=== PATIENT | male | born 1950 | race Caucasian/White ===

== ENCOUNTER → 2016-08-27 | Outpatient (CLI) | payer MEDICARE, BC ==
--- NOTE | 2016-08-27 11:50 | XR ---
EXAMINATION TYPE: XR chest 2V DATE OF EXAM: 08/27/2016 11:43 AM COMPARISON: 08/10/2015 INDICATION: Cough TECHNIQUE: 2 view chest FINDINGS: The heart size is normal. The pulmonary vasculature is normal. The lungs are clear. IMPRESSION: 1. No acute pulmonary process.
== END | disposition home or self-care (01) ==
LOC: RADXRMAIN 11:21
PROVIDERS: ATTEND Internal Medicine
DX: R05 Cough (principal)
CPT/HCPCS: 71020

== ENCOUNTER → 2017-09-25 | Outpatient (CLI) | payer MEDICARE ==
--- NOTE | 2017-09-25 11:14 | XR ---
EXAMINATION TYPE: XR chest 2V DATE OF EXAM: 09/25/2017 COMPARISON: Chest x-ray August 27, 2016 HISTORY: Shortness of breath TECHNIQUE: Frontal and lateral views of the chest are obtained. FINDINGS: There is no focal air space opacity, pleural effusion, or pneumothorax seen. The cardiac silhouette size is within normal limits. The osseous structures are intact. IMPRESSION: No acute cardiopulmonary process. No significant change from prior.
== END | disposition home or self-care (01) ==
LOC: RADXRMAIN 10:48
PROVIDERS: ATTEND Internal Medicine
DX: R06.02 Shortness of breath (principal)
CPT/HCPCS: 71046

== ENCOUNTER → 2018-11-19 | Outpatient (CLI) | payer MEDICARE ==
--- NOTE | 2018-11-19 10:01 | BD ---
EXAMINATION TYPE: Axial Bone Density DATE OF EXAM: 11/19/2018 COMPARISON: NONE CLINICAL HISTORY: 68 YR OLD MALE.....ICD-10 CODE: M89.9 DISORDER OF BONE Height: 70.5 Weight: 205 FRAX RISK QUESTIONS: Glucocorticoids (More than 3mos): YES (Ex: prednisone, prednisolone, methylprednisolone, dexamethasone, and hydrocortisone). History of Fracture in Adulthood: YES Current Tobacco Use: QUIT LONG AGO RISK FACTORS HISTORY OF: Hip Fracture BILAT HIP REPLACEMENTS 2004, 2006, 2007 HX OF PELVIS FX, L WRIST AND HAND, RT THUMB AND ELBOW , AND IMPACT FX OF LUMBAR SPINE ? WHICH ONES Spine Fracture: IMPACT FX OF LUMBAR SPINE 30 YRS AGO History of Wrist Fracture: YES, LT WRIST AN ADULT Surgery to BOTH HIPS IN THE Active: BEST HE CAN Lost more than 2 inches in height since high school: YES Frequent falls: MULTIPLE FXS MEDICATIONS: Prednisone or other steroids: INHALERS FOR EMPHYSEMA, How Long: YRS Additional Medications: BP MEDS, ZYRTEC, Additional History: EMPHYSEMA, HYPERTENSION, HAYFEVER EXAM MEASUREMENTS: Bone mineral densitometry was performed using the [employer] System. Bone mineral density as measured about the Lumbar spine is: ----- L1-L4(G/cm2): 1.433 T Score Values are as follows: ----- L1: 0.9 ----- L2: 1.5 ----- L3: 2.4 ----- L4: 3.1 ----- L1-L4: 2.1 Bone mineral density FIRST DEXA, BASELINE STUDY BILAT HIP REPLACEMENTS, AND NO FRAX Bone mineral density about the R Wrist (g/cm2): 0.784 T Score values are as follows: -----Prox. R+U: 0.3 -----Radius total: 0.0 Bone mineral density BASELINE STUDY IMPRESSION: Normal (Values between +1 and -1 indicate normal bone mass). Consider repeating this study in 5 year s or sooner if there is some new clinical indication. NOTE: T-SCORE=SD OF THE YOUNG ADULT MEAN.
== END | disposition home or self-care (01) ==
LOC: RADBDWWP 09:10
PROVIDERS: ATTEND Internal Medicine
DX: M89.9 Disorder of bone, unspecified (principal)
CPT/HCPCS: 77080

== ENCOUNTER 2018-12-08 21:46 | Inpatient (IN) | payer MEDICARE ==
[2018-12-08 22:38] LABS: Basophils # (A) 0.1 k/uL (0-0.2); Basophils % (A) 1 %; Eosinophils # (A) 0.1 k/uL (0-0.7); Eosinophils % (A) 1 %; HGB 14.1 gm/dL (13.0-17.5); Lymphocytes # (A) 2.4 k/uL (1.0-4.8); Lymphocytes % (A) 21 %; MCH 30.7 pg (25.0-35.0); MCHC 34.5 g/dL (31.0-37.0); Mean Platelet Volume 7.5; Monocytes # (A) 0.5 k/uL (0-1.0); Monocytes % (A) 4 %; Neutrophils # (A) 8.3 k/uL (1.3-7.7); Neutrophils % (A) 72 %; Platelet Count 261 k/uL (150-450); RDW 14.7 % (11.5-15.5); WBC 11.6 k/uL (3.8-10.6)
[2018-12-08 22:46] LABS: Albumin 4.1 g/dL (3.5-5.0); Calcium 9.2 mg/dL (8.4-10.2); Potassium 3.8 mmol/L (3.5-5.1); Total Bilirubin 0.8 mg/dL (0.2-1.3); Total Protein 7.3 g/dL (6.3-8.2)
[2018-12-08] MEDS ORDERED: SODIUM CHLORIDE 0.9% 1,000 ML IV ONE (22:52)
[2018-12-08 22:55] LABS: Glucose,Whole Blood 178 mg/dL (75-99)
--- NOTE | 2018-12-08 22:56 | ED ---
Abdominal Pain HPI - General Chief Complaint: Abdominal Pain Stated Complaint: NVD, pain in back Time Seen by Provider: 12/08/18 22:11 Source: patient Mode of arrival: wheelchair Limitations: no limitations - History of Present Illness Initial Comments: This patient is a 68-year-old man who presents with complaint of back and abdomen pain. The patient had been having some mid back pain that is been going on since 7pm, but then this evening at 8pm started having pain in the periumbilical portion of the abdomen. Patient believes he was having a kidney stone and therefore decided to be evaluated here. I did go to evaluate the patient and he was in the bathroom. I was then called to the bedside as the patient had returned from the bathroom somewhat disoriented and diaphoretic. Patient is not able to characterize the pain well he does appear delirious. MD Complaint: abdominal pain -: hour(s) Location: periumbilical Migration to: no migration Severity: severe Quality: other (Unable to characterize) Consistency: constant Improves With: nothing Worsens With: nothing Associated Symptoms: nausea, vomiting, other (Back pain) - Related Data Home Medications Medication Instructions Recorded Confirmed Atenolol [Tenormin] 50 mg PO QAM 01/09/15 12/08/18 Cetirizine HCl [Zyrtec] 10 mg PO QAM 01/09/15 12/08/18 Allergies Allergy/AdvReac Type Severity Reaction Status Date / Time No Known Allergies Allergy Verified 12/08/18 22:36 Review of Systems ROS Statement: Those systems with pertinent positive or pertinent negative responses have been documented in the HPI. ROS Other: All systems not noted in ROS Statement are negative. Limitations: ROS unobtainable due to patients medical condition Constitutional: Denies: fever Respiratory: Reports: dyspnea. 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 History of Any Multi-Drug Resistant Organisms: None Reported Past Surgical History: Joint Replacement, Orthopedic Surgery Additional Past Surgical History / Comment(s): bilateral hip replacement, left hip revision, amputation of tip of left thumb Past Anesthesia/Blood Transfusion Reactions: No Reported Reaction Past Psychological History: No Psychological Hx Reported Smoking Status: Former smoker Past Alcohol Use History: Occasional Past Drug Use History: Marijuana - Past Family History Father Family Medical History: Cancer, Myocardial Infarction ([place]) General Exam Limitations: no limitations General appearance: alert, in distress, other (Patient is diaphoretic and delirious. Pale appearing.) Head exam: Present: atraumatic, normocephalic Eye exam: Present: normal appearance, PERRL, EOMI, other (Conjunctival pallor). Absent: scleral icterus, conjunctival injection ENT exam: Present: mucous membranes dry, other (Mucosal pallor) Neck exam: Present: normal inspection, full ROM. Absent: meningismus Respiratory exam: Present: normal lung sounds bilaterally. Absent: respiratory distress, wheezes, rales, rhonchi, stridor Cardiovascular Exam: Present: normal rhythm, tachycardia (Rate approximately 132 BPM at my exam), normal heart sounds. Absent: systolic murmur, diastolic murmur, rubs, gallop GI/Abdominal exam: Present: soft. Absent: distended, tenderness, guarding, rebound, rigid, mass, pulsatile mass, hernia Extremities exam: Present: normal inspection, normal capillary refill. Absent: pedal edema, calf tenderness Back exam: Present: normal inspection. Absent: CVA tenderness (R), CVA tenderness (L) Neurological exam: Present: alert Skin exam: Present: intact, diaphoretic, mottled. Absent: rash, erythema, urticaria, vesicles, petechiae Course Vital Signs 12/08/18 12/08/18 12/08/18 22:05 22:50 22:56 Temperature 97.3 F L Pulse Rate 96 131 H 135 H Respiratory 16 12 37 H Rate Blood Pressure 110/74 101/79 72/49 O2 Sat by Pulse 99 100 96 Oximetry 12/08/18 12/08/18 12/08/18 23:10 23:30 23:37 Temperature 97.7 F Pulse Rate 88 83 81 Respiratory 28 H 31 H 16 Rate Blood Pressure 89/63 109/81 108/77 O2 Sat by Pulse 99 100 100 Oximetry 12/08/18 12/08/18 12/08/18 23:43 23:47 23:48 Temperature 97.7 F 98.1 F Pulse Rate 85 67 79 Respiratory 21 17 16 Rate Blood Pressure 102/67 113/78 115/74 O2 Sat by Pulse 100 10 L 100 Oximetry 12/08/18 12/09/18 12/09/18 23:55 00:05 00:10 Temperature Pulse Rate 77 74 73 Respiratory 16 11 L 11 L Rate Blood Pressure 106/67 104/74 114/74 O2 Sat by Pulse 99 100 100 Oximetry 12/09/18 00:20 Temperature Pulse Rate 72 Respiratory 13 Rate Blood Pressure 118/77 O2 Sat by Pulse 100 Oximetry - Reevaluation(s) Reevaluation #1: 12/08/18 23:22 68-year-old man with AAA, and dissection. Case has been discussed with vascular surgeon Dr. Mosqueda, and blood bank is aware and working on MBT protocol Reevaluation #2: 12/08/18 23:37 Cases been discussed again with Dr. Mosqueda, who has reviewed the computed tomog patricia scan and will attempt endovascular AAA repair. I have had the OR team and Director Of In Service Education team paged. I discussed the case with anesthesiologist who is also coming to see the patient. I have discussed the case with both patient and family. Medical Decision Making - Lab Data Result diagrams: 12/08/18 22:28 12/08/18 22:28 Lab Results 12/08/18 12/08/18 12/08/18 Range/Units 22:28 22:28 22:28 WBC 11.6 H (3.8-10.6) k/uL RBC 4.60 (4.30-5.90) m/uL Hgb 14.1 (13.0-17.5) gm/dL Hct 41.0 (39.0-53.0) % MCV 89.0 (80.0-100.0) fL MCH 30.7 (25.0-35.0) pg MCHC 34.5 (31.0-37.0) g/dL RDW 14.7 (11.5-15.5) % Plt Count 261 (150-450) k/uL Neutrophils % 72 % Lymphocytes % 21 % Monocytes % 4 % Eosinophils % 1 % Basophils % 1 % Neutrophils # 8.3 H (1.3-7.7) k/uL Lymphocytes # 2.4 (1.0-4.8) k/uL Monocytes # 0.5 (0-1.0) k/uL Eosinophils # 0.1 (0-0.7) k/uL Basophils # 0.1 (0-0.2) k/uL PT (9.0-12.0) sec INR (<1.2) APTT (22.0-30.0) sec Sodium 142 (137-145) mmol/L Potassium 3.8 (3.5-5.1) mmol/L Chloride 108 H (98-107) mmol/L Carbon Dioxide 21 L (22-30) mmol/L Anion Gap 13 mmol/L BUN 22 H (9-20) mg/dL Creatinine 1.44 H (0.66-1.25) mg/dL Est GFR (CKD-EPI)AfAm 58 (>60 ml/min/1.73 sqM) Est GFR (CKD-EPI)NonAf 50 (>60 ml/min/1.73 sqM) Glucose 179 H (74-99) mg/dL POC Glucose (mg/dL) (75-99) mg/dL POC Glu Production Planning Manager ID Plasma Lactic Acid Joe 4.5 H* (0.7-2.0) mmol/L Calcium 9.2 (8.4-10.2) mg/dL Total Bilirubin 0.8 (0.2-1.3) mg/dL AST 24 (17-59) U/L ALT 24 (21-72) U/L Alkaline Phosphatase 55 (38-126) U/L Total Protein 7.3 (6.3-8.2) g/dL Albumin 4.1 (3.5-5.0) g/dL Amylase 68 (30-110) U/L Lipase 112 (23-300) U/L Urine Color Urine Appearance (Clear) Urine pH (5.0-8.0) Ur Specific [place] (1.001-1.035) Urine Protein (Negative) Urine Glucose (UA) (Negative) Urine Ketones (Negative) Urine Blood (Negative) Urine Nitrite (Negative) Urine Bilirubin (Negative) Urine Urobilinogen (<2.0) mg/dL Ur Leukocyte Esterase (Negative) Stool Occult Blood (Negative) Serum Alcohol mg/dL Blood Type Blood Type Recheck Bld Type Recheck Status Antibody Screen Crossmatch Spec Expiration Date 12/08/18 12/08/18 12/08/18 Range/Units 22:28 22:28 22:53 WBC (3.8-10.6) k/uL RBC (4.30-5.90) m/uL Hgb (13.0-17.5) gm/dL Hct (39.0-53.0) % MCV (80.0-100.0) fL MCH (25.0-35.0) pg MCHC (31.0-37.0) g/dL RDW (11.5-15.5) % Plt Count (150-450) k/uL Neutrophils % % Lymphocytes % % Monocytes % % Eosinophils % % Basophils % % Neutrophils # (1.3-7.7) k/uL Lymphocytes # (1.0-4.8) k/uL Monocytes # (0-1.0) k/uL Eosinophils # (0-0.7) k/uL Basophils # (0-0.2) k/uL PT 10.4 (9.0-12.0) sec INR 1.0 (<1.2) APTT 19.1 L (22.0-30.0) sec Sodium (137-145) mmol/L Potassium (3.5-5.1) mmol/L Chloride (98-107) mmol/L Carbon Dioxide (22-30) mmol/L Anion Gap mmol/L BUN (9-20) mg/dL Creatinine (0.66-1.25) mg/dL Est GFR (CKD-EPI)AfAm (>60 ml/min/1.73 sqM) Est GFR (CKD-EPI)NonAf (>60 ml/min/1.73 sqM) Glucose (74-99) mg/dL POC Glucose (mg/dL) 178 H (75-99) mg/dL POC Glu Production Planning Manager ID Trinity Harris Plasma Lactic Acid Joe (0.7-2.0) mmol/L Calcium (8.4-10.2) mg/dL Total Bilirubin (0.2-1.3) mg/dL AST (17-59) U/L ALT (21-72) U/L Alkaline Phosphatase (38-126) U/L Total Protein (6.3-8.2) g/dL Albumin (3.5-5.0) g/dL Amylase (30-110) U/L Lipase (23-300) U/L Urine Color Urine Appearance (Clear) Urine pH (5.0-8.0) Ur Specific [place] (1.001-1.035) Urine Protein (Negative) Urine Glucose (UA) (Negative) Urine Ketones (Negative) Urine Blood (Negative) Urine Nitrite (Negative) Urine Bilirubin (Negative) Urine Urobilinogen (<2.0) mg/dL Ur Leukocyte Esterase (Negative) Stool Occult Blood (Negative) Serum Alcohol <10 mg/dL Blood Type Blood Type Recheck Bld Type Recheck Status Antibody Screen Crossmatch Spec Expiration Date 12/08/18 12/08/18 12/08/18 Range/Units 22:56 22:56 23:23 WBC (3.8-10.6) k/uL RBC (4.30-5.90) m/uL Hgb (13.0-17.5) gm/dL Hct (39.0-53.0) % MCV (80.0-100.0) fL MCH (25.0-35.0) pg MCHC (31.0-37.0) g/dL RDW (11.5-15.5) % Plt Count (150-450) k/uL Neutrophils % % Lymphocytes % % Monocytes % % Eosinophils % % Basophils % % Neutrophils # (1.3-7.7) k/uL Lymphocytes # (1.0-4.8) k/uL Monocytes # (0-1.0) k/uL Eosinophils # (0-0.7) k/uL Basophils # (0-0.2) k/uL PT (9.0-12.0) sec INR (<1.2) APTT (22.0-30.0) sec Sodium (137-145) mmol/L Potassium (3.5-5.1) mmol/L Chloride (98-107) mmol/L Carbon Dioxide (22-30) mmol/L Anion Gap mmol/L BUN (9-20) mg/dL Creatinine (0.66-1.25) mg/dL Est GFR (CKD-EPI)AfAm (>60 ml/min/1.73 sqM) Est GFR (CKD-EPI)NonAf (>60 ml/min/1.73 sqM) Glucose (74-99) mg/dL POC Glucose (mg/dL) (75-99) mg/dL POC Glu Production Planning Manager ID Plasma Lactic Acid Joe (0.7-2.0) mmol/L Calcium (8.4-10.2) mg/dL Total Bilirubin (0.2-1.3) mg/dL AST (17-59) U/L ALT (21-72) U/L Alkaline Phosphatase (38-126) U/L Total Protein (6.3-8.2) g/dL Albumin (3.5-5.0) g/dL Amylase (30-110) U/L Lipase (23-300) U/L Urine Color Yellow Urine Appearance Clear (Clear) Urine pH 7.0 (5.0-8.0) Ur Specific [place] 1.021 (1.001-1.035) Urine Protein Trace H (Negative) Urine Glucose (UA) Negative (Negative) Urine Ketones Negative (Negative) Urine Blood Negative (Negative) Urine Nitrite Negative (Negative) Urine Bilirubin Negative (Negative) Urine Urobilinogen 3.0 (<2.0) mg/dL Ur Leukocyte Esterase Negative (Negative) Stool Occult Blood Negative (Negative) Serum Alcohol mg/dL Blood Type A Positive Blood Type Recheck A Pos Bld Type Recheck Status No Antibody Screen NEGATIVE Crossmatch See Detail Spec Expiration Date 12/11/2018 - 0283 - EKG Data EKG shows normal: sinus rhythm, axis (Normal), intervals (Normal), QRS complexes (LVH), ST-T waves Rate: tachycardia (Rate approximate 129 bpm) Interpretation: nonspecific ST-T wave changes, LVH Critical Care Time Critical Care Time: Yes (55 minutes) Disposition Clinical Impression: AAA (abdominal aortic aneurysm, ruptured), Lactic acidosis Disposition: ADMITTED IP TO THIS [facility] Condition: Critical Referrals: Bryant Méndez MD [Primary Care Provider] - 1-2 days
[2018-12-08 23:17] LABS: Prothrombin Time 10.4 sec (9.0-12.0)
[2018-12-08] MEDS ORDERED: ESMOLOL IN SODIUM CHLORIDE PMX 2.5 GM in SALINE 1 250ML.BAG IV ONE (23:31)
[2018-12-08] MEDS ORDERED: MORPHINE SULFATE 4 MG/ML SYRINGE IVP STA (23:33)
[2018-12-08 23:36] LABS: Partial Thromboplastin Time 19.1 sec (22.0-30.0)
--- NOTE | 2018-12-08 23:37 | CT ---
EXAM: CT Angiography Abdomen and Pelvis With Intravenous Contrast CLINICAL HISTORY: ITS.REASON CT Reason: Pain TECHNIQUE: Axial computed tomographic angiography images of the abdomen and pelvis with intravenous contrast. This CT exam was performed using one or more of the following dose reduction techniques: automated exposure control, adjustment of the mA and/or kV according to patient size, and/or use of iterative reconstruction technique. 3D reconstructed images were created and reviewed. COMPARISON: No relevant prior studies available. FINDINGS: VASCULATURE: Aorta: 5.5 cm infrarenal AAA. Luminal irregularity is present. There is extensive periaortic and right retroperitoneal hematoma. Celiac trunk and mesenteric arteries: No suspicious findings. No occlusion or significant stenosis. Renal arteries: No suspicious findings. No occlusion or significant stenosis. Iliac arteries: No suspicious findings. No occlusion or significant stenosis. Lung bases: Unremarkable. No mass. No consolidation. ABDOMEN: Liver: No mass. Gallbladder and bile ducts: Unremarkable. No calcified stones. No ductal dilation. Pancreas: Unremarkable. No ductal dilation. No mass. Spleen: Unremarkable. No splenomegaly. Adrenals: Unremarkable. No mass. Kidneys and ureters: Unremarkable. No hydronephrosis. No solid mass. Stomach and bowel: Unremarkable. No obstruction. No mucosal thickening. PELVIS: Appendix: No findings to suggest acute appendicitis. Bladder: Unremarkable. No mass. Reproductive: Unremarkable as visualized. ABDOMEN and PELVIS: Intraperitoneal space: Unremarkable. No significant fluid collection. No free air. Bones/joints: No acute fracture. No dislocation. Soft tissues: Unremarkable. Lymph nodes: Unremarkable. No enlarged lymph nodes. IMPRESSION: 5.5 cm infrarenal AAA. Luminal irregularity is present. There is extensive periaortic and right retroperitoneal hematoma. Consistent with ruptured AAA. EXAM: CT Angiography Chest With Intravenous Contrast CLINICAL HISTORY: ITS.REASON CT Reason: Pain TECHNIQUE: Axial computed tomographic angiography images of the chest with intravenous contrast using pulmonary embolism protocol. This CT exam was performed using one or more of the following dose reduction techniques: automated exposure control, adjustment of the mA and/or kV according to patient size, and/or use of iterative reconstruction technique. 3D reconstructed images were created and reviewed. COMPARISON: No relevant prior studies available. FINDINGS: Pulmonary arteries: Unremarkable. No pulmonary embolism. Aorta: No suspicious findings. No thoracic aortic aneurysm. Lungs: Unremarkable. No mass. No consolidation. Pleural space: Unremarkable. No significant effusion. No pneumothorax. Heart: Unremarkable. No cardiomegaly. No significant pericardial effusion. No evidence of RV dysfunction. Bones/joints: No acute fracture. No dislocation. Soft tissues: Unremarkable. Lymph nodes: Unremarkable. No enlarged lymph nodes. IMPRESSION: Normal chest CTA. No pulmonary embolism. <MYCVCSECTION> Critical Value Communications 12/08/18 23:39 Call Doctor Regarding Aneurysm Rupture, called Dr. Velazquez on 12/08 23:39 (-04:00)
[2018-12-08] MEDS ORDERED: HYDROmorphone 1 MG/ML 1 ML SYRINGE IVP STA (23:43)
[2018-12-08 23:47] LABS: Appearance,Urine Clear (Clear); Bilirubin,Urine Negative (Negative); Blood,Urine Negative (Negative); Color,Urine Yellow; Glucose,Urine (UA) Negative (Negative); Ketones,Urine Negative (Negative); Leukocyte Esterase,Urine Negative (Negative); Nitrite,Urine Negative (Negative); Protein,Urine Trace (Negative); Specific Gravity,Urine 1.021 (1.001-1.035)
[2018-12-09] MEDS ORDERED: ESMOLOL 100 MG/10 ML VIAL ONE (00:54)
[2018-12-09] MEDS ORDERED: IV FLUID CONTINUATION 1,000 ML IV ONE ×3 (00:54)
[2018-12-09] MEDS ORDERED: HEPARIN SODIUM,PORCINE 10,000 UNIT/ML 1 ML VIAL ONE ×2 (00:54)
[2018-12-09] MEDS ORDERED: MIDAZOLAM 2 MG/2 ML VIAL ONE (00:54)
[2018-12-09] MEDS ORDERED: fentaNYL (PF) 50 MCG/ML 2 ML AMP ONE (00:54)
[2018-12-09] MEDS ORDERED: ceFAZolin 1,000 MG VIAL ONE (00:54)
[2018-12-09] MEDS ORDERED: NITROGLYCERIN-D5W PMX 50 MG/250 ML BOTTLE IV ONE (00:54)
[2018-12-09] MEDS ORDERED: LACTATED RINGERS 1,000 ML BAG IV ONE (00:54)
--- NOTE | 2018-12-09 00:55 | P.GSHP ---
History of Present Illness H&P Date: 12/09/18 Chief Complaint: Ruptured AAA 68 year old male presented to the ER secondary to acute onset abdominal and back pain with nausea, vomiting. He was found to have a ruptured 5.7cm AAA on CTA. He was treated in the trauma bay with fluids, and permissive hypotension. He currently states having mild discomfort radiating to his back but feels slightly better than earlier. 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 History of Any Multi-Drug Resistant Organisms: None Reported Past Surgical History: Joint Replacement, Orthopedic Surgery Additional Past Surgical History / Comment(s): bilateral hip replacement, left hip revision, amputation of tip of left thumb Past Anesthesia/Blood Transfusion Reactions: No Reported Reaction Past Psychological History: No Psychological Hx Reported Smoking Status: Former smoker Past Alcohol Use History: Occasional Past Drug Use History: Marijuana - Past Family History Father Family Medical History: Cancer, Myocardial Infarction ([place]) Medications and Allergies Home Medications Medication Instructions Recorded Confirmed Type Atenolol [Tenormin] 50 mg PO QAM 01/09/15 12/08/18 History Cetirizine HCl [Zyrtec] 10 mg PO QAM 01/09/15 12/08/18 History Allergies Allergy/AdvReac Type Severity Reaction Status Date / Time No Known Allergies Allergy Verified 12/08/18 22:36 Surgical - Exam Vital Signs Temp Pulse Resp BP Pulse Ox 97.3 F L 96 16 110/74 99 12/08/18 22:05 12/08/18 22:05 12/08/18 22:05 12/08/18 22:05 12/08/18 22:05 diaphoretic, awake, alert and oriented x 4 abdomen is distended, mild tenderness Palpable femoral, and dp pulses bilaterally. - General well developed, moderate distress - Eyes PERRL, normal ocular movement - Neck no masses - Respiratory normal expansion, clear to auscultation - Cardiovascular Rhythm: regular Results - Labs 12/08/18 22:28 12/08/18 22:28 Abnormal Lab Results - Last 24 Hours (Table) 12/08/18 12/08/18 12/08/18 Range/Units 22:28 22:28 22:28 WBC 11.6 H (3.8-10.6) k/uL Neutrophils # 8.3 H (1.3-7.7) k/uL APTT (22.0-30.0) sec Chloride 108 H (98-107) mmol/L Carbon Dioxide 21 L (22-30) mmol/L BUN 22 H (9-20) mg/dL Creatinine 1.44 H (0.66-1.25) mg/dL Glucose 179 H (74-99) mg/dL POC Glucose (mg/dL) (75-99) mg/dL Plasma Lactic Acid Joe 4.5 H* (0.7-2.0) mmol/L Urine Protein (Negative) Crossmatch 12/08/18 12/08/18 12/08/18 Range/Units 22:28 22:53 22:56 WBC (3.8-10.6) k/uL Neutrophils # (1.3-7.7) k/uL APTT 19.1 L (22.0-30.0) sec Chloride (98-107) mmol/L Carbon Dioxide (22-30) mmol/L BUN (9-20) mg/dL Creatinine (0.66-1.25) mg/dL Glucose (74-99) mg/dL POC Glucose (mg/dL) 178 H (75-99) mg/dL Plasma Lactic Acid Joe (0.7-2.0) mmol/L Urine Protein (Negative) Crossmatch See Detail 12/08/18 Range/Units 23:23 WBC (3.8-10.6) k/uL Neutrophils # (1.3-7.7) k/uL APTT (22.0-30.0) sec Chloride (98-107) mmol/L Carbon Dioxide (22-30) mmol/L BUN (9-20) mg/dL Creatinine (0.66-1.25) mg/dL Glucose (74-99) mg/dL POC Glucose (mg/dL) (75-99) mg/dL Plasma Lactic Acid Joe (0.7-2.0) mmol/L Urine Protein Trace H (Negative) Crossmatch Diabetes panel 12/08/18 Range/Units 22:28 Sodium 142 (137-145) mmol/L Potassium 3.8 (3.5-5.1) mmol/L Chloride 108 H (98-107) mmol/L Carbon Dioxide 21 L (22-30) mmol/L BUN 22 H (9-20) mg/dL Creatinine 1.44 H (0.66-1.25) mg/dL Glucose 179 H (74-99) mg/dL Calcium 9.2 (8.4-10.2) mg/dL AST 24 (17-59) U/L ALT 24 (21-72) U/L Alkaline Phosphatase 55 (38-126) U/L Total Protein 7.3 (6.3-8.2) g/dL Albumin 4.1 (3.5-5.0) g/dL Calcium panel 12/08/18 Range/Units 22:28 Calcium 9.2 (8.4-10.2) mg/dL Albumin 4.1 (3.5-5.0) g/dL Pituitary panel 12/08/18 Range/Units 22:28 Sodium 142 (137-145) mmol/L Potassium 3.8 (3.5-5.1) mmol/L Chloride 108 H (98-107) mmol/L Carbon Dioxide 21 L (22-30) mmol/L BUN 22 H (9-20) mg/dL Creatinine 1.44 H (0.66-1.25) mg/dL Glucose 179 H (74-99) mg/dL Calcium 9.2 (8.4-10.2) mg/dL Adrenal panel 12/08/18 Range/Units 22:28 Sodium 142 (137-145) mmol/L Potassium 3.8 (3.5-5.1) mmol/L Chloride 108 H (98-107) mmol/L Carbon Dioxide 21 L (22-30) mmol/L BUN 22 H (9-20) mg/dL Creatinine 1.44 H (0.66-1.25) mg/dL Glucose 179 H (74-99) mg/dL Calcium 9.2 (8.4-10.2) mg/dL Total Bilirubin 0.8 (0.2-1.3) mg/dL AST 24 (17-59) U/L ALT 24 (21-72) U/L Alkaline Phosphatase 55 (38-126) U/L Total Protein 7.3 (6.3-8.2) g/dL Albumin 4.1 (3.5-5.0) g/dL Assessment and Plan Assessment: Ruptured 5.7 cm infrarenal AAA HTN h/o bilateral hip surgery Plan: Called at 11:40 pm from the ER for ruptured AAA seen on CTA. Immediately called in label stitcher and OR teams for endovascular repair. Patient was kept at SBP around 100. Esmolol was ordered and patient was type and crossed. Upon arrival to the ER I spoke with family and patient and described surgical intervention and possible risks, and complications of surgery. Patient and family agreeable to surgery and taken to OR for emergent EVAR.
[2018-12-09 01:35] LABS: ABG Base Excess -2.4 mmol/L; ABG Glucose Whole Blood 175 mg/dL (75-99); ABG HCO3 24 mmol/L (21-25); ABG Hematocrit 36 % (34.0-46.0); ABG Ionized Calcium 4.3 mg/dL (4.5-5.3); ABG Oxygen Saturation 99.1 % (94-97); ABG PCO2 49 mmHg (35-45); ABG PO2 166 mmHg (83-108); ABG Potassium Whole Blood 4.3 mmol/L (3.4-4.5); ABG Sodium Whole Blood 144 mmol/L (135-146); ABG TCO2 26 mmol/L (19-24)
[2018-12-09] MEDS ORDERED: SODIUM CHLORIDE 0.9% 500 ML 500 ML IV ONE ×3 (01:37→12:30)
[2018-12-09] MEDS ORDERED: LIDOCAINE 1% INJ 10MG/ML (20 ML MDV) SQ ONE ×2 (01:46)
[2018-12-09] MEDS ORDERED: HEPARIN SODIUM,PORCINE 10,000 UNIT in SODIUM CHLORIDE 0.9% 1,000 ML IRRIGATION ONE (01:47)
[2018-12-09] MEDS ORDERED: SODIUM CHLORIDE 0.9% IRRIGATION ONE (01:48)
[2018-12-09] MEDS ORDERED: BACITRACIN IRRIGATION ONE (01:48)
[2018-12-09] MEDS ORDERED: CEFAZOLIN IRRIGATION ONE (01:48)
[2018-12-09] MEDS ORDERED: THROMBIN (BOVINE) 5,000 UNIT VIAL TOPICAL ONE (01:49)
[2018-12-09] MEDS ORDERED: GELATIN SPONGE,ABSORB (LARGE) 1 EACH SPONGE TOPICAL ONE (01:49)
[2018-12-09] MEDS ORDERED: IOPAMIDOL-370 50ML BTL MISCELLANE ONE (02:03)
[2018-12-09 02:44] LABS: Glucose,Whole Blood 141 mg/dL (75-99)
[2018-12-09] MEDS ORDERED: HYDROcodone/APAP 5-325MG 1 EACH TAB PO PRN (02:47)
[2018-12-09 02:50] LABS: ABG Lactic Acid Whole Blood 2.2 mmol/L (0.5-1.6)
[2018-12-09] MEDS: SODIUM CHLORIDE 0.9% 1,000 ML IV SCH ×3 (02:56→19:38)
[2018-12-09] MEDS ORDERED: NITROGLYCERIN-D5W PMX 50 MG in DEXTROSE/WATER 1 250ML.BAG IV SCH (03:00)
[2018-12-09 05:34] LABS: Basophils % (A) 0 %; Eosinophils % (A) 0 %; HCT 36.4 % (39.0-53.0); HGB 12.2 gm/dL (13.0-17.5); Lymphocytes % (A) 7 %; MCH 30.8 pg (25.0-35.0); MCHC 33.4 g/dL (31.0-37.0); MCV 92.3 fL (80.0-100.0); Mean Platelet Volume 7.6; Monocytes # (A) 0.6 k/uL (0-1.0); Monocytes % (A) 5 %; Neutrophils # (A) 12.5 k/uL (1.3-7.7); Neutrophils % (A) 88 %; Platelet Count 207 k/uL (150-450); RBC 3.94 m/uL (4.30-5.90); RDW 15.1 % (11.5-15.5); WBC 14.3 k/uL (3.8-10.6)
[2018-12-09] MEDS: ONDANSETRON 4 MG/2 ML VIAL IVP PRN ×3 (05:52→18:03)
[2018-12-09 06:06] LABS: Calcium 7.7 mg/dL (8.4-10.2); Potassium 5.3 mmol/L (3.5-5.1)
[2018-12-09 06:15] VITALS: BMI 30.1
--- NOTE | 2018-12-09 06:41 | P.OP ---
Date of Procedure: 12/09/18 Preoperative Diagnosis: Ruptured Infrarenal AAA Postoperative Diagnosis: Same Procedure(s) Performed: EVAR with AFX2 device under ultrasound guided femoral access with pecutaneous closure Implants: AFX2 device Anesthesia: MAC, local Surgeon: Kermit Mosqueda Estimated Blood Loss (ml): 25 IV fluids (ml): 900 Pathology: none sent Condition: stable Disposition: ICU Indications for Procedure: 68 year old gentleman presented to ER with abdominal and back pain diagnosed with ruptured AAA on CTA presents to OR for emergent endovascular aortic repair. Description of Procedure: After verbal consent was obtained from the patient and family and all risks, benefits and complications were described the patient was brought to the operative suite and laid in a supine position. The area of the abdomen and gr oins were prepped and draped in the usual sterile fashion after appropriate anesthesia was performed per anesthesiologist. Bilateral femoral arteries were visualized with ultrasound and shown to be patent without significant plaque, the skin overlying each vessel was then infused with lidocaine. The femoral arteries were then cannulated under ultrasound guidance and two perclose closure systems were placed for the right femoral artery followed by an 8 uzbek sheath and a 7 uzbek sheath was placed for the left femoral artery. .035 glidewires were then placed into the descending aorta from both femoral sheaths, followed by an angled glide catheter for the right femoral sheath and exchanged with a stiff Lunderquist wire. The catheter was then removed as well as the 8 uzbek sheath and the AFX2 delivery sheath was placed just above the iliac bifurcation. Patient was then given heparin and followed with serial ACTs and redosed appropriately. A snare catheter was then placed up the left femoral sheath and attention was then placed to deployment of the main body. A 28mm AFX2 main body was then guided over the stiff wire and the up and over wire was grasped with the snare and brought out the contralateral sheath in usual fashion. Once the main body was placed at the bifurcation and pulled snug to the bifurcation in was then deployed in normal fashion. A pigtail catheter was then placed up the contralateral sheath to dislodge the up and over wire and the wire was removed. The ipsilateral iliac portion of the main body was then deployed in usual fashion. The nose cone was then recaptured and the deployment sheath was placed through the graft to the L1 vertebrae level. Inner deployment delivery system was removed and aortogram was obtained through the pigtail catheter and the renal arteries were marked for landing of the Harper cuff. A 28 mm Harper cuff was then deployed in usual fashion at the renal arteries in usual fashion. The pigtail catheter was then retracted and placed within the grafts and then above the renal arteries. A Coda balloon was then placed through the right femoral sheath after the deployment device was removed and the graft was angioplastied throughout the overlap areas. Final aortogram was then obtained revealing no evidence of endoleak and sealed aortic aneurysm with brisk flow through both iliac arteries. All guidewires, catheters and sheaths were removed. The closure devices for the right femoral artery were then secured and hemostasis was achieved. An 8 uzbek angioseal was then placed for the left 7 uzbek sheath in normal fashion and good hemostasis was achieved. The incision sites were then cleansed and dressings were placed. The patient tolerated the procedure well and had palpable femoral, DP pulses at the conclusion of the procedure. He was then sent to ICU for recovery.
--- NOTE | 2018-12-09 07:27 | FL ---
Fluoroscopy INDICATION: Pain FINDINGS: Fluoroscopy time: 17 minutes 33 seconds. Images obtained: 3. Images document contrast through the aortic stent in the left iliac artery. IMPRESSIONS: 1. Documentation of fluoroscopy.
[2018-12-09] MEDS: HYDROmorphone 0.5 MG/0.5 ML SYRINGE IVP PRN ×4 (07:58→21:29)
[2018-12-09] MEDS: ASPIRIN 81 MG PO SCH (08:36)
[2018-12-09] MEDS: ATENOLOL 50 MG TAB PO SCH (08:36)
--- NOTE | 2018-12-09 09:22 | P.PN ---
Subjective Progress Note Date: 12/09/18 Patient seen and examined. No issues since surgery. Abd pain is much improved from admission. Still feels like he needs to have bowel movement. Some nausea. Objective - Vital Signs Vital signs: Vital Signs Temp 95.7 F L 12/09/18 03:00 Pulse 103 H 12/09/18 07:00 Resp 20 12/09/18 07:00 BP 109/77 12/09/18 03:15 Pulse Ox 97 12/09/18 07:00 Intake & Output 12/08/18 12/09/18 12/09/18 18:59 06:59 18:59 Intake Total 883.519 125 Output Total 360 75 Balance 523.519 50 Weight 95.254 kg Intake: IV 501 Intake, IV Titration 382.519 125 Amount Esmolol in Sodium 7.144 Chloride Pmx 2.5 gm In Saline 1 250ml.bag @ 25 MCG/KG/MIN 14.288 mls/hr IV .[id number] [facility] Rx#: [id number] Nitroglycerin-D5w Pmx 50 0.375 mg In Dextrose/Water 1 250ml.bag @ Titrate IV . Q0M [facility] Rx#:[id number] Sodium Chloride 0.9% 1, 375 125 000 ml @ 125 mls/hr IV . Q8H [facility] Rx#:[id number] Blood Product 0 Rc As-1 Unit 0 [id number] Output: Urine 310 75 Estimated Blood Loss 50 Other: # Emeses 2 ABP, PAP, CO, CI - Last Documented Arterial Blood Pressure 123/78 - Exam NAD resting comfortably at this time Heart Tachy Resp no resp distress Abd soft, mild distended, minimal TTP R>L Ext Groins clean, dry, no hematoma palp DP bilat - Labs CBC & Chem 7: 12/09/18 03:20 12/09/18 03:20 Labs: Abnormal Lab Results - Last 24 Hours (Table) 12/08/18 12/08/18 12/08/18 Range/Units 22:28 22:28 22:28 WBC 11.6 H (3.8-10.6) k/uL RBC (4.30-5.90) m/uL Hgb (13.0-17.5) gm/dL Hct (39.0-53.0) % Neutrophils # 8.3 H (1.3-7.7) k/uL APTT (22.0-30.0) sec ABG pH (7.35-7.45) ABG pCO2 (35-45) mmHg ABG pO2 (83-108) mmHg ABG Total CO2 (19-24) mmol/L ABG O2 Saturation (94-97) % ABG Ionized Calcium (4.5-5.3) mg/dL ABG Glucose (75-99) mg/dL ABG Lactic Acid (0.5-1.6) mmol/L Hemoglobin (13.0-17.5) gm/dL Potassium (3.5-5.1) mmol/L Chloride 108 H (98-107) mmol/L Carbon Dioxide 21 L (22-30) mmol/L BUN 22 H (9-20) mg/dL Creatinine 1.44 H (0.66-1.25) mg/dL Glucose 179 H (74-99) mg/dL POC Glucose (mg/dL) (75-99) mg/dL Plasma Lactic Acid Joe 4.5 H* (0.7-2.0) mmol/L Calcium (8.4-10.2) mg/dL Arterial Blood Glucose (75-99) mg/dL Urine Protein (Negative) Crossmatch 12/08/18 12/08/18 12/08/18 Range/Units 22:28 22:53 22:56 WBC (3.8-10.6) k/uL RBC (4.30-5.90) m/uL Hgb (13.0-17.5) gm/dL Hct (39.0-53.0) % Neutrophils # (1.3-7.7) k/uL APTT 19.1 L (22.0-30.0) sec ABG pH (7.35-7.45) ABG pCO2 (35-45) mmHg ABG pO2 (83-108) mmHg ABG Total CO2 (19-24) mmol/L ABG O2 Saturation (94-97) % ABG Ionized Calcium (4.5-5.3) mg/dL ABG Glucose (75-99) mg/dL ABG Lactic Acid (0.5-1.6) mmol/L Hemoglobin (13.0-17.5) gm/dL Potassium (3.5-5.1) mmol/L Chloride (98-107) mmol/L Carbon Dioxide (22-30) mmol/L BUN (9-20) mg/dL Creatinine (0.66-1.25) mg/dL Glucose (74-99) mg/dL POC Glucose (mg/dL) 178 H (75-99) mg/dL Plasma Lactic Acid Joe (0.7-2.0) mmol/L Calcium (8.4-10.2) mg/dL Arterial Blood Glucose (75-99) mg/dL Urine Protein (Negative) Crossmatch See Detail 12/08/18 12/09/18 12/09/18 Range/Units 23:23 01:30 02:42 WBC (3.8-10.6) k/uL RBC (4.30-5.90) m/uL Hgb (13.0-17.5) gm/dL Hct (39.0-53.0) % Neutrophils # (1.3-7.7) k/uL APTT (22.0-30.0) sec ABG pH 7.30 L (7.35-7.45) ABG pCO2 49 H (35-45) mmHg ABG pO2 166 H (83-108) mmHg ABG Total CO2 26 H (19-24) mmol/L ABG O2 Saturation 99.1 H (94-97) % ABG Ionized Calcium 4.3 L (4.5-5.3) mg/dL ABG Glucose 175 H (75-99) mg/dL ABG Lactic Acid 2.2 H* (0.5-1.6) mmol/L Hemoglobin 11.8 L (13.0-17.5) gm/dL Potassium (3.5-5.1) mmol/L Chloride (98-107) mmol/L Carbon Dioxide (22-30) mmol/L BUN (9-20) mg/dL Creatinine (0.66-1.25) mg/dL Glucose (74-99) mg/dL POC Glucose (mg/dL) 141 H (75-99) mg/dL Plasma Lactic Acid Joe (0.7-2.0) mmol/L Calcium (8.4-10.2) mg/dL Arterial Blood Glucose 175 H (75-99) mg/dL Urine Protein Trace H (Negative) Crossmatch 12/09/18 12/09/18 12/09/18 Range/Units 03:20 03:20 03:20 WBC 14.3 H (3.8-10.6) k/uL RBC 3.94 L (4.30-5.90) m/uL Hgb 12.2 L (13.0-17.5) gm/dL Hct 36.4 L (39.0-53.0) % Neutrophils # 12.5 H (1.3-7.7) k/uL APTT (22.0-30.0) sec ABG pH (7.35-7.45) ABG pCO2 (35-45) mmHg ABG pO2 (83-108) mmHg ABG Total CO2 (19-24) mmol/L ABG O2 Saturation (94-97) % ABG Ionized Calcium (4.5-5.3) mg/dL ABG Glucose (75-99) mg/dL ABG Lactic Acid (0.5-1.6) mmol/L Hemoglobin (13.0-17.5) gm/dL Potassium 5.3 H (3.5-5.1) mmol/L Chloride 112 H (98-107) mmol/L Carbon Dioxide (22-30) mmol/L BUN 22 H (9-20) mg/dL Creatinine 1.30 H (0.66-1.25) mg/dL Glucose 160 H (74-99) mg/dL POC Glucose (mg/dL) (75-99) mg/dL Plasma Lactic Acid Joe 2.1 H* (0.7-2.0) mmol/L Calcium 7.7 L (8.4-10.2) mg/dL Arterial Blood Glucose (75-99) mg/dL Urine Protein (Negative) Crossmatch 12/09/18 Range/Units 08:30 WBC (3.8-10.6) k/uL RBC (4.30-5.90) m/uL Hgb (13.0-17.5) gm/dL Hct (39.0-53.0) % Neutrophils # (1.3-7.7) k/uL APTT (22.0-30.0) sec ABG pH (7.35-7.45) ABG pCO2 (35-45) mmHg ABG pO2 (83-108) mmHg ABG Total CO2 (19-24) mmol/L ABG O2 Saturation (94-97) % ABG Ionized Calcium (4.5-5.3) mg/dL ABG Glucose (75-99) mg/dL ABG Lactic Acid (0.5-1.6) mmol/L Hemoglobin (13.0-17.5) gm/dL Potassium (3.5-5.1) mmol/L Chloride (98-107) mmol/L Carbon Dioxide (22-30) mmol/L BUN (9-20) mg/dL Creatinine (0.66-1.25) mg/dL Glucose (74-99) mg/dL POC Glucose (mg/dL) (75-99) mg/dL Plasma Lactic Acid Joe 2.9 H* (0.7-2.0) mmol/L Calcium (8.4-10.2) mg/dL Arterial Blood Glucose (75-99) mg/dL Urine Protein (Negative) Crossmatch Assessment and Plan Assessment: Ruptured 5.7 cm infrarenal AAA - s/p percutaneous EVAR with AFX HTN h/o bilateral hip surgery Lactic acidosis - improving Plan: Continue supportive care and resuscitation. NS bolus at this time. Repeat LA and cbc. transfuse PRN. Monitor UOP.
--- NOTE | 2018-12-09 10:03 | P.CNPUL ---
History of Present Illness Consult date: 12/09/18 Requesting physician: Torrie Mittal Reason for consult: other (Critical care management.) Chief complaint: Abdominal pain History of present illness: This is a very pleasant 68-year-old gentleman who follows with Dr. Gar as his primary care physician. He has a history of hypertension, gastroesophageal reflux disease, osteoarthritis with multiple joint replacements, occasional alcohol use, previous smoker. He presented to the emergency room last evening with complaints of back and abdominal discomfort. He stated he had been having some mid back pain ongoing since 7 PM at 8 PM he started having periumbilical portion of the abdomen with continued pain. He felt that may be he had a kidney stone and came to the emergency room. In the emergency room he became disoriented, delirious and diaphoretic. ET scan of the abdomen and pelvis revealed a 5.5 cm infrarenal abdominal aortic aneurysm. Luminal irregularity was present. There is extensive. Aortic and right retroperitoneal hematoma consistent with ruptured abdominal aortic aneurysm. He was taken emergently to the operating room for endovascular aortic repair which was performed by Dr. Mosqueda. He had performed a VATS with AF 2 device under ultrasound-guided femoral axis with percutaneous closure. His postoperative day #0. He is seen in consultation in the intensive care unit. Presently he is awake and alert in no acute distress. He is having some lower abdominal discomfort. Dr. Mittal was in to evaluate the patient. He currently has a 0.9 at 125 ML's per hour. He had received 1 unit of packed red blood cells thus far. He is maintaining oxygen in the 90s on 2 L/m per nasal cannula. His current hemoglobin is 12.2. White count 14.3. Sodium 139. Potassium 5.3. Creatinine 1.30. Lactic acid 2.9. He has been initiated on cefazolin, esmolol at 50 mcg/kg/m. Zofran for nausea. Review of Systems REVIEW OF SYSTEMS: CONSTITUTIONAL: Denies any recent significant weight loss or weight gain. EYES: Denies change in vision. EARS, NOSE, MOUTH, THROAT: Denies headaches, denies sore throat. CARDIOVASCULAR: Denies chest pain, palpitations or syncopal episodes. RESPIRATORY: Denies shortness of breath, cough, congestion or hemoptysis. GASTROINTESTINAL: Positive for lower abdominal pain GENITOURINARY: Denies hematuria, denies infections. MUSKULOSKELETAL: Denies pain, denies swelling. INTEGUMENTARY: Denies rash, denies eczema. NEUROLOGICAL: Denies recent memory loss, no recent seizure activity. PSYCHIATRIC: Denies anxiety, denies depression. HEMATOLOGIC/LYMPHATIC: Denies anemia, denies enlarged lymph nodes. 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 History of Any Multi-Drug Resistant Organisms: None Reported Past Surgical History: Joint Replacement, Orthopedic Surgery Additional Past Surgical History / Comment(s): bilateral hip replacement, left hip revision, amputation of tip of left thumb Past Anesthesia/Blood Transfusion Reactions: No Reported Reaction Past Psychological History: No Psychological Hx Reported Smoking Status: Former smoker Past Alcohol Use History: Occasional Past Drug Use History: Marijuana - Past Family History Father Family Medical History: Cancer, Myocardial Infarction ([place]) Medications and Allergies Home Medications Medication Instructions Recorded Confirmed Type Atenolol [Tenormin] 50 mg PO QAM 01/09/15 12/08/18 History Cetirizine HCl [Zyrtec] 10 mg PO QAM 01/09/15 12/08/18 History Allergies Allergy/AdvReac Type Severity Reaction Status Date / Time No Known Allergies Allergy Verified 12/08/18 22:36 Physical Exam Vitals: Vital Signs Temp Pulse Resp BP Pulse Ox 12/09/18 09:00 105 H 19 127/84 96 12/09/18 08:30 107 H 20 12/09/18 08:00 93.7 F L 87 17 131/96 96 12/09/18 07:00 103 H 20 97 12/09/18 06:45 105 H 25 H 97 12/09/18 06:30 98 23 97 12/09/18 06:15 97 25 H 97 12/09/18 06:00 97 23 97 12/09/18 05:45 105 H 23 97 12/09/18 05:30 103 H 22 97 12/09/18 05:15 123 H 22 94 L 12/09/18 05:00 104 H 18 97 12/09/18 04:45 100 23 97 12/09/18 04:30 92 20 99 12/09/18 04:15 90 21 97 12/09/18 04:00 88 23 99 12/09/18 03:45 89 16 98 12/09/18 03:30 90 19 98 12/09/18 03:15 89 16 109/77 98 12/09/18 03:00 95.7 F L 81 18 96 12/09/18 02:45 74 18 97 12/09/18 02:43 72 22 12/09/18 00:20 72 13 118/77 100 12/09/18 00:10 73 11 L 114/74 100 12/09/18 00:05 74 11 L 104/74 100 12/08/18 23:55 77 16 106/67 99 12/08/18 23:48 98.1 F 79 16 115/74 100 12/08/18 23:47 97.7 F 67 17 113/78 10 L 12/08/18 23:43 85 21 102/67 100 12/08/18 23:37 97.7 F 81 16 108/77 100 12/08/18 23:30 83 31 H 109/81 100 12/08/18 23:15 97 23 89/63 12/08/18 23:10 88 28 H 89/63 99 12/08/18 23:00 72/49 12/08/18 22:56 135 H 37 H 72/49 96 12/08/18 22:50 131 H 12 101/79 100 12/08/18 22:45 95 12/08/18 22:05 97.3 F L 96 16 110/74 99 Intake and Output 12/08/18 12/09/18 12/09/18 22:59 06:59 14:59 Intake Total 883.519 925 Output Total 360 205 Balance 523.519 720 Intake: IV 501 Intake, IV Titration 382.519 925 Amount Esmolol in Sodium 7.144 Chloride Pmx 2.5 gm In Saline 1 250ml.bag @ 25 MCG/KG/MIN 14.288 mls/hr IV .[id number] [facility] Rx#: [id number] Nitroglycerin-D5w Pmx 50 0.375 mg In Dextrose/Water 1 250ml.bag @ Titrate IV . Q0M [facility] Rx#:[id number] Sodium Chloride 0.9% 1, 375 375 000 ml @ 125 mls/hr IV . Q8H [facility] Rx#:[id number] Sodium Chloride 0.9% 500 500 ml 500 ml @ 999 mls/hr IV .Q31M [facility] Rx#:[id number] ceFAZolin 2 gm In Sodium 50 Chloride 0.9% 50 ml @ 100 mls/hr IVPB Q12HR [facility] Rx #:[id number] Blood Product 0 Rc As-1 Unit 0 [id number] Output: Urine 310 205 Estimated Blood Loss 50 Other: # Emeses 2 2 Weight 95.254 kg ABP, PAP, CO, CI - Last 8 Hours Arterial Blood Pressure 124/76 Arterial Blood Pressure 110/69 Arterial Blood Pressure 90/62 Arterial Blood Pressure 123/78 Arterial Blood Pressure 114/78 Arterial Blood Pressure 115/74 Arterial Blood Pressure 115/76 Arterial Blood Pressure 110/73 Arterial Blood Pressure 111/75 Arterial Blood Pressure 111/75 Arterial Blood Pressure 107/72 Arterial Blood Pressure 97/75 Arterial Blood Pressure 113/76 Arterial Blood Pressure 123/79 Arterial Blood Pressure 124/79 Arterial Blood Pressure 135/84 Arterial Blood Pressure 104/72 Arterial Blood Pressure 116/72 Arterial Blood Pressure 111/71 Arterial Blood Pressure 132/81 Arterial Blood Pressure 146/75 GENERAL EXAM: Alert, +68-year-old gentleman, comfortable in no apparent distress. 4 L/m per nasal cannula. HEAD: Normocephalic. EYES: Normal reaction of pupils, equal size. NOSE: Clear with pink turbinates. THROAT: No erythema or exudates. NECK: No masses, no JVD. CHEST: No chest wall deformity. LUNGS: Equal air entry with no crackles, wheeze, rhonchi or dullness. CVS: S1 and S2 normal with no audible murmur, regular rhythm. ABDOMEN: No hepatosplenomegaly, normal bowel sounds, no guarding or rigidity. SPINE: No scoliosis or deformity SKIN: No rashes CENTRAL NERVOUS SYSTEM: No focal deficits, tone is normal in all 4 extremities. EXTREMITIES: Lateral dressings to the groins are dry and intact. There is no peripheral edema. No clubbing, no cyanosis. Peripheral pulses are intact. Results - Laboratory Findings CBC and BMP: 12/09/18 03:20 12/09/18 03:20 ABG ABG pH 7.30 (7.35-7.45) L 12/09/18 01:30 ABG pCO2 49 mmHg (35-45) H 12/09/18 01:30 ABG pO2 166 mmHg (83-108) H 12/09/18 01:30 ABG O2 Saturation 99.1 % (94-97) H 12/09/18 01:30 PT/INR, D-dimer PT 10.4 sec (9.0-12.0) 12/08/18 22:28 INR 1.0 (<1.2) 12/08/18 22:28 Abnormal lab findings: Abnormal Labs 12/08/18 12/08/18 12/08/18 22:28 22:28 22:28 WBC 11.6 H RBC Hgb Hct Neutrophils # 8.3 H APTT ABG pH ABG pCO2 ABG pO2 ABG Total CO2 ABG O2 Saturation ABG Ionized Calcium ABG Glucose ABG Lactic Acid Hemoglobin Potassium Chloride 108 H Carbon Dioxide 21 L BUN 22 H Creatinine 1.44 H Glucose 179 H POC Glucose (mg/dL) Plasma Lactic Acid Joe 4.5 H* Calcium Arterial Blood Glucose Urine Protein Crossmatch 12/08/18 12/08/18 12/08/18 22:28 22:53 22:56 WBC RBC Hgb Hct Neutrophils # APTT 19.1 L ABG pH ABG pCO2 ABG pO2 ABG Total CO2 ABG O2 Saturation ABG Ionized Calcium ABG Glucose ABG Lactic Acid Hemoglobin Potassium Chloride Carbon Dioxide BUN Creatinine Glucose POC Glucose (mg/dL) 178 H Plasma Lactic Acid Joe Calcium Arterial Blood Glucose Urine Protein Crossmatch See Detail 12/08/18 12/09/18 12/09/18 23:23 01:30 02:42 WBC RBC Hgb Hct Neutrophils # APTT ABG pH 7.30 L ABG pCO2 49 H ABG pO2 166 H ABG Total CO2 26 H ABG O2 Saturation 99.1 H ABG Ionized Calcium 4.3 L ABG Glucose 175 H ABG Lactic Acid 2.2 H* Hemoglobin 11.8 L Potassium Chloride Carbon Dioxide BUN Creatinine Glucose POC Glucose (mg/dL) 141 H Plasma Lactic Acid Joe Calcium Arterial Blood Glucose 175 H Urine Protein Trace H Crossmatch 12/09/18 12/09/18 12/09/18 03:20 03:20 03:20 WBC 14.3 H RBC 3.94 L Hgb 12.2 L Hct 36.4 L Neutrophils # 12.5 H APTT ABG pH ABG pCO2 ABG pO2 ABG Total CO2 ABG O2 Saturation ABG Ionized Calcium ABG Glucose ABG Lactic Acid Hemoglobin Potassium 5.3 H Chloride 112 H Carbon Dioxide BUN 22 H Creatinine 1.30 H Glucose 160 H POC Glucose (mg/dL) Plasma Lactic Acid Joe 2.1 H* Calcium 7.7 L Arterial Blood Glucose Urine Protein Crossmatch 12/09/18 08:30 WBC RBC Hgb Hct Neutrophils # APTT ABG pH ABG pCO2 ABG pO2 ABG Total CO2 ABG O2 Saturation ABG Ionized Calcium ABG Glucose ABG Lactic Acid Hemoglobin Potassium Chloride Carbon Dioxide BUN Creatinine Glucose POC Glucose (mg/dL) Plasma Lactic Acid Joe 2.9 H* Calcium Arterial Blood Glucose Urine Protein Crossmatch Assessment and Plan Assessment: Impression: #1 Ruptured abdominal aortic aneurysm, status post percutaneous EVAR with AFX2 device placement under ultrasound guided femoral access and percutaneous closure. Postoperative day #0. #2 History of hypertension. #3 Gastroesophageal reflux disease. #4 Chronic tobacco dependence. Plan: The patient was seen and evaluated by Dr. Casillas. He is currently stable from the pulmonary and critical care standpoint. We'll continue to monitor him closely here in the ICU. Supply incentive spirometer and encourage cough and deep breathing exercises. Titrate down the FiO2 as tolerated. Continue to monitor his blood pressure closely. We'll continue to follow and make further recommendations based on his clinical status. I, the cosigning physician, performed a history & physical examination of the patient. Lungs sounds are clear. Maintaining good O2 saturations in the 90s on 2 L/m per nasal cannula I discussed the assessment and plan of care with my nurse practitioner, Melva Lynne. I attest to the above note as dictated by her. Time with Patient: Greater than 30
[2018-12-09 10:55] LABS: HGB 12.2 gm/dL (13.0-17.5); MCH 31.7 pg (25.0-35.0); MCV 93.4 fL (80.0-100.0); Mean Platelet Volume 8.7; Platelet Count 190 k/uL (150-450); RBC 3.86 m/uL (4.30-5.90); RDW 14.2 % (11.5-15.5); WBC 14.1 k/uL (3.8-10.6)
--- NOTE | 2018-12-09 11:28 | P.HPIM ---
History of Present Illness H&P Date: 12/09/18 This is a 68-year-old male patient who presented to the ER with complaint of back and abdominal pain. Patient reports the pain started around [address] of abdomen and pelvis completed showing a 5.5 cm infrarenal AAA. Luminal irregularity is present there is extensive para-aortic and right retroperitoneal hematoma consistent with a ruptured AAA. Patient was evaluated by surgical services and emergent EVAR with AFx2 with femoral access was performed. Patient has a past medical history of GERD, essential hypertension, bilateral neuropathy seasonal ALLERGIES and ex-smoker. Patient is currently resting comfortably in the intensive care unit. Critical care services are following. Patient still complaining of some abdominal discomfort. Patient remains on esmolol and nitroglycerin drips per cardiovascular. Patient denies chest pain or shortness of breath. She denies nausea vomiting or diarrhea. 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 History of Any Multi-Drug Resistant Organisms: None Reported Past Surgical History: Joint Replacement, Orthopedic Surgery Additional Past Surgical History / Comment(s): bilateral hip replacement, left hip revision, amputation of tip of left thumb Past Anesthesia/Blood Transfusion Reactions: No Reported Reaction Past Psychological History: No Psychological Hx Reported Smoking Status: Former smoker Past Alcohol Use History: Occasional Past Drug Use History: Marijuana - Past Family History Father Family Medical History: Cancer, Myocardial Infarction (NH) Medications and Allergies Home Medications Medication Instructions Recorded Confirmed Type Atenolol [Tenormin] 50 mg PO QAM 01/09/15 12/08/18 History Cetirizine HCl [Zyrtec] 10 mg PO QAM 01/09/15 12/08/18 History Allergies Allergy/AdvReac Type Severity Reaction Status Date / Time No Known Allergies Allergy Verified 12/08/18 22:36 Physical Exam Vitals: Vital Signs Temp Pulse Resp BP Pulse Ox 12/09/18 11:00 105 H 21 146/81 96 12/09/18 10:00 105 H 22 97/65 95 12/09/18 09:00 105 H 19 127/84 96 12/09/18 08:30 107 H 20 12/09/18 08:00 93.7 F L 87 17 131/96 96 12/09/18 07:00 103 H 20 97 12/09/18 06:45 105 H 25 H 97 12/09/18 06:30 98 23 97 12/09/18 06:15 97 25 H 97 12/09/18 06:00 97 23 97 12/09/18 05:45 105 H 23 97 12/09/18 05:30 103 H 22 97 12/09/18 05:15 123 H 22 94 L 12/09/18 05:00 104 H 18 97 12/09/18 04:45 100 23 97 12/09/18 04:30 92 20 99 12/09/18 04:15 90 21 97 12/09/18 04:00 88 23 99 12/09/18 03:45 89 16 98 12/09/18 03:30 90 19 98 12/09/18 03:15 89 16 109/77 98 12/09/18 03:00 95.7 F L 81 18 96 12/09/18 02:45 74 18 97 12/09/18 02:43 72 22 12/09/18 00:20 72 13 118/77 100 12/09/18 00:10 73 11 L 114/74 100 12/09/18 00:05 74 11 L 104/74 100 12/08/18 23:55 77 16 106/67 99 12/08/18 23:48 98.1 F 79 16 115/74 100 12/08/18 23:47 97.7 F 67 17 113/78 10 L 12/08/18 23:43 85 21 102/67 100 12/08/18 23:37 97.7 F 81 16 108/77 100 12/08/18 23:30 83 31 H 109/81 100 12/08/18 23:15 97 23 89/63 12/08/18 23:10 88 28 H 89/63 99 12/08/18 23:00 72/49 12/08/18 22:56 135 H 37 H 72/49 96 12/08/18 22:50 131 H 12 101/79 100 12/08/18 22:45 95 12/08/18 22:05 97.3 F L 96 16 110/74 99 Intake and Output 12/08/18 12/09/18 12/09/18 22:59 06:59 14:59 Intake Total 871.313 7507 Output Total 360 235 Balance 523.519 815 Intake: IV 501 Intake, IV Titration 744.138 4930 Amount Esmolol in Sodium 7.144 Chloride Pmx 2.5 gm In Saline 1 250ml.bag @ 25 MCG/KG/MIN 14.288 mls/hr IV .[id number] ONE Rx#: [id number] Nitroglycerin-D5w Pmx 50 0.375 mg In Dextrose/Water 1 250ml.bag @ Titrate IV . Q0M [facility] Rx#:[id number] Sodium Chloride 0.9% 1, 375 500 000 ml @ 125 mls/hr IV . Q8H [facility] Rx#:[id number] Sodium Chloride 0.9% 500 500 ml 500 ml @ 999 mls/hr IV .Q31M [facility] Rx#:[id number] ceFAZolin 2 gm In Sodium 50 Chloride 0.9% 50 ml @ 100 mls/hr IVPB Q12HR [facility] Rx #:[id number] Blood Product 0 Rc As-1 Unit 0 [id number] Output: Urine 310 235 Estimated Blood Loss 50 Other: # Emeses 2 2 Weight 95.254 kg ABP, PAP, CO, CI - Last 8 Hours Arterial Blood Pressure 129/72 Arterial Blood Pressure 122/73 Arterial Blood Pressure 124/76 Arterial Blood Pressure 110/69 Arterial Blood Pressure 90/62 Arterial Blood Pressure 123/78 Arterial Blood Pressure 114/78 Arterial Blood Pressure 115/74 Arterial Blood Pressure 115/76 Arterial Blood Pressure 110/73 Arterial Blood Pressure 111/75 Arterial Blood Pressure 111/75 Arterial Blood Pressure 107/72 Arterial Blood Pressure 97/75 Arterial Blood Pressure 113/76 Arterial Blood Pressure 123/79 Arterial Blood Pressure 124/79 Arterial Blood Pressure 135/84 Arterial Blood Pressure 104/72 Arterial Blood Pressure 116/72 Arterial Blood Pressure 111/71 Head normocephalic Neck supple Lungs clear to auscultation bilaterally no wheezing or crackles Heart regular rate and rhythm S1-S2, no rub or gallop Abdomen is soft nontender nondistended positive bowel sounds no hepatosplenomegaly Extremities no edema, femoral dressings clean dry and intact. Peripheral pulses equal and strong Neuro alert and orientated to 3 Results CBC & Chem 7: 12/09/18 10:42 12/09/18 03:20 Labs: Abnormal Lab Results - Last 24 Hours (Table) 12/08/18 12/08/18 12/08/18 Range/Units 22:28 22:28 22:28 WBC 11.6 H (3.8-10.6) k/uL RBC (4.30-5.90) m/uL Hgb (13.0-17.5) gm/dL Hct (39.0-53.0) % Neutrophils # 8.3 H (1.3-7.7) k/uL APTT (22.0-30.0) sec ABG pH (7.35-7.45) ABG pCO2 (35-45) mmHg ABG pO2 (83-108) mmHg ABG Total CO2 (19-24) mmol/L ABG O2 Saturation (94-97) % ABG Ionized Calcium (4.5-5.3) mg/dL ABG Glucose (75-99) mg/dL ABG Lactic Acid (0.5-1.6) mmol/L Hemoglobin (13.0-17.5) gm/dL Potassium (3.5-5.1) mmol/L Chloride 108 H (98-107) mmol/L Carbon Dioxide 21 L (22-30) mmol/L BUN 22 H (9-20) mg/dL Creatinine 1.44 H (0.66-1.25) mg/dL Glucose 179 H (74-99) mg/dL POC Glucose (mg/dL) (75-99) mg/dL Plasma Lactic Acid Joe 4.5 H* (0.7-2.0) mmol/L Calcium (8.4-10.2) mg/dL Arterial Blood Glucose (75-99) mg/dL Urine Protein (Negative) Crossmatch 12/08/18 12/08/18 12/08/18 Range/Units 22:28 22:53 22:56 WBC (3.8-10.6) k/uL RBC (4.30-5.90) m/uL Hgb (13.0-17.5) gm/dL Hct (39.0-53.0) % Neutrophils # (1.3-7.7) k/uL APTT 19.1 L (22.0-30.0) sec ABG pH (7.35-7.45) ABG pCO2 (35-45) mmHg ABG pO2 (83-108) mmHg ABG Total CO2 (19-24) mmol/L ABG O2 Saturation (94-97) % ABG Ionized Calcium (4.5-5.3) mg/dL ABG Glucose (75-99) mg/dL ABG Lactic Acid (0.5-1.6) mmol/L Hemoglobin (13.0-17.5) gm/dL Potassium (3.5-5.1) mmol/L Chloride (98-107) mmol/L Carbon Dioxide (22-30) mmol/L BUN (9-20) mg/dL Creatinine (0.66-1.25) mg/dL Glucose (74-99) mg/dL POC Glucose (mg/dL) 178 H (75-99) mg/dL Plasma Lactic Acid Joe (0.7-2.0) mmol/L Calcium (8.4-10.2) mg/dL Arterial Blood Glucose (75-99) mg/dL Urine Protein (Negative) Crossmatch See Detail 12/08/18 12/09/18 12/09/18 Range/Units 23:23 01:30 02:42 WBC (3.8-10.6) k/uL RBC (4.30-5.90) m/uL Hgb (13.0-17.5) gm/dL Hct (39.0-53.0) % Neutrophils # (1.3-7.7) k/uL APTT (22.0-30.0) sec ABG pH 7.30 L (7.35-7.45) ABG pCO2 49 H (35-45) mmHg ABG pO2 166 H (83-108) mmHg ABG Total CO2 26 H (19-24) mmol/L ABG O2 Saturation 99.1 H (94-97) % ABG Ionized Calcium 4.3 L (4.5-5.3) mg/dL ABG Glucose 175 H (75-99) mg/dL ABG Lactic Acid 2.2 H* (0.5-1.6) mmol/L Hemoglobin 11.8 L (13.0-17.5) gm/dL Potassium (3.5-5.1) mmol/L Chloride (98-107) mmol/L Carbon Dioxide (22-30) mmol/L BUN (9-20) mg/dL Creatinine (0.66-1.25) mg/dL Glucose (74-99) mg/dL POC Glucose (mg/dL) 141 H (75-99) mg/dL Plasma Lactic Acid Joe (0.7-2.0) mmol/L Calcium (8.4-10.2) mg/dL Arterial Blood Glucose 175 H (75-99) mg/dL Urine Protein Trace H (Negative) Crossmatch 12/09/18 12/09/18 12/09/18 Range/Units 03:20 03:20 03:20 WBC 14.3 H (3.8-10.6) k/uL RBC 3.94 L (4.30-5.90) m/uL Hgb 12.2 L (13.0-17.5) gm/dL Hct 36.4 L (39.0-53.0) % Neutrophils # 12.5 H (1.3-7.7) k/uL APTT (22.0-30.0) sec ABG pH (7.35-7.45) ABG pCO2 (35-45) mmHg ABG pO2 (83-108) mmHg ABG Total CO2 (19-24) mmol/L ABG O2 Saturation (94-97) % ABG Ionized Calcium (4.5-5.3) mg/dL ABG Glucose (75-99) mg/dL ABG Lactic Acid (0.5-1.6) mmol/L Hemoglobin (13.0-17.5) gm/dL Potassium 5.3 H (3.5-5.1) mmol/L Chloride 112 H (98-107) mmol/L Carbon Dioxide (22-30) mmol/L BUN 22 H (9-20) mg/dL Creatinine 1.30 H (0.66-1.25) mg/dL Glucose 160 H (74-99) mg/dL POC Glucose (mg/dL) (75-99) mg/dL Plasma Lactic Acid Joe 2.1 H* (0.7-2.0) mmol/L Calcium 7.7 L (8.4-10.2) mg/dL Arterial Blood Glucose (75-99) mg/dL Urine Protein (Negative) Crossmatch 12/09/18 12/09/18 Range/Units 08:30 10:42 WBC 14.1 H (3.8-10.6) k/uL RBC 3.86 L (4.30-5.90) m/uL Hgb 12.2 L (13.0-17.5) gm/dL Hct 36.0 L (39.0-53.0) % Neutrophils # (1.3-7.7) k/uL APTT (22.0-30.0) sec ABG pH (7.35-7.45) ABG pCO2 (35-45) mmHg ABG pO2 (83-108) mmHg ABG Total CO2 (19-24) mmol/L ABG O2 Saturation (94-97) % ABG Ionized Calcium (4.5-5.3) mg/dL ABG Glucose (75-99) mg/dL ABG Lactic Acid (0.5-1.6) mmol/L Hemoglobin (13.0-17.5) gm/dL Potassium (3.5-5.1) mmol/L Chloride (98-107) mmol/L Carbon Dioxide (22-30) mmol/L BUN (9-20) mg/dL Creatinine (0.66-1.25) mg/dL Glucose (74-99) mg/dL POC Glucose (mg/dL) (75-99) mg/dL Plasma Lactic Acid Joe 2.9 H* (0.7-2.0) mmol/L Calcium (8.4-10.2) mg/dL Arterial Blood Glucose (75-99) mg/dL Urine Protein (Negative) Crossmatch Thrombosis Risk Factor Assmnt - Choose All That Apply Any of the Below Risk Factors Present?: No Other Risk Factors: No Thrombosis Risk Factor Assessment Level: Very Low Risk Assessment and Plan Assessment: 1. Ruptured abdominal aortic aneurysm. Status post percutaneous EVAR with AFx2 device place per ultrasound guided from axis and percutaneous closure with Dr. Mosqueda. Patient remains on a esmolol and nitro drips. Globin total 0.2 2. History of essential hypertension 3. History of GERD 4. History of nicotine dependence. 5. Acute kidney injury. Creatinine elevated at 1.30 and bun 22. Continue normal saline at 125. Continue to monitor Patient remains in the intensive care unit. Critical care and cardiovascular surgery following Time with Patient: Greater than 30 (Greater than 60% of the total time spent in counseling and coordination of care. I performed an examination of the patient and discussed their management with the Nurse Practitioner. I have reviewed the Nurse Practitioner's notes and agree with the documented findings and plan of care)
[2018-12-09 12:01] LABS: Glucose,Whole Blood 173 mg/dL (75-99)
[2018-12-09] MEDS: INSULIN ASPART (NovoLOG) 100 UNIT/ML VIAL SQ SCH ×3 (12:08→21:23)
[2018-12-09 13:29] LABS: Appearance,Urine Clear (Clear); Bacteria,Urine Rare /hpf; Bilirubin,Urine Negative (Negative); Blood,Urine Small (Negative); Color,Urine Yellow; Glucose,Urine (UA) Trace (Negative); Ketones,Urine Trace (Negative); Leukocyte Esterase,Urine Small (Negative); Mucus,Urine Rare /hpf; Nitrite,Urine Negative (Negative); PH, Urine 5.5 (5.0-8.0); Protein,Urine Trace (Negative); RBC,Urine 14 /hpf (0-5); Squamous Epithelial Cell,Urine <1 /hpf (0-4); Urobilinogen,Urine <2.0 mg/dL (<2.0); WBC,Urine 14 /hpf (0-5)
[2018-12-09] MEDS: PANTOPRAZOLE 40 MG/10 ML VIAL IVP SCH ×2 (14:08→21:25)
[2018-12-09 15:45] LABS: Specific Gravity,Urine >1.050 (1.001-1.035)
[2018-12-09 17:01] LABS: Glucose,Whole Blood 164 mg/dL (75-99)
--- NOTE | 2018-12-09 17:25 | P.HPADDEND ---
H&P Addendum H&P Addendum Date: 12/09/18 Patient seen and examined on 12/09/2018 Full H&P dictated by nurse practitioner. Medications, labs and testing results reviewed 1. Ruptured abdominal aortic aneurysm. Status post percutaneous EVAR with AFx2 device place per ultrasound guided from axis and percutaneous closure with Dr. Mosqueda. Patient remains on a esmolol and nitro drips. Globin total 0.2 2. History of essential hypertension 3. History of GERD 4. History of nicotine dependence. 5. Acute kidney injury. Creatinine elevated at 1.30 and bun 22. Continue normal saline at 125. Continue to monitor Patient remains in the intensive care unit. Critical care and cardiovascular surgery following
[2018-12-09 21:14] LABS: Glucose,Whole Blood 146 mg/dL (75-99)
[2018-12-09] MEDS: PRAVASTATIN SODIUM 40 MG TAB PO SCH (21:31)
--- NOTE | 2018-12-09 22:38 | P.CONS ---
History of Present Illness - Reason for Consult Consult date: 12/09/18 - Chief Complaint Abdominal pain - History of Present Illness 68-year-old male who presents to the emergency center with the sudden onset of abdominal pain that had a crescendo pattern radiated to his flanks. He has history of a kidney stone in the past and the pain was somewhat reminiscent but actually considerably worse and because it was increasing and worsening he presented to the emergency center. He has a known history of hypertension and has a remote history of tobacco use stopping at the age of 28. There is no significant changes occurring before the onset of abdominal pain. He was not having nausea or emesis, he did not have diarrhea and he did not have any dysuria. Upon arrival to the emergency center imaging studies performed showing evidence of the abdominal aortic aneurysm with evidence of extravasation of blood consistent with early rupture. The patient was evaluated by vascular surgery and taken to the operating room where the endovascular aneurysm repair was performed. The patient tolerated the procedure well and is recovering intensive care unit. He is requiring no vasopressor therapy and that was from drip is no longer being utilized. He is mostly comfortable in the severe pain is improved but certainly not resolved. He still has some abdominal distention and some pain into his flanks bilaterally. He is denying fevers or chills. He had no fever chills or rigors before coming to hospital. He also had no difficulties with nausea or emesis while at home but is having significant difficulties with GERD at this point in time. There is evidence of mild leukocytosis and elevated lactic acid and consult was requested. Review of Systems 68-year-old male HEENT:Denies headache or acute visual change. Denies sinus or mouth discomforts. Denies neck stiffness or pain. Denies significant oral cavity pain. Denies difficulty on swallowing. Lungs: Denies significant shortness of breath, cough, sputum production, or h emoptysis. Cardiovascular: Denies significant shortness of breath, chest pain, chest wall pain, orthopnea, dyspnea on exertion, syncope Gastrointestinal:Severe abdominal pain is improved but not resolved does have heartburn. Musculoskeletal: denies significant myalgias or arthralgias. No new joint swelling. the severe back pain is improving also Skin: Denies new rash or lesions. No new ulcers or wounds are related.. Neuro: Denies headache or visual change. Denies any new onset weakness or difficulty with ambulation. Denies falls or seizures. Psychiatric:Denies anxiety or depression. 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 No animals in the home Smoking Status: Former smoker Past Alcohol Use History: Occasional Past Drug Use History: Marijuana - Past Family History Father Family Medical History: Cancer, Myocardial Infarction (DC) Medications and Allergies Home Medications and Allergies Comment(s): Current Medications Hydrocodone Bitart/Acetaminophen ([place] 5-325) 1 each PO Q4HR PRN PRN Reason: Pain Aspirin (Aspirin) 81 mg PO DAILY [facility] Last Admin: 12/09/18 08:36 Dose: Not Given Documented by: Atenolol (Tenormin) 50 mg PO QAM [facility] Last Admin: 12/09/18 08:36 Dose: Not Given Documented by: Hydromorphone HCl (Dilaudid) 0.5 mg IVP Q3HR PRN PRN Reason: Pain Last Admin: 12/09/18 21:29 Dose: 0.5 mg Documented by: Sodium Chloride (Saline 0.9%) 1,000 mls @ 125 mls/hr IV .Q8H [facility] Last Admin: 12/09/18 19:38 Dose: 125 mls/hr Documented by: Nitroglycerin/Dextrose 50 mg/ (IV Solution) 250 mls @ 0 mls/hr IV .Q0M [facility]; Protocol Last Titration: 12/09/18 03:10 Dose: 0 mcg/min, 0 mls/hr Documented by: Insulin Aspart (Novolog) 0 unit SQ ACHS [facility]; Protocol Last Admin: 12/09/18 21:23 Dose: 1 unit Documented by: Ondansetron HCl (Zofran) 4 mg IVP Q6HR PRN PRN Reason: Nausea And Vomiting Last Admin: 12/09/18 18:03 Dose: 4 mg Documented by: Pantoprazole Sodium (Protonix) 40 mg IVP BID [facility] Last Admin: 12/09/18 21:25 Dose: 40 mg Documented by: Pravastatin Sodium (Pravachol) 40 mg PO HS [facility] Last Admin: 12/09/18 21:31 Dose: Not Given Documented by: Home Medications Medication Instructions Recorded Confirmed Type Atenolol [Tenormin] 50 mg PO [facility] 01/09/15 12/08/18 History Cetirizine HCl [Zyrtec] 10 mg PO QA 01/09/15 12/08/18 History Allergies Allergy/AdvReac Type Severity Reaction Status Date / Time No Known Allergies Allergy Verified 12/08/18 22:36 Physical Exam Vitals: Vital Signs Temp Pulse Resp BP Pulse Ox 12/09/18 22:00 113 H 18 92 L 12/09/18 21:30 118 H 19 94 L 12/09/18 21:00 117 H 18 94 L 12/09/18 20:30 105 H 20 147/96 94 L 12/09/18 20:18 94 L 12/09/18 20:00 97.1 F L 112 H 17 95 12/09/18 19:30 115 H 20 135/83 95 12/09/18 19:00 101 H 12 135/83 94 L 12/09/18 18:00 110 H 18 94 L 12/09/18 17:00 105 H 19 94 L 12/09/18 16:00 101 H 16 119/89 95 12/09/18 15:00 106 H 17 116/82 92 L 12/09/18 14:00 106 H 18 144/97 95 12/09/18 13:30 110 H 18 144/97 95 12/09/18 13:00 106 H 20 144/97 97 12/09/18 12:00 94.0 F L 113 H 26 H 111/68 95 12/09/18 11:00 105 H 21 146/81 96 12/09/18 10:00 105 H 22 97/65 95 12/09/18 09:00 105 H 19 127/84 96 12/09/18 08:30 107 H 20 12/09/18 08:00 93.7 F L 87 17 131/96 96 12/09/18 07:00 103 H 20 97 12/09/18 06:45 105 H 25 H 97 12/09/18 06:30 98 23 97 12/09/18 06:15 97 25 H 97 12/09/18 06:00 97 23 97 12/09/18 05:45 105 H 23 97 12/09/18 05:30 103 H 22 97 12/09/18 05:15 123 H 22 94 L 12/09/18 05:00 104 H 18 97 12/09/18 04:45 100 23 97 12/09/18 04:30 92 20 99 12/09/18 04:15 90 21 97 12/09/18 04:00 88 23 99 12/09/18 03:45 89 16 98 12/09/18 03:30 90 19 98 12/09/18 03:15 89 16 109/77 98 12/09/18 03:00 95.7 F L 81 18 96 12/09/18 02:45 74 18 97 12/09/18 02:43 72 22 12/09/18 00:20 72 13 118/77 100 12/09/18 00:10 73 11 L 114/74 100 12/09/18 00:05 74 11 L 104/74 100 12/08/18 23:55 77 16 106/67 99 12/08/18 23:48 98.1 F 79 16 115/74 100 12/08/18 23:47 97.7 F 67 17 113/78 10 L 12/08/18 23:43 85 21 102/67 100 12/08/18 23:37 97.7 F 81 16 108/77 100 12/08/18 23:30 83 31 H 109/81 100 12/08/18 23:15 97 23 89/63 12/08/18 23:10 88 28 H 89/63 99 12/08/18 23:00 72/49 12/08/18 22:56 135 H 37 H 72/49 96 12/08/18 22:50 131 H 12 101/79 100 12/08/18 22:45 95 Intake and Output 12/09/18 12/09/18 12/09/18 06:59 14:59 22:59 Intake Total 553.854 4933 1050 Output Total 360 350 320 Balance 462.309 2539 730 Intake: IV 501 Intake, IV Titration 918.888 7646 1050 Amount Esmolol in Sodium 7.144 Chloride Pmx 2.5 gm In Saline 1 250ml.bag @ 25 MCG/KG/MIN 14.288 mls/hr IV .[id number] Rx#: [id number] Nitroglycerin-D5w Pmx 50 0.375 mg In Dextrose/Water 1 250ml.bag @ Titrate IV . Q0M [facility] Rx#:[id number] Sodium Chloride 0.9% 1, 375 1000 1000 000 ml @ 125 mls/hr IV . Q8H [facility] Rx#:[id number] Sodium Chloride 0.9% 500 1000 ml 500 ml @ 999 mls/hr IV .Q31M [facility] Rx#:[id number] ceFAZolin 2 gm In Sodium 50 50 Chloride 0.9% 50 ml @ 100 mls/hr IVPB Q12HR [facility] Rx #:[id number] Blood Product 0 Rc As-1 Unit 0 [id number] Output: Urine 310 350 320 Estimated Blood Loss 50 Other: # Emeses 2 2 ABP, PAP, CO, CI - Last 8 Hours Arterial Blood Pressure 102/72 Arterial Blood Pressure 139/74 Arterial Blood Pressure 164/83 Arterial Blood Pressure 145/72 Arterial Blood Pressure 150/97 Arterial Blood Pressure 140/77 Arterial Blood Pressure 133/65 Arterial Blood Pressure 127/85 Arterial Blood Pressure 138/78 Arterial Blood Pressure 130/77 Arterial Blood Pressure 126/75 HEENT: Anicteric conjunctiva are pink and moist nasal mucosa grossly intact with out significant lesions, there is no thrush. Neck: The neck is supple without significant lymphadenopathy or thyromegaly. Lungs: Good bilateral air entry without significant crackles or wheezing. There is no significant bronchial sounds. There is no egophony or dullness. Heart: Regular rate and rhythm with an audible S1-S2, no S3 no S4. There is no significant murmur click or rub, PMI was nondisplaced. Abdomen: Positive bowel sounds soft and nontender without palpable masses or organomegaly. There was no guarding or rebound. Extremities: The upper extremities have excellent pulses they are symmetric, no significant petechiae or telangiectasia. No splinter hemorrhages were noted. The lower extremities are free from significant edema. Upper extremities are intact. The bilateral lower extremities have evidence of coolness to both feet there is no evidence of any ulcerations Neuro: Awake alert oriented to person place and time. There are no acute new gross focal sensory motor deficits. Results CBC & Chem 7: 12/09/18 10:42 12/09/18 03:20 Labs: Abnormal Lab Results - Last 24 Hours (Table) 12/08/18 12/08/18 12/08/18 Range/Units 22:28 22:28 22:28 WBC 11.6 H (3.8-10.6) k/uL RBC (4.30-5.90) m/uL Hgb (13.0-17.5) gm/dL Hct (39.0-53.0) % Neutrophils # 8.3 H (1.3-7.7) k/uL APTT (22.0-30.0) sec ABG pH (7.35-7.45) ABG pCO2 (35-45) mmHg ABG pO2 (83-108) mmHg ABG Total CO2 (19-24) mmol/L ABG O2 Saturation (94-97) % ABG Ionized Calcium (4.5-5.3) mg/dL ABG Glucose (75-99) mg/dL ABG Lactic Acid (0.5-1.6) mmol/L Hemoglobin (13.0-17.5) gm/dL Potassium (3.5-5.1) mmol/L Chloride 108 H (98-107) mmol/L Carbon Dioxide 21 L (22-30) mmol/L BUN 22 H (9-20) mg/dL Creatinine 1.44 H (0.66-1.25) mg/dL Glucose 179 H (74-99) mg/dL POC Glucose (mg/dL) (75-99) mg/dL Plasma Lactic Acid Joe 4.5 H* (0.7-2.0) mmol/L Calcium (8.4-10.2) mg/dL Arterial Blood Glucose (75-99) mg/dL Ur Specific [place] (1.001-1.035) Urine Protein (Negative) Urine Glucose (UA) (Negative) Urine Ketones (Negative) Urine Blood (Negative) Ur Leukocyte Esterase (Negative) Urine RBC (0-5) /hpf Urine WBC (0-5) /hpf Urine Bacteria (None) /hpf Urine Mucus (None) /hpf Crossmatch 12/08/18 12/08/18 12/08/18 Range/Units 22:28 22:53 22:56 WBC (3.8-10.6) k/uL RBC (4.30-5.90) m/uL Hgb (13.0-17.5) gm/dL Hct (39.0-53.0) % Neutrophils # (1.3-7.7) k/uL APTT 19.1 L (22.0-30.0) sec ABG pH (7.35-7.45) ABG pCO2 (35-45) mmHg ABG pO2 (83-108) mmHg ABG Total CO2 (19-24) mmol/L ABG O2 Saturation (94-97) % ABG Ionized Calcium (4.5-5.3) mg/dL ABG Glucose (75-99) mg/dL ABG Lactic Acid (0.5-1.6) mmol/L Hemoglobin (13.0-17.5) gm/dL Potassium (3.5-5.1) mmol/L Chloride (98-107) mmol/L Carbon Dioxide (22-30) mmol/L BUN (9-20) mg/dL Creatinine (0.66-1.25) mg/dL Glucose (74-99) mg/dL POC Glucose (mg/dL) 178 H (75-99) mg/dL Plasma Lactic Acid Joe (0.7-2.0) mmol/L Calcium (8.4-10.2) mg/dL Arterial Blood Glucose (75-99) mg/dL Ur Specific [place] (1.001-1.035) Urine Protein (Negative) Urine Glucose (UA) (Negative) Urine Ketones (Negative) Urine Blood (Negative) Ur Leukocyte Esterase (Negative) Urine RBC (0-5) /hpf Urine WBC (0-5) /hpf Urine Bacteria (None) /hpf Urine Mucus (None) /hpf Crossmatch See Detail 12/08/18 12/09/18 12/09/18 Range/Units 23:23 01:30 02:42 WBC (3.8-10.6) k/uL RBC (4.30-5.90) m/uL Hgb (13.0-17.5) gm/dL Hct (39.0-53.0) % Neutrophils # (1.3-7.7) k/uL APTT (22.0-30.0) sec ABG pH 7.30 L (7.35-7.45) ABG pCO2 49 H (35-45) mmHg ABG pO2 166 H (83-108) mmHg ABG Total CO2 26 H (19-24) mmol/L ABG O2 Saturation 99.1 H (94-97) % ABG Ionized Calcium 4.3 L (4.5-5.3) mg/dL ABG Glucose 175 H (75-99) mg/dL ABG Lactic Acid 2.2 H* (0.5-1.6) mmol/L Hemoglobin 11.8 L (13.0-17.5) gm/dL Potassium (3.5-5.1) mmol/L Chloride (98-107) mmol/L Carbon Dioxide (22-30) mmol/L BUN (9-20) mg/dL Creatinine (0.66-1.25) mg/dL Glucose (74-99) mg/dL POC Glucose (mg/dL) 141 H (75-99) mg/dL Plasma Lactic Acid Joe (0.7-2.0) mmol/L Calcium (8.4-10.2) mg/dL Arterial Blood Glucose 175 H (75-99) mg/dL Ur Specific [place] (1.001-1.035) Urine Protein Trace H (Negative) Urine Glucose (UA) (Negative) Urine Ketones (Negative) Urine Blood (Negative) Ur Leukocyte Esterase (Negative) Urine RBC (0-5) /hpf Urine WBC (0-5) /hpf Urine Bacteria (None) /hpf Urine Mucus (None) /hpf Crossmatch 12/09/18 12/09/18 12/09/18 Range/Units 03:20 03:20 03:20 WBC 14.3 H (3.8-10.6) k/uL RBC 3.94 L (4.30-5.90) m/uL Hgb 12.2 L (13.0-17.5) gm/dL Hct 36.4 L (39.0-53.0) % Neutrophils # 12.5 H (1.3-7.7) k/uL APTT (22.0-30.0) sec ABG pH (7.35-7.45) ABG pCO2 (35-45) mmHg ABG pO2 (83-108) mmHg ABG Total CO2 (19-24) mmol/L ABG O2 Saturation (94-97) % ABG Ionized Calcium (4.5-5.3) mg/dL ABG Glucose (75-99) mg/dL ABG Lactic Acid (0.5-1.6) mmol/L Hemoglobin (13.0-17.5) gm/dL Potassium 5.3 H (3.5-5.1) mmol/L Chloride 112 H (98-107) mmol/L Carbon Dioxide (22-30) mmol/L BUN 22 H (9-20) mg/dL Creatinine 1.30 H (0.66-1.25) mg/dL Glucose 160 H (74-99) mg/dL POC Glucose (mg/dL) (75-99) mg/dL Plasma Lactic Acid Joe 2.1 H* (0.7-2.0) mmol/L Calcium 7.7 L (8.4-10.2) mg/dL Arterial Blood Glucose (75-99) mg/dL Ur Specific [place] (1.001-1.035) Urine Protein (Negative) Urine Glucose (UA) (Negative) Urine Ketones (Negative) Urine Blood (Negative) Ur Leukocyte Esterase (Negative) Urine RBC (0-5) /hpf Urine WBC (0-5) /hpf Urine Bacteria (None) /hpf Urine Mucus (None) /hpf Crossmatch 12/09/18 12/09/18 12/09/18 Range/Units 08:30 10:42 11:57 WBC 14.1 H (3.8-10.6) k/uL RBC 3.86 L (4.30-5.90) m/uL Hgb 12.2 L (13.0-17.5) gm/dL Hct 36.0 L (39.0-53.0) % Neutrophils # (1.3-7.7) k/uL APTT (22.0-30.0) sec ABG pH (7.35-7.45) ABG pCO2 (35-45) mmHg ABG pO2 (83-108) mmHg ABG Total CO2 (19-24) mmol/L ABG O2 Saturation (94-97) % ABG Ionized Calcium (4.5-5.3) mg/dL ABG Glucose (75-99) mg/dL ABG Lactic Acid (0.5-1.6) mmol/L Hemoglobin (13.0-17.5) gm/dL Potassium (3.5-5.1) mmol/L Chloride (98-107) mmol/L Carbon Dioxide (22-30) mmol/L BUN (9-20) mg/dL Creatinine (0.66-1.25) mg/dL Glucose (74-99) mg/dL POC Glucose (mg/dL) 173 H (75-99) mg/dL Plasma Lactic Acid Joe 2.9 H* (0.7-2.0) mmol/L Calcium (8.4-10.2) mg/dL Arterial Blood Glucose (75-99) mg/dL Ur Specific [place] (1.001-1.035) Urine Protein (Negative) Urine Glucose (UA) (Negative) Urine Ketones (Negative) Urine Blood (Negative) Ur Leukocyte Esterase (Negative) Urine RBC (0-5) /hpf Urine WBC (0-5) /hpf Urine Bacteria (None) /hpf Urine Mucus (None) /hpf Crossmatch 12/09/18 12/09/18 12/09/18 Range/Units 13:18 14:00 16:59 WBC (3.8-10.6) k/uL RBC (4.30-5.90) m/uL Hgb (13.0-17.5) gm/dL Hct (39.0-53.0) % Neutrophils # (1.3-7.7) k/uL APTT (22.0-30.0) sec ABG pH (7.35-7.45) ABG pCO2 (35-45) mmHg ABG pO2 (83-108) mmHg ABG Total CO2 (19-24) mmol/L ABG O2 Saturation (94-97) % ABG Ionized Calcium (4.5-5.3) mg/dL ABG Glucose (75-99) mg/dL ABG Lactic Acid 2.7 H* (0.5-1.6) mmol/L Hemoglobin (13.0-17.5) gm/dL Potassium (3.5-5.1) mmol/L Chloride (98-107) mmol/L Carbon Dioxide (22-30) mmol/L BUN (9-20) mg/dL Creatinine (0.66-1.25) mg/dL Glucose (74-99) mg/dL POC Glucose (mg/dL) 164 H (75-99) mg/dL Plasma Lactic Acid Joe (0.7-2.0) mmol/L Calcium (8.4-10.2) mg/dL Arterial Blood Glucose (75-99) mg/dL Ur Specific [place] >1.050 H (1.001-1.035) Urine Protein Trace H (Negative) Urine Glucose (UA) Trace H (Negative) Urine Ketones Trace H (Negative) Urine Blood Small H (Negative) Ur Leukocyte Esterase Small H (Negative) Urine RBC 14 H (0-5) /hpf Urine WBC 14 H (0-5) /hpf Urine Bacteria Rare H (None) /hpf Urine Mucus Rare H (None) /hpf Crossmatch 12/09/18 Range/Units 21:11 WBC (3.8-10.6) k/uL RBC (4.30-5.90) m/uL Hgb (13.0-17.5) gm/dL Hct (39.0-53.0) % Neutrophils # (1.3-7.7) k/uL APTT (22.0-30.0) sec ABG pH (7.35-7.45) ABG pCO2 (35-45) mmHg ABG pO2 (83-108) mmHg ABG Total CO2 (19-24) mmol/L ABG O2 Saturation (94-97) % ABG Ionized Calcium (4.5-5.3) mg/dL ABG Glucose (75-99) mg/dL ABG Lactic Acid (0.5-1.6) mmol/L Hemoglobin (13.0-17.5) gm/dL Potassium (3.5-5.1) mmol/L Chloride (98-107) mmol/L Carbon Dioxide (22-30) mmol/L BUN (9-20) mg/dL Creatinine (0.66-1.25) mg/dL Glucose (74-99) mg/dL POC Glucose (mg/dL) 146 H (75-99) mg/dL Plasma Lactic Acid Joe (0.7-2.0) mmol/L Calcium (8.4-10.2) mg/dL Arterial Blood Glucose (75-99) mg/dL Ur Specific [place] (1.001-1.035) Urine Protein (Negative) Urine Glucose (UA) (Negative) Urine Ketones (Negative) Urine Blood (Negative) Ur Leukocyte Esterase (Negative) Urine RBC (0-5) /hpf Urine WBC (0-5) /hpf Urine Bacteria (None) /hpf Urine Mucus (None) /hpf Crossmatch Laboratory Results WBC 14.1 k/uL (3.8-10.6) H 12/09/18 10:42 RBC 3.86 m/uL (4.30-5.90) L 12/09/18 10:42 Hgb 12.2 gm/dL (13.0-17.5) L 12/09/18 10:42 Hct 36.0 % (39.0-53.0) L 12/09/18 10:42 MCV 93.4 fL (80.0-100.0) 12/09/18 10:42 MCH 31.7 pg (25.0-35.0) 12/09/18 10:42 MCHC 34.0 g/dL (31.0-37.0) 12/09/18 10:42 RDW 14.2 % (11.5-15.5) 12/09/18 10:42 Plt Count 190 k/uL (150-450) 12/09/18 10:42 Neutrophils % 88 % 12/09/18 03:20 Lymphocytes % 7 % 12/09/18 03:20 Monocytes % 5 % 12/09/18 03:20 Eosinophils % 0 % 12/09/18 03:20 Basophils % 0 % 12/09/18 03:20 Neutrophils # 12.5 k/uL (1.3-7.7) H 12/09/18 03:20 Lymphocytes # 1.0 k/uL (1.0-4.8) 12/09/18 03:20 Monocytes # 0.6 k/uL (0-1.0) 12/09/18 03:20 Eosinophils # 0.0 k/uL (0-0.7) 12/09/18 03:20 Basophils # 0.0 k/uL (0-0.2) 12/09/18 03:20 Manual Slide Review Performed 12/09/18 03:20 PT 10.4 sec (9.0-12.0) 12/08/18 22:28 INR 1.0 (<1.2) 12/08/18 22:28 APTT 19.1 sec (22.0-30.0) L 12/08/18 22:28 Sample Site Zehra 12/09/18 01:30 ABG pH 7.30 (7.35-7.45) L 12/09/18 01:30 ABG pCO2 49 mmHg (35-45) H 12/09/18 01:30 ABG pO2 166 mmHg (83-108) H 12/09/18 01:30 ABG HCO3 24 mmol/L (21-25) 12/09/18 01:30 ABG Total CO2 26 mmol/L (19-24) H 12/09/18 01:30 ABG O2 Saturation 99.1 % (94-97) H 12/09/18 01:30 ABG Base Excess -2.4 mmol/L 12/09/18 01:30 ABG Hematocrit 36 % (34.0-46.0) 12/09/18 01:30 ABG Sodium 144 mmol/L (135-146) 12/09/18 01:30 ABG Potassium 4.3 mmol/L (3.4-4.5) 12/09/18 01:30 ABG Ionized Calcium 4.3 mg/dL (4.5-5.3) L 12/09/18 01:30 ABG Glucose 175 mg/dL (75-99) H 12/09/18 01:30 ABG Lactic Acid 2.7 mmol/L (0.5-1.6) H* 12/09/18 14:00 Hemoglobin 11.8 gm/dL (13.0-17.5) L 12/09/18 01:30 Sodium 139 mmol/L (137-145) 12/09/18 03:20 Potassium 5.3 mmol/L (3.5-5.1) H 12/09/18 03:20 Chloride 112 mmol/L (98-107) H 12/09/18 03:20 Carbon Dioxide 22 mmol/L (22-30) 12/09/18 03:20 Anion Gap 5 mmol/L 12/09/18 03:20 BUN 22 mg/dL (9-20) H 12/09/18 03:20 Creatinine 1.30 mg/dL (0.66-1.25) H 12/09/18 03:20 Est GFR (CKD-EPI)AfAm 66 (>60 ml/min/1.73 sqM) 12/09/18 03:20 Est GFR (CKD-EPI)NonAf 57 (>60 ml/min/1.73 sqM) 12/09/18 03:20 Glucose 160 mg/dL (74-99) H 12/09/18 03:20 POC Glucose (mg/dL) 146 mg/dL (75-99) H 12/09/18 21:11 POC Glu [employer] ID Michelle Motley 12/09/18 21:11 Lactic Ac Sepsis Rflx Y 12/09/18 14:33 Plasma Lactic Acid Joe 2.0 mmol/L (0.7-2.0) 12/09/18 18:05 Calcium 7.7 mg/dL (8.4-10.2) L 12/09/18 03:20 Total Bilirubin 0.8 mg/dL (0.2-1.3) 12/08/18 22:28 AST 24 U/L (17-59) 12/08/18 22:28 ALT 24 U/L (21-72) 12/08/18 22:28 Alkaline Phosphatase 55 U/L (38-126) 12/08/18 22:28 Total Protein 7.3 g/dL (6.3-8.2) 12/08/18 22:28 Albumin 4.1 g/dL (3.5-5.0) 12/08/18 22:28 Amylase 68 U/L (30-110) 12/08/18 22:28 Lipase 112 U/L (23-300) 12/08/18 22:28 Arterial Blood Potassium 4.3 mmol/L (3.4-4.5) 12/09/18 01:30 Arterial Blood Glucose 175 mg/dL (75-99) H 12/09/18 01:30 Urine Color Yellow 12/09/18 13:18 Urine Appearance Clear (Clear) 12/09/18 13:18 Urine pH 5.5 (5.0-8.0) 12/09/18 13:18 Ur Specific [place] >1.050 (1.001-1.035) H 12/09/18 13:18 Urine Protein Trace (Negative) H 12/09/18 13:18 Urine Glucose (UA) Trace (Negative) H 12/09/18 13:18 Urine Ketones Trace (Negative) H 12/09/18 13:18 Urine Blood Small (Negative) H 12/09/18 13:18 Urine Nitrite Negative (Negative) 12/09/18 13:18 Urine Bilirubin Negative (Negative) 12/09/18 13:18 Urine Urobilinogen <2.0 mg/dL (<2.0) 12/09/18 13:18 Ur Leukocyte Esterase Small (Negative) H 12/09/18 13:18 Urine RBC 14 /hpf (0-5) H 12/09/18 13:18 Urine WBC 14 /hpf (0-5) H 12/09/18 13:18 Ur Squamous Epith Cells <1 /hpf (0-4) 12/09/18 13:18 Urine Bacteria Rare /hpf (None) H 12/09/18 13:18 Urine Mucus Rare /hpf (None) H 12/09/18 13:18 Stool Occult Blood Negative (Negative) 12/08/18 22:56 Serum Alcohol <10 mg/dL 12/08/18 22:28 Blood Type A Positive 12/08/18 22:56 Blood Type Recheck A Pos 12/08/18 22:56 Bld Type Recheck Status No 12/08/18 22:56 Antibody Screen NEGATIVE 12/08/18 22:56 Crossmatch See Detail 12/08/18 22:56 Transfuse Plasma Not Reportable 12/08/18 22:56 Spec Expiration Date 12/11/2018235512/08/18 22:56 Assessment and Plan (1) AAA (abdominal aortic aneurysm, ruptured) Current Visit: Yes Status: Acute Code(s): I71.3 - ABDOMINAL AORTIC ANEURYSM, RUPTURED SNOMED Code(s): 40679304 (2) Lactic acidosis Narrative/Plan: 68-year-old male presents to Hospital significant escalating abdominal pain but evidence of a ruptured abdominal aortic aneurysm. He was taken urgently to the operating room in the endovascular repair occurred the patient is doing well. There was evidence of some acute renal insufficiency as well as intraperitoneal bleeding at the time of the aneurysm rupture. The patient does not appear to have any underlying infection and the lactic acidosis is attributed to the ischemic event, acute renal insufficiency and intraperitoneal bleeding. The patient is very showing significant improvement and does not have evidence of underlying sepsis or infection at this time. Routine surgical prophylaxis for the placement of the stent graft is being utilized. If the patient's status change further workup can be done at that time. Current Visit: Yes Status: Acute Code(s): E87.2 - ACIDOSIS SNOMED Code(s): 58014836 (3) Hypertension Current Visit: No Status: Acute Code(s): I10 - ESSENTIAL (PRIMARY) HYPERTENS ION SNOMED Code(s): 15070941
[2018-12-09] MEDS: SUCRALFATE 1 GM TAB PO SCH (23:37)
[2018-12-10] MEDS: HYDROmorphone 0.5 MG/0.5 ML SYRINGE IVP PRN ×4 (02:01→20:48)
[2018-12-10 05:20] LABS: Basophils % (A) 0 %; Eosinophils # (A) 0.1 k/uL (0-0.7); Eosinophils % (A) 1 %; Lymphocytes # (A) 0.9 k/uL (1.0-4.8); Lymphocytes % (A) 7 %; MCH 31.4 pg (25.0-35.0); MCHC 33.9 g/dL (31.0-37.0); MCV 92.8 fL (80.0-100.0); Mean Platelet Volume 8.7; Monocytes # (A) 0.8 k/uL (0-1.0); Monocytes % (A) 7 %; Neutrophils # (A) 10.1 k/uL (1.3-7.7); Neutrophils % (A) 84 %; Platelet Count 158 k/uL (150-450); RBC 3.13 m/uL (4.30-5.90); RDW 14.9 % (11.5-15.5); WBC 11.9 k/uL (3.8-10.6)
[2018-12-10 05:26] LABS: Albumin 2.8 g/dL (3.5-5.0); Calcium 7.3 mg/dL (8.4-10.2); HGB 9.8 gm/dL (13.0-17.5); Potassium 4.6 mmol/L (3.5-5.1); Total Bilirubin 0.4 mg/dL (0.2-1.3); Total Protein 5.1 g/dL (6.3-8.2)
[2018-12-10] MEDS: SODIUM CHLORIDE 0.9% 1,000 ML IV SCH ×2 (06:32→14:54)
[2018-12-10 07:13] LABS: Glucose,Whole Blood 131 mg/dL (75-99)
[2018-12-10] MEDS: SUCRALFATE 1 GM TAB PO SCH ×4 (07:16→20:48)
[2018-12-10] MEDS: INSULIN ASPART (NovoLOG) 100 UNIT/ML VIAL SQ SCH ×4 (07:17→20:56)
--- NOTE | 2018-12-10 07:37 | P.PN ---
Subjective Progress Note Date: 12/10/18 Principal diagnosis: Abdominal pain, ruptured abdominal aortic aneurysm This is a very pleasant 68-year-old gentleman who follows with Dr. Gar as his primary care physician. He has a history of hypertension, gastroesophageal reflux disease, osteoarthritis with multiple joint replacements, occasional alcohol use, previous smoker. He presented to the emergency room last evening with complaints of back and abdominal discomfort. He stated he had been having some mid back pain ongoing since 7 PM at 8 PM he started having periumbilical portion of the abdomen with continued pain. He felt that may be he had a kidney stone and came to the emergency room. In the emergency room he became disoriented, delirious and diaphoretic. ET scan of the abdomen and pelvis revealed a 5.5 cm infrarenal abdominal aortic aneurysm. Luminal irregularity was present. There is extensive. Aortic and right retroperitoneal hematoma consistent with ruptured abdominal aortic aneurysm. He was taken emergently to the operating room for endovascular aortic repair which was performed by Dr. Mosqueda. He had performed a VATS with AF 2 device under ultrasound-guided femoral axis with percutaneous closure. His postoperative day #0. He is seen in consultation in the intensive care unit. Presently he is awake and alert in no acute distress. He is having some lower abdominal discomfort. Dr. Mittal was in to evaluate the patient. He currently has a 0.9 at 125 ML's per hour. He had received 1 unit of packed red blood cells thus far. He is maintaining oxygen in the 90s on 2 L/m per nasal cannula. His current hemoglobin is 12.2. White count 14.3. Sodium 139. Potassium 5.3. Creatinine 1.30. Lactic acid 2.9. He has been initiated on cefazolin, esmolol at 50 mcg/kg/m. Zofran for nausea. On 12/10/2018 patient seen in follow-up in the intensive care unit, this is postoperative day 2, status post endovascular repair of the ruptured abdominal aortic aneurysm. Today patient is awake and alert, in no acute distress, he is on 2 L of oxygen, his pulse ox is 94%, he is working on incentive spirometer, he is achieving about [id number] on the today. His nausea has significantly improved, and there has been no episodes of emesis since yesterday, patient has received Carafate, he states his nausea has improved, he is passing gas, no bowel movements yet. Abdomen is slightly distended but soft, nontender. Lung sounds are clear, his sinus tach on a monitor with a rate of 106 to 115 BPM, denies any significant discomfort, lower extremity pulses are palpable, 1+ bilaterally. The lateral groin incisions clean dry and intact, covered with surgical dressings, today's labs have been reviewed, showing white blood cell count of 11.9, hemoglobin of 9.8, serum sodium is 138, potassium is 4.6, chloride is 109, CO2 is 25, BUN was 26, creatinine is 1.18. IV 0.9 normal saline at a rate of 125 ML per hour Objective - Vital Signs Vital signs: Vital Signs Temp 97.9 F 12/10/18 04:00 Pulse 115 H 12/10/18 07:00 Resp 21 12/10/18 07:00 BP 140/90 12/10/18 07:00 Pulse Ox 94 L 12/10/18 07:00 Intake & Output 12/09/18 12/10/18 12/10/18 18:59 06:59 18:59 Intake Total 2675 1475 125 Output Total 555 395 Balance 2120 1080 125 Weight 101.3 kg Intake: Intake, IV Titration 2675 1425 125 Amount Sodium Chloride 0.9% 1, 1625 1375 125 000 ml @ 125 mls/hr IV . Q8H [facility] Rx#:[id number] Sodium Chloride 0.9% 500 1000 ml 500 ml @ 999 mls/hr IV .Q31M [facility] Rx#:[id number] ceFAZolin 2 gm In Sodium 50 50 Chloride 0.9% 50 ml @ 100 mls/hr IVPB Q12HR [facility] Rx #:[id number] Oral 50 Output: Urine 555 395 Other: # Emeses 2 ABP, PAP, CO, CI - Last Documented Arterial Blood Pressure 151/64 - Exam GENERAL EXAM: Alert, pleasant, 68-year-old white male, on 2 L of oxygen, with a pulse ox of 97% comfortable in no apparent distress. HEAD: Normocephalic/atraumatic. EYES: Normal reaction of pupils, equal size. Conjunctiva pink, sclera white. NOSE: Clear with pink turbinates. THROAT: No erythema or exudates. NECK: No masses, no JVD, no thyroid enlargement, no adenopathy. CHEST: No chest wall deformity. Symmetrical expansion. LUNGS: Equal air entry with no crackles, wheeze, rhonchi or dullness. CVS: Regular rate and rhythm, normal S1 and S2, no gallops, no murmurs, no rubs ABDOMEN: Soft, nontender. No hepatosplenomegaly, normal bowel sounds, no guarding or rigidity. EXTREMITIES: No clubbing, no edema, no cyanosis, 2+ pulses and upper and lower extremities. Bilateral groin incisions covered with surgical dressings, clean dry and intact MUSCULOSKELETAL: Muscle strength and tone normal. SPINE: No scoliosis or deformity SKIN: No rashes CENTRAL NERVOUS SYSTEM: Alert and oriented -3. No focal deficits, tone is normal in all 4 extremities. PSYCHIATRIC: Alert and oriented -3. Appropriate affect. Intact judgment and insight. - Labs CBC & Chem 7: 12/10/18 05:05 12/10/18 05:05 Labs: Abnormal Lab Results - Last 24 Hours (Table) 12/08/18 12/09/18 12/09/18 Range/Units 22:56 08:30 10:42 WBC 14.1 H (3.8-10.6) k/uL RBC 3.86 L (4.30-5.90) m/uL Hgb 12.2 L (13.0-17.5) gm/dL Hct 36.0 L (39.0-53.0) % Neutrophils # (1.3-7.7) k/uL Lymphocytes # (1.0-4.8) k/uL ABG Lactic Acid (0.5-1.6) mmol/L Chloride (98-107) mmol/L BUN (9-20) mg/dL Glucose (74-99) mg/dL POC Glucose (mg/dL) (75-99) mg/dL Plasma Lactic Acid Joe 2.9 H* (0.7-2.0) mmol/L Calcium (8.4-10.2) mg/dL Alkaline Phosphatase (38-126) U/L Total Protein (6.3-8.2) g/dL Albumin (3.5-5.0) g/dL Ur Specific [place] (1.001-1.035) Urine Protein (Negative) Urine Glucose (UA) (Negative) Urine Ketones (Negative) Urine Blood (Negative) Ur Leukocyte Esterase (Negative) Urine RBC (0-5) /hpf Urine WBC (0-5) /hpf Urine Bacteria (None) /hpf Urine Mucus (None) /hpf Crossmatch See Detail 12/09/18 12/09/18 12/09/18 Range/Units 11:57 13:18 14:00 WBC (3.8-10.6) k/uL RBC (4.30-5.90) m/uL Hgb (13.0-17.5) gm/dL Hct (39.0-53.0) % Neutrophils # (1.3-7.7) k/uL Lymphocytes # (1.0-4.8) k/uL ABG Lactic Acid 2.7 H* (0.5-1.6) mmol/L Chloride (98-107) mmol/L BUN (9-20) mg/dL Glucose (74-99) mg/dL POC Glucose (mg/dL) 173 H (75-99) mg/dL Plasma Lactic Acid Joe (0.7-2.0) mmol/L Calcium (8.4-10.2) mg/dL Alkaline Phosphatase (38-126) U/L Total Protein (6.3-8.2) g/dL Albumin (3.5-5.0) g/dL Ur Specific [place] >1.050 H (1.001-1.035) Urine Protein Trace H (Negative) Urine Glucose (UA) Trace H (Negative) Urine Ketones Trace H (Negative) Urine Blood Small H (Negative) Ur Leukocyte Esterase Small H (Negative) Urine RBC 14 H (0-5) /hpf Urine WBC 14 H (0-5) /hpf Urine Bacteria Rare H (None) /hpf Urine Mucus Rare H (None) /hpf Crossmatch 12/09/18 12/09/18 12/10/18 Range/Units 16:59 21:11 05:05 WBC (3.8-10.6) k/uL RBC (4.30-5.90) m/uL Hgb (13.0-17.5) gm/dL Hct (39.0-53.0) % Neutrophils # (1.3-7.7) k/uL Lymphocytes # (1.0-4.8) k/uL ABG Lactic Acid (0.5-1.6) mmol/L Chloride 109 H (98-107) mmol/L BUN 26 H (9-20) mg/dL Glucose 139 H (74-99) mg/dL POC Glucose (mg/dL) 164 H 146 H (75-99) mg/dL Plasma Lactic Acid Joe (0.7-2.0) mmol/L Calcium 7.3 L (8.4-10.2) mg/dL Alkaline Phosphatase 35 L (38-126) U/L Total Protein 5.1 L (6.3-8.2) g/dL Albumin 2.8 L (3.5-5.0) g/dL Ur Specific [place] (1.001-1.035) Urine Protein (Negative) Urine Glucose (UA) (Negative) Urine Ketones (Negative) Urine Blood (Negative) Ur Leukocyte Esterase (Negative) Urine RBC (0-5) /hpf Urine WBC (0-5) /hpf Urine Bacteria (None) /hpf Urine Mucus (None) /hpf Crossmatch 12/10/18 12/10/18 Range/Units 05:05 07:10 WBC 11.9 H (3.8-10.6) k/uL RBC 3.13 L (4.30-5.90) m/uL Hgb 9.8 L D (13.0-17.5) gm/dL Hct 29.0 L (39.0-53.0) % Neutrophils # 10.1 H (1.3-7.7) k/uL Lymphocytes # 0.9 L (1.0-4.8) k/uL ABG Lactic Acid (0.5-1.6) mmol/L Chloride (98-107) mmol/L BUN (9-20) mg/dL Glucose (74-99) mg/dL POC Glucose (mg/dL) 131 H (75-99) mg/dL Plasma Lactic Acid Joe (0.7-2.0) mmol/L Calcium (8.4-10.2) mg/dL Alkaline Phosphatase (38-126) U/L Total Protein (6.3-8.2) g/dL Albumin (3.5-5.0) g/dL Ur Specific [place] (1.001-1.035) Urine Protein (Negative) Urine Glucose (UA) (Negative) Urine Ketones (Negative) Urine Blood (Negative) Ur Leukocyte Esterase (Negative) Urine RBC (0-5) /hpf Urine WBC (0-5) /hpf Urine Bacteria (None) /hpf Urine Mucus (None) /hpf Crossmatch Microbiology - Last 24 Hours (Table) 12/09/18 16:00 Urine Culture - Preliminary Urine,Catheterized Assessment and Plan Plan: Assessment: #1 Ruptured abdominal aortic aneurysm, status post percutaneous EVAR with AFX2 device placement under ultrasound guided femoral access and percutaneous closure. Postoperative day #1. #2 History of hypertension. #3 Gastroesophageal reflux disease. #4 Chronic tobacco dependence. Plan: Continue encouraging deep breathing and coughing, nausea subsided, no further episodes of emesis, patient is tolerating clear liquids, no complaints of dyspnea, no complaint of chest pain, encourage incentive spirometry use, vital signs are stable, patient is afebrile, if okay with the vascular surgery, patient will be transferred out of the intensive care unit today to regular floor. No acute issues overnight. I performed a history & physical examination of the patient and discussed their management with my nurse practitioner, Emani Glynn. I reviewed the nurse practitioner's note and agree with the documented findings and plan of care. Lung sounds are positive for clear breath sounds. The findings and the i mpression was discussed with the patient. I attest to the documentation by the nurse practitioner. Time with Patient: Less than 30
[2018-12-10] MEDS: ASPIRIN 81 MG PO SCH (08:35)
[2018-12-10] MEDS: PANTOPRAZOLE 40 MG/10 ML VIAL IVP SCH (08:35)
[2018-12-10] MEDS: ATENOLOL 50 MG TAB PO SCH (08:35)
--- NOTE | 2018-12-10 08:38 | P.PN ---
Subjective Progress Note Date: 12/10/18 Patient seen and examined. Feeling better. Still some abdominal pain although still much improved. No further nausea or vomiting. Passing flatus, no bowel movements currently. Pain is controlled Objective - Vital Signs Vital signs: Vital Signs Temp 98.7 F 12/10/18 08:15 Pulse 116 H 12/10/18 08:15 Resp 17 12/10/18 08:15 BP 133/81 12/10/18 08:15 Pulse Ox 94 L 12/10/18 08:15 Intake & Output 12/09/18 12/10/18 12/10/18 18:59 06:59 18:59 Intake Total 2675 1475 490 Output Total 555 395 Balance 2120 1080 490 Weight 101.3 kg Intake: IV 125 Sodium Chloride 0.9% 1, 125 000 ml @ 125 mls/hr IV . Q8H [facility] Rx#:[id number] Intake, IV Titration 2675 1425 125 Amount Sodium Chloride 0.9% 1, 1625 1375 125 000 ml @ 125 mls/hr IV . Q8H [facility] Rx#:[id number] Sodium Chloride 0.9% 500 1000 ml 500 ml @ 999 mls/hr IV .Q31M [facility] Rx#:[id number] ceFAZolin 2 gm In Sodium 50 50 Chloride 0.9% 50 ml @ 100 mls/hr IVPB Q12HR [facility] Rx #:[id number] Oral 50 240 Output: Urine 555 395 Other: # Emeses 2 ABP, PAP, CO, CI - Last Documented Arterial Blood Pressure 151/64 - Exam NAD resting comfortably at this time Heart Tachy although improved Resp no resp distress Abd soft, mild distended, minimal TTP R>L Ext Groins clean, dry, no hematoma palp DP bilat - Labs CBC & Chem 7: 12/10/18 05:05 12/10/18 05:05 Labs: Abnormal Lab Results - Last 24 Hours (Table) 12/08/18 12/09/18 12/09/18 Range/Units 22:56 08:30 10:42 WBC 14.1 H (3.8-10.6) k/uL RBC 3.86 L (4.30-5.90) m/uL Hgb 12.2 L (13.0-17.5) gm/dL Hct 36.0 L (39.0-53.0) % Neutrophils # (1.3-7.7) k/uL Lymphocytes # (1.0-4.8) k/uL ABG Lactic Acid (0.5-1.6) mmol/L Chloride (98-107) mmol/L BUN (9-20) mg/dL Glucose (74-99) mg/dL POC Glucose (mg/dL) (75-99) mg/dL Plasma Lactic Acid Joe 2.9 H* (0.7-2.0) mmol/L Calcium (8.4-10.2) mg/dL Alkaline Phosphatase (38-126) U/L Total Protein (6.3-8.2) g/dL Albumin (3.5-5.0) g/dL Ur Specific [place] (1.001-1.035) Urine Protein (Negative) Urine Glucose (UA) (Negative) Urine Ketones (Negative) Urine Blood (Negative) Ur Leukocyte Esterase (Negative) Urine RBC (0-5) /hpf Urine WBC (0-5) /hpf Urine Bacteria (None) /hpf Urine Mucus (None) /hpf Crossmatch See Detail 12/09/18 12/09/18 12/09/18 Range/Units 11:57 13:18 14:00 WBC (3.8-10.6) k/uL RBC (4.30-5.90) m/uL Hgb (13.0-17.5) gm/dL Hct (39.0-53.0) % Neutrophils # (1.3-7.7) k/uL Lymphocytes # (1.0-4.8) k/uL ABG Lactic Acid 2.7 H* (0.5-1.6) mmol/L Chloride (98-107) mmol/L BUN (9-20) mg/dL Glucose (74-99) mg/dL POC Glucose (mg/dL) 173 H (75-99) mg/dL Plasma Lactic Acid Joe (0.7-2.0) mmol/L Calcium (8.4-10.2) mg/dL Alkaline Phosphatase (38-126) U/L Total Protein (6.3-8.2) g/dL Albumin (3.5-5.0) g/dL Ur Specific [place] >1.050 H (1.001-1.035) Urine Protein Trace H (Negative) Urine Glucose (UA) Trace H (Negative) Urine Ketones Trace H (Negative) Urine Blood Small H (Negative) Ur Leukocyte Esterase Small H (Negative) Urine RBC 14 H (0-5) /hpf Urine WBC 14 H (0-5) /hpf Urine Bacteria Rare H (None) /hpf Urine Mucus Rare H (None) /hpf Crossmatch 12/09/18 12/09/18 12/10/18 Range/Units 16:59 21:11 05:05 WBC (3.8-10.6) k/uL RBC (4.30-5.90) m/uL Hgb (13.0-17.5) gm/dL Hct (39.0-53.0) % Neutrophils # (1.3-7.7) k/uL Lymphocytes # (1.0-4.8) k/uL ABG Lactic Acid (0.5-1.6) mmol/L Chloride 109 H (98-107) mmol/L BUN 26 H (9-20) mg/dL Glucose 139 H (74-99) mg/dL POC Glucose (mg/dL) 164 H 146 H (75-99) mg/dL Plasma Lactic Acid Joe (0.7-2.0) mmol/L Calcium 7.3 L (8.4-10.2) mg/dL Alkaline Phosphatase 35 L (38-126) U/L Total Protein 5.1 L (6.3-8.2) g/dL Albumin 2.8 L (3.5-5.0) g/dL Ur Specific [place] (1.001-1.035) Urine Protein (Negative) Urine Glucose (UA) (Negative) Urine Ketones (Negative) Urine Blood (Negative) Ur Leukocyte Esterase (Negative) Urine RBC (0-5) /hpf Urine WBC (0-5) /hpf Urine Bacteria (None) /hpf Urine Mucus (None) /hpf Crossmatch 12/10/18 12/10/18 Range/Units 05:05 07:10 WBC 11.9 H (3.8-10.6) k/uL RBC 3.13 L (4.30-5.90) m/uL Hgb 9.8 L D (13.0-17.5) gm/dL Hct 29.0 L (39.0-53.0) % Neutrophils # 10.1 H (1.3-7.7) k/uL Lymphocytes # 0.9 L (1.0-4.8) k/uL ABG Lactic Acid (0.5-1.6) mmol/L Chloride (98-107) mmol/L BUN (9-20) mg/dL Glucose (74-99) mg/dL POC Glucose (mg/dL) 131 H (75-99) mg/dL Plasma Lactic Acid Joe (0.7-2.0) mmol/L Calcium (8.4-10.2) mg/dL Alkaline Phosphatase (38-126) U/L Total Protein (6.3-8.2) g/dL Albumin (3.5-5.0) g/dL Ur Specific [place] (1.001-1.035) Urine Protein (Negative) Urine Glucose (UA) (Negative) Urine Ketones (Negative) Urine Blood (Negative) Ur Leukocyte Esterase (Negative) Urine RBC (0-5) /hpf Urine WBC (0-5) /hpf Urine Bacteria (None) /hpf Urine Mucus (None) /hpf Crossmatch Microbiology - Last 24 Hours (Table) 12/09/18 16:00 Urine Culture - Preliminary Urine,Catheterized Assessment and Plan Assessment: Ruptured 5.7 cm infrarenal AAA - s/p percutaneous EVAR with AFX 12/09 HTN h/o bilateral hip surgery Lactic acidosis - improving Plan: Okay for transfer from ICU to [facility]. Continue IV hydration. Oral intake as tolerated. Up to chair at this time. Monitor labs, anemia as expected today given amount of retroperitoneal blood. We'll continue to monitor. Transfuse as necessary.
[2018-12-10] MEDS ORDERED: FAMOTIDINE 20 MG TAB PO SCH (09:00)
[2018-12-10] MEDS ORDERED: traMADol 50 MG TAB PO SCH (09:00)
--- NOTE | 2018-12-10 10:51 | P.PN ---
Subjective Progress Note Date: 12/10/18 This is a 68-year-old male patient who presented to the ER with complaint of back and abdominal pain. Patient reports the pain started around [address] of abdomen and pelvis completed showing a 5.5 cm infrarenal AAA. Luminal irregularity is present there is extensive para-aortic and right retroperitoneal hematoma consistent with a ruptured AAA. Patient was evaluated by surgical services and emergent EVAR with AFx2 with femoral access was performed. Patient has a past medical history of GERD, essential hypertension, bilateral neuropathy seasonal ALLERGIES and ex-smoker. Patient is currently resting comfortably in the intensive care unit. Critical care services are following. Patient still complaining of some abdominal discomfort. Patient remains on esmolol and nitroglycerin drips per cardiovascular. Patient denies chest pain or shortness of breath. She denies nausea vomiting or diarrhea. Patient denies any urinary burning or frequency On 12/10/2018 patient is currently resting comfortably in bed. Pain has subsided. Patient has been cleared to move out of the intensive care unit per critical care services. Infectious disease is following for elevated lactic acid. Patient is complaining of some shortness of breath. Will order chest x- ray. Patient denies chest pain. Patient denies nausea vomiting or diarrhea. Patient denies any urinary burning or frequency Objective - Vital Signs Vital signs: Vital Signs Temp 98.7 F 12/10/18 08:15 Pulse 116 H 12/10/18 08:15 Resp 17 12/10/18 08:30 BP 133/81 12/10/18 08:15 Pulse Ox 94 L 12/10/18 08:15 Intake & Output 12/09/18 12/10/18 12/10/18 18:59 06:59 18:59 Intake Total 2675 1475 615 Output Total 555 395 Balance 2120 1080 615 Weight 101.3 kg Intake: IV 250 Sodium Chloride 0.9% 1, 250 000 ml @ 125 mls/hr IV . Q8H [facility] Rx#:[id number] Intake, IV Titration 2675 1425 125 Amount Sodium Chloride 0.9% 1, 1625 1375 125 000 ml @ 125 mls/hr IV . Q8H [facility] Rx#:[id number] Sodium Chloride 0.9% 500 1000 ml 500 ml @ 999 mls/hr IV .Q31M [facility] Rx#:[id number] ceFAZolin 2 gm In Sodium 50 50 Chloride 0.9% 50 ml @ 100 mls/hr IVPB Q12HR [facility] Rx #:[id number] Oral 50 240 Output: Urine 555 395 Other: Voiding Method Bedside Commode # Emeses 2 ABP, PAP, CO, CI - Last Documented Arterial Blood Pressure 151/64 - Exam Head normocephalic Neck supple Lungs clear to auscultation bilaterally no wheezing or crackles Heart regular rate and rhythm S1-S2, no rub or gallop Abdomen is soft nontender nondistended positive bowel sounds no hepatosplenomegaly Extremities no edema, femoral dressings clean dry and intact. Peripheral pulses equal and strong Neuro alert and orientated to 3 - Labs CBC & Chem 7: 12/10/18 05:05 12/10/18 05:05 Labs: Abnormal Lab Results - Last 24 Hours (Table) 12/08/18 12/09/18 12/09/18 Range/Units 22:56 10:42 11:57 WBC 14.1 H (3.8-10.6) k/uL RBC 3.86 L (4.30-5.90) m/uL Hgb 12.2 L (13.0-17.5) gm/dL Hct 36.0 L (39.0-53.0) % Neutrophils # (1.3-7.7) k/uL Lymphocytes # (1.0-4.8) k/uL ABG Lactic Acid (0.5-1.6) mmol/L Chloride (98-107) mmol/L BUN (9-20) mg/dL Glucose (74-99) mg/dL POC Glucose (mg/dL) 173 H (75-99) mg/dL Calcium (8.4-10.2) mg/dL Alkaline Phosphatase (38-126) U/L Total Protein (6.3-8.2) g/dL Albumin (3.5-5.0) g/dL Ur Specific [place] (1.001-1.035) Urine Protein (Negative) Urine Glucose (UA) (Negative) Urine Ketones (Negative) Urine Blood (Negative) Ur Leukocyte Esterase (Negative) Urine RBC (0-5) /hpf Urine WBC (0-5) /hpf Urine Bacteria (None) /hpf Urine Mucus (None) /hpf Crossmatch See Detail 12/09/18 12/09/18 12/09/18 Range/Units 13:18 14:00 16:59 WBC (3.8-10.6) k/uL RBC (4.30-5.90) m/uL Hgb (13.0-17.5) gm/dL Hct (39.0-53.0) % Neutrophils # (1.3-7.7) k/uL Lymphocytes # (1.0-4.8) k/uL ABG Lactic Acid 2.7 H* (0.5-1.6) mmol/L Chloride (98-107) mmol/L BUN (9-20) mg/dL Glucose (74-99) mg/dL POC Glucose (mg/dL) 164 H (75-99) mg/dL Calcium (8.4-10.2) mg/dL Alkaline Phosphatase (38-126) U/L Total Protein (6.3-8.2) g/dL Albumin (3.5-5.0) g/dL Ur Specific [place] >1.050 H (1.001-1.035) Urine Protein Trace H (Negative) Urine Glucose (UA) Trace H (Negative) Urine Ketones Trace H (Negative) Urine Blood Small H (Negative) Ur Leukocyte Esterase Small H (Negative) Urine RBC 14 H (0-5) /hpf Urine WBC 14 H (0-5) /hpf Urine Bacteria Rare H (None) /hpf Urine Mucus Rare H (None) /hpf Crossmatch 12/09/18 12/10/18 12/10/18 Range/Units 21:11 05:05 05:05 WBC 11.9 H (3.8-10.6) k/uL RBC 3.13 L (4.30-5.90) m/uL Hgb 9.8 L D (13.0-17.5) gm/dL Hct 29.0 L (39.0-53.0) % Neutrophils # 10.1 H (1.3-7.7) k/uL Lymphocytes # 0.9 L (1.0-4.8) k/uL ABG Lactic Acid (0.5-1.6) mmol/L Chloride 109 H (98-107) mmol/L BUN 26 H (9-20) mg/dL Glucose 139 H (74-99) mg/dL POC Glucose (mg/dL) 146 H (75-99) mg/dL Calcium 7.3 L (8.4-10.2) mg/dL Alkaline Phosphatase 35 L (38-126) U/L Total Protein 5.1 L (6.3-8.2) g/dL Albumin 2.8 L (3.5-5.0) g/dL Ur Specific [place] (1.001-1.035) Urine Protein (Negative) Urine Glucose (UA) (Negative) Urine Ketones (Negative) Urine Blood (Negative) Ur Leukocyte Esterase (Negative) Urine RBC (0-5) /hpf Urine WBC (0-5) /hpf Urine Bacteria (None) /hpf Urine Mucus (None) /hpf Crossmatch 12/10/18 Range/Units 07:10 WBC (3.8-10.6) k/uL RBC (4.30-5.90) m/uL Hgb (13.0-17.5) gm/dL Hct (39.0-53.0) % Neutrophils # (1.3-7.7) k/uL Lymphocytes # (1.0-4.8) k/uL ABG Lactic Acid (0.5-1.6) mmol/L Chloride (98-107) mmol/L BUN (9-20) mg/dL Glucose (74-99) mg/dL POC Glucose (mg/dL) 131 H (75-99) mg/dL Calcium (8.4-10.2) mg/dL Alkaline Phosphatase (38-126) U/L Total Protein (6.3-8.2) g/dL Albumin (3.5-5.0) g/dL Ur Specific [place] (1.001-1.035) Urine Protein (Negative) Urine Glucose (UA) (Negative) Urine Ketones (Negative) Urine Blood (Negative) Ur Leukocyte Esterase (Negative) Urine RBC (0-5) /hpf Urine WBC (0-5) /hpf Urine Bacteria (None) /hpf Urine Mucus (None) /hpf Crossmatch Microbiology - Last 24 Hours (Table) 12/09/18 16:00 Urine Culture - Preliminary Urine,Catheterized Assessment and Plan Assessment: 1. Ruptured abdominal aortic aneurysm. Status post percutaneous EVAR with AFx2 device place per ultrasound guided from axis and percutaneous closure with Dr. Mosqueda. Patient is currently postop day 1. 2. History of essential hypertension 3. History of GERD 4. History of nicotine dependence. 5. Acute kidney injury. Creatinine elevated at 1.30 and bun 22. Continue normal saline at 125. Continue to monitor. Creatinine improving to 1.18 and bun 26 6. Elevated lactic acid. Dr. Wellington has been consulted for infectious disease. Per infectious disease patient does not appear to have an underlying infection and lactic acidosis is attributed to the ischemic event acute renal insufficien cy and intraperitoneal bleed. Chest x-ray has been ordered DVT prophylaxis SCDs due to recent surgical procedure and ruptured abdominal aortic aneurysm. GI prophylaxis Protonix Patient remains in the intensive care unit. Critical care and cardiovascular surgery following I performed an examination of the patient and discussed their management with the Nurse Practitioner. I have reviewed the Nurse Practitioner's notes and agree with the documented findings and plan of care
[2018-12-10] MEDS: traMADol 50 MG TAB PO PRN (11:46)
--- NOTE | 2018-12-10 12:04 | XR ---
EXAMINATION TYPE: XR chest 1V portable DATE OF EXAM: 12/10/2018 COMPARISON: 09/25/2017 HISTORY: Increasing shortness of breath TECHNIQUE: Single frontal view of the chest is obtained. FINDINGS: Haziness is seen of the costophrenic angles and lateral hemidiaphragms. Trace bilateral pl eural effusions and subsegmental atelectasis are suspected. Slight right hemidiaphragm elevation is u nchanged. Mild degenerative changes of the spine and acromio clavicular joints. Heart is upper limits of normal size, exaggerated by decreased inspiratory effort in comparison to the prior. IMPRESSION: New trace pleural effusions and probable bibasilar subsegmental atelectasis.
[2018-12-10] MEDS: ACETAMINOPHEN TAB 325 MG TAB PO PRN (14:55)
[2018-12-10 17:21] LABS: Glucose,Whole Blood 115 mg/dL (75-99)
[2018-12-10] MEDS: PANTOPRAZOLE 40 MG TABLET PO SCH (19:59)
[2018-12-10 20:31] LABS: Glucose,Whole Blood 105 mg/dL (75-99)
[2018-12-10] MEDS: PRAVASTATIN SODIUM 40 MG TAB PO SCH (20:55)
[2018-12-11] MEDS: ACETAMINOPHEN TAB 325 MG TAB PO PRN (01:54)
[2018-12-11] MEDS: HYDROmorphone 0.5 MG/0.5 ML SYRINGE IVP PRN ×2 (03:34→22:22)
[2018-12-11 05:55] LABS: Basophils % (A) 0 %; Eosinophils % (A) 0 %; HCT 25.1 % (39.0-53.0); Lymphocytes % (A) 9 %; MCH 31.2 pg (25.0-35.0); MCHC 33.3 g/dL (31.0-37.0); MCV 93.7 fL (80.0-100.0); Mean Platelet Volume 7.3; Monocytes # (A) 0.7 k/uL (0-1.0); Monocytes % (A) 7 %; Neutrophils # (A) 8.4 k/uL (1.3-7.7); Neutrophils % (A) 82 %; Platelet Count 133 k/uL (150-450); RBC 2.68 m/uL (4.30-5.90); RDW 14.2 % (11.5-15.5); WBC 10.3 k/uL (3.8-10.6)
[2018-12-11 06:04] LABS: ALT 37 U/L (21-72); AST 47 U/L (17-59); African American GFR (CKD) >90 (>60 ml/min/1.73 sqM); Albumin 2.8 g/dL (3.5-5.0); Alkaline Phosphatase 37 U/L (38-126); Anion Gap 3 mmol/L; Blood Urea Nitrogen 24 mg/dL (9-20); Calcium 7.7 mg/dL (8.4-10.2); Carbon Dioxide 29 mmol/L (22-30); Chloride 106 mmol/L (98-107); Glucose 110 mg/dL (74-99); Potassium 4.4 mmol/L (3.5-5.1); Sodium 138 mmol/L (137-145); Total Bilirubin 0.6 mg/dL (0.2-1.3); Total Protein 5.3 g/dL (6.3-8.2)
[2018-12-11 06:24] LABS: HGB 8.3 gm/dL (13.0-17.5)
[2018-12-11 06:45] LABS: Glucose,Whole Blood 106 mg/dL (75-99)
[2018-12-11] MEDS: INSULIN ASPART (NovoLOG) 100 UNIT/ML VIAL SQ SCH ×4 (07:18→20:03)
[2018-12-11] MEDS ORDERED: FUROSEMIDE 10 MG/ML 4 ML VIAL IV STA (08:21)
[2018-12-11] MEDS: PANTOPRAZOLE 40 MG TABLET PO SCH ×2 (08:42→17:23)
[2018-12-11] MEDS: SUCRALFATE 1 GM TAB PO SCH ×4 (08:43→20:03)
[2018-12-11] MEDS: ATENOLOL 50 MG TAB PO SCH (08:45)
[2018-12-11] MEDS: ASPIRIN 81 MG PO SCH (08:45)
--- NOTE | 2018-12-11 09:03 | P.PN ---
Subjective Progress Note Date: 12/11/18 Principal diagnosis: Abdominal pain, ruptured abdominal aortic aneurysm This is a very pleasant 68-year-old gentleman who follows with Dr. Gar as his primary care physician. He has a history of hypertension, gastroesophageal reflux disease, osteoarthritis with multiple joint replacements, occasional alcohol use, previous smoker. He presented to the emergency room last evening with complaints of back and abdominal discomfort. He stated he had been having some mid back pain ongoing since 7 PM at 8 PM he started having periumbilical portion of the abdomen with continued pain. He felt that may be he had a kidney stone and came to the emergency room. In the emergency room he became disoriented, delirious and diaphoretic. ET scan of the abdomen and pelvis revealed a 5.5 cm infrarenal abdominal aortic aneurysm. Luminal irregularity was present. There is extensive. Aortic and right retroperitoneal hematoma consistent with ruptured abdominal aortic aneurysm. He was taken emergently to the operating room for endovascular aortic repair which was performed by Dr. Mosqueda. He had performed a VATS with AF 2 device under ultrasound-guided femoral axis with percutaneous closure. His postoperative day #0. He is seen in consultation in the intensive care unit. Presently he is awake and alert in no acute distress. He is having some lower abdominal discomfort. Dr. Mittal was in to evaluate the patient. He currently has a 0.9 at 125 ML's per hour. He had received 1 unit of packed red blood cells thus far. He is maintaining oxygen in the 90s on 2 L/m per nasal cannula. His current hemoglobin is 12.2. White count 14.3. Sodium 139. Potassium 5.3. Creatinine 1.30. Lactic acid 2.9. He has been initiated on cefazolin, esmolol at 50 mcg/kg/m. Zofran for nausea. On 12/10/2018 patient seen in follow-up in the intensive care unit, this is postoperative day 2, status post endovascular repair of the ruptured abdominal aortic aneurysm. Today patient is awake and alert, in no acute distress, he is on 2 L of oxygen, his pulse ox is 94%, he is working on incentive spirometer, he is achieving about [id number] on the today. His nausea has significantly improved, and there has been no episodes of emesis since yesterday, patient has received Carafate, he states his nausea has improved, he is passing gas, no bowel movements yet. Abdomen is slightly distended but soft, nontender. Lung sounds are clear, his sinus tach on a monitor with a rate of 106 to 115 BPM, denies any significant discomfort, lower extremity pulses are palpable, 1+ bilaterally. The lateral groin incisions clean dry and intact, covered with surgical dressings, today's labs have been reviewed, showing white blood cell count of 11.9, hemoglobin of 9.8, serum sodium is 138, potassium is 4.6, chloride is 109, CO2 is 25, BUN was 26, creatinine is 1.18. IV 0.9 normal saline at a rate of 125 ML per hour On 12/11/2018 patient seen in follow-up in intensive care unit, he is resting comfortably in bed, currently on room air, no running IVs, he is complaining of some chest tightness and some dyspnea today, room air pulse ox is 88%, no significant adventitious lung sounds auscultated during physical exam, no rhonchi, no wheezing, chest x-ray has been reviewed today, showing tiny pleural effusions and adjacent atelectasis, we'll give the patient a dose of IV Lasix, no cough or congestion, no fever or chills. Bilateral groin incisions are clean dry and intact, palpable pedal pulses. Is working on the incentive spirometer. Objective - Vital Signs Vital signs: Vital Signs Temp 98.5 F 12/11/18 08:15 Pulse 84 12/11/18 08:15 Resp 15 12/11/18 08:15 BP 137/77 12/11/18 08:15 Pulse Ox 92 L 12/11/18 08:15 Intake & Output 12/10/18 12/11/18 12/11/18 18:59 06:59 18:59 Intake Total 1735 500 Output Total 1075 500 Balance 660 0 Weight 101.5 kg Intake: IV 1000 Sodium Chloride 0.9% 1, 1000 000 ml @ 125 mls/hr IV . Q8H TERESE Rx#:[id number] Intake, IV Titration 125 Amount Sodium Chloride 0.9% 1, 125 000 ml @ 125 mls/hr IV . Q8H TERESE Rx#:[id number] Oral 610 500 Output: Urine 1075 500 Other: Voiding Method Toilet Toilet # Voids 1 ABP, PAP, CO, CI - Last Documented Arterial Blood Pressure 151/64 - Exam GENERAL EXAM: Alert, pleasant, 68-year-old white male, on 2 L of oxygen, with a pulse ox of 93% comfortable in no apparent distress. HEAD: Normocephalic/atraumatic. EYES: Normal reaction of pupils, equal size. Conjunctiva pink, sclera white. NOSE: Clear with pink turbinates. THROAT: No erythema or exudates. NECK: No masses, no JVD, no thyroid enlargement, no adenopathy. CHEST: No chest wall deformity. Symmetrical expansion. LUNGS: Equal air entry with no crackles, wheeze, rhonchi or dullness. CVS: Regular rate and rhythm, normal S1 and S2, no gallops, no murmurs, no rubs ABDOMEN: Soft, nontender. No hepatosplenomegaly, normal bowel sounds, no guarding or rigidity. EXTREMITIES: No clubbing, no edema, no cyanosis, 2+ pulses and upper and lower extremities. Bilateral groin incisions covered with surgical dressings, clean dry and intact MUSCULOSKELETAL: Muscle strength and tone normal. SPINE: No scoliosis or deformity SKIN: No rashes CENTRAL NERVOUS SYSTEM: Alert and oriented -3. No focal deficits, tone is normal in all 4 extremities. PSYCHIATRIC: Alert and oriented -3. Appropriate affect. Intact judgment and insight. - Labs CBC & Chem 7: 12/11/18 05:13 12/11/18 05:13 Labs: Abnormal Lab Results - Last 24 Hours (Table) 12/08/18 12/10/18 12/10/18 Range/Units 22:56 17:18 20:28 RBC (4.30-5.90) m/uL Hgb (13.0-17.5) gm/dL Hct (39.0-53.0) % Plt Count (150-450) k/uL Neutrophils # (1.3-7.7) k/uL BUN (9-20) mg/dL Glucose (74-99) mg/dL POC Glucose (mg/dL) 115 H 105 H (75-99) mg/dL Calcium (8.4-10.2) mg/dL Alkaline Phosphatase (38-126) U/L Total Protein (6.3-8.2) g/dL Albumin (3.5-5.0) g/dL Crossmatch See Detail 08/12/11/18 12/11/18 Range/Units 05:13 05:13 06:43 RBC 2.68 L (4.30-5.90) m/uL Hgb 8.3 L D (13.0-17.5) gm/dL Hct 25.1 L (39.0-53.0) % Plt Count 133 L (150-450) k/uL Neutrophils # 8.4 H (1.3-7.7) k/uL BUN 24 H (9-20) mg/dL Glucose 110 H (74-99) mg/dL POC Glucose (mg/dL) 106 H (75-99) mg/dL Calcium 7.7 L (8.4-10.2) mg/dL Alkaline Phosphatase 37 L (38-126) U/L Total Protein 5.3 L (6.3-8.2) g/dL Albumin 2.8 L (3.5-5.0) g/dL Crossmatch Microbiology - Last 24 Hours (Table) 12/09/18 16:00 Blood Culture - Preliminary Blood No Growth after 24 hours Assessment and Plan Plan: Assessment: #1 Ruptured abdominal aortic aneurysm, status post percutaneous EVAR with AFX2 device placement under ultrasound guided femoral access and percutaneous closure. Postoperative day #1. #2 History of hypertension. #3 Gastroesophageal reflux disease. #4 Chronic tobacco dependence. Plan: Today's chest x-ray has been reviewed showing small pleural effusions, with adjacent atelectasis, patient did complain of increased dyspnea, some chest tightness, we'll give the patient a dose of IV Lasix, no cough or congestion, no fever or chills, continue encouraging deep breathing and coughing, encouraged patient to sit up in the chair, ambulate, vital signs are stable. No other acute issues overnight. Discontinue IV fluids. Culture data remains negative. I performed a history & physical examination of the patient and discussed their management with my nurse practitioner, Emani Glynn. I reviewed the nurse practitioner's note and agree with the documented findings and plan of care. Lung sounds are positive for clear breath sounds. The findings and the impression was discussed with the patient. I attest to the documentation by the nurse practitioner. Time with Patient: Less than 30
--- NOTE | 2018-12-11 09:43 | P.PN ---
Subjective Progress Note Date: 12/11/18 This is a 68-year-old male patient who presented to the ER with complaint of back and abdominal pain. Patient reports the pain started around [address] of abdomen and pelvis completed showing a 5.5 cm infrarenal AAA. Luminal irregularity is present there is extensive para-aortic and right retroperitoneal hematoma consistent with a ruptured AAA. Patient was evaluated by surgical services and emergent EVAR with AFx2 with femoral access was performed. Patient has a past medical history of GERD, essential hypertension, bilateral neuropathy seasonal ALLERGIES and ex-smoker. Patient is currently resting comfortably in the intensive care unit. Critical care services are following. Patient still complaining of some abdominal discomfort. Patient remains on esmolol and nitroglycerin drips per cardiovascular. Patient denies chest pain or shortness of breath. She denies nausea vomiting or diarrhea. Patient denies any urinary burning or frequency On 12/10/2018 patient is currently resting comfortably in bed. Pain has subsided. Patient has been cleared to move out of the intensive care unit per critical care services. Infectious disease is following for elevated lactic acid. Patient is complaining of some shortness of breath. Will order chest x- ray. Patient denies chest pain. Patient denies nausea vomiting or diarrhea. Patient denies any urinary burning or frequency On 12/11/2018 patient's alert and oriented 3 resting comfortably in chair. Patient was having some increased shortness of breath yesterday. Chest x-ray completed which showed tiny pleural effusions. patient was given a dose of IV Lasix per pulmonary services. Bilateral groin sites clean dry and intact. Patient is complaining of headache but denies chest pain or shortness of breath. Patient denies nausea vomiting or diarrhea. Patient denies any urinary burning or frequency. Incentive spirometer encouraged. Objective - Vital Signs Vital signs: Vital Signs Temp 98.5 F 12/11/18 08:15 Pulse 84 12/11/18 08:15 Resp 15 12/11/18 08:30 BP 137/77 12/11/18 08:15 Pulse Ox 92 L 12/11/18 08:15 Intake & Output 12/10/18 12/11/18 12/11/18 18:59 06:59 18:59 Intake Total 1735 500 Output Total 1075 500 Balance 660 0 Weight 101.5 kg Intake: IV 1000 Sodium Chloride 0.9% 1, 1000 000 ml @ 125 mls/hr IV . Q8H TERESE Rx#:[id number] Intake, IV Titration 125 Amount Sodium Chloride 0.9% 1, 125 000 ml @ 125 mls/hr IV . Q8H TERESE Rx#:[id number] Oral 610 500 Output: Urine 1075 500 Other: Voiding Method Toilet Toilet Toilet # Voids 1 ABP, PAP, CO, CI - Last Documented Arterial Blood Pressure 151/64 - Exam Head normocephalic Neck supple Lungs clear to auscultation bilaterally no wheezing or crackles Heart regular rate and rhythm S1-S2, no rub or gallop Abdomen is soft nontender nondistended positive bowel sounds no hepatosplenomegaly Extremities no edema, femoral dressings clean dry and intact. Peripheral pulses equal and strong Neuro alert and orientated to 3 - Labs CBC & Chem 7: 12/11/18 05:13 12/11/18 05:13 Labs: Abnormal Lab Results - Last 24 Hours (Table) 12/08/18 12/10/18 12/10/18 Range/Units 22:56 17:18 20:28 RBC (4.30-5.90) m/uL Hgb (13.0-17.5) gm/dL Hct (39.0-53.0) % Plt Count (150-450) k/uL Neutrophils # (1.3-7.7) k/uL BUN (9-20) mg/dL Glucose (74-99) mg/dL POC Glucose (mg/dL) 115 H 105 H (75-99) mg/dL Calcium (8.4-10.2) mg/dL Alkaline Phosphatase (38-126) U/L Total Protein (6.3-8.2) g/dL Albumin (3.5-5.0) g/dL Crossmatch See Detail 12/11/18 12/11/18 12/11/18 Range/Units 05:13 05:13 06:43 RBC 2.68 L (4.30-5.90) m/uL Hgb 8.3 L D (13.0-17.5) gm/dL Hct 25.1 L (39.0-53.0) % Plt Count 133 L (150-450) k/uL Neutrophils # 8.4 H (1.3-7.7) k/uL BUN 24 H (9-20) mg/dL Glucose 110 H (74-99) mg/dL POC Glucose (mg/dL) 106 H (75-99) mg/dL Calcium 7.7 L (8.4-10.2) mg/dL Alkaline Phosphatase 37 L (38-126) U/L Total Protein 5.3 L (6.3-8.2) g/dL Albumin 2.8 L (3.5-5.0) g/dL Crossmatch Microbiology - Last 24 Hours (Table) 12/09/18 16:00 Blood Culture - Preliminary Blood No Growth after 24 hours Assessment and Plan Assessment: 1. Ruptured abdominal aortic aneurysm. Status post percutaneous EVAR with AFx2 device place per ultrasound guided from axis and percutaneous closure with Dr. Mosqueda. Patient is currently postop day 2. 2. History of essential hypertension 3. History of GERD 4. History of nicotine dependence. 5. Acute kidney injury. Creatinine elevated at 1.30 and bun 22. Continue normal saline at 125. Continue to monitor. Creatinine improving to 1.18 and bun 26. Resolved 6. Elevated lactic acid. Dr. Wellington has been consulted for infectious disease. Per infectious disease patient does not appear to have an underlying infection and lactic acidosis is attributed to the ischemic event acute renal insufficiency and intraperitoneal bleed. 7. Urinary tract infection. UA showing small amount of leukocyte Estrace urine culture ordered patient started on Rocephin. 8. Small pleural effusion. Chest x-ray completed showing no trace pleural effusions and probable bile basilar some segmental atelectasis. Patient was given IV Lasix per pulmonary services. Incentive spirometer encouraged. 9. Expected acute blood loss anemia hemoglobin 8.3 continue to monitor DVT prophylaxis heparin. GI prophylaxis Protonix Patient remains in the intensive care unit. Critical care.infectious disease and cardiovascular surgery following I performed an examination of the patient and discussed their management with the Nurse Practitioner. I have reviewed the Nurse Practitioner's notes and agree with the documented findings and plan of care
[2018-12-11 12:14] LABS: Glucose,Whole Blood 117 mg/dL (75-99)
[2018-12-11] MEDS: HEPARIN SODIUM,PORCINE 5,000 UNIT/ML 1 ML VIAL SQ SCH ×2 (12:48→20:03)
--- NOTE | 2018-12-11 13:05 | P.PN ---
Subjective Progress Note Date: 12/11/18 Patient seen and examined. Overall feeling much better. No nausea vomiting. Passing flatus. No bowel movement. Has ambulated Pain and abdomen is greatly improved Objective - Vital Signs Vital signs: Vital Signs Temp 98.5 F 12/11/18 08:15 Pulse 72 12/11/18 12:00 Resp 20 12/11/18 12:00 BP 124/76 12/11/18 12:00 Pulse Ox 94 L 12/11/18 12:00 Intake & Output 12/10/18 12/11/18 12/11/18 18:59 06:59 18:59 Intake Total 1735 500 Output Total 9992 625 5232 Balance 660 0 -1350 Weight 101.5 kg Intake: IV 1000 Sodium Chloride 0.9% 1, 1000 000 ml @ 125 mls/hr IV . Q8H TERESE Rx#:[id number] Intake, IV Titration 125 Amount Sodium Chloride 0.9% 1, 125 000 ml @ 125 mls/hr IV . Q8H TERESE Rx#:[id number] Oral 610 500 Output: Urine 4261 249 1172 Other: Voiding Method Toilet Toilet Toilet # Voids 1 1 ABP, PAP, CO, CI - Last Documented Arterial Blood Pressure 151/64 - Exam NAD resting comfortably at this time Heart RRR Resp no resp distress Abd soft, mild distended, minimal TTP R>L Ext Groins clean, dry, no hematoma palp DP bilat - Labs CBC & Chem 7: 12/11/18 05:13 12/11/18 05:13 Labs: Abnormal Lab Results - Last 24 Hours (Table) 12/10/18 12/10/18 12/11/18 Range/Units 17:18 20:28 05:13 RBC 2.68 L (4.30-5.90) m/uL Hgb 8.3 L D (13.0-17.5) gm/dL Hct 25.1 L (39.0-53.0) % Plt Count 133 L (150-450) k/uL Neutrophils # 8.4 H (1.3-7.7) k/uL BUN (9-20) mg/dL Glucose (74-99) mg/dL POC Glucose (mg/dL) 115 H 105 H (75-99) mg/dL Calcium (8.4-10.2) mg/dL Alkaline Phosphatase (38-126) U/L Total Protein (6.3-8.2) g/dL Albumin (3.5-5.0) g/dL 12/11/18 12/11/18 12/11/18 Range/Units 05:13 06:43 12:11 RBC (4.30-5.90) m/uL Hgb (13.0-17.5) gm/dL Hct (39.0-53.0) % Plt Count (150-450) k/uL Neutrophils # (1.3-7.7) k/uL BUN 24 H (9-20) mg/dL Glucose 110 H (74-99) mg/dL POC Glucose (mg/dL) 106 H 117 H (75-99) mg/dL Calcium 7.7 L (8.4-10.2) mg/dL Alkaline Phosphatase 37 L (38-126) U/L Total Protein 5.3 L (6.3-8.2) g/dL Albumin 2.8 L (3.5-5.0) g/dL Microbiology - Last 24 Hours (Table) 12/09/18 16:00 Blood Culture - Preliminary Blood No Growth after 24 hours Assessment and Plan Assessment: Ruptured 5.7 cm infrarenal AAA - s/p percutaneous EVAR with AFX 12/09 Anemia HTN h/o bilateral hip surgery Lactic acidosis - improving Plan: Cpontinue Oral intake as tolerated. activity as tolerated. Monitor labs, anemia as expected today given amount of retroperitoneal blood. We'll continue to monitor. Transfuse if necessary. Hopeful for DC in next 24h. May need home O2 eval.
[2018-12-11] MEDS ORDERED: FUROSEMIDE 10 MG/ML 2 ML VIAL IV ONE (13:41)
[2018-12-11] MEDS: DOCUSATE 100 MG CAP PO SCH ×2 (15:29→20:03)
[2018-12-11 17:19] LABS: Glucose,Whole Blood 118 mg/dL (75-99)
[2018-12-11 20:01] LABS: Glucose,Whole Blood 112 mg/dL (75-99)
[2018-12-11] MEDS: PRAVASTATIN SODIUM 40 MG TAB PO SCH (20:03)
[2018-12-12 00:13] VITALS: PULSE 80
[2018-12-12 05:02] LABS: Basophils % (A) 0 %; Eosinophils # (A) 0.1 k/uL (0-0.7); Eosinophils % (A) 1 %; HCT 25.4 % (39.0-53.0); HGB 8.7 gm/dL (13.0-17.5); Lymphocytes # (A) 1.6 k/uL (1.0-4.8); Lymphocytes % (A) 17 %; MCH 31.7 pg (25.0-35.0); MCHC 34.2 g/dL (31.0-37.0); MCV 92.5 fL (80.0-100.0); Mean Platelet Volume 7.3; Monocytes # (A) 0.6 k/uL (0-1.0); Monocytes % (A) 6 %; Neutrophils # (A) 7.5 k/uL (1.3-7.7); Neutrophils % (A) 75 %; Platelet Count 165 k/uL (150-450); RBC 2.74 m/uL (4.30-5.90); RDW 15.3 % (11.5-15.5); WBC 9.9 k/uL (3.8-10.6)
[2018-12-12 05:19] LABS: Albumin 3.2 g/dL (3.5-5.0); Calcium 7.9 mg/dL (8.4-10.2); Potassium 3.9 mmol/L (3.5-5.1); Total Bilirubin 0.9 mg/dL (0.2-1.3); Total Protein 5.9 g/dL (6.3-8.2)
[2018-12-12 07:18] LABS: Glucose,Whole Blood 114 mg/dL (75-99)
--- NOTE | 2018-12-12 07:31 | P.PN ---
Subjective Progress Note Date: 12/12/18 Principal diagnosis: Abdominal pain, ruptured abdominal aortic aneurysm This is a very pleasant 68-year-old gentleman who follows with Dr. Gar as his primary care physician. He has a history of hypertension, gastroesophageal reflux disease, osteoarthritis with multiple joint replacements, occasional alcohol use, previous smoker. He presented to the emergency room last evening with complaints of back and abdominal discomfort. He stated he had been having some mid back pain ongoing since 7 PM at 8 PM he started having periumbilical portion of the abdomen with continued pain. He felt that may be he had a kidney stone and came to the emergency room. In the emergency room he became disoriented, delirious and diaphoretic. ET scan of the abdomen and pelvis revealed a 5.5 cm infrarenal abdominal aortic aneurysm. Luminal irregularity was present. There is extensive. Aortic and right retroperitoneal hematoma consistent with ruptured abdominal aortic aneurysm. He was taken emergently to the operating room for endovascular aortic repair which was performed by Dr. Mosqueda. He had performed a VATS with AF 2 device under ultrasound-guided femoral axis with percutaneous closure. His postoperative day #0. He is seen in consultation in the intensive care unit. Presently he is awake and alert in no acute distress. He is having some lower abdominal discomfort. Dr. Mittal was in to evaluate the patient. He currently has a 0.9 at 125 ML's per hour. He had received 1 unit of packed red blood cells thus far. He is maintaining oxygen in the 90s on 2 L/m per nasal cannula. His current hemoglobin is 12.2. White count 14.3. Sodium 139. Potassium 5.3. Creatinine 1.30. Lactic acid 2.9. He has been initiated on cefazolin, esmolol at 50 mcg/kg/m. Zofran for nausea. On 12/10/2018 patient seen in follow-up in the intensive care unit, this is postoperative day 2, status post endovascular repair of the ruptured abdominal aortic aneurysm. Today patient is awake and alert, in no acute distress, he is on 2 L of oxygen, his pulse ox is 94%, he is working on incentive spirometer, he is achieving about [id number] on the today. His nausea has significantly improved, and there has been no episodes of emesis since yesterday, patient has received Carafate, he states his nausea has improved, he is passing gas, no bowel movements yet. Abdomen is slightly distended but soft, nontender. Lung sounds are clear, his sinus tach on a monitor with a rate of 106 to 115 BPM, denies any significant discomfort, lower extremity pulses are palpable, 1+ bilaterally. The lateral groin incisions clean dry and intact, covered with surgical dressings, today's labs have been reviewed, showing white blood cell count of 11.9, hemoglobin of 9.8, serum sodium is 138, potassium is 4.6, chloride is 109, CO2 is 25, BUN was 26, creatinine is 1.18. IV 0.9 normal salin e at a rate of 125 ML per hour On 12/11/2018 patient seen in follow-up in intensive care unit, he is resting comfortably in bed, currently on room air, no running IVs, he is complaining of some chest tightness and some dyspnea today, room air pulse ox is 88%, no significant adventitious lung sounds auscultated during physical exam, no rhonchi, no wheezing, chest x-ray has been reviewed today, showing tiny pleural effusions and adjacent atelectasis, we'll give the patient a dose of IV Lasix, no cough or congestion, no fever or chills. Bilateral groin incisions are clean dry and intact, palpable pedal pulses. Is working on the incentive spirometer. On 12/12/2018 the patient is seen again in follow-up in the intensive care unit. Postoperative day #4 He is currently sitting up in a chair at the bedside. Awake and alert in no acute distress. His nausea have subsided. He is tolerat ing his full breakfast. He is maintaining O2 saturations in the 90s on 2 L/m per nasal cannula. He's been afebrile. Hemodynamically stable. Blood culture reveals no growth. Urine culture reveals no growth. He is status post 1 unit of packed red blood cells this admission. His current hemoglobin is 8.7. White count 9.9. Creatinine 1.05. He remains on ceftriaxone. Objective - Vital Signs Vital signs: Vital Signs Temp 98.5 F 12/12/18 04:00 Pulse 80 12/12/18 00:00 Resp 20 12/12/18 04:00 BP 123/76 12/12/18 04:00 Pulse Ox 95 12/12/18 04:00 Intake & Output 12/11/18 12/12/18 12/12/18 18:59 06:59 18:59 Output Total 1725 Balance -1725 Output: Urine 1725 Other: Voiding Method Toilet Urinal # Voids 1 2 ABP, PAP, CO, CI - Last Documented Arterial Blood Pressure 151/64 - Exam GENERAL EXAM: Alert, pleasant, 68-year-old male patient, on 2 L of oxygen, comfortable in no apparent distress. HEAD: Normocephalic/atraumatic. EYES: Normal reaction of pupils, equal size. Conjunctiva pink, sclera white. NOSE: Clear with pink turbinates. THROAT: No erythema or exudates. NECK: No masses, no JVD, no thyroid enlargement, no adenopathy. CHEST: No chest wall deformity. Symmetrical expansion. LUNGS: Equal air entry with no crackles, wheeze, rhonchi or dullness. CVS: Regular rate and rhythm, normal S1 and S2, no gallops, no murmurs, no rubs ABDOMEN: Soft, nontender. No hepatosplenomegaly, normal bowel sounds, no guarding or rigidity. EXTREMITIES: No clubbing, no edema, no cyanosis, 2+ pulses and upper and lower extremities. Bilateral groin incisions covered with surgical dressings, clean dry and intact MUSCULOSKELETAL: Muscle strength and tone normal. SPINE: No scoliosis or deformity SKIN: No rashes CENTRAL NERVOUS SYSTEM: No focal deficits, tone is normal in all 4 extremities. PSYCHIATRIC: Alert and oriented -3. Appropriate affect. Intact judgment and insight. - Labs CBC & Chem 7: 12/12/18 04:15 12/12/18 04:15 Labs: Abnormal Lab Results - Last 24 Hours (Table) 12/11/18 12/11/18 12/11/18 Range/Units 12:11 17:17 19:58 RBC (4.30-5.90) m/uL Hgb (13.0-17.5) gm/dL Hct (39.0-53.0) % Carbon Dioxide (22-30) mmol/L BUN (9-20) mg/dL Glucose (74-99) mg/dL POC Glucose (mg/dL) 117 H 118 H 112 H (75-99) mg/dL Calcium (8.4-10.2) mg/dL Total Protein (6.3-8.2) g/dL Albumin (3.5-5.0) g/dL 12/12/18 12/12/18 12/12/18 Range/Units 04:15 04:15 06:54 RBC 2.74 L (4.30-5.90) m/uL Hgb 8.7 L (13.0-17.5) gm/dL Hct 25.4 L (39.0-53.0) % Carbon Dioxide 31 H (22-30) mmol/L BUN 22 H (9-20) mg/dL Glucose 104 H (74-99) mg/dL POC Glucose (mg/dL) 114 H (75-99) mg/dL Calcium 7.9 L (8.4-10.2) mg/dL Total Protein 5.9 L (6.3-8.2) g/dL Albumin 3.2 L (3.5-5.0) g/dL Microbiology - Last 24 Hours (Table) 12/09/18 16:00 Blood Culture - Preliminary Blood No Growth after 48 hours Assessment and Plan Assessment: Impression: #1 Ruptured abdominal aortic aneurysm, status post percutaneous EVAR with AFX2 device placement under ultrasound guided femoral access and percutaneous closure. Postoperative day #4. #2 History of hypertension. #3 Gastroesophageal reflux disease. #4 Chronic tobacco dependence. Plan: The patient was seen and evaluated by Dr. Casillas. He is currently stable from the pulmonary and critical care standpoint. He is cleared for transfer out of the ICU or possibly home once cleared by surgical services. I, the cosigning physician, performed a history & physical examination of the patient. Lungs sounds are clear. Maintaining good O2 saturations in the 90s on 2 L/m per nasal cannula I discussed the assessment and plan of care with my nurse practitioner, Melva Lynne. I attest to the above note as dictated by her.
[2018-12-12] MEDS: INSULIN ASPART (NovoLOG) 100 UNIT/ML VIAL SQ SCH ×2 (07:43→11:48)
[2018-12-12 08:08] VITALS: BP 139/79; RESP 18; TEMP 98.8
[2018-12-12] MEDS: PANTOPRAZOLE 40 MG TABLET PO SCH (08:08)
[2018-12-12] MEDS: DOCUSATE 100 MG CAP PO SCH (08:08)
[2018-12-12] MEDS: ASPIRIN 81 MG PO SCH (08:08)
[2018-12-12] MEDS: SUCRALFATE 1 GM TAB PO SCH ×2 (08:08→11:48)
[2018-12-12] MEDS: ATENOLOL 50 MG TAB PO SCH (08:09)
[2018-12-12] MEDS: HEPARIN SODIUM,PORCINE 5,000 UNIT/ML 1 ML VIAL SQ SCH (08:09)
--- NOTE | 2018-12-12 10:14 | P.PN ---
Subjective Progress Note Date: 12/12/18 Principal diagnosis: Ruptured AAA s/p repair Patient seen and examined. Doing well. Has no abdominal or back pain. States ambulating, and eating well. Only complaint is some constipation currently taking stool softener. No fevers, chills, nausea, vomiting, chest pain or saida rtness of breath. Objective - Vital Signs Vital signs: Vital Signs Temp 98.8 F 12/12/18 08:00 Pulse 80 12/12/18 00:00 Resp 18 12/12/18 08:00 BP 139/79 12/12/18 08:00 Pulse Ox 94 L 12/12/18 08:00 Intake & Output 12/11/18 12/12/18 12/12/18 18:59 06:59 18:59 Intake Total 290 Output Total 1725 Balance -1725 290 Weight 100.7 kg Intake: Intake, IV Titration 50 Amount cefTRIAXone 1 gm In 50 Sodium Chloride 0.9% 50 ml @ 100 mls/hr IVPB Q24HR [facility] Rx#:[id number] Oral 240 Output: Urine 1725 Other: Voiding Method Toilet Urinal Toilet # Voids 1 2 1 ABP, PAP, CO, CI - Last Documented Arterial Blood Pressure 151/64 - Exam bilateral groin incision sites are clean, dry and intact. No sign of infection, hematoma or drainage. palpable DP pulses bilaterally. Feet are warm, good capillary refill. Abdomen is soft, non tender. - Constitutional General appearance: Present: average body habitus, cooperative - EENT Eyes: Present: PERRLA - Respiratory Respiratory: bilateral: CTA - Cardiovascular Rhythm: regular - Musculoskeletal Musculoskeletal: Present: gait normal - Psychiatric Psychiatric: Present: A&O x's 3, appropriate affect, intact judgment & insight - Labs CBC & Chem 7: 12/12/18 04:15 12/12/18 04:15 Labs: Abnormal Lab Results - Last 24 Hours (Table) 12/11/18 12/11/18 12/11/18 Range/Units 12:11 17:17 19:58 RBC (4.30-5.90) m/uL Hgb (13.0-17.5) gm/dL Hct (39.0-53.0) % Carbon Dioxide (22-30) mmol/L BUN (9-20) mg/dL Glucose (74-99) mg/dL POC Glucose (mg/dL) 117 H 118 H 112 H (75-99) mg/dL Calcium (8.4-10.2) mg/dL Total Protein (6.3-8.2) g/dL Albumin (3.5-5.0) g/dL 12/12/18 12/12/18 12/12/18 Range/Units 04:15 04:15 06:54 RBC 2.74 L (4.30-5.90) m/uL Hgb 8.7 L (13.0-17.5) gm/dL Hct 25.4 L (39.0-53.0) % Carbon Dioxide 31 H (22-30) mmol/L BUN 22 H (9-20) mg/dL Glucose 104 H (74-99) mg/dL POC Glucose (mg/dL) 114 H (75-99) mg/dL Calcium 7.9 L (8.4-10.2) mg/dL Total Protein 5.9 L (6.3-8.2) g/dL Albumin 3.2 L (3.5-5.0) g/dL Microbiology - Last 24 Hours (Table) 12/09/18 16:00 Blood Culture - Preliminary Blood No Growth after 48 hours Assessment and Plan Assessment: 1. S/P EVAR for Ruptured infrarenal AAA 2. Expected anemia secondary to rupture- improving 3. HTN 4. Lactic acidosis- resolved Plan: Discussed with Dr. Casillas- patient doing well and stable for discharge. Reviewed labs- all are improving. Discussed with patient if continued constipation then ok for over the counter bowel stimulation upon d/c- Miralax, Milk of Mag. Continue aspirin and statin. Ok for d/c home today. Follow up in 2 weeks.
[2018-12-12] MEDS: traMADol 50 MG TAB PO PRN (11:09)
--- NOTE | 2018-12-12 14:25 | P.DS ---
Providers Date of admission: 12/09/18 01:03 Expected date of discharge: 12/12/18 Attending physician: Kermit Mosqueda DO Consults: 12/09/18 02:47 Consult Physician Routine Consulting Provider: Xu Casillas Consult Reason/Comments: critical care Do you want consulting provider notified?: Yes 12/09/18 02:54 Consult Physician Routine Consulting Provider: Kermit Mosqueda Consult Reason/Comments: AAA Do you want consulting provider notified?: Already Contacted 12/09/18 15:39 Consult Physician Routine Consulting Provider: Simón Wellington Consult Reason/Comments: elevated Lactic acid Do you want consulting provider notified?: Yes Primary care physician: [facility] Course: Diagnosis on discharge: 1. Ruptured abdominal aortic aneurysm. Status post percutaneous EVAR with AFx2 device place per ultrasound guided from axis and percutaneous closure with Dr. Mosqueda. Patient is currently postop day 2. 2. History of essential hypertension 3. History of GERD 4. History of nicotine dependence. 5. Acute kidney injury. Creatinine elevated at 1.30 and bun 22. Continue normal saline at 125. Continue to monitor. Creatinine improving to 1.18 and bun 26. Resolved 6. Elevated lactic acid. Dr. Wellington has been consulted for infectious disease. Per infectious disease patient does not appear to have an underlying infection and lactic acidosis is attributed to the ischemic event acute renal insufficiency and intraperitoneal bleed. 7. Urinary tract infection. UA showing small amount of leukocyte Estrace urine culture ordered patient started on Rocephin. 8. Small pleural effusion. Chest x-ray completed showing no trace pleural effusions and probable bile basilar some segmental atelectasis. Patient was giv en IV Lasix per pulmonary services. Incentive spirometer encouraged. 9. Expected acute blood loss anemia hemoglobin 8.3 continue to monitor Hospital course: This is a 68-year-old male patient who presented to the ER with complaint of back and abdominal pain. Patient reports the pain started around [address] of abdomen and pelvis completed showing a 5.5 cm infrarenal AAA. Luminal irregularity is present there is extensive para-aortic and right retroperitoneal hematoma consistent with a ruptured AAA. Patient was evaluated by surgical services and emergent EVAR with AFx2 with femoral access was performed. Patient has a past medical history of GERD, essential hypertension, bilateral neuropathy seasonal ALLERGIES and ex-smoker. Patient is currently resting comfortably in the intensive care unit. Critical care services are following. Patient still complaining of some abdominal discomfort. Patient remains on esmolol and nitroglycerin drips per cardiovascular. Patient denies chest pain or shortness of breath. She denies nausea vomiting or diarrhea. Patient denies any urinary burning or frequency On 12/10/2018 patient is currently resting comfortably in bed. Pain has subsided. Patient has been cleared to move out of the intensive care unit per critical care services. Infectious disease is following for elevated lactic acid. Patient is complaining of some shortness of breath. Will order chest x- ray. Patient denies chest pain. Patient denies nausea vomiting or diarrhea. Patient denies any urinary burning or frequency On 12/11/2018 patient's alert and oriented 3 resting comfortably in chair. Patient was having some increased shortness of breath yesterday. Chest x-ray completed which showed tiny pleural effusions. patient was given a dose of IV Lasix per pulmonary services. Bilateral groin sites clean dry and intact. Patient is complaining of headache but denies chest pain or shortness of breath. Patient denies nausea vomiting or diarrhea. Patient denies any urinary burning or frequency. Incentive spirometer encouraged. On 12/12/2018 patient was seen and examined in the intensive care unit he is alert and oriented 3 there is no fever or chills no headache or dizziness no chest pain no shortness of breath no cough no nausea or vomiting no abdominal pain no diarrhea no back pain and no urinary symptoms he was evaluated by vascular surgery and was cleared for discharge. Plan is to discharge patient to home today patient and family instructed to return to emergency room if having any symptoms follow up in the office within 1 week Patient Condition at Discharge: Critical Plan - Discharge Summary Discharge Rx Participant: Yes New Discharge Prescriptions: No Action Atenolol [Tenormin] 50 mg PO QAM Cetirizine HCl [Zyrtec] 10 mg PO QAM Aspirin [Adult Low Dose Aspirin EC] 81 mg PO DAILY Discharge Medication List Atenolol [Tenormin] 50 mg PO QAM 01/09/15 [History] Cetirizine HCl [Zyrtec] 10 mg PO QAM 01/09/15 [History] Aspirin [Adult Low Dose Aspirin EC] 81 mg PO DAILY 12/12/18 [History] Follow up Appointment(s)/Referral(s): Kermit Mosqueda DO [STAFF PHYSICIAN] - 2 Weeks Bryant Méndez MD [Primary Care Provider] - 1-2 days [facility] Visiting Nurse, [NON-STAFF] - 1-2 Days Activity/Diet/Wound Care/Special Instructions: ok to shower over incisions. no lifting greater than 15lbs ok to take over the counter bowel stimulation (Miralax, etc.) Discharge Disposition: HOME SELF-CARE
== END 2018-12-12 11:53 | disposition home health service (06) | DRG 268 ==
LOC: EC 21:46 → 2SICU 12-09 01:03
PROVIDERS: ADMIT Surgery; ATTEND Surgery
PROC: 30233N1 Transfusion of Nonautologous Red Blood Cells into Peripheral Vein, Percutaneous Approach (ICD-10-PCS; 2018-12-08)
PROC: 04V03EZ Restriction of Abdominal Aorta with Branched or Fenestrated Intraluminal Device, One or Two Arteries, Percutaneous Approach (ICD-10-PCS; principal; 2018-12-09 00:04)
DX: I71.3 Abdominal aortic aneurysm, ruptured (principal); K66.1 Hemoperitoneum; D62 Acute posthemorrhagic anemia; E87.2 Acidosis; N17.9 Acute kidney failure, unspecified; N39.0 Urinary tract infection, site not specified; J90 Pleural effusion, not elsewhere classified; J98.11 Atelectasis; F17.200 Nicotine dependence, unspecified, uncomplicated; I10 Essential (primary) hypertension; K21.9 Gastro-esophageal reflux disease without esophagitis; K59.00 Constipation, unspecified; Z82.49 Family history of ischemic heart disease and other diseases of the circulatory system; Z86.79 Personal history of other diseases of the circulatory system; Z87.442 Personal history of urinary calculi; Z96.643 Presence of artificial hip joint, bilateral; Z79.899 Other long term (current) drug therapy
CPT/HCPCS: 36415; 51702; 71045; 71275; 74174; 80048; 80053; 80320; 81001; 81003; 82150; 82272; 82805; 83605; 83690; 85025; 85027; 85610; 85730; 86850; 86891; 86900; 86901; 86920; 87040; 87086; 93005; 96361; 96365; 96374; 96375; 99291

== ENCOUNTER 2018-12-14 10:31 | Inpatient (IN) | payer MEDICARE ==
[2018-12-14] MEDS ORDERED: SODIUM CHLORIDE 0.9% 1,000 ML IV STA ×2 (11:18)
[2018-12-14] MEDS ORDERED: ACETAMINOPHEN TAB 500 MG TAB PO STA (11:18)
--- NOTE | 2018-12-14 11:47 | ED ---
Fever HPI - General Chief Complaint: Fever Stated Complaint: recheck, fever Time Seen by Provider: 12/14/18 11:11 Source: patient, RN notes reviewed, old records reviewed Mode of arrival: ambulatory Limitations: no limitations - History of Present Illness Initial Comments: This is a 68-year-old male the ER for evaluation. Patient does say for evaluation regards to fever postop fever. Patient recently is postop from having abdominal AAA rupture repair, patient does admit to some abdominal pain. Patient awoke this morning with a fever and sweating. Patient called family doctor instructed to come to the ER. He denies cough or congestion no chest pain. No new rashes noted. denies any dysuria no nausea vomiting or diarrhea. Patient states he is again having some abdominal pain but is been persistent throughout his postop period MD Complaint: fever, other (Abdominal pain) -: hour(s) Temperature Source: subjective Context: recent procedure Associated Symptoms: chills, abdominal pain, night sweats Treatments Prior to Arrival: none - Related Data Home Medications Medication Instructions Recorded Confirmed Atenolol [Tenormin] 50 mg PO QAM 01/09/15 12/14/18 Cetirizine HCl [Zyrtec] 10 mg PO QAM 01/09/15 12/14/18 Docusate [Colace] 100 mg PO DAILY 12/14/18 12/14/18 Ferrous Sulfate [Feosol] 325 mg PO HS 12/14/18 12/14/18 traMADol HCL [Ultram] 50 mg PO Q6HR PRN 12/14/18 12/14/18 Allergies Allergy/AdvReac Type Severity Reaction Status Date / Time No Known Allergies Allergy Verified 12/14/18 11:09 Review of Systems ROS Statement: Those systems with pertinent positive or pertinent negative responses have been documented in the HPI. ROS Other: All systems not noted in ROS Statement are negative. 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, AAA History of Any Multi-Drug Resistant Organisms: None Reported Past Surgical History: Joint Replacement, Orthopedic Surgery Additional Past Surgical History / Comment(s): bilateral hip replacement, left hip revision, amputation of tip of left thumb, AAA-repair Past Anesthesia/Blood Transfusion Reactions: No Reported Reaction Past Psychological History: No Psychological Hx Reported Smoking Status: Former smoker Past Alcohol Use History: Occasional Past Drug Use History: Marijuana - Past Family History Father Family Medical History: Cancer, Myocardial Infarction ([place]) General Exam Limitations: no limitations General appearance: alert, in no apparent distress Head exam: Present: atraumatic, normocephalic, normal inspection Eye exam: Present: normal appearance, PERRL, EOMI. Absent: scleral icterus, conjunctival injection, periorbital swelling ENT exam: Present: normal exam, mucous membranes moist Neck exam: Present: normal inspection. Absent: tenderness, meningismus, lymphadenopathy Respiratory exam: Present: normal lung sounds bilaterally. Absent: respiratory distress, wheezes, rales, rhonchi, stridor Cardiovascular Exam: Present: regular rate, normal rhythm, normal heart sounds. Absent: systolic murmur, diastolic murmur, rubs, gallop, clicks GI/Abdominal exam: Present: soft, normal bowel sounds. Absent: distended, tenderness, guarding, rebound, rigid Extremities exam: Present: normal inspection, full ROM, normal capillary refill. Absent: tenderness, pedal edema, joint swelling, calf tenderness Back exam: Present: normal inspection Neurological exam: Present: alert, oriented X3, CN II-XII intact Psychiatric exam: Present: normal affect, normal mood Skin exam: Present: warm, dry, intact, normal color. Absent: rash Course Vital Signs 12/14/18 12/14/18 12/14/18 10:43 11:32 12:36 Temperature 100.1 F H 101 F H 99.6 F Pulse Rate 83 82 75 Respiratory 18 16 16 Rate Blood Pressure 143/75 141/81 143/81 O2 Sat by Pulse 96 95 94 L Oximetry 12/14/18 12/14/18 13:00 15:03 Temperature 98.4 F Pulse Rate 81 89 Respiratory 16 16 Rate Blood Pressure 146/73 154/79 O2 Sat by Pulse 99 99 Oximetry - Reevaluation(s) Reevaluation #1: 12/14/18 11:47 Medical record inpatient hospitalization is reviewed Reevaluation #2: 12/14/18 15:08 Patient feeling weak but is improving with appetite Reevaluation #3: 12/14/18 15:[address] Betts, patient's surgeon, aware of patient's ER visit Medical Decision Making - Medical Decision Making 68 male the ER for evaluation presented today for evaluation of fever postoperative fever, no acute cause found here in the ER will await blood cult ures. Patient made for IV antibiotics currently - Lab Data Result diagrams: 12/14/18 11:38 12/14/18 11:38 Lab Results 12/14/18 12/14/18 12/14/18 Range/Units 11:38 11:38 11:38 WBC 6.9 (3.8-10.6) k/uL RBC 2.86 L (4.30-5.90) m/uL Hgb 9.0 L (13.0-17.5) gm/dL Hct 26.0 L (39.0-53.0) % MCV 91.1 (80.0-100.0) fL MCH 31.4 (25.0-35.0) pg MCHC 34.5 (31.0-37.0) g/dL RDW 15.5 (11.5-15.5) % Plt Count 230 (150-450) k/uL Neutrophils % 80 % Lymphocytes % 9 % Monocytes % 8 % Eosinophils % 2 % Basophils % 0 % Neutrophils # 5.5 (1.3-7.7) k/uL Lymphocytes # 0.6 L (1.0-4.8) k/uL Monocytes # 0.6 (0-1.0) k/uL Eosinophils # 0.1 (0-0.7) k/uL Basophils # 0.0 (0-0.2) k/uL Sodium 135 L (137-145) mmol/L Potassium 4.1 (3.5-5.1) mmol/L Chloride 102 (98-107) mmol/L Carbon Dioxide 29 (22-30) mmol/L Anion Gap 4 mmol/L BUN 20 (9-20) mg/dL Creatinine 0.77 (0.66-1.25) mg/dL Est GFR (CKD-EPI)AfAm >90 (>60 ml/min/1.73 sqM) Est GFR (CKD-EPI)NonAf >90 (>60 ml/min/1.73 sqM) Glucose 102 H (74-99) mg/dL Plasma Lactic Acid Joe 1.1 (0.7-2.0) mmol/L Calcium 8.4 (8.4-10.2) mg/dL Phosphorus 3.0 (2.5-4.5) mg/dL Magnesium 2.2 (1.6-2.3) mg/dL Total Bilirubin 1.5 H (0.2-1.3) mg/dL AST 34 (17-59) U/L ALT 32 (21-72) U/L Alkaline Phosphatase 70 (38-126) U/L C-Reactive Protein 170.8 H (<10.0) mg/L Total Protein 6.3 (6.3-8.2) g/dL Albumin 3.3 L (3.5-5.0) g/dL Lipase 132 (23-300) U/L Urine Color Urine Appearance (Clear) Urine pH (5.0-8.0) Ur Specific [place] (1.001-1.035) Urine Protein (Negative) Urine Glucose (UA) (Negative) Urine Ketones (Negative) Urine Blood (Negative) Urine Nitrite (Negative) Urine Bilirubin (Negative) Urine Urobilinogen (<2.0) mg/dL Ur Leukocyte Esterase (Negative) Urine RBC (0-5) /hpf Urine WBC (0-5) /hpf Urine Mucus (None) /hpf 12/14/18 Range/Units 12:40 WBC (3.8-10.6) k/uL RBC (4.30-5.90) m/uL Hgb (13.0-17.5) gm/dL Hct (39.0-53.0) % MCV (80.0-100.0) fL MCH (25.0-35.0) pg MCHC (31.0-37.0) g/dL RDW (11.5-15.5) % Plt Count (150-450) k/uL Neutrophils % % Lymphocytes % % Monocytes % % Eosinophils % % Basophils % % Neutrophils # (1.3-7.7) k/uL Lymphocytes # (1.0-4.8) k/uL Monocytes # (0-1.0) k/uL Eosinophils # (0-0.7) k/uL Basophils # (0-0.2) k/uL Sodium (137-145) mmol/L Potassium (3.5-5.1) mmol/L Chloride (98-107) mmol/L Carbon Dioxide (22-30) mmol/L Anion Gap mmol/L BUN (9-20) mg/dL Creatinine (0.66-1.25) mg/dL Est GFR (CKD-EPI)AfAm (>60 ml/min/1.73 sqM) Est GFR (CKD-EPI)NonAf (>60 ml/min/1.73 sqM) Glucose (74-99) mg/dL Plasma Lactic Acid Joe (0.7-2.0) mmol/L Calcium (8.4-10.2) mg/dL Phosphorus (2.5-4.5) mg/dL Magnesium (1.6-2.3) mg/dL Total Bilirubin (0.2-1.3) mg/dL AST (17-59) U/L ALT (21-72) U/L Alkaline Phosphatase (38-126) U/L C-Reactive Protein (<10.0) mg/L Total Protein (6.3-8.2) g/dL Albumin (3.5-5.0) g/dL Lipase (23-300) U/L Urine Color Yellow Urine Appearance Clear (Clear) Urine pH 6.5 (5.0-8.0) Ur Specific [place] 1.016 (1.001-1.035) Urine Protein Trace H (Negative) Urine Glucose (UA) 1+ H (Negative) Urine Ketones Negative (Negative) Urine Blood Small H (Negative) Urine Nitrite Negative (Negative) Urine Bilirubin Negative (Negative) Urine Urobilinogen 6.0 (<2.0) mg/dL Ur Leukocyte Esterase Negative (Negative) Urine RBC 9 H (0-5) /hpf Urine WBC 1 (0-5) /hpf Urine Mucus Rare H (None) /hpf - Radiology Data Radiology results: report reviewed (Chest x-ray and CTA of the abdomen pelvis is negative for acute disease), image reviewed Disposition Clinical Impression: Fever, Postoperative fever Disposition: ADMITTED IP TO THIS HOSP Condition: Good Is patient prescribed a controlled substance at d/c from ED?: No Referrals: Bryant Méndez MD [Primary Care Provider] - 1-2 days
[2018-12-14 11:54] LABS: Basophils % (A) 0 %; Eosinophils # (A) 0.1 k/uL (0-0.7); Eosinophils % (A) 2 %; Lymphocytes # (A) 0.6 k/uL (1.0-4.8); Lymphocytes % (A) 9 %; MCH 31.4 pg (25.0-35.0); MCHC 34.5 g/dL (31.0-37.0); MCV 91.1 fL (80.0-100.0); Mean Platelet Volume 7.4; Monocytes # (A) 0.6 k/uL (0-1.0); Monocytes % (A) 8 %; Neutrophils # (A) 5.5 k/uL (1.3-7.7); Neutrophils % (A) 80 %; Platelet Count 230 k/uL (150-450); RBC 2.86 m/uL (4.30-5.90); RDW 15.5 % (11.5-15.5); WBC 6.9 k/uL (3.8-10.6)
--- NOTE | 2018-12-14 12:05 | XR ---
EXAMINATION TYPE: XR chest 2V DATE OF EXAM: 12/14/2018 COMPARISON: 12/10/2018 HISTORY: Cough TECHNIQUE: Frontal and lateral views of the chest are obtained. FINDINGS: Pulmonary hyperinflation with flattening of the diaphragms is indicative of underlying DIGITAL CONTENT COORDINATOR D. No new focal consolidation, pleural effusion or pneumothorax. Central peribronchial cuffing is see n. Right midlung subtle density could relate to the patient's nipple shadow and repeat x-ray with nip ple markers could be performed. Diffuse osseous demineralization and mild degenerative changes of the spine. Partial visualization of aortic endograft. Cardiomediastinal silhouette is stable. IMPRESSION: No acute cardiopulmonary process. Underlying COPD with chronic peribronchial cuffing. Ri ght midlung nodular density could relate to the patient's nipple shadow and repeat radiograph with ni pple markers could be performed on a nonemergent basis.
[2018-12-14 12:10] LABS: ALT 32 U/L (21-72); AST 34 U/L (17-59); African American GFR (CKD) >90 (>60 ml/min/1.73 sqM); Albumin 3.3 g/dL (3.5-5.0); Alkaline Phosphatase 70 U/L (38-126); Anion Gap 4 mmol/L; Blood Urea Nitrogen 20 mg/dL (9-20); Calcium 8.4 mg/dL (8.4-10.2); Carbon Dioxide 29 mmol/L (22-30); Chloride 102 mmol/L (98-107); Glucose 102 mg/dL (74-99); Magnesium 2.2 mg/dL (1.6-2.3); Potassium 4.1 mmol/L (3.5-5.1); Sodium 135 mmol/L (137-145); Total Bilirubin 1.5 mg/dL (0.2-1.3); Total Protein 6.3 g/dL (6.3-8.2)
[2018-12-14 12:22] LABS: C Reactive Protein 170.8 mg/L (<10.0)
[2018-12-14] MEDS ORDERED: MORPHINE SULFATE 4 MG/ML SYRINGE IVP STA (12:30)
[2018-12-14 13:06] LABS: Appearance,Urine Clear (Clear); Bilirubin,Urine Negative (Negative); Blood,Urine Small (Negative); Color,Urine Yellow; Glucose,Urine (UA) 1+ (Negative); Ketones,Urine Negative (Negative); Leukocyte Esterase,Urine Negative (Negative); Mucus,Urine Rare /hpf; Nitrite,Urine Negative (Negative); PH, Urine 6.5 (5.0-8.0); Protein,Urine Trace (Negative); RBC,Urine 9 /hpf (0-5); Specific Gravity,Urine 1.016 (1.001-1.035)
--- NOTE | 2018-12-14 14:51 | CT ---
EXAMINATION TYPE: CT angio abdomen pelvis DATE OF EXAM: 12/14/2018 2:29 PM COMPARISON: Chest x-ray dated 12/14/[address] dated 12/08/2018. HISTORY: Fever, night sweats. 6 days post op AAA repair. CT DLP: 1847.1 mGycm Automated exposure control for dose reduction was used. TECHNIQUE: CTA per department protocol was performed of the abdomen and pelvis. CTA was performed without and wi th IV Contrast, patient injected with 100 mL of Isovue 370. 3-D reformatted images of the vasculature were obtained FINDINGS: There is redemonstration of a small right partially visualized pleural effusion and right basilar ate lectasis. Scattered areas of platelike atelectasis are seen throughout the remainder of the lungs. Th ere is diffuse hypoattenuation of the hepatic parenchyma relating to hepatic steatosis and limiting e valuation for hepatic masses however there are more focal areas of geographic hypoattenuation concern ing for underlying hepatic masses such as on series 501 image 25 measuring 4.7 cm and on image 31 onel suring 1.4 cm. MR liver mass protocol is recommended to evaluate these areas on a nonemergent basis. There has been interval placement of aortic endograft. Curvilinear hyperdensity surrounds the abdomin al aorta and has decreased in degree from the prior of 12/08/2018 compatible with the known prior retr operitoneal hemorrhage. This makes delineation of the [place] aortic lumen difficult however this is a pproximate measure 5.5 x 5.8 cm in anterior posterior by transverse dimension. When measured in a sim ilar fashion this is unchanged from the prior of 12/08/2018. There is no evidence of active extravasat ion from the [place] aortic lumen on the contrast-enhanced portion of the examination in the angiograp hic phase nor current evidence of aortic endoleak of the graft. The graft begins just above the level of the right renal artery. This extends into the common iliac arteries bilaterally. Common iliac art eries appear patent as do the visualized portions of the external iliac arteries and internal iliac a rteries. Retroperitoneal hemorrhage spans up to 15.5 cm in longitudinal dimension and 3.6 cm in width however again appears improving caliber and overall volume in comparison to the prior. Small wedge-shaped area of hypoattenuation in the left medial upper pole could represent a very small infarct, similarly on the right. These are very subtle. Pyelonephritis is also a consideration. With in the lower poles of the right kidney the findings are more pronounced and new from prior of 12/09/19 19. No hydronephrosis is seen. Numerous sigmoid diverticula are seen without discrete pericolonic fat stranding although findings ar e limited secondary to mesenteric fat stranding. The spleen is unremarkable as are the adrenal glands and atrophic pancreas. Gallbladder is also unrem arkable. No dilated large or small bowel bowel. Appendix is air-filled and within normal limits. Bila teral hip arthroplasties are seen. Degenerative changes of the spine are noted. IMPRESSION: 1. PATIENT IS STATUS POST AORTIC VASCULAR REPAIR AFTER RETROPERITONEAL HEMORRHAGE. OVERALL DEGREE AND VOLUME OF THE RETROPERITONEAL HEMORRHAGE HAS IMPROVED FROM THE PRIOR OF 12/08/2018. NO CURRENT EVIDEN CE OF ACTIVE EXTRAVASATION OR ENDOLEAK. 2. NEW WEDGE-SHAPED AREAS OF HYPOATTENUATION WITHIN BOTH KIDNEYS, RIGHT GREATER THAN LEFT. THESE MAY BE ON THE BASIS OF PYELONEPHRITIS OR RENAL INFARCTS. CORRELATE WITH URINALYSIS. 3. ABNORMAL ATTENUATION OF THE LIVER. MRI OF THE LIVER IS RECOMMENDED TO EVALUATE FOR MASS VERSUS MUL TIFOCAL FATTY INFILTRATION.
[2018-12-14] MEDS: traMADol 50 MG TAB PO PRN (20:13)
[2018-12-14] MEDS: FERROUS SULFATE 325 MG TAB PO SCH (20:13)
[2018-12-15] MEDS: traMADol 50 MG TAB PO PRN (03:31)
[2018-12-15 04:47] LABS: Basophils % (A) 0 %; Eosinophils # (A) 0.1 k/uL (0-0.7); Eosinophils % (A) 2 %; HCT 25.1 % (39.0-53.0); HGB 8.5 gm/dL (13.0-17.5); Lymphocytes # (A) 0.7 k/uL (1.0-4.8); Lymphocytes % (A) 11 %; MCH 31.1 pg (25.0-35.0); MCV 91.4 fL (80.0-100.0); Mean Platelet Volume 8.1; Monocytes # (A) 0.5 k/uL (0-1.0); Monocytes % (A) 7 %; Neutrophils % (A) 78 %; Platelet Count 259 k/uL (150-450); RBC 2.74 m/uL (4.30-5.90); RDW 14.9 % (11.5-15.5); WBC 6.5 k/uL (3.8-10.6)
[2018-12-15] MEDS: LORATADINE 10 MG TAB PO SCH (08:07)
[2018-12-15] MEDS: DOCUSATE 100 MG CAP PO SCH (08:07)
[2018-12-15] MEDS: POLYETHYLENE GLYCOL 3350 17 GM POWD.PACK PO SCH (08:07)
[2018-12-15] MEDS: ATENOLOL 50 MG TAB PO SCH (08:07)
[2018-12-15] MEDS: ONDANSETRON 4 MG/2 ML VIAL IVP PRN (09:26)
[2018-12-15] MEDS: ACETAMINOPHEN TAB 500 MG TAB PO PRN ×2 (09:26→22:31)
[2018-12-15 09:30] LABS: ALT 32 U/L (21-72); AST 33 U/L (17-59); African American GFR (CKD) >90 (>60 ml/min/1.73 sqM); Albumin 3.4 g/dL (3.5-5.0); Alkaline Phosphatase 72 U/L (38-126); Anion Gap 7 mmol/L; Blood Urea Nitrogen 16 mg/dL (9-20); Calcium 8.5 mg/dL (8.4-10.2); Carbon Dioxide 26 mmol/L (22-30); Chloride 105 mmol/L (98-107); Glucose 125 mg/dL (74-99); Potassium 3.9 mmol/L (3.5-5.1); Sodium 138 mmol/L (137-145); Total Bilirubin 1.2 mg/dL (0.2-1.3); Total Protein 6.8 g/dL (6.3-8.2)
--- NOTE | 2018-12-15 09:34 | P.GSCN ---
History of Present Illness Consult date: 12/15/18 Reason for Consult: recent surgery History of present illness: 68-year-old gentleman with a recent history of aortic rupture status post endova scular aortic repair presents to the hospital secondary to sweats and chills which he noticed two nights prior to coming to the emergency department. He states he woke up in complete sweat and the next morning had another episode and therefore called his primary care physician. His primary care physician then told him to go to the emergency department where he had a temperature of 101. He states he still has some discomfort in his abdomen but has been having normal bowel movements and urinating without difficulty. He denies any back pain. He denies any chest pain or shortness of breath. 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 No animals in the home Smoking Status: Former smoker Past Alcohol Use History: Occasional Past Drug Use History: Marijuana - Past Family History Father Family Medical History: Cancer, Myocardial Infarction ([place]) Medications and Allergies Home Medications Medication Instructions Recorded Confirmed Type Atenolol [Tenormin] 50 mg PO QAM 01/09/15 12/14/18 History Cetirizine HCl [Zyrtec] 10 mg PO QAM 01/09/15 12/14/18 History Docusate [Colace] 100 mg PO DAILY 12/14/18 12/14/18 History Ferrous Sulfate [Feosol] 325 mg PO HS 12/14/18 12/14/18 History Polyethylene Glycol 3350 [Miralax] 17 gm PO DAILY 12/14/18 12/14/18 History traMADol HCL [Ultram] 50 mg PO Q6HR PRN 12/14/18 12/14/18 History Allergies Allergy/AdvReac Type Severity Reaction Status Date / Time No Known Allergies Allergy Verified 12/14/18 11:09 Surgical - Exam Vital Signs Temp Pulse Resp BP Pulse Ox 100.1 F H 83 18 143/75 96 12/14/18 10:43 12/14/18 10:43 12/14/18 10:43 12/14/18 10:43 12/14/18 10:43 - General well developed, well nourished, no distress - Eyes PERRL - ENT normal nares, normal mucosa - Neck no masses - Respiratory normal expansion, normal respiratory effort - Cardiovascular Rhythm: regular - Abdomen Abdomen: soft, tender, no masses, no guarding, no rigid Hernia: none - Neurologic normal coordination, normal sensation - Psychiatric oriented to time, oriented to person, oriented to place Results - Labs 12/15/18 04:34 12/14/18 11:38 Abnormal Lab Results - Last 24 Hours (Table) 12/14/18 12/14/18 12/14/18 Range/Units 11:38 11:38 12:40 RBC 2.86 L (4.30-5.90) m/uL Hgb 9.0 L (13.0-17.5) gm/dL Hct 26.0 L (39.0-53.0) % Lymphocytes # 0.6 L (1.0-4.8) k/uL Sodium 135 L (137-145) mmol/L Glucose 102 H (74-99) mg/dL Total Bilirubin 1.5 H (0.2-1.3) mg/dL C-Reactive Protein 170.8 H (<10.0) mg/L Albumin 3.3 L (3.5-5.0) g/dL Urine Protein Trace H (Negative) Urine Glucose (UA) 1+ H (Negative) Urine Blood Small H (Negative) Urine RBC 9 H (0-5) /hpf Urine Mucus Rare H (None) /hpf 12/15/18 Range/Units 04:34 RBC 2.74 L (4.30-5.90) m/uL Hgb 8.5 L (13.0-17.5) gm/dL Hct 25.1 L (39.0-53.0) % Lymphocytes # 0.7 L (1.0-4.8) k/uL Sodium (137-145) mmol/L Glucose (74-99) mg/dL Total Bilirubin (0.2-1.3) mg/dL C-Reactive Protein (<10.0) mg/L Albumin (3.5-5.0) g/dL Urine Protein (Negative) Urine Glucose (UA) (Negative) Urine Blood (Negative) Urine RBC (0-5) /hpf Urine Mucus (None) /hpf Microbiology - Last 24 Hours (Table) 12/14/18 12:40 Urine Culture - Preliminary Urine,Voided Diabetes panel 12/14/18 Range/Units 11:38 Sodium 135 L (137-145) mmol/L Potassium 4.1 (3.5-5.1) mmol/L Chloride 102 (98-107) mmol/L Carbon Dioxide 29 (22-30) mmol/L BUN 20 (9-20) mg/dL Creatinine 0.77 (0.66-1.25) mg/dL Glucose 102 H (74-99) mg/dL Calcium 8.4 (8.4-10.2) mg/dL AST 34 (17-59) U/L ALT 32 (21-72) U/L Alkaline Phosphatase 70 (38-126) U/L Total Protein 6.3 (6.3-8.2) g/dL Albumin 3.3 L (3.5-5.0) g/dL Calcium panel 12/14/18 Range/Units 11:38 Calcium 8.4 (8.4-10.2) mg/dL Phosphorus 3.0 (2.5-4.5) mg/dL Albumin 3.3 L (3.5-5.0) g/dL Pituitary panel 12/14/18 Range/Units 11:38 Sodium 135 L (137-145) mmol/L Potassium 4.1 (3.5-5.1) mmol/L Chloride 102 (98-107) mmol/L Carbon Dioxide 29 (22-30) mmol/L BUN 20 (9-20) mg/dL Creatinine 0.77 (0.66-1.25) mg/dL Glucose 102 H (74-99) mg/dL Calcium 8.4 (8.4-10.2) mg/dL Adrenal panel 12/14/18 Range/Units 11:38 Sodium 135 L (137-145) mmol/L Potassium 4.1 (3.5-5.1) mmol/L Chloride 102 (98-107) mmol/L Carbon Dioxide 29 (22-30) mmol/L BUN 20 (9-20) mg/dL Creatinine 0.77 (0.66-1.25) mg/dL Glucose 102 H (74-99) mg/dL Calcium 8.4 (8.4-10.2) mg/dL Total Bilirubin 1.5 H (0.2-1.3) mg/dL AST 34 (17-59) U/L ALT 32 (21-72) U/L Alkaline Phosphatase 70 (38-126) U/L Total Protein 6.3 (6.3-8.2) g/dL Albumin 3.3 L (3.5-5.0) g/dL - Imaging CT scan - abdomen: image reviewed (Aortic graft with good seal, no endoleak. Previous hemorrhage area improving since last CT.) Assessment and Plan Assessment: 1. S/P EVAR secondary rupture 2. Fever of unknown origin 3. Retroperitoneal hematoma Plan: No surgical intervention Patient doing well- CT reviewed and looks improved since prior admission Ok for d/c from vascular standpoint.
--- NOTE | 2018-12-15 10:49 | P.HPIM ---
History of Present Illness H&P Date: 12/15/18 Chief Complaint: Fever postop This is a 68-year-old male patient who presented to the ER with complaints of fever. Patient recently underwent a AAA repair, status post percutaneous EVAR with AF [address] on 12/09/[address] Mosqueda. Patient was discharged home on 12/12/2018. Patient reports that Friday morning he started to experience sweating. Patient's temp was taken and was reported elevated. Patient call PCP and it was recommended that he proceed to the ER for further evaluation. Additional medical history includes GERD, hypertension, seasonal ALLERGIES, neuropathy and ex-smoker. Patient's temp elevated at 101. Lactic acid 1.1. Lipase 132. C-reactive protein 170.8. Patient reports that he is having normal bowel movements last BM 12/14/2018. Patient denies diarrhea. Patient does report some nausea. Patient reports occasional cough. Patient denies chest pain. Patient denies any burning with urination or frequency. Chest x-ray completed showing no acute cardiopulmonary processes. Underlying COPD with chronic parabronchial cuffing right midlung nodule density could relate to the patient's nipple shadow and repeat radiograph with nipple markers could be performed on a nonemergent basis. CTA of the abdomen and pelvis com pleted showing status post aortic vascular pair after retroperitoneal hemorrhage. Overall degree in volume of the retropubic T new hemorrhage has improved from the prior of 12/08/2018 no current evidence of active extravasation or endoleak. New wedge-shaped areas of hypoattenuation within both kidneys. Right greater than left. These may be on the basis of pyelonephritis or renal infarcts. Correlate with UA. Abnormal attenuation of the liver. MRI of the liver is recommended to evaluate for mass versus multifactorial fatty infiltration. Blood and urine cultures have been ordered. Infectious disease consulted. Dr. Sanches consulted for surgical intervention. 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 No animals in the home Smoking Status: Former smoker Past Alcohol Use History: Occasional Past Drug Use History: Marijuana - Past Family History Father Family Medical History: Cancer, Myocardial Infarction ([place]) Medications and Allergies Home Medications Medication Instructions Recorded Confirmed Type Atenolol [Tenormin] 50 mg PO QAM 01/09/15 12/14/18 History Cetirizine HCl [Zyrtec] 10 mg PO QAM 01/09/15 12/14/18 History Docusate [Colace] 100 mg PO DAILY 12/14/18 12/14/18 History Ferrous Sulfate [Feosol] 325 mg PO HS 12/14/18 12/14/18 History Polyethylene Glycol 3350 [Miralax] 17 gm PO DAILY 12/14/18 12/14/18 History traMADol HCL [Ultram] 50 mg PO Q6HR PRN 12/14/18 12/14/18 History Allergies Allergy/AdvReac Type Severity Reaction Status Date / Time No Known Allergies Allergy Verified 12/14/18 11:09 Physical Exam Vitals: Vital Signs Temp Pulse Pulse Resp BP BP Pulse Ox 12/15/18 07:16 100.1 F H 92 15 162/87 94 L 12/15/18 00:55 99.5 F 93 17 155/92 95 12/14/18 19:15 99.1 F 92 16 162/84 93 L 12/14/18 16:46 98.3 F 90 16 153/72 95 12/14/18 16:16 98.9 F 93 17 151/70 96 12/14/18 15:03 89 16 154/79 99 12/14/18 13:00 98.4 F 81 16 146/73 99 12/14/18 12:36 99.6 F 75 16 143/81 94 L 12/14/18 11:32 101 F H 82 16 141/81 95 12/14/18 10:43 100.1 F H 83 18 143/75 96 Intake and Output 12/14/18 12/15/18 12/15/18 22:59 06:59 14:59 Intake Total 150 Balance 150 Intake: Intake, IV Titration 150 Amount Sodium Chloride 0.9% 1, 150 000 ml @ 75 mls/hr IV . [id number] STA Rx#:[id number] Other: Voiding Method Toilet # Voids 1 # Bowel Movements 1 1 Head normocephalic Neck supple Lungs diminished bilaterally Heart regular rate and rhythm S1-S2, no rub or gallop Abdomen is slightly distended nontender to palpation Extremities no edema Neuro alert and orientated to 3 Results CBC & Chem 7: 12/15/18 04:34 12/15/18 04:34 Labs: Abnormal Lab Results - Last 24 Hours (Table) 12/14/18 12/14/18 12/14/18 Range/Units 11:38 11:38 12:40 RBC 2.86 L (4.30-5.90) m/uL Hgb 9.0 L (13.0-17.5) gm/dL Hct 26.0 L (39.0-53.0) % Lymphocytes # 0.6 L (1.0-4.8) k/uL Sodium 135 L (137-145) mmol/L Glucose 102 H (74-99) mg/dL Total Bilirubin 1.5 H (0.2-1.3) mg/dL C-Reactive Protein 170.8 H (<10.0) mg/L Albumin 3.3 L (3.5-5.0) g/dL Urine Protein Trace H (Negative) Urine Glucose (UA) 1+ H (Negative) Urine Blood Small H (Negative) Urine RBC 9 H (0-5) /hpf Urine Mucus Rare H (None) /hpf 12/15/18 12/15/18 Range/Units 04:34 04:34 RBC 2.74 L (4.30-5.90) m/uL Hgb 8.5 L (13.0-17.5) gm/dL Hct 25.1 L (39.0-53.0) % Lymphocytes # 0.7 L (1.0-4.8) k/uL Sodium (137-145) mmol/L Glucose 125 H (74-99) mg/dL Total Bilirubin (0.2-1.3) mg/dL C-Reactive Protein (<10.0) mg/L Albumin 3.4 L (3.5-5.0) g/dL Urine Protein (Negative) Urine Glucose (UA) (Negative) Urine Blood (Negative) Urine RBC (0-5) /hpf Urine Mucus (None) /hpf Microbiology - Last 24 Hours (Table) 12/14/18 12:40 Urine Culture - Preliminary Urine,Voided Thrombosis Risk Factor Assmnt - Choose All That Apply Each Factor Represents 1 point: Obesity (BMI >25) Each Risk Factor Represents 2 Points: Age 61-74 years Thrombosis Risk Factor Assessment Total Risk Factor Score: 3 Thrombosis Risk Factor Assessment Level: Moderate Risk Assessment and Plan Assessment: 1. Postop Fever. elevated temp of 101. Lactic acid 1.1. Chest x-ray showing no acute cardio bony process. Underlying COPD with chronic parabronchial cuffing. Right mid lung nodule density could relate to patient's nipple shadow and repeat radiographic with nipple markers could be performed on a nonemergent basis. Blood and urine cultures ordered. Patient started on Rocephin. Infectious disease consulted 2. Status post EVAR secondary to AAA rupture and retroperitoneal hematoma on 12/08/2018. Dr. Mosqueda has been consulted surgical interventions at this time CTA was performed and reviewed by Dr. Mosqueda 3. History of GERD 4. History of essential hypertension. Patient maintained on atenolol 5. History of seasonal ALLERGIES 6. History of ex-smoker Time with Patient: Greater than 30 (Greater than 60% of the total time spent in counseling and coordination of care. I performed an examination of the patient and discussed their management with the Nurse Practitioner. I have reviewed the Nurse Practitioner's notes and agree with the documented findings and plan of care)
[2018-12-15] MEDS: ENOXAPARIN 40 MG/0.4 ML SYRINGE SQ SCH (15:36)
[2018-12-15] MEDS: FERROUS SULFATE 325 MG TAB PO SCH (22:32)
--- NOTE | 2018-12-15 23:51 | P.CONS ---
History of Present Illness - Reason for Consult Consult date: 12/15/18 - Chief Complaint Fever - History of Present Illness 68-year-old male who recently presented to the emergency center with the sudden onset of abdominal pain that had a crescendo pattern radiated to his flanks. He has history of a kidney stone in the past and the pain was somewhat reminiscent but actually considerably worse and because it was increasing and worsening he presented to the emergency center. He has a known history of hypertension and has a remote history of tobacco use stopping at the age of 28. There is no significant changes occurring before the onset of abdominal pain. He was not having nausea or emesis, he did not have diarrhea and he did not have any dysuria. Upon arrival to the emergency center imaging studies performed showing evidence of the abdominal aortic aneurysm with evidence of extravasation of blood consistent with early rupture. The patient was evaluated by vascular surgery and taken to the operating room where the endovascular aneurysm repair was performed. The patient tolerated the procedure well and is recovering intensive care unit. He is requiring no vasopressor therapy and that was from drip is no longer being utilized. He is mostly comfortable in the severe pain is improved but certainly not resolved. He still has some abdominal distention and some pain into his flanks bilaterally. He is denying fevers or chills. He had no fever chills or rigors before coming to hospital. He also had no difficulties with nausea or emesis while at home but is having significant difficulties with GERD at this point in time. There is evidence of mild leukocytosis and elevated lactic acid and he was seen during last hospitalization. It appeared that the inflammatory response syndrome from his aneurysm and intra-abdominal bleeding was a cause of his leukocytosis and mild fever. Cultures were all negative and it resolved and was discharged to home. He then started to have some recurrence of the fever did not have a biliary take his temperature he had another Rashmi calls primary care physician was directed back to the emergency center was admitted. Temperature 101 was seen and he has been evaluated by his endovascular surgeon. He is now feeling considerably better but continues to have some abdominal bloating which has been ongoing since the aneurysm rupture. He's had no further fever. No further chills or sweats and is feeling better. Review of Systems Did have the sweats and subjective fever at home that has now resolved HEENT:Denies headache or acute visual change. Denies sinus or mouth discomforts. Denies neck stiffness or pain. Denies significant oral cavity pain. Denies difficulty on swallowing. Lungs: Denies significant shortness of breath, cough, sputum production, or hemoptysis. Cardiovascular: Denies significant shortness of breath, chest pain, chest wall pain, orthopnea, dyspnea on exertion, syncope Gastrointestinal: Abdominal pain and distention are improving but not resolved. He's had no significant nausea and emesis diarrhea appetites poor no hematemesis melena or hematochezia Musculoskeletal: denies significant myalgias or arthralgias. No new joint swel ling. Denies new back pain. Skin: Denies new rash or lesions. No new ulcers or wounds are related.. Neuro: Denies headache or visual change. Denies any new onset weakness or difficulty with ambulation. Denies falls or seizures. Psychiatric:Denies anxiety or depression. Endocrine: Denies significant fatigue, denies significant weight loss or weight gain. 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 No animals in the home Smoking Status: Former smoker Past Alcohol Use History: Occasional Past Drug Use History: Marijuana - Past Family History Father Family Medical History: Cancer, Myocardial Infarction (OR) Medications and Allergies Home Medications and Allergies Comment(s): Current Medications Acetaminophen (Tylenol Tab) 1,000 mg PO Q6HR PRN PRN Reason: Fever and/ or Pain Last Admin: 12/15/18 22:31 Dose: 1,000 mg Documented by: Atenolol (Tenormin) 50 mg PO QAM [facility] Last Admin: 12/15/18 08:07 Dose: 50 mg Documented by: Docusate Sodium (Colace) 100 mg PO DAILY [facility] Last Admin: 12/15/18 08:07 Dose: 100 mg Documented by: Enoxaparin Sodium (Lovenox) 40 mg SQ DAILY [facility] Last Admin: 12/15/18 15:36 Dose: 40 mg Documented by: Ferrous Sulfate (Feosol) 325 mg PO [facility] Last Admin: 12/15/18 22:32 Dose: 325 mg Documented by: Ceftriaxone Sodium 1 gm/ (Sodium Chloride) 50 mls @ 100 mls/hr IVPB Q24HR [facility] Last Admin: 12/15/18 08:06 Dose: 100 mls/hr Documented by: Loratadine (Claritin) 10 mg PO QAM [facility] Last Admin: 12/15/18 08:07 Dose: 10 mg Documented by: Ondansetron HCl (Zofran) 4 mg IVP Q6HR PRN PRN Reason: Nausea And Vomiting Last Admin: 12/15/18 09:26 Dose: 4 mg Documented by: Pantoprazole Sodium (Protonix) 40 mg PO -[facility] Polyethylene Glycol (Miralax) 17 gm PO DAILY [facility] Last Admin: 12/15/18 08:07 Dose: 17 gm Documented by: Tramadol HCl (Ultram) 50 mg PO Q6HR PRN PRN Reason: Pain Last Admin: 12/15/18 03:31 Dose: 50 mg Documented by: Home Medications Medication Instructions Recorded Confirmed Type Atenolol [Tenormin] 50 mg PO QA 01/09/15 12/14/18 History Cetirizine HCl [Zyrtec] 10 mg PO QAM 01/09/15 12/14/18 History Docusate [Colace] 100 mg PO DAILY 12/14/18 12/14/18 History Ferrous Sulfate [Feosol] 325 mg PO 12/14/18 12/14/18 History Polyethylene Glycol 3350 [Miralax] 17 gm PO DAILY 12/14/18 12/14/18 History traMADol HCL [Ultram] 50 mg PO Q6HR PRN 12/14/18 12/14/18 History Allergies Allergy/AdvReac Type Severity Reaction Status Date / Time No Known Allergies Allergy Verified 12/14/18 11:09 Physical Exam Vitals: Vital Signs Temp Pulse Resp BP Pulse Ox 12/15/18 19:53 99.9 F H 92 18 156/76 97 12/15/18 15:11 99.0 F 78 15 152/78 95 12/15/18 07:16 100.1 F H 92 15 162/87 94 L 12/15/18 00:55 99.5 F 93 17 155/92 95 Intake and Output 12/15/18 12/15/18 12/16/18 14:59 22:59 06:59 Intake Total 180 240 Output Total 280 Balance 180 -40 Intake: Oral 180 240 Output: Urine 280 Other: Voiding Method Toilet Urinal # Voids 3 HEENT: Anicteric conjunctiva are pink and moist nasal mucosa grossly intact without significant lesions, there is no thrush. Neck: The neck is supple without significant lymphadenopathy or thyromegaly. Lungs: Good bilateral air entry without significant crackles or wheezing. There is no significant bronchial sounds. There is no egophony or dullness. Heart: Regular rate and rhythm with an audible S1-S2, no S3 no S4. There is no significant murmur click or rub, PMI was nondisplaced. Abdomen: Positive bowel sounds soft and nontender without palpable masses or organomegaly. There was no guarding or rebound. Extremities: The upper extremities have excellent pulses they are symmetric, no significant petechiae or telangiectasia. No splinter hemorrhages were noted. The lower extremities are free from significant edema. Upper extremities are intact. The bilateral lower extremities have evidence of coolness to both feet there is no evidence of any ulcerations Neuro: Awake alert oriented to person place and time. There are no acute new gross focal sensory motor deficits. Results CBC & Chem 7: 12/15/18 04:34 12/15/18 04:34 Labs: Abnormal Lab Results - Last 24 Hours (Table) 12/15/18 12/15/18 Range/Units 04:34 04:34 RBC 2.74 L (4.30-5.90) m/uL Hgb 8.5 L (13.0-17.5) gm/dL Hct 25.1 L (39.0-53.0) % Lymphocytes # 0.7 L (1.0-4.8) k/uL Glucose 125 H (74-99) mg/dL Albumin 3.4 L (3.5-5.0) g/dL Microbiology - Last 24 Hours (Table) 12/14/18 11:38 Blood Culture - Preliminary Blood No Growth after 24 hours Laboratory Results WBC 6.5 k/uL (3.8-10.6) 12/15/18 04:34 RBC 2.74 m/uL (4.30-5.90) L 12/15/18 04:34 Hgb 8.5 gm/dL (13.0-17.5) L 12/15/18 04:34 Hct 25.1 % (39.0-53.0) L 12/15/18 04:34 MCV 91.4 fL (80.0-100.0) 12/15/18 04:34 MCH 31.1 pg (25.0-35.0) 12/15/18 04:34 MCHC 34.0 g/dL (31.0-37.0) 12/15/18 04:34 RDW 14.9 % (11.5-15.5) 12/15/18 04:34 Plt Count 259 k/uL (150-450) 12/15/18 04:34 Neutrophils % 78 % 12/15/18 04:34 Lymphocytes % 11 % 12/15/18 04:34 Monocytes % 7 % 12/15/18 04:34 Eosinophils % 2 % 12/15/18 04:34 Basophils % 0 % 12/15/18 04:34 Neutrophils # 5.0 k/uL (1.3-7.7) 12/15/18 04:34 Lymphocytes # 0.7 k/uL (1.0-4.8) L 12/15/18 04:34 Monocytes # 0.5 k/uL (0-1.0) 12/15/18 04:34 Eosinophils # 0.1 k/uL (0-0.7) 12/15/18 04:34 Basophils # 0.0 k/uL (0-0.2) 12/15/18 04:34 Sodium 138 mmol/L (137-145) 12/15/18 04:34 Potassium 3.9 mmol/L (3.5-5.1) 12/15/18 04:34 Chloride 105 mmol/L (98-107) 12/15/18 04:34 Carbon Dioxide 26 mmol/L (22-30) 12/15/18 04:34 Anion Gap 7 mmol/L 12/15/18 04:34 BUN 16 mg/dL (9-20) 12/15/18 04:34 Creatinine 0.90 mg/dL (0.66-1.25) 12/15/18 04:34 Est GFR (CKD-EPI)AfAm >90 (>60 ml/min/1.73 sqM) 12/15/18 04:34 Est GFR (CKD-EPI)NonAf 88 (>60 ml/min/1.73 sqM) 12/15/18 04:34 Glucose 125 mg/dL (74-99) H 12/15/18 04:34 Plasma Lactic Acid Joe 1.1 mmol/L (0.7-2.0) 12/14/18 11:38 Calcium 8.5 mg/dL (8.4-10.2) 12/15/18 04:34 Phosphorus 3.0 mg/dL (2.5-4.5) 12/14/18 11:38 Magnesium 2.2 mg/dL (1.6-2.3) 12/14/18 11:38 Total Bilirubin 1.2 mg/dL (0.2-1.3) 12/15/18 04:34 AST 33 U/L (17-59) 12/15/18 04:34 ALT 32 U/L (21-72) 12/15/18 04:34 Alkaline Phosphatase 72 U/L (38-126) 12/15/18 04:34 Troponin I <0.012 ng/mL (0.000-0.034) 12/15/18 04:34 C-Reactive Protein 170.8 mg/L (<10.0) H 12/14/18 11:38 Total Protein 6.8 g/dL (6.3-8.2) 12/15/18 04:34 Albumin 3.4 g/dL (3.5-5.0) L 12/15/18 04:34 Lipase 132 U/L (23-300) 12/14/18 11:38 Urine Color Yellow 12/14/18 12:40 Urine Appearance Clear (Clear) 12/14/18 12:40 Urine pH 6.5 (5.0-8.0) 12/14/18 12:40 Ur Specific Lewis 1.016 (1.001-1.035) 12/14/18 12:40 Urine Protein Trace (Negative) H 12/14/18 12:40 Urine Glucose (UA) 1+ (Negative) H 12/14/18 12:40 Urine Ketones Negative (Negative) 12/14/18 12:40 Urine Blood Small (Negative) H 12/14/18 12:40 Urine Nitrite Negative (Negative) 12/14/18 12:40 Urine Bilirubin Negative (Negative) 12/14/18 12:40 Urine Urobilinogen 6.0 mg/dL (<2.0) 12/14/18 12:40 Ur Leukocyte Esterase Negative (Negative) 12/14/18 12:40 Urine RBC 9 /hpf (0-5) H 12/14/18 12:40 Urine WBC 1 /hpf (0-5) 12/14/18 12:40 Urine Mucus Rare /hpf (None) H 12/14/18 12:40 Influenza Type A RNA Not Detected (Not Detectd) 12/14/18 18:55 Influenza Type B (PCR) Not Detected (Not Detectd) 12/14/18 18:55 Microbiology 12/14/18 11:38 Blood Blood Culture - Preliminary No Growth after 24 hours 12/14/18 12:40 Urine,Voided Urine Culture - Preliminary CT scan - abdomen: report reviewed (New bilateral renal infarcts, likely hepatic infarct are seen some improvement of the intra-abdominal blood., The aneurysm is without evidence of leak and no evidence of any difficulties with the endovascular stent.) Assessment and Plan (1) Fever Narrative/Plan: Pleasant 68-year-old man is seen originally walking in the hallway today. Evaluation he is doing considerably better than admission. He's had no further significant sweats not having further fevers. As noted by the endovascular surgeon therapy is to be evidence of excellent repair of the abdominal aortic aneurysm with no evidence of any leak. However the patient did have significant intra-abdominal bleeding in the computed tomography scan is now showing evidence of some new bilateral renal infarcts and likely hepatic infarct after the significant event. The systemic inflammatory response from these infarcts appears to be the etiology of his current intermittent low-grade fever and sweats. There is no evidence of any significant active infection. He has been treated with Rocephin for now and cultures have been obtained and likely will come back negative in the next 24 hours. She remains culture-negative he then may have antibiotic therapy discontinued and discharged home with anti- inflammatory if allowed by the endovascular surgeon otherwise Tylenol for the treatment of his intermittent symptoms. He does have significant anemia and will attempt intravenous iron. Current Visit: Yes Status: Acute Code(s): R50.9 - FEVER, UNSPECIFIED SNOMED Code(s): 154832120 (2) AAA (abdominal aortic aneurysm, ruptured) Current Visit: No Status: Acute Code(s): I71.3 - ABDOMINAL AORTIC ANEURYSM, RUPTURED SNOMED Code(s): 62791220
[2018-12-16] MEDS: diphenhydrAMINE 25 MG CAP PO PRN (02:59)
[2018-12-16 08:10] LABS: ALT 38 U/L (21-72); AST 36 U/L (17-59); African American GFR (CKD) >90 (>60 ml/min/1.73 sqM); Albumin 3.3 g/dL (3.5-5.0); Alkaline Phosphatase 96 U/L (38-126); Anion Gap 7 mmol/L; Blood Urea Nitrogen 18 mg/dL (9-20); Calcium 8.7 mg/dL (8.4-10.2); Carbon Dioxide 26 mmol/L (22-30); Chloride 107 mmol/L (98-107); Glucose 98 mg/dL (74-99); Potassium 3.9 mmol/L (3.5-5.1); Sodium 140 mmol/L (137-145); Total Bilirubin 1.5 mg/dL (0.2-1.3); Total Protein 6.4 g/dL (6.3-8.2)
[2018-12-16 08:23] LABS: Basophils % (A) 0 %; Eosinophils # (A) 0.2 k/uL (0-0.7); Eosinophils % (A) 3 %; HCT 25.8 % (39.0-53.0); HGB 8.6 gm/dL (13.0-17.5); Lymphocytes # (A) 0.8 k/uL (1.0-4.8); Lymphocytes % (A) 11 %; MCH 31.1 pg (25.0-35.0); MCHC 33.4 g/dL (31.0-37.0); MCV 93.1 fL (80.0-100.0); Mean Platelet Volume 7.2; Monocytes # (A) 0.8 k/uL (0-1.0); Monocytes % (A) 11 %; Neutrophils # (A) 5.4 k/uL (1.3-7.7); Neutrophils % (A) 73 %; Platelet Count 341 k/uL (150-450); RBC 2.77 m/uL (4.30-5.90); RDW 14.8 % (11.5-15.5); WBC 7.3 k/uL (3.8-10.6)
[2018-12-16] MEDS: ATENOLOL 50 MG TAB PO SCH (09:04)
[2018-12-16] MEDS: PANTOPRAZOLE 40 MG TABLET PO SCH (09:04)
[2018-12-16] MEDS: ENOXAPARIN 40 MG/0.4 ML SYRINGE SQ SCH (09:04)
[2018-12-16] MEDS: LORATADINE 10 MG TAB PO SCH (09:04)
[2018-12-16] MEDS: POLYETHYLENE GLYCOL 3350 17 GM POWD.PACK PO SCH (09:04)
[2018-12-16] MEDS: DOCUSATE 100 MG CAP PO SCH ×2 (09:04→19:41)
[2018-12-16] MEDS: traMADol 50 MG TAB PO PRN ×2 (09:33→19:41)
[2018-12-16] MEDS: SODIUM FERRIC GLUCONAT-SUCROSE 125 MG in SODIUM CHLORIDE 0.9% 100 ML IVPB SCH (09:56)
--- NOTE | 2018-12-16 10:58 | P.PN ---
Subjective Progress Note Date: 12/16/18 Pt s/e. Not feeling as well this morning. Tired. Had 2 BM yesterday, had to strain, non bloody NAD, tired appearing No resp distress heart reegular abd soft, minimal diffuse discomfort. mildly distended groin c/d/i s/p EVAR for ruptured AAA Anemia - stable Fever of unknown origin - improving R pleural effusion on CT Cont supportive care. Add miralax to bowel reg. Increase activity as tolerated. No planned vascular intervetion at this time. No leukocytosis Objective - Vital Signs Vital signs: Vital Signs Temp 98.1 F 12/16/18 07:00 Pulse 91 12/16/18 07:00 Resp 16 12/16/18 07:00 BP 167/85 12/16/18 07:00 Pulse Ox 96 12/16/18 07:00 Intake & Output 12/15/18 12/16/18 12/16/18 18:59 06:59 18:59 Intake Total 420 120 Output Total 280 Balance 420 -280 120 Intake: Oral 420 120 Output: Urine 280 Other: Voiding Method Toilet Urinal # Voids 3 1 - Labs CBC & Chem 7: 12/16/18 07:06 12/16/18 07:06 Labs: Abnormal Lab Results - Last 24 Hours (Table) 12/16/18 12/16/18 Range/Units 07:06 07:06 RBC 2.77 L (4.30-5.90) m/uL Hgb 8.6 L (13.0-17.5) gm/dL Hct 25.8 L (39.0-53.0) % Lymphocytes # 0.8 L (1.0-4.8) k/uL Total Bilirubin 1.5 H (0.2-1.3) mg/dL Albumin 3.3 L (3.5-5.0) g/dL Microbiology - Last 24 Hours (Table) 12/14/18 11:38 Blood Culture - Preliminary Blood No Growth after 24 hours
--- NOTE | 2018-12-16 11:50 | P.PN ---
Subjective Progress Note Date: 12/16/18 This is a 68-year-old male patient who presented to the ER with complaints of fever. Patient recently underwent a AAA repair, status post percutaneous EVAR with AF [address] on 12/09/[address] Mosqueda. Patient was discharged home on 12/12/2018. Patient reports that Friday morning he started to experience sweating. Patient's temp was taken and was reported elevated. Patient call PCP and it was recommended that he proceed to the ER for further evaluation. Additional medical history includes GERD, hypertension, seasonal ALLERGIES, neuropathy and ex-smoker. Patient's temp elevated at 101. Lactic acid 1.1. Lipase 132. C-reactive protein 170.8. Patient reports that he is h aving normal bowel movements last BM 12/14/2018. Patient denies diarrhea. Patient does report some nausea. Patient reports occasional cough. Patient denies chest pain. Patient denies any burning with urination or frequency. Chest x-ray completed showing no acute cardiopulmonary processes. Underlying COPD with chronic parabronchial cuffing right midlung nodule density could relate to the patient's nipple shadow and repeat radiograph with nipple markers could be performed on a nonemergent basis. CTA of the abdomen and pelvis completed showing status post aortic vascular pair after retroperitoneal hemorrhage. Overall degree in volume of the retropubic T new hemorrhage has improved from the prior of 12/08/2018 no current evidence of active extravasation or endoleak. New wedge-shaped areas of hypoattenuation within both kidneys. Right greater than left. These may be on the basis of pyelonephritis or renal infarcts. Correlate with UA. Abnormal attenuation of the liver. MRI of the liver is recommended to evaluate for mass versus multifactorial fatty infiltration. Blood and urine cultures have been ordered. Infectious disease consulted. Dr. Mosqueda consulted for surgical intervention. On 12/16/2018 patient is alert and oriented 3. Patient has been afebrile. Infectious disease is following. Nephrology and GI consult placed due to computed tomography scan. Repeat chest x-ray has been ordered due to increased coughing. At this time patient denies any chest pain or shortness of breath. Patient denies nausea vomiting or diarrhea. Patient denies any urinary burning or frequency. Hemoglobin low at 8.6. IV iron has been ordered. Objective - Vital Signs Vital signs: Vital Signs Temp 98.1 F 12/16/18 07:00 Pulse 91 12/16/18 07:00 Resp 16 12/16/18 07:00 BP 167/85 12/16/18 07:00 Pulse Ox 96 12/16/18 07:00 Intake & Output 12/15/18 12/16/18 12/16/18 18:59 06:59 18:59 Intake Total 420 120 Output Total 280 Balance 420 -280 120 Intake: Oral 420 120 Output: Urine 280 Other: Voiding Method Toilet Urinal # Voids 3 1 - Exam Head normocephalic Neck supple Lungs diminished bilaterally Heart regular rate and rhythm S1-S2, no rub or gallop Abdomen is slightly distended nontender to palpation Extremities no edema Neuro alert and orientated to 3 - Labs CBC & Chem 7: 12/16/18 07:06 12/16/18 07:06 Labs: Abnormal Lab Results - Last 24 Hours (Table) 12/16/18 12/16/18 Range/Units 07:06 07:06 RBC 2.77 L (4.30-5.90) m/uL Hgb 8.6 L (13.0-17.5) gm/dL Hct 25.8 L (39.0-53.0) % Lymphocytes # 0.8 L (1.0-4.8) k/uL Total Bilirubin 1.5 H (0.2-1.3) mg/dL Albumin 3.3 L (3.5-5.0) g/dL Microbiology - Last 24 Hours (Table) 12/14/18 11:38 Blood Culture - Preliminary Blood No Growth after 24 hours Assessment and Plan Assessment: 1. Postop Fever. elevated temp of 101. Lactic acid 1.1. Chest x-ray showing no acute cardio bony process. Underlying COPD with chronic parabronchial cuffing. Right mid lung nodule density could relate to patient's nipple shadow and repeat radiographic with nipple markers could be performed on a nonemergent basis. Blood and urine cultures ordered. Patient started on Rocephin. Per infectious disease could be related to renal infarcts and hepatic infarct. Inflammatory response. Cultures pending. Repeat chest x-ray ordered 2. Status post EVAR secondary to AAA rupture and retroperitoneal hematoma on 12/08/2018. Dr. Mosqueda has been consulted surgical interventions at this time CTA was performed and reviewed by Dr. Mosqueda 3. History of GERD 4. History of essential hypertension. Patient maintained on atenolol 5. History of seasonal ALLERGIES 6. History of ex-smoker 7. Hypoattenuation within both kidneys seen on computed tomography scan. Computed tomography scan showing new wedge-shaped areas of hypoattenuation within both kidneys right greater than left this may be N basis pyelonephritis or renal infarcts correlate with UA. Nephrology services have been consulted. Ultrasound of the renal kidneys ordered 8. Abnormal attenuation of the liver. Computed tomography scan showing abnormal attenuation the liver MRI of the liver is recommended to evaluate for mass versus fatty infiltration. GI services have been consulted DVT prophylaxis Lovenox. GI prophylaxis Protonix Infectious disease, nephrology and GI services following Cultures pending. Repeat chest x-ray ordered I performed an examination of the patient and discussed their management with the Nurse Practitioner. I have reviewed the Nurse Practitioner's notes and agree with the documented findings and plan of care
--- NOTE | 2018-12-16 11:54 | XR ---
EXAMINATION TYPE: XR chest 2V DATE OF EXAM: 12/16/2018 COMPARISON: 12/14/2018 HISTORY: Fever TECHNIQUE: Frontal and lateral views of the chest are obtained. FINDINGS: There is no focal air space opacity, pleural effusion, or pneumothorax seen. The cardiac silhouette size is within normal limits. The osseous structures are intact. Mild multilevel degener ative changes of the spine. Abdominal aortic graft material is partially visualized. IMPRESSION: No acute cardiopulmonary process.
--- NOTE | 2018-12-16 12:01 | P.NPCON ---
History of Present Illness - Reason for Consult acute renal failure - History of Present Illness Reason for consultation: Abnormal CT findings. History of present illness: Patient is a 68-year-old male seen in renal consultation for abnormal CT findings. Patient states he had AAA repair done a week ago. He subsequently developed fever and was advised to come to the hospital. He is currently maintained on antibiotics. Denies abdominal pain. No hematuria or dysuria. No vomiting or diarrhea. Denies any history of kidney disease. Renal function is at baseline. Patient had abdominal CT done on December 14 which revealed possible very small bilateral renal infarcts. Patient states he had one episode of kidney stone several years ago. He denies any family history of renal disease. No other complaints at this time. Vital signs are stable. General: The patient appeared well nourished and normally developed. HEENT: Head exam is unremarkable. Neck is without jugular venous distension. LUNGS: Lungs are clear to auscultation and percussion. Breath sounds decreased. HEART: Rate and Rhythm are regular. First and second heart sounds normal. No murmurs, rubs or gallops. ABDOMEN: Abdominal exam reveals normal bowel sounds. Non-tender and non- distended. No evidence of peritonitis. EXTREMITITES: No clubbing, cyanosis, or edema. 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 No animals in the home Smoking Status: Former smoker Past Alcohol Use History: Occasional Past Drug Use History: Marijuana - Past Family History Father Family Medical History: Cancer, Myocardial Infarction (DC) Medications and Allergies Home Medications Medication Instructions Recorded Confirmed Type Atenolol [Tenormin] 50 mg PO QAM 01/09/15 12/14/18 History Cetirizine HCl [Zyrtec] 10 mg PO QAM 01/09/15 12/14/18 History Docusate [Colace] 100 mg PO DAILY 12/14/18 12/14/18 History Ferrous Sulfate [Feosol] 325 mg PO HS 12/14/18 12/14/18 History Polyethylene Glycol 3350 [Miralax] 17 gm PO DAILY 12/14/18 12/14/18 History traMADol HCL [Ultram] 50 mg PO Q6HR PRN 12/14/18 12/14/18 History Allergies Allergy/AdvReac Type Severity Reaction Status Date / Time No Known Allergies Allergy Verified 12/14/18 11:09 Physical Exam Vitals: Vital Signs Temp Pulse Resp BP Pulse Ox 12/16/18 07:00 98.1 F 91 16 167/85 96 12/16/18 02:40 98.2 F 88 16 164/87 94 L 12/15/18 19:53 99.9 F H 92 18 156/76 97 12/15/18 15:11 99.0 F 78 15 152/78 95 Intake and Output 12/15/18 12/16/18 12/16/18 22:59 06:59 14:59 Intake Total 240 120 Output Total 280 Balance -40 120 Intake: Oral 240 120 Output: Urine 280 Other: Voiding Method Toilet Urinal # Voids 1 1 Results - Lab Results Most recent lab results Calcium 8.7 mg/dL (8.4-10.2) 12/16/18 07:06 Phosphorus 3.0 mg/dL (2.5-4.5) 12/14/18 11:38 Magnesium 2.2 mg/dL (1.6-2.3) 12/14/18 11:38 12/16/18 07:06 12/16/18 07:06 Assessment and Plan Plan: Assessment: 1. Small bilateral wedge-shaped areas of hypoattenuation on both kidneys. These are likely small renal infarcts which can occur due to ischemic state after rupture of AAA; may have also developed renal artery injury after endovascular aortic intervention which the patient just at the last week, however no significant renal artery occlusion is noted on CTA. Discussed with vascular surgery. Patient is asymptomatic and denies any flank pain nausea or vomiting. No history of hypercoagulable state. No history of A. fib. No evidence of nephrolithiasis or UTI at this time. 2. AAA status post EVAR last week. 3. Benign hypertension. 4. Postoperative fever. On antibiotics. Infectious disease following. 5. Anemia. Likely related to blood loss after surgery. Rule out iron deficiency. Plan: Add lisinopril for better blood pressure control. Check renal ultrasound to assess size of the kidneys. Check iron studies. Check LDH. Maintain Lovenox for now which can be continued for another 3 months. Thank you for the consultation. I will continue to follow the patient with you during his hospital stay.
[2018-12-16] MEDS: LISINOPRIL 10 MG TAB PO SCH (12:39)
[2018-12-16] MEDS ORDERED: guaiFENesin SYRUP 100MG/5ML 200 MG/10 ML CUP PO PRN (13:18)
--- NOTE | 2018-12-16 15:22 | US ---
EXAMINATION TYPE: US kidneys/renal and bladder DATE OF EXAM: 12/16/2018 COMPARISON: NONE CLINICAL HISTORY: maria e. EXAM MEASUREMENTS: Right Kidney: 11 point for by 4.3 x 4.9 cm Left Kidney: 13.7 x 6.1 x 4.6 cm Right Kidney: Prominent column of Hu, no hydronephrosis or nephrolithiasis. Left Kidney: Prominent column of Hu, no hydronephrosis or nephrolithiasis. Bladder: Anechoic There are prominent columns of Hu bilaterally. There is no evidence for hydronephrosis at this po int in time. No nephrolithiasis is seen. No masses are identified. The urinary bladder is anechoic . IMPRESSION: No hydronephrosis or nephrolithiasis of either kidney.
[2018-12-16] MEDS: FERROUS SULFATE 325 MG TAB PO SCH (19:41)
[2018-12-17] MEDS: diphenhydrAMINE 25 MG CAP PO PRN ×2 (00:38→21:56)
--- NOTE | 2018-12-17 04:13 | CONS ---
CONSULTATION DATE OF SERVICE: 12/16/2018 REQUESTING PHYSICIAN: Dr. Méndez and Dr. Sunshine ). REASON FOR CONSULTATION: Abnormal CT of the abdomen, rule out liver mass. HISTORY OF PRESENT ILLNESS: The patient is a 68-year-old pleasant white male who has recent history of a AAA rupture for which he underwent emergency endovascular aortic repair 8 days ago. He was discharged home 3 days later and for the last 2 days has been having abdominal discomfort, abdominal bloating associated with low-grade fever, chills or night sweats and, hence, came to the emergency room and subsequently admitted for further evaluation. In the emergency room, was noted to have a temperature of 101.2. He had labs done that showed mild leukocytosis and hemoglobin of 8.5 g/dL. CT of the abdomen and pelvis done in the emergency room showed hypoattenuation of the liver suggestive of hepatic steatosis. Also, there was mention of focal area of hypoattenuation concerning for underlying hepatic mass measuring 4.7 cm in size and, hence, an MRI of the liver was recommended by the radiologist. On review of his prior CAT scan that was done at the time of previous hospitalization, the liver appeared completely normal and no obvious masses were seen at that time. The patient denies any prior history of chronic liver disease. No history of liver problems in the past. Complains of some abdominal distention and abdominal discomfort, but overall he is feeling much better since being in the hospital. He was evaluated by Dr. Wellington and presently on Rocephin. PAST MEDICAL HISTORY: Significant for hypertension, gastroesophageal reflux disease, seasonal allergies, bilateral peripheral neuropathy. PAST SURGICAL HISTORY: AAA endovascular repair 7 days ago, bilateral hip replacement, amputation of the left thumb. MEDICATIONS: At home include Tenormin, ( ), Colace, Feosol, MiraLAX, Ultram. SOCIAL HISTORY: Former smoker. No alcohol use. FAMILY HISTORY: Father had coronary artery disease status post [place]. REVIEW OF SYSTEMS: CARDIOPULMONARY: No chest pain, no shortness of breath. : No dysuria hematuria. MUSCULOSKELETAL: Unremarkable. SKIN: Unremarkable. ENDOCRINE: Unremarkable. PSYCHIATRIC: Unremarkable. NEUROLOGY: Unremarkable. ENT/VISION: Unremarkable. CONSTITUTIONAL: No recent weight loss. He did have a low-grade fever as well as chills. ALLERGIES: None. PHYSICAL EXAMINATION: He appears comfortable. No apparent distress. VITAL SIGNS: Stable. Blood pressure is 164/87, pulse rate 88, temperature 98. HEENT examination unremarkable. Conjunctivae pale. Sclerae anicteric. Oral cavity, no lesions. NECK: No JVD or lymph node enlargement. CHEST was clear to auscultation. HEART: Regular rate and rhythm. ABDOMEN is distended and mild diffuse tenderness noted throughout the abdomen, but there was no rebound or rigidity. Bowel sounds are positive. Liver was not palpable. EXTREMITIES: No pedal edema. SKIN: No rashes. NEUROLOGIC: Alert and oriented x3. No focal deficits. LABS: WBC 6.5, hemoglobin 8.5, platelets are normal. Basic metabolic panel is normal limits. AST and ALT are normal. T bilirubin is 1.5 and alkaline phosphatase is 96. CT of the abdomen that was done 2 days ago showed hypoattenuation of the liver suggestive of hepatic steatosis and there was a mention of a focal area of hypoattenuation measuring 4.7 cm in size in the area measuring 1.4 cm in size. Also, there were bilateral renal veg-like areas with a hypoattenuation suggestive of renal infarct. Evidence of retroperitoneal hemorrhage also seen. IMPRESSION: 1. Status post endovascular repair with graft placement 8 days ago for abdominal aortic aneurysm rupture. 2. Hypoattenuated mass in the right lobe of the liver measuring 4.7 cm in size, which was not present on the prior CT scan done 8 days ago. Most likely this could be hepatic infarct. Of course, possibility of neoplasm cannot be excluded though it appears very unlikely given the normal CT scan findings 8 days ago. 3. Abdominal distention, probably related to retroperitoneal hemorrhage from previous abdominal aortic aneurysm rupture, which is gradually improving. 4. Fever, leukocytosis on broad-spectrum antibiotics, continues to do well. RECOMMENDATIONS: I will discuss with Radiology and will review the images of the CT scans that were done in the last 1 week. If the suspicion is very high for neoplasm we consider proceeding with an MRI of the liver during this hospitalization on outpatient basis. Further recommendations will follow. Thank you for this consultation. MMODL / IJN: [id number] /
[2018-12-17] MEDS: POLYETHYLENE GLYCOL 3350 17 GM POWD.PACK PO SCH (05:44)
[2018-12-17 07:19] LABS: Basophils % (A) 0 %; Eosinophils # (A) 0.2 k/uL (0-0.7); Eosinophils % (A) 3 %; HCT 25.7 % (39.0-53.0); HGB 8.5 gm/dL (13.0-17.5); Hypochromasia Slight; Lymphocytes # (A) 0.7 k/uL (1.0-4.8); Lymphocytes % (A) 11 %; MCH 30.5 pg (25.0-35.0); MCHC 33.1 g/dL (31.0-37.0); MCV 92.4 fL (80.0-100.0); Mean Platelet Volume 7.1; Monocytes # (A) 0.4 k/uL (0-1.0); Monocytes % (A) 6 %; Neutrophils % (A) 78 %; Platelet Count 378 k/uL (150-450); RBC 2.79 m/uL (4.30-5.90); RDW 14.1 % (11.5-15.5); WBC 6.4 k/uL (3.8-10.6)
[2018-12-17 07:45] LABS: ALT 47 U/L (21-72); AST 36 U/L (17-59); African American GFR (CKD) >90 (>60 ml/min/1.73 sqM); Albumin 3.2 g/dL (3.5-5.0); Alkaline Phosphatase 103 U/L (38-126); Anion Gap 7 mmol/L; Blood Urea Nitrogen 18 mg/dL (9-20); Calcium 8.4 mg/dL (8.4-10.2); Carbon Dioxide 26 mmol/L (22-30); Chloride 106 mmol/L (98-107); Glucose 103 mg/dL (74-99); Potassium 4.2 mmol/L (3.5-5.1); Sodium 139 mmol/L (137-145); Total Bilirubin 1.7 mg/dL (0.2-1.3); Total Protein 6.3 g/dL (6.3-8.2)
--- NOTE | 2018-12-17 09:57 | P.PN ---
Subjective Progress Note Date: 12/17/18 Pt s/e. Improved in appearance. Feeling better. Ambulated yesterday and this morning NAD, tired appearing No resp distress heart reegular abd soft, minimal diffuse discomfort. mildly distended groin c/d/i, ecchymosis s/p EVAR for ruptured AAA Anemia - stable Fever of unknown origin - improving R pleural effusion on CT Increasing total bilirubin, likely due to hematoma decomposition. No abd pain Cont supportive care. No planned vascular intervetion at this time. No leukocytosis. Overall appearing improved. Okay for discharge from vascular surgery standpoint Objective - Vital Signs Vital signs: Vital Signs Temp 97.9 F 12/17/18 07:00 Pulse 101 H 12/17/18 07:00 Resp 16 12/17/18 07:00 BP 169/77 12/17/18 07:00 Pulse Ox 96 12/17/18 07:00 Intake & Output 12/16/18 12/17/18 12/17/18 18:59 06:59 18:59 Intake Total 240 250 Output Total 280 250 Balance -40 0 Intake: Oral 240 250 Output: Urine 280 250 Other: # Voids 3 1 # Bowel Movements 1 - Labs CBC & Chem 7: 12/17/18 06:36 12/17/18 06:36 Labs: Abnormal Lab Results - Last 24 Hours (Table) 12/17/18 12/17/18 Range/Units 06:36 06:36 RBC 2.79 L (4.30-5.90) m/uL Hgb 8.5 L (13.0-17.5) gm/dL Hct 25.7 L (39.0-53.0) % Lymphocytes # 0.7 L (1.0-4.8) k/uL Glucose 103 H (74-99) mg/dL Total Bilirubin 1.7 H (0.2-1.3) mg/dL Albumin 3.2 L (3.5-5.0) g/dL Microbiology - Last 24 Hours (Table) 12/14/18 11:38 Blood Culture - Preliminary Blood No Growth after 48 hours
[2018-12-17] MEDS: PANTOPRAZOLE 40 MG TABLET PO SCH (10:02)
[2018-12-17] MEDS: ATENOLOL 50 MG TAB PO SCH (10:02)
[2018-12-17] MEDS: ENOXAPARIN 40 MG/0.4 ML SYRINGE SQ SCH (10:04)
[2018-12-17] MEDS: LISINOPRIL 10 MG TAB PO SCH (10:04)
[2018-12-17] MEDS: DOCUSATE 100 MG CAP PO SCH ×2 (10:04→21:22)
[2018-12-17] MEDS: LORATADINE 10 MG TAB PO SCH (10:05)
[2018-12-17] MEDS: SODIUM FERRIC GLUCONAT-SUCROSE 125 MG in SODIUM CHLORIDE 0.9% 100 ML IVPB SCH (10:05)
[2018-12-17 10:22] LABS: LDH 1133 U/L (313-618)
[2018-12-17 12:04] VITALS: BMI 30.1
[2018-12-17] MEDS ORDERED: LISINOPRIL 10 MG TAB PO SCH (12:30)
--- NOTE | 2018-12-17 12:31 | P.PN ---
Subjective Patient is seen in follow-up for renal infarction. Patient's CAT scan revealed bilateral small wedge-shaped density suggestive of renal infarction. GFR is at baseline. Urine output is good. Vital signs are stable. General: The patient appeared well nourished and normally developed. HEENT: Head exam is unremarkable. Neck is without jugular venous distension. LUNGS: Lungs are clear to auscultation and percussion. Breath sounds decreased. HEART: Rate and Rhythm are regular. First and second heart sounds normal. No murmurs, rubs or gallops. ABDOMEN: Abdominal exam reveals normal bowel sounds. Non-tender and non- distended. No evidence of peritonitis. EXTREMITITES: No clubbing, cyanosis, or edema. Objective - Vital Signs Vital signs: Vital Signs Temp 97.9 F 12/17/18 07:00 Pulse 101 H 12/17/18 07:00 Resp 16 12/17/18 07:00 BP 169/77 12/17/18 07:00 Pulse Ox 96 12/17/18 07:00 Intake & Output 12/16/18 12/17/18 12/17/18 18:59 06:59 18:59 Intake Total 240 250 Output Total 280 250 Balance -40 0 Weight 95.254 kg Intake: Oral 240 250 Output: Urine 280 250 Other: # Voids 3 1 # Bowel Movements 1 - Labs CBC & Chem 7: 12/17/18 06:36 12/17/18 06:36 Labs: Abnormal Lab Results - Last 24 Hours (Table) 12/17/18 12/17/18 Range/Units 06:36 06:36 RBC 2.79 L (4.30-5.90) m/uL Hgb 8.5 L (13.0-17.5) gm/dL Hct 25.7 L (39.0-53.0) % Lymphocytes # 0.7 L (1.0-4.8) k/uL Glucose 103 H (74-99) mg/dL Total Bilirubin 1.7 H (0.2-1.3) mg/dL Lactate Dehydrogenase 1133 H (313-618) U/L Albumin 3.2 L (3.5-5.0) g/dL Microbiology - Last 24 Hours (Table) 12/14/18 12:40 Urine Culture - Final Urine,Voided 12/14/18 11:38 Blood Culture - Preliminary Blood No Growth after 48 hours Assessment and Plan Plan: Assessment: 1. Small bilateral wedge-shaped areas of hypoattenuation on both kidneys. These are likely small renal infarcts which can occur due to ischemic state after rupture of AAA; may have also developed renal artery injury after endovascular aortic intervention which the patient just at the last week, however no significant renal artery occlusion is noted on CTA. Discussed with vascular surgery. Patient is asymptomatic and denies any flank pain nausea or vomiting. No history of hypercoagulable state. No history of A. fib. No evidence of nephrolithiasis or UTI at this time. LDH noted to be high. Ultrasound reveals no evidence of hydronephrosis or nephrolithiasis. Kidneys are normal in size also the right kidney is a little smaller. 2. AAA status post EVAR last week. 3. Benign hypertension. Blood pressure high. 4. Postoperative fever. On antibiotics. Infectious disease following. 5. Anemia. Likely related to blood loss after surgery. Rule out iron deficiency. Plan: Increase dose of lisinopril to 10 mg twice daily. Check iron studies. Maintain Lovenox for now which can be continued for another 3 months; after that he should be on aspirin 81 mg daily.
[2018-12-17] MEDS: traMADol 50 MG TAB PO PRN ×2 (13:28→18:58)
[2018-12-17] MEDS ORDERED: FUROSEMIDE 10 MG/ML 2 ML VIAL IV ONE (13:36)
--- NOTE | 2018-12-17 14:04 | P.PN ---
Subjective Progress Note Date: 12/17/18 This is a 68-year-old male patient who presented to the ER with complaints of fever. Patient recently underwent a AAA repair, status post percutaneous EVAR with AF [address] on 12/09/[address] Mosqueda. Patient was discharged home on 12/12/2018. Patient reports that Friday morning he started to experience sweating. Patient's temp was taken and was reported elevated. Patient call PCP and it was recommended that he proceed to the ER for further evaluation. Additional medical history includes GERD, hypertension, seasonal ALLERGIES, neuropathy and ex-smoker. Patient's temp elevated at 101. Lactic acid 1.1. Lipase 132. C-reactive protein 170.8. Patient reports that he is h aving normal bowel movements last BM 12/14/2018. Patient denies diarrhea. Patient does report some nausea. Patient reports occasional cough. Patient denies chest pain. Patient denies any burning with urination or frequency. Chest x-ray completed showing no acute cardiopulmonary processes. Underlying COPD with chronic parabronchial cuffing right midlung nodule density could relate to the patient's nipple shadow and repeat radiograph with nipple markers could be performed on a nonemergent basis. CTA of the abdomen and pelvis completed showing status post aortic vascular pair after retroperitoneal hemorrhage. Overall degree in volume of the retropubic T new hemorrhage has improved from the prior of 12/08/2018 no current evidence of active extravasation or endoleak. New wedge-shaped areas of hypoattenuation within both kidneys. Right greater than left. These may be on the basis of pyelonephritis or renal infarcts. Correlate with UA. Abnormal attenuation of the liver. MRI of the liver is recommended to evaluate for mass versus multifactorial fatty infiltration. Blood and urine cultures have been ordered. Infectious disease consulted. Dr. Mosqueda consulted for surgical intervention. On 12/16/2018 patient is alert and oriented 3. Patient has been afebrile. Infectious disease is following. Nephrology and GI consult placed due to computed tomography scan. Repeat chest x-ray has been ordered due to increased coughing. At this time patient denies any chest pain or shortness of breath. Patient denies nausea vomiting or diarrhea. Patient denies any urinary burning or frequency. Hemoglobin low at 8.6. IV iron has been ordered. On 12/17/2018 patient is alert and oriented 3. Patient remains afebrile. Ultrasound of kidneys completed showing no hydronephrosis of either kidneys. This time patient denies chest pain or shortness breath. Patient denies nausea vomiting or diarrhea. Patient denies any urinary burning or frequency. Patient is complaining of cough. Chest x-ray completed yesterday showing no acute process. Lisinopril will be DC'd and changed to losartan for blood pressure control. Patient also received 1 dose of IV Lasix 20 mg today. Objective - Vital Signs Vital signs: Vital Signs Temp 97.9 F 12/17/18 07:00 Pulse 101 H 12/17/18 07:00 Resp 16 12/17/18 07:00 BP 169/77 12/17/18 07:00 Pulse Ox 96 12/17/18 07:00 Intake & Output 12/16/18 12/17/18 12/17/18 18:59 06:59 18:59 Intake Total 240 250 Output Total 280 250 Balance -40 0 Weight 95.254 kg Intake: Oral 240 250 Output: Urine 280 250 Other: # Voids 3 1 # Bowel Movements 1 - Exam Head normocephalic Neck supple Lungs diminished bilaterally Heart regular rate and rhythm S1-S2, no rub or gallop Abdomen is slightly distended nontender to palpation Extremities no edema Neuro alert and orientated to 3 - Labs CBC & Chem 7: 12/17/18 06:36 12/17/18 06:36 Labs: Abnormal Lab Results - Last 24 Hours (Table) 12/17/18 12/17/18 Range/Units 06:36 06:36 RBC 2.79 L (4.30-5.90) m/uL Hgb 8.5 L (13.0-17.5) gm/dL Hct 25.7 L (39.0-53.0) % Lymphocytes # 0.7 L (1.0-4.8) k/uL Glucose 103 H (74-99) mg/dL Total Bilirubin 1.7 H (0.2-1.3) mg/dL Lactate Dehydrogenase 1133 H (313-618) U/L Albumin 3.2 L (3.5-5.0) g/dL Microbiology - Last 24 Hours (Table) 12/14/18 11:38 Blood Culture - Preliminary Blood No Growth after 72 hours 12/14/18 12:40 Urine Culture - Final Urine,Voided Assessment and Plan Assessment: 1. Postop Fever. elevated temp of 101. Lactic acid 1.1. Chest x-ray showing no acute cardio bony process. Underlying COPD with chronic parabronchial cuffing. Right mid lung nodule density could relate to patient's nipple shadow and repeat radiographic with nipple markers could be performed on a nonemergent basis. Blood and urine cultures ordered. Patient started on Rocephin. Per infectious disease could be related to renal infarcts and hepatic infarct. Inflammatory response. Cultures pending. Repeat chest x-ray completed showing no acute cardiopulmonary process 2. Status post EVAR secondary to AAA rupture and retroperitoneal hematoma on 12/08/2018. Dr. Mosqueda has been consulted surgical interventions at this time CTA was performed and reviewed by Dr. Mosqueda 3. History of GERD 4. History of essential hypertension. Patient maintained on atenolol. L isinopril has been DC'd due to cough will add losartan 100 mg daily for blood pressure. 5. History of seasonal ALLERGIES 6. History of ex-smoker 7. Hypoattenuation within both kidneys seen on computed tomography scan. Computed tomography scan showing new wedge-shaped areas of hypoattenuation within both kidneys right greater than left this may be N basis pyelonephritis or renal infarcts correlate with UA. Nephrology services have been consulted. Ultrasound of the renal kidneys completed showing no evidence of hydronephrosis in either kidney. Per nephrology services recommend patient be maintained on Lovenox for now continue for another 3 months after initiation be transitioned to aspirin 81 mg 8. Abnormal attenuation of the liver. Computed tomography scan showing abnormal attenuation the liver MRI of the liver is recommended to evaluate for mass versus fatty infiltration. GI services have been consulted 9. Expected acute blood loss anemia secondary to surgery. Hemoglobin 8.5. IV iron has been ordered per infectious disease DVT prophylaxis Lovenox. GI prophylaxis Protonix Infectious disease, nephrology and GI services following Cultures pending. I performed an examination of the patient and discussed their management with the Nurse Practitioner. I have reviewed the Nurse Practitioner's notes and agree with the documented findings and plan of care
[2018-12-17] MEDS: ONDANSETRON 4 MG/2 ML VIAL IVP PRN (18:06)
--- NOTE | 2018-12-17 18:45 | PN ---
PROGRESS NOTE DATE OF DICTATION: December 17, 2018 Patient is a 68-year-old pleasant white male who was admitted to the hospital 2 days ago when he presented with abdominal pain, abdominal distention and fever. The patient underwent AAA repair, status post percutaneous EVAR on 12/09/2018 when he presented to the emergency room with rupture of AAA. He was discharged home 3 days later and was readmitted to the hospital 2 days ago with abdominal distention, abdominal pain and fever. Dr. Wellington following the patient closely and he is on broad-spectrum antibiotics. CT of the abdomen done during this hospitalization showed status post aortic vascular repair with some retroperitoneal hemorrhage but there was new finding of hypoattenuated lesion in the liver and hence we are consulted because of this issue. The patient has no history of chronic liver disease. Today, he is feeling better. Abdominal pain is improving. Fever is resolving. PHYSICAL EXAMINATION: He appears comfortable. No apparent distress. Vital signs are stable. Blood pressure is 161/86, pulse rate 90, temperature 98.7. HEENT examination: Unremarkable. Conjunctivae pink. Sclerae anicteric. Oral cavity no lesions. NECK: No JVD or lymph node enlargement. CHEST: Clear to auscultation. HEART: Regular rate and rhythm. ABDOMEN: Soft. Bowel sounds are positive. No organomegaly. EXTREMITIES: No pedal edema. SKIN: No rashes. NEUROLOGIC: Alert and oriented x3. No focal deficits. LABS: Today WBC 6.4, hemoglobin 8.5, platelets are normal. Basic metabolic panel is within normal limits. BUN is 18, creatinine 0.8. AST and ALT are 36.7 respectively. T bilirubin is 1.7, alkaline phosphatase 103, and LDH 1133. IMPRESSION: 1. Status post AAA repair with endovascular graft on December 09 following AAA rupture. The patient doing well. 2. Fever, abdominal pain, on broad-spectrum antibiotics. Dr. Wellington following the patient closely. 3. Liver lesion. Recent CT scan showed a 4 cm hypoattenuating lesion in the right lower lobe of the liver which was not seen on the prior CT scan done 10 days earlier. I reviewed the CT findings with Dr. Robles and compared the old CT scan versus the new finding and at this time, it most likely could be a liver infarct, though this is very uncommon given the dual blood supply to the liver. RECOMMENDATIONS: 1. I discussed with the patient the radiological findings and at this time, I suggested that we will consider proceeding with MRI of the liver or a CT of the liver, CT of the abdomen to reimage the liver in about 4-6 weeks. 2. Continue with broad-spectrum antibiotics and we will follow the patient closely during his hospital stay. Thank you for this consultation. ANGELINE / DWAYNE: [id number] /
[2018-12-17 20:20] LABS: Iron Saturation 11.89 (15.00-50.00)
[2018-12-17] MEDS: FERROUS SULFATE 325 MG TAB PO SCH (21:22)
[2018-12-17] MEDS: ACETAMINOPHEN TAB 500 MG TAB PO PRN (21:55)
[2018-12-18] MEDS: traMADol 50 MG TAB PO PRN ×3 (01:55→13:40)
[2018-12-18 07:39] LABS: ALT 45 U/L (21-72); AST 39 U/L (17-59); African American GFR (CKD) >90 (>60 ml/min/1.73 sqM); Albumin 3.6 g/dL (3.5-5.0); Alkaline Phosphatase 109 U/L (38-126); Anion Gap 10 mmol/L; Blood Urea Nitrogen 20 mg/dL (9-20); Carbon Dioxide 27 mmol/L (22-30); Chloride 102 mmol/L (98-107); Glucose 105 mg/dL (74-99); Potassium 4.3 mmol/L (3.5-5.1); Sodium 139 mmol/L (137-145); Total Bilirubin 1.7 mg/dL (0.2-1.3); Total Protein 6.9 g/dL (6.3-8.2)
[2018-12-18] MEDS: POLYETHYLENE GLYCOL 3350 17 GM POWD.PACK PO SCH (08:00)
[2018-12-18] MEDS: LORATADINE 10 MG TAB PO SCH (08:00)
[2018-12-18] MEDS: ATENOLOL 50 MG TAB PO SCH (08:00)
[2018-12-18] MEDS: ENOXAPARIN 40 MG/0.4 ML SYRINGE SQ SCH (08:00)
[2018-12-18] MEDS: DOCUSATE 100 MG CAP PO SCH (08:00)
[2018-12-18] MEDS: PANTOPRAZOLE 40 MG TABLET PO SCH (08:00)
[2018-12-18] MEDS ORDERED: LOSARTAN 50 MG TAB PO SCH (09:00)
[2018-12-18 09:40] LABS: Basophils # (A) 0.2 k/uL (0-0.2); Basophils % (A) 2 %; Eosinophils # (A) 0.2 k/uL (0-0.7); Eosinophils % (A) 2 %; HCT 29.5 % (39.0-53.0); HGB 9.6 gm/dL (13.0-17.5); Hypochromasia Slight; Lymphocytes % (A) 12 %; MCH 30.3 pg (25.0-35.0); MCHC 32.5 g/dL (31.0-37.0); MCV 93.2 fL (80.0-100.0); Mean Platelet Volume 6.9; Monocytes # (A) 0.5 k/uL (0-1.0); Monocytes % (A) 5 %; Neutrophils # (A) 6.4 k/uL (1.3-7.7); Neutrophils % (A) 77 %; Platelet Count 468 k/uL (150-450); RBC 3.16 m/uL (4.30-5.90); WBC 8.3 k/uL (3.8-10.6)
[2018-12-18] MEDS: SODIUM FERRIC GLUCONAT-SUCROSE 125 MG in SODIUM CHLORIDE 0.9% 100 ML IVPB SCH (09:45)
--- NOTE | 2018-12-18 12:14 | P.PN ---
Subjective Patient is seen in follow-up for renal infarction. Patient's CAT scan revealed bilateral small wedge-shaped density suggestive of renal infarction. GFR is at baseline. Urine output is good. Blood pressure better controlled. Vital signs are stable. General: The patient appeared well nourished and normally developed. HEENT: Head exam is unremarkable. Neck is without jugular venous distension. LUNGS: Lungs are clear to auscultation and percussion. Breath sounds decreased. HEART: Rate and Rhythm are regular. First and second heart sounds normal. No murmurs, rubs or gallops. ABDOMEN: Abdominal exam reveals normal bowel sounds. Non-tender and non- distended. No evidence of peritonitis. EXTREMITITES: No clubbing, cyanosis, or edema. Objective - Vital Signs Vital signs: Vital Signs Temp 97.9 F 12/18/18 07:08 Pulse 106 H 12/18/18 07:08 Resp 15 12/18/18 07:08 BP 143/78 12/18/18 07:08 Pulse Ox 96 12/18/18 07:08 Intake & Output 12/17/18 12/18/18 12/18/18 18:59 06:59 18:59 Intake Total 790 240 Balance 790 240 Weight 95.254 kg Intake: Oral 790 240 Other: Voiding Method Toilet Toilet Toilet Urinal # Voids 3 1 - Labs CBC & Chem 7: 12/18/18 07:02 12/18/18 07:02 Labs: Abnormal Lab Results - Last 24 Hours (Table) 12/17/18 12/18/18 12/18/18 Range/Units 06:36 07:02 07:02 RBC 3.16 L (4.30-5.90) m/uL Hgb 9.6 L (13.0-17.5) gm/dL Hct 29.5 L (39.0-53.0) % Plt Count 468 H (150-450) k/uL Glucose 105 H (74-99) mg/dL Iron 29 L (65-175) ug/dL Iron Saturation 11.89 L (15.00-50.00) Ferritin 1006.0 H (22.0-322.0) ng/mL Total Bilirubin 1.7 H (0.2-1.3) mg/dL Microbiology - Last 24 Hours (Table) 12/14/18 11:38 Blood Culture - Preliminary Blood No Growth after 72 hours 12/14/18 12:40 Urine Culture - Final Urine,Voided Assessment and Plan Plan: Assessment: 1. Small bilateral wedge-shaped areas of hypoattenuation on both kidneys. These are likely small renal infarcts which can occur due to ischemic state after rupture of AAA; may have also developed renal artery injury after endovascular aortic intervention which the patient just at the last week, however no significant renal artery occlusion is noted on CTA. Discussed with vascular surgery. Patient is asymptomatic and denies any flank pain nausea or vomiting. No history of hypercoagulable state. No history of A. fib. No evidence of nephrolithiasis or UTI at this time. LDH noted to be high. Ultrasound reveals no evidence of hydronephrosis or nephrolithiasis. Kidneys are normal in size although the right kidney is a little smaller. 2. AAA status post EVAR last week. 3. Benign hypertension. Better. 4. Postoperative fever. On antibiotics. Infectious disease following. 5. Anemia. Likely related to blood loss after surgery. Iron deficiency noted. Maintained on IV iron. Plan: Maintain lisinopril. Maintain Lovenox for now which can be continued for another 3 months; after that he should be on aspirin 81 mg daily. Discussed with vascular surgery. Stable to be discharged home from nephrology standpoint.
--- NOTE | 2018-12-18 13:31 | P.DS ---
Providers Date of admission: 12/15/18 12:59 Expected date of discharge: 12/18/18 Attending physician: Bryant Méndez Consults: 12/14/18 15:09 Consult Physician Routine Consulting Provider: Simón Wellington Consult Reason/Comments: known Do you want consulting provider notified?: Yes Consult Physician Routine Consulting Provider: Kermit Mosqueda Consult Reason/Comments: postOp Do you want consulting provider notified?: Yes 12/15/18 12:41 Consult Physician Routine Consulting Provider: Yissel Hodges Consult Reason/Comments: Computed tomography scan results of kidneys Do you want consulting provider notified?: Yes 12/15/18 12:42 Consult Physician Routine Consulting Provider: Balaji Chahal Consult Reason/Comments: Abnormal attenuation of the liver seen on computed tomography scan Do you want consulting provider notified?: Yes Primary care physician: [facility] Course: Discharge diagnosis 1. Postop Fever. elevated temp of 101. Lactic acid 1.1. Chest x-ray showing no acute cardio bony process. Underlying COPD with chronic parabronchial cuffing. Right mid lung nodule density could relate to patient's nipple shadow and repeat radiographic with nipple markers could be performed on a nonemergent basis. Blood and urine cultures ordered. Patient started on Rocephin. Per infectious disease could be related to renal infarcts and hepatic infarct. Inflammatory response. Cultures pending. Repeat chest x-ray completed showing no acute cardiopulmonary process. Discussed case with Christy [employer] with Dr. Wellington no need for antibiotics at discharge cultures have been negative patient has been afebrile 2. Status post EVAR secondary to AAA rupture and retroperitoneal hematoma on 12/08/2018. Dr. Mosqueda has been consulted surgical interventions at this time CTA was performed and reviewed by Dr. Mosqueda 3. History of GERD 4. History of essential hypertension. Patient maintained on atenolol. Lisinopril has been DC'd due to cough will add losartan 100 mg daily for blood pressure. 5. History of seasonal ALLERGIES 6. History of ex-smoker 7. Hypoattenuation within both kidneys seen on computed tomography scan. Computed tomography scan showing new wedge-shaped areas of hypoattenuation within both kidneys right greater than left this may be N basis pyelonephritis or renal infarcts correlate with UA. Nephrology services have been consulted. Ultrasound of the renal kidneys completed showing no evidence of hydronephrosis in either kidney. Per nephrology services recommend patient be maintained on Lovenox for now continue for another 3 months after initiation be transitioned to aspirin 81 mg 8. Abnormal attenuation of the liver. Computed tomography scan showing abnormal attenuation the liver MRI of the liver is recommended to evaluate for mass versus fatty infiltration. Per GI services patient to follow-up outpatient for repeat MRI or computed tomography scan of liver in 4-6 weeks 9. Expected acute blood loss anemia secondary to surgery. Hemoglobin 8.5. IV iron has been ordered per infectious disease. Hemoglobin 9.6. Patient to continue ferrous sulfate at home Hospital course This is a 68-year-old male patient who presented to the ER with complaints of fever. Patient recently underwent a AAA repair, status post percutaneous EVAR with AF [address] on 12/09/[address] Mosqueda. Patient was discharged home on 12/12/2018. Patient reports that Friday morning he started to experience sweating. Patient's temp was taken and was reported elevated. Patient call PCP and it was recommended that he proceed to the ER for further evaluation. Additional medical history includes GERD, hypertension, seasonal ALLERGIES, neuropathy and ex-smoker. Patient's temp elevated at 101. Lactic acid 1.1. Lipase 132. C-reactive protein 170.8. Patient reports that he is having normal bowel movements last BM 12/14/2018. Patient denies diarrhea. Patient does report some nausea. Patient reports occasional cough. Patient denies chest pain. Patient denies any burning with urination or frequency. Chest x-ray completed showing no acute cardiopulmonary processes. Underlying COPD with chronic parabronchial cuffing right midlung nodule density could relate to the patient's nipple shadow and repeat radiograph with nipple markers could be performed on a nonemergent basis. CTA of the abdomen and pelvis completed showing status post aortic vascular pair after retroperitoneal hemorrhage. Overall degree in volume of the retropubic T new hemorrhage has improved from the prior of 12/08/2018 no current evidence of active extravasation or endoleak. New wedge-shaped areas of hypoattenuation within both kidneys. Right greater than left. These may be on the basis of pyelonephritis or renal infarcts. Correlate with UA. Abnormal attenuation of the liver. MRI of the liver is recommended to evaluate for mass versus multifactorial fatty infiltration. Blood and urine cultures have been ordered. Infectious disease consulted. Dr. Mosqueda consulted for surgical intervention. On 12/16/2018 patient is alert and oriented 3. Patient has been afebrile. Infectious disease is following. Nephrology and GI consult placed due to computed tomography scan. Repeat chest x-ray has been ordered due to increased coughing. At this time patient denies any chest pain or shortness of breath. Patient denies nausea vomiting or diarrhea. Patient denies any urinary burning or frequency. Hemoglobin low at 8.6. IV iron has been ordered. On 12/17/2018 patient is alert and oriented 3. Patient remains afebrile. Ultrasound of kidneys completed showing no hydronephrosis of either kidneys. This time patient denies chest pain or shortness breath. Patient denies nausea vomiting or diarrhea. Patient denies any urinary burning or frequency. Patient is complaining of cough. Chest x-ray completed yesterday showing no acute process. Lisinopril will be DC'd and changed to losartan for blood pressure control. Patient also received 1 dose of IV Lasix 20 mg today. On 12/18/2018 patient alert and oriented 3. Cultures have been negative. Patient has remained afebrile. Patient has been cleared for discharge from consulting providers. Discussed case with infectious is no need for antibiotics at discharge. Patient will be discharged on Lovenox injections for 3 months. Per nursing staff patient is able to inject independently. Patient verbalized understanding. Patient to follow-up outpatient with GI services for follow-up computed tomography scan of liver in 4-6 weeks. EKG performed showing normal sinus rhythm. At this time patient denies chest pain or shortness of breath. Patient denies nausea vomiting or diarrhea. Patient denies any urinary burning or frequency I performed an examination of the patient and discussed their management with the Nurse Practitioner. I have reviewed the Nurse Practitioner's notes and agree with the documented findings and plan of care Patient Condition at Discharge: Stable Plan - Discharge Summary Discharge Rx Participant: No New Discharge Prescriptions: New Losartan [Cozaar] 100 mg PO DAILY 30 Days #30 tab Enoxaparin [Lovenox] 40 mg SQ DAILY 90 Days #90 syringe Famotidine [Pepcid] 20 mg PO DAILY 30 Days #30 tablet Continue Atenolol [Tenormin] 50 mg PO QAM Cetirizine HCl [Zyrtec] 10 mg PO QAM traMADol HCL [Ultram] 50 mg PO Q6HR PRN PRN Reason: Pain Ferrous Sulfate [Iron (65 MG Elemental)] 325 mg PO HS Docusate [Colace] 100 mg PO DAILY Polyethylene Glycol 3350 [Miralax] 17 gm PO DAILY Discharge Medication List Atenolol [Tenormin] 50 mg PO QAM 01/09/15 [History] Cetirizine HCl [Zyrtec] 10 mg PO QAM 01/09/15 [History] Docusate [Colace] 100 mg PO DAILY 12/14/18 [History] Ferrous Sulfate [Iron (65 MG Elemental)] 325 mg PO HS 12/14/18 [History] Polyethylene Glycol 3350 [Miralax] 17 gm PO DAILY 12/14/18 [History] traMADol HCL [Ultram] 50 mg PO Q6HR PRN 12/14/18 [History] Enoxaparin [Lovenox] 40 mg SQ DAILY 90 Days #90 syringe 12/18/18 [Rx] Famotidine [Pepcid] 20 mg PO DAILY 30 Days #30 tablet 12/18/18 [Rx] Losartan [Cozaar] 100 mg PO DAILY 30 Days #30 tab 12/18/18 [Rx] Follow up Appointment(s)/Referral(s): Silvina Covarrubias MD [STAFF PHYSICIAN] - 1 Week Bryant Méndez MD [Primary Care Provider] - 1-2 days Larry Phoenix DO [STAFF PHYSICIAN] - 1 Week Activity/Diet/Wound Care/Special Instructions: Activity as tolerated Diet heart healthy Patient to follow-up with GI services for follow-up MRI or CT of the liver in 4- 6 weeks Discharge Disposition: HOME SELF-CARE
[2018-12-18 14:12] VITALS: BP 133/73; PULSE 77; RESP 16; TEMP 98.7
== END 2018-12-18 14:47 | disposition home or self-care (01) | DRG 698 ==
LOC: EC 10:31 → 4SSUR 15:09 → OBSVTOIN 12-15 12:59
PROVIDERS: ADMIT Internal Medicine; ATTEND Internal Medicine
DX: N28.0 Ischemia and infarction of kidney (principal); K76.3 Infarction of liver; K66.1 Hemoperitoneum; D62 Acute posthemorrhagic anemia; E87.2 Acidosis; N17.9 Acute kidney failure, unspecified; I97.618 Postprocedural hemorrhage of a circulatory system organ or structure following other circulatory system procedure; D72.829 Elevated white blood cell count, unspecified; R50.82 Postprocedural fever; K21.9 Gastro-esophageal reflux disease without esophagitis; D50.9 Iron deficiency anemia, unspecified; I10 Essential (primary) hypertension; J44.9 Chronic obstructive pulmonary disease, unspecified; Y83.8 Other surgical procedures as the cause of abnormal reaction of the patient, or of later complication, without mention of misadventure at the time of the procedure; Z82.49 Family history of ischemic heart disease and other diseases of the circulatory system; Z86.79 Personal history of other diseases of the circulatory system; Z87.442 Personal history of urinary calculi; Z87.891 Personal history of nicotine dependence; Z96.643 Presence of artificial hip joint, bilateral; Z89.012 Acquired absence of left thumb
CPT/HCPCS: 36415; 71046; 74174; 76770; 80053; 81001; 82728; 83540; 83550; 83605; 83615; 83690; 83735; 84100; 84484; 85025; 86140; 87040; 87086; 87502; 93005; 96361; 96365; 96375; 99285

== ENCOUNTER → 2019-01-18 | Outpatient (CLI) | payer MEDICARE ==
--- NOTE | 2019-01-18 16:06 | MR ---
EXAMINATION TYPE: MR abdomen wo/w con DATE OF EXAM: 01/18/2019 COMPARISON: Renal ultrasound dated 12/16/2018 and CTA dated 12/14/[address]: [address] CONTRAST: Standard multiplanar, multisequence MRI departmental protocol utilizing 9.5 mL intravenous Gadavist g adolinium contrast. FINDINGS: Very mild signal dropout is seen in the liver on out of phase imaging compatible with mild degree hepatic steatosis. This does limit evaluation for hepatic masses. A punctate 1 to 2 mm nonenha ncing T2 hyperintense cyst is seen within the right hepatic lobe on postcontrast image 401 of angiogr aphic phase imaging. The previously seen wedge-shaped areas of hypoattenuation in the right hepatic l obe on the prior CTA dated 12/14/2018 do not persist on today's imaging and therefore more likely relat ed to areas of hypoperfusion given the known retroperitoneal hemorrhage and new renal infarcts. Gallb ladder is unremarkable. Wedge-shaped areas of hypoattenuation seen on the prior CT now appear as bilateral cortical scars, so me area with retraction. These are greater on the right than left. T2 hyperintense nonenhancing right upper pole renal cysts and midpole renal cyst are seen. Punctate nonenhancing left midpole renal cys ts and superior pole renal cyst are also noted. The pancreas, spleen, and adrenal glands are of unremarkable enhancement and morphology. No dilated l arge or small bowel is seen. No adenopathy. No pancreatic ductal dilatation is evident. Subcutaneous tissues are unremarkable. Lung bases appear well aerated. The known retroperitoneal hemorrhage appears organizing with prior thickness at the level inferior po le of the kidneys measuring approximately 2.4 cm on the exam of 12/14/2018 and now measuring approximat nicole 1.3 cm. The periaortic component has also improved from the prior. The vascular stent graft creat e extensive susceptibility artifact and patency of the stent graft cannot be confirmed. The [place] ao rtic lumen appears to measure up to 6.2 x 5.8 cm, similar to the prior of 12/14/2018. IMPRESSION: 1. There is a mild degree hepatic steatosis. The prior heterogeneity with wedge-shaped areas in the C T of 12/14/2018 more likely from transient hypoperfusion or transient attenuation differences as they d o not persist on today's exam. No suspicious hepatic mass. 2. Bilateral small renal infarcts as seen on the prior CT, right greater than left. 3. Aortic stent graft displays severely limiting evaluation of the aorta. Patency cannot be determine d on MRI given the extensive artifact. The [place] aneurysmal lumen appears similar in size to the lcaudia or CT. 4. Evolution and improved caliber of the known retroperitoneal hemorrhage.
== END | disposition home or self-care (01) ==
LOC: RADMRIMAIN 12:26
PROVIDERS: ATTEND Internal Medicine Gastroenterology
DX: K76.0 Fatty (change of) liver, not elsewhere classified (principal)
CPT/HCPCS: 74183; A9585

== ENCOUNTER → 2019-02-03 | Outpatient (CLI) | payer MEDICARE ==
--- NOTE | 2019-02-03 15:33 | XR ---
EXAMINATION TYPE: XR chest 2V DATE OF EXAM: 02/03/2019 COMPARISON: 12/16/2018 INDICATION: Cough TECHNIQUE: Frontal and lateral views of the chest are obtained. FINDINGS: The heart size is normal. The pulmonary vasculature is normal. The lungs are clear. IMPRESSION: 1. No acute pulmonary process.
== END | disposition home or self-care (01) ==
LOC: RADXRMAIN 10:30
PROVIDERS: ATTEND Internal Medicine
DX: R05 Cough (principal)
CPT/HCPCS: 71046

== ENCOUNTER → 2019-03-25 | Outpatient (CLI) | payer MEDICARE ==
--- NOTE | 2019-03-26 09:32 | ECHOF ---
Referral Reason:Abnormal cardiovascular function study R94.39..... MEASUREMENTS -------- HEIGHT: 177.8 cm WEIGHT: 94.3 kg BP: RVIDd: 4.7 cm (< 3.3) IVSd: 1.6 cm (0.6 - 1.1) LVIDd: 3.3 cm (3.9 - 5.3) LVPWd: 1.3 cm (0.6 - 1.1) IVSs: 1.8 cm LVIDs: 2.2 cm LVPWs: 2.0 cm LAESV Index (A-L): 39.96 ml/m Ao Diam: 2.5 cm (2.0 - 3.7) AV Cusp: 1.6 cm (1.5 - 2.6) LA Diam: 3.0 cm (2.7 - 3.8) MV E [place]: 0.81 m/s MV DecT: 172 ms MV A [place]: 0.61 m/s MV E/A Ratio: 1.33 RAP: 5.00 mmHg RVSP: 34.61 mmHg FINDINGS -------- Sinus rhythm. This was a technically adequate study. The left ventricular size is normal. There is moderate concentric left ventricular hypertrophy. O verall left ventricular systolic function is low-normal with, an EF between 50 - 55 %. The diastoli c filling pattern is normal for the age of the patient 10.16. The right ventricle is mild to moderately enlarged. LA is moderately dilated 34-39 ml/m2 The right atrium is mildly enlarged. Interatrial and interventricular septum intact. There is mild aortic valve sclerosis. There is no evidence of aortic regurgitation. There is no e vidence of aortic stenosis. Moderate mitral regurgitation is present. Mild tricuspid regurgitation present. There is borderline pulmonary artery hypertension. The righ t ventricular systolic pressure, as measured by Doppler, is 34.61mmHg. There is no pulmonic regurgitation present. The aortic root size is normal. Normal inferior vena cava with normal inspiratory collapse consistent with estimated right atrial pre ssure of 5 mmHg. There is no pericardial effusion. CONCLUSIONS -------- 1. Sinus rhythm. 2. This was a technically adequate study. 3. The left ventricular size is normal. 4. There is moderate concentric left ventricular hypertrophy. 5. Overall left ventricular systolic function is low-normal with, an EF between 50 - 55 %. 6. The diastolic filling pattern is normal for the age of the patient 10.16 7. The right ventricle is mild to moderately enlarged. 8. LA is moderately dilated 34-39 ml/m2 9. The right atrium is mildly enlarged. 10. Interatrial and interventricular septum intact. 11. There is mild aortic valve sclerosis. 12. There is no evidence of aortic regurgitation. 13. There is no evidence of aortic stenosis. 14. Moderate mitral regurgitation is present. 15. Mild tricuspid regurgitation present. 16. There is borderline pulmonary artery hypertension. 17. The right ventricular systolic pressure, as measured by Doppler, is 34.61mmHg. 18. There is no pulmonic regurgitation present. 19. The aortic root size is normal. 20. Normal inferior vena cava with normal inspiratory collapse consistent with estimated right atrial pressure of 5 mmHg. 21. There is no pericardial effusion. NUCLEAR CHEMISTRY TECHNICIAN: Cathleen Mon RDCS
== END | disposition home or self-care (01) ==
LOC: RADECHMAIN 12:49
PROVIDERS: ATTEND Internal Medicine
DX: I08.1 Rheumatic disorders of both mitral and tricuspid valves (principal); I27.21 Secondary pulmonary arterial hypertension
CPT/HCPCS: 93306

== ENCOUNTER → 2019-04-02 | Outpatient (CLI) | payer MEDICARE ==
--- NOTE | 2019-04-02 09:09 | US ---
EXAMINATION TYPE: US duplex aorta DATE OF EXAM: 04/02/2019 COMPARISON: MRI 01/18/2019, CT 12/14/2018 CLINICAL HISTORY: I71.3 ruptured AAA; Z98.890 AAA repair. EXAM MEASUREMENTS: Abdominal Aorta: Proximal: 6.2 x 6.7 cm Mid: 6.5 x 6.0 cm Distal: 5.7 x 6.1 cm Bifurcation: RT: 1.3 x 1.4 cm LT: 1.4 x 1.3 cm Proximal portion difficult visualization due to overlying bowel gas. Patent graft visualized within a ortic lumen. IMPRESSION: 1. Abdominal aortic aneurysm with graft placement. The graft appears patent.
== END | disposition home or self-care (01) ==
LOC: RADUSWWP 07:29
PROVIDERS: ATTEND Internal Medicine
DX: I71.4 Abdominal aortic aneurysm, without rupture (principal)
CPT/HCPCS: 93979

== ENCOUNTER → 2019-04-23 | Outpatient (CLI) | payer MEDICARE ==
--- NOTE | 2019-04-23 09:14 | CT ---
EXAMINATION TYPE: CT angio abdomen pelvis DATE OF EXAM: 04/23/2019 COMPARISON: 12/14/2018 INDICATION: Abdominal aortic aneurysm, without rupture DLP: 1574.4 mGycm, Automated exposure control for dose reduction was used. CONTRAST: 100 mL of Isovue 370. Study performed without Oral Contrast TECHNIQUE: Axial images were obtained from above the diaphragm to the pubic rami in the axial plane a t 5 mm thick sections. Reconstructed images are reviewed on the computer in the coronal plane. Pre and postcontrast imaging to evaluate for endovascular leak is performed. FINDINGS: There is an aortic stent present within the aortic aneurysm, greatest AP diameter of the ao rta outside of the stent is 6.1 cm. This is similar to prior. Following contrast administration contrast passes through the aortic stent. A small vessel is present at the distal stent just above the bifurcation, series 7 images 40-42. This was present previously a nd appears stable. Flow into the aorta outside the stent is not otherwise identified. The iliac vesse ls are patent. Limited CT sections are obtained the lung bases. The lung bases are clear. CT ABDOMEN: Liver: Normal Spleen: Normal Pancreas: There is fatty infiltration the pancreas. Adrenal glands: The adrenal glands are normal. Gallbladder: Normal Kidneys: No masses are evident. No hydronephrosis is present. No cysts are present. Delayed images were obtained through the kidneys, which remain unremarkable. No renal stones are identified. Aorta: Vascular calcification is within the aorta. There is aneurysmal dilatation which is been repa ired with a stent. Inferior vena cava: Normal. CT PELVIS: Lower pelvis is limited due to nondiagnostic with beam hardening artifact from bilateral h ip prostheses. Loops of bowel within the abdomen and pelvis are normal. Study is performed without oral contrast limiting bowel evaluation. Diverticular changes are present within the sigmoid colon. No acute diver ticulitis is evident. Appendix: Normal as visualized. Urinary bladder: Obscured by beam hardening artifact Genitourinary structures: Partially obscured. Prostate may be prominent Osseous structures: No suspicious lytic or sclerotic lesions. Facet degenerative changes are present. IMPRESSIONS: 1. No endovascular leak identified. 2. Diverticulosis without acute diverticulitis.
== END | disposition home or self-care (01) ==
LOC: RADCTMAIN 06:14
PROVIDERS: ATTEND Surgery
DX: K57.90 Diverticulosis of intestine, part unspecified, without perforation or abscess without bleeding (principal); I71.4 Abdominal aortic aneurysm, without rupture
CPT/HCPCS: 82565; 84520; 36415; 74174; Q9967

== ENCOUNTER 2019-05-13 06:35 | Day surgery (SDC) | payer MEDICARE ==
[2019-05-11 13:36] VITALS: BMI 29.7
[~2019-05-13 06:35] MED LIST: ALPRAZolam 0.25 MG TAB PO PRN; ALPRAZolam 0.5 MG TAB PO PRN; ASPIRIN 325 MG TAB PO STA; ATORVASTATIN 80 MG TAB PO STA; NITROGLYCERIN SL TABS 0.4 MG TAB SUBLINGUAL PRN; SODIUM CHLORIDE 0.9% 1,000 ML in EMPTY BAG 1 BAG IV ONE
[2019-05-13 07:21] VITALS: TEMP 97.8
[2019-05-13] MEDS ORDERED: fentaNYL (PF) 50 MCG/ML 2 ML AMP IV ONE (07:29)
[2019-05-13] MEDS ORDERED: LIDOCAINE 1% INJ 10MG/ML (20 ML MDV) SQ ONE (07:33)
[2019-05-13] MEDS ORDERED: VERAPAMIL SYRINGE (5 MG/10 ML) INTRAARTER ONE (07:35)
[2019-05-13] MEDS ORDERED: HEPARIN SODIUM 1,000 UN/ML (10ML VL) IV ONE (07:39)
[2019-05-13] MEDS ORDERED: IOPAMIDOL-370 125ML BTL INJ ONE (07:47)
[2019-05-13] MEDS ORDERED: RX INFO: IV CONTRAST WAS GIVEN 1 EACH MISC MISCELLANE PRN (08:02)
[2019-05-13] MEDS ORDERED: NON FORMULARY DRUG (Cannabidiol (Cbd) Extract [Epidiolex] 1 DOSE) PO PRN (08:02)
[2019-05-13] MEDS ORDERED: SODIUM CHLORIDE 0.9% 1,000 ML IV SCH (08:15)
--- NOTE | 2019-05-13 08:25 | LTR ---
May 13, 2019 Re: Johnnie Anguianoman Dear Dr. Méndez: I had the opportunity to perform cardiac catheterization on Mr. Estrada at [facility] on the 13 of May and a full copy of the procedure note will be forwarded to you. In brief, he was found to have mild obstructive disease involving the LAD and the right coronary artery without any evidence of high-grade stenosis and based on those findings I recommend to continue medical therapy with aggressive coronary risk modifications that have been initiated. Thank you again for allowing me the opportunity to participate in his care. Please feel free to call for any questions. Sincerely yours, MD RAZIA MessinaL / [place]: [id number] /
--- NOTE | 2019-05-13 08:25 | CC ---
CARDIAC CATHETERIZATION REPORT Mr. Estrada is a 68-year-old male with a history of hypertension, hyperlipidemia, and recent admission for ruptured abdominal aortic aneurysm, status post endovascular treatment, who recently underwent an MPI that showed evidence of inferior wall ischemia. Discussion with him regarding both options of clinical observation versus cardiac catheterization was done. The patient elected to proceed with cardiac catheterization. The procedure as well as the risks and the complications were discussed with the patient who is in full understanding and agreement. PROCEDURE: Patient was brought to drop crew laborer in the fasting semi-sedated state after receiving fentanyl and Benadryl and achieving moderate conscious sedated state. Using Xylocaine anesthesia in the Seldinger technique, 6-Telugu sheath was introduced in the right radial artery. Selective right and left coronary angiography was performed using 5- Telugu 3.5 bend right and left Ector catheter. Multiple views of the coronary artery including hemiaxial views were obtained. Following that 5-Telugu tight pigtail catheter was introduced in the left ventricle and a 30-degree BAILEY view of the left ventricle was obtained. Following that, catheter and sheath were removed. Hemostasis was obtained with deployment of a TR band. There was no immediate complication. Patient was returned to his room in stable condition. Of note, the patient received 5000 units of intravenous heparin as well as intra-arterial verapamil. FINDINGS: FLUOROSCOPY: There was calcification involving the proximal left anterior descending artery in the distal left main. LEFT MAIN: This is a large-sized vessel trifurcating in the left circumflex, left anterior descending artery and ramus intermedius. Left main coronary artery has no evidence of obstructive coronary artery disease. LEFT ANTERIOR DESCENDING ARTERY: This is a large-sized vessel reaching toward the apex with a wraparound apex segment giving rise to a moderately sized diagonal branch in mid segment. Proximal left anterior descending artery is calcified has a mild plaque of 20% at the takeoff of the diagonal branch. The rest of the vessel has no high-grade stenosis. RAMUS INTERMEDIUS: This is a moderately-sized vessel reaching to the apical lateral wall that has no evidence of high-grade stenosis. LEFT CIRCUMFLEX: This is a nondominant moderately-sized vessel giving rise to one obtuse marginal branch. The left circumflex as well as branches have no evidence of obstructive coronary artery disease. RIGHT CORONARY ARTERY: This is a dominant vessel, large in caliber bifurcating distally PDA and posterolateral segment and branches. The mid segment of the right coronary artery has 20% to 30% plaque. The rest of the vessel has no high-grade stenosis. LEFT VENTRICULOGRAM: Left ventriculogram was performed in 30-degree BAILEY view revealed normal left ventricular size and systolic function. There was arrhythmia induced mitral regurgitation. Evidence of the endovascular repair of the abdominal aortic aneurysm was noted. HEMODYNAMICS: There was no gradient across the aortic valve. The left ventricular end-diastolic pressure was 12 to 16 mmHg. CONCLUSION: 1. Calcified proximal left anterior descending artery and distal left main. 2. Mild disease involving the left anterior descending artery and the right coronary artery. RECOMMENDATION: In view of finding anatomy, I recommend to continue medical therapy with aggressive coronary risk modifications that have been initiated. Those findings and recommendation were discussed with the patient and his family who are in full understanding and agreement. Duration of procedure is 17 minutes. MMODL / IJN: [id number] /
[2019-05-13] MEDS ORDERED: HYDROCHLOROTHIAZIDE 12.5 MG CAP PO SCH (09:00)
[2019-05-13] MEDS ORDERED: ATENOLOL 50 MG TAB PO SCH (09:00)
[2019-05-13] MEDS ORDERED: NON FORMULARY DRUG (Cetirizine Hcl [Zyrtec] 10 MG) PO SCH (09:00)
[2019-05-13 09:33] VITALS: RESP 16
[2019-05-13 10:40] VITALS: PULSE 54
[2019-05-13 12:29] VITALS: BP 138/72
[2019-05-13] MEDS ORDERED: ATORVASTATIN 20 MG TAB PO SCH (21:00)
[2019-05-14] MEDS ORDERED: ASPIRIN 81 MG PO SCH (09:00)
== END 2019-05-13 12:59 | disposition home or self-care (01) ==
LOC: CATHCVL 06:35
PROVIDERS: ATTEND Internal Medicine Interventional Cardiology
DX: I25.10 Atherosclerotic heart disease of native coronary artery without angina pectoris (principal); I34.0 Nonrheumatic mitral (valve) insufficiency; I10 Essential (primary) hypertension; I73.9 Peripheral vascular disease, unspecified; E78.2 Mixed hyperlipidemia; Z79.82 Long term (current) use of aspirin; Z79.899 Other long term (current) drug therapy; Z82.49 Family history of ischemic heart disease and other diseases of the circulatory system; Z72.0 Tobacco use; Z95.828 Presence of other vascular implants and grafts
CPT/HCPCS: 93458; C1769; C1894; J2001; J3010; J1644; Q9967

== ENCOUNTER → 2019-12-28 | Day surgery (SDC) | payer MEDICARE, BC ==
[2019-12-24 13:17] VITALS: BMI 29.0
[~2019-12-28] MED LIST changes: -ALPRAZolam 0.25 MG TAB PO PRN; -ALPRAZolam 0.5 MG TAB PO PRN; -ASPIRIN 325 MG TAB PO STA; -ATORVASTATIN 80 MG TAB PO STA; +LACTATED RINGERS 1,000 ML IV SCH; +LIDOCAINE 1% (10MG/ML) FOR IV START INTRADERMA ONE; +LIDOCAINE 1% INJ 10MG/ML (20 ML MDV) ONE; -NITROGLYCERIN SL TABS 0.4 MG TAB SUBLINGUAL PRN; +PROPOFOL 10 MG/ML 20 ML VIAL IV ONE; -SODIUM CHLORIDE 0.9% 1,000 ML in EMPTY BAG 1 BAG IV ONE
[2019-12-28 10:33] VITALS: TEMP 97.3
--- NOTE | 2019-12-28 11:08 | P.GSHP ---
History of Present Illness H&P Date: 12/28/19 Chief Complaint: Colon cancer screening Patient admitted today for colonoscopy. Last colonoscopy 7 years ago. No history of colon cancer in the family. No bowel complaints. 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 History of Any Multi-Drug Resistant Organisms: None Reported Past Surgical History: Joint Replacement, Orthopedic Surgery Additional Past Surgical History / Comment(s): Bilateral hip replacements, left hip revision, amputation of tip of left thumb, AAA-repair, tendon repair right hand. Past Anesthesia/Blood Transfusion Reactions: No Reported Reaction Past Psychological History: No Psychological Hx Reported Smoking Status: Former smoker Past Alcohol Use History: Occasional Additional Past Alcohol Use History / Comment(s): Smoked 10-11 years, 3 PPD quit, in his 20's. Past Drug Use History: Marijuana Additional Drug Use History / Comment(s): CBD oils, edibles. Aware no use 24 hrs prior to. - Past Family History Brother(s) Family Medical History: Cancer Additional Family Medical History / Comment(s): Melanoma. Father Family Medical History: Cancer, Myocardial Infarction ([place]) Medications and Allergies Home Medications Medication Instructions Recorded Confirmed Type Cetirizine HCl [Zyrtec] 10 mg PO DAILY 01/09/15 12/28/19 History Aspirin [Adult Low Dose Aspirin EC] 81 mg PO DAILY 05/11/19 12/28/19 History Atorvastatin [Lipitor] 20 mg PO HS 05/11/19 12/28/19 History Cannabidiol (Cbd) [Epidiolex] 1 dose PO DAILY PRN 05/11/19 12/28/19 History Hydrochlorothiazide 12.5 mg PO QAM 05/11/19 12/28/19 History [hydroCHLOROthiazide] atenoloL [Tenormin] 50 mg PO BID 05/11/19 12/28/19 History Allergies Allergy/AdvReac Type Severity Reaction Status Date / Time No Known Allergies Allergy Verified 12/28/19 10:14 Surgical - Exam Vital Signs Temp Pulse Resp BP Pulse Ox 97.3 F L 58 L 16 139/78 95 12/28/19 10:31 12/28/19 10:31 12/28/19 10:31 12/28/19 10:31 12/28/19 10:31 Physical exam: General: Well-developed, well-nourished HEENT: Normocephalic, sclerae nonicteric Abdomen: Nontender, nondistended Extremities: No edema Neuro: Alert and oriented Assessment and Plan (1) Colon cancer screening Narrative/Plan: Will proceed with colonoscopy Current Visit: Yes Status: Acute Code(s): Z12.11 - ENCOUNTER FOR SCREENING FOR MALIGNANT NEOPLASM OF COLON SNOMED Code(s): 626811737
--- NOTE | 2019-12-28 11:14 | P.PCN ---
Date of Procedure: 12/28/19 Procedure(s) Performed: PREOPERATIVE DIAGNOSIS: Colon cancer screening POSTOPERATIVE DIAGNOSIS: Mild diverticulosis PROCEDURE: Colonoscopy ANESTHESIA: MAC SURGEON: Silvio Craven M.D. SPECIMENS: None ENDOSCOPIC PROCEDURE: The patient was placed on the endoscopy table in the left decubitus position. The Olympus colonoscope was inserted into the anus and passed under direct visualization to the base of the cecum. The appendiceal orifice was visualized. From that point the scope was slowly withdrawn inspecting all surfaces carefully. There were no neoplastic inflammatory or polypoid lesions throughout the cecum, ascending, transverse, descending, sigmoid and rectum. There was mild diverticulosis noted. Digital rectal examination was normal. The patient was taken to the recovery room in stable condition per anesthesia guidelines. RECOMMENDATIONS: Increase diet. Follow colonoscopy 10 years.
[2019-12-28 11:46] VITALS: BP 134/75; PULSE 53; RESP 18
== END ==
LOC: ORWHC2ENDO 09:57
PROVIDERS: ATTEND Surgery
DX: Z12.11 Encounter for screening for malignant neoplasm of colon (principal); K57.30 Diverticulosis of large intestine without perforation or abscess without bleeding; I12.9 Hypertensive chronic kidney disease with stage 1 through stage 4 chronic kidney disease, or unspecified chronic kidney disease; N18.2 Chronic kidney disease, stage 2 (mild); E78.5 Hyperlipidemia, unspecified; J30.2 Other seasonal allergic rhinitis; H40.9 Unspecified glaucoma; H91.90 Unspecified hearing loss, unspecified ear; M19.90 Unspecified osteoarthritis, unspecified site; G62.9 Polyneuropathy, unspecified; Z79.82 Long term (current) use of aspirin; Z79.899 Other long term (current) drug therapy; Z98.890 Other specified postprocedural states; Z87.891 Personal history of nicotine dependence; Z80.8 Family history of malignant neoplasm of other organs or systems; Z82.49 Family history of ischemic heart disease and other diseases of the circulatory system
CPT/HCPCS: J2001; J2704; G0121; 45378

== ENCOUNTER 2021-01-11 14:33 | Emergency (ER) | payer MEDICARE, BC ==
--- NOTE | 2021-01-11 15:01 | ED ---
General Adult HPI - General Chief complaint: Recheck/Abnormal Lab/Rx Stated complaint: Covid+ Time Seen by Provider: 01/11/21 14:49 Source: patient, RN notes reviewed Mode of arrival: ambulatory Limitations: no limitations - History of Present Illness Initial comments: Patient is a pleasant 70-year-old male presenting to the emergency department after advised by his primary care physician to have monoclonal antibodies. Patient tested +2 days ago and got resulted today. Patient has had symptoms for days. Patient claims of mild rhinorrhea and mild cough. Patient did have chills tonight or 2 ago. No dyspnea. No chest pain. Patient has previously been immunized maderna vaccine. - Related Data Home Medications Medication Instructions Recorded Confirmed Cetirizine HCl [Zyrtec] 10 mg PO DAILY 01/09/15 12/28/19 Aspirin [Adult Low Dose Aspirin EC] 81 mg PO DAILY 05/11/19 12/28/19 Atorvastatin [Lipitor] 20 mg PO HS 05/11/19 12/28/19 Cannabidiol (Cbd) [Epidiolex] 1 dose PO DAILY PRN 05/11/19 12/28/19 Hydrochlorothiazide 12.5 mg PO QAM 05/11/19 12/28/19 [hydroCHLOROthiazide] atenoloL [Tenormin] 50 mg PO BID 05/11/19 12/28/19 Allergies Allergy/AdvReac Type Severity Reaction Status Date / Time No Known Allergies Allergy Verified 01/11/21 14:40 Review of Systems ROS Statement: Those systems with pertinent positive or pertinent negative responses have been documented in the HPI. ROS Other: All systems not noted in ROS Statement are negative. Constitutional: Reports: as per HPI, chills Eyes: Denies: eye pain ENT: Denies: ear pain Respiratory: Reports: as per HPI, cough Cardiovascular: Denies: chest pain Endocrine: Denies: fatigue Gastrointestinal: Denies: abdominal pain, vomiting Genitourinary: Denies: dysuria Musculoskeletal: Denies: back pain Skin: Denies: rash Neurological: Denies: weakness Past Medical History Past Medical History: Hypertension Additional Past Medical History / Comment(s): seasonal allergies, 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 hx ruptured aortic aneurysm 12/09/18, tinnitus History of Any Multi-Drug Resistant Organisms: None Reported Past Surgical History: Joint Replacement, Orthopedic Surgery Additional Past Surgical History / Comment(s): bilateral hip replacement, left hip revision, amputation of tip of left thumb, AAA-repair, tendons cut rt hand with repair Past Anesthesia/Blood Transfusion Reactions: No Reported Reaction Past Psychological History: No Psychological Hx Reported Smoking Status: Former smoker Past Alcohol Use History: Occasional Past Drug Use History: Marijuana - Past Family History Brother(s) Family Medical History: Cancer Additional Family Medical History / Comment(s): Melanoma. Father Family Medical History: Cancer, Myocardial Infarction ([place]) General Exam Limitations: no limitations General appearance: alert, in no apparent distress Head exam: Present: normocephalic Eye exam: Present: normal appearance Neck exam: Present: normal inspection Respiratory exam: Present: normal lung sounds bilaterally Cardiovascular Exam: Present: regular rate, normal rhythm GI/Abdominal exam: Present: soft. Absent: tenderness Extremities exam: Present: normal inspection. Absent: pedal edema, calf tenderness Neurological exam: Present: alert Psychiatric exam: Present: normal affect, normal mood Skin exam: Present: normal color Course Vital Signs 01/11/21 14:40 Temperature 98.4 F Pulse Rate 65 Respiratory 18 Rate Blood Pressure 144/81 O2 Sat by Pulse 96 Oximetry Medical Decision Making - Medical Decision Making Patient to receive monoclonal antibodies prior to discharge. Patient updated. Disposition Clinical Impression: COVID-19 Disposition: HOME SELF-CARE Condition: Stable Instructions (If sedation given, give patient instructions): Coronavirus Disease 2019 (COVID-19), Fever in Adults (ED) Additional Instructions: Please continue to quarantine for 14 days following onset of symptoms and at least 24 hours fever free. These follow-up with primary care physician in the next day or 2 for recheck. Return for difficulty breathing, not tolerating fluids, worsening symptoms or other concerns. [id number] Tylenol if needed for fever. Mfvq-oji-bunqriv vitamin C, vitamin D, and zinc have been shown to help. Melatonin may also help at nighttime. Is patient prescribed a controlled substance at d/c from ED?: No Referrals: Bryant Méndez MD [Primary Care Provider] - 1-2 days Time of Disposition: 15:01
[2021-01-11] MEDS ORDERED: CASIRIVIMAB/IMDEVIMAB (EUA) 1,200 MG in SODIUM CHLORIDE 0.9% 100 ML IVPB ONE (16:00)
[2021-01-11] MEDS ORDERED: SODIUM CHLORIDE 0.9% 50 ML IVPB ONE (16:00)
[2021-01-11 17:18] VITALS: BP 131/80; PULSE 52; RESP 20; TEMP 98.2
== END 2021-01-11 17:20 | disposition home or self-care (01) ==
LOC: EC 14:33
DX: U07.1 COVID-19 (principal); I10 Essential (primary) hypertension; Z79.82 Long term (current) use of aspirin; Z79.899 Other long term (current) drug therapy; Z87.891 Personal history of nicotine dependence; Z82.49 Family history of ischemic heart disease and other diseases of the circulatory system; Z96.643 Presence of artificial hip joint, bilateral
CPT/HCPCS: 96361; 96365; 99283

== ENCOUNTER → 2021-10-30 | Outpatient (CLI) | payer MEDICARE, BC ==
--- NOTE | 2021-10-30 09:58 | XR ---
EXAMINATION TYPE: XR chest 2V DATE OF EXAM: 10/30/2021 COMPARISON: NONE TECHNIQUE: PA and lateral views submitted. HISTORY: Shortness of breath FINDINGS: The lungs are clear and there is no pneumothorax, pleural effusion, or focal pneumonia. AC joint ar thropathy. Heart size normal. No overt failure. Hyperinflation suggests COPD. Hypertrophic and degene rative change of the spine. Surgical change involving the abdomen. IMPRESSION: 1. No acute process.
== END | disposition home or self-care (01) ==
LOC: RADXRMAIN 09:41
PROVIDERS: ATTEND Internal Medicine
DX: R06.00 Dyspnea, unspecified (principal)
CPT/HCPCS: 71046

== ENCOUNTER 2023-03-13 08:11 | Emergency (ER) | payer MEDICARE, BC ==
[2023-03-13 08:28] VITALS: TEMP 97.8
--- NOTE | 2023-03-13 09:06 | ED ---
General Adult HPI - General Chief complaint: Recheck/Abnormal Lab/Rx Stated complaint: High BP Time Seen by Provider: 03/13/23 08:15 Source: patient Mode of arrival: ambulatory Limitations: no limitations - History of Present Illness Initial comments: 73 year old male with pmh of triple a rupture presents for high bp. States he checked his bp this morning and it was high. he does not check it everyday. This was before he took his medications. he denies having any symptoms. PResents to ED as he was told he had to maintain low bp because of his history. he denies headache, chest pain, shortness of breath or abd pain - Related Data Home Medications Medication Instructions Recorded Confirmed Cetirizine HCl [Zyrtec] 10 mg PO DAILY 01/09/15 03/13/23 Aspirin [Adult Low Dose Aspirin EC] 81 mg PO HS 05/11/19 03/13/23 Atorvastatin [Lipitor] 20 mg PO HS 05/11/19 03/13/23 atenoloL [Tenormin] 50 mg PO DAILY@1400 05/11/19 03/13/23 hydroCHLOROthiazide 12.5 mg PO DAILY 05/11/19 03/13/23 Losartan [Cozaar] 50 mg PO BID 03/13/23 03/13/23 Allergies Allergy/AdvReac Type Severity Reaction Status Date / Time No Known Allergies Allergy Verified 03/13/23 09:14 Review of Systems ROS Statement: Those systems with pertinent positive or pertinent negative responses have been documented in the HPI. ROS Other: All systems not noted in ROS Statement are negative. 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 hx ruptured aortic aneurysm 12/09/18, tinnitus History of Any Multi-Drug Resistant Organisms: None Reported Past Surgical History: Joint Replacement, Orthopedic Surgery Additional Past Surgical History / Comment(s): bilateral hip replacement, left hip revision, amputation of tip of left thumb, AAA-repair, tendons cut rt hand with repair Past Anesthesia/Blood Transfusion Reactions: No Reported Reaction Past Psychological History: No Psychological Hx Reported Smoking Status: Former smoker Past Alcohol Use History: Occasional Past Drug Use History: Marijuana - Past Family History Brother(s) Family Medical History: Cancer Additional Family Medical History / Comment(s): Melanoma. Father Family Medical History: Cancer, Myocardial Infarction ([place]) General Exam Limitations: no limitations General appearance: alert, in no apparent distress Head exam: Present: atraumatic, normocephalic, normal inspection Eye exam: Present: normal appearance, PERRL, EOMI. Absent: scleral icterus, conjunctival injection, periorbital swelling ENT exam: Present: normal exam, mucous membranes moist Neck exam: Present: normal inspection. Absent: tenderness, meningismus, lymphadenopathy Respiratory exam: Present: normal lung sounds bilaterally. Absent: respiratory distress, wheezes, rales, rhonchi, stridor Cardiovascular Exam: Present: regular rate, normal rhythm, normal heart sounds. Absent: systolic murmur, diastolic murmur, rubs, gallop, clicks GI/Abdominal exam: Present: soft, normal bowel sounds. Absent: distended, tenderness, guarding, rebound, rigid Extremities exam: Present: normal inspection, full ROM, normal capillary refill. Absent: tenderness, pedal edema, joint swelling, calf tenderness Back exam: Present: normal inspection Neurological exam: Present: alert, oriented X3, CN II-XII intact Psychiatric exam: Present: normal affect, normal mood Skin exam: Present: warm, dry, intact, normal color. Absent: rash Course Vital Signs 03/13/23 03/13/23 08:15 09:50 Temperature 97.8 F Pulse Rate 49 L 52 L Respiratory 16 17 Rate Blood Pressure 156/74 149/87 O2 Sat by Pulse 98 98 Oximetry Medical Decision Making - Medical Decision Making Was pt. sent in by a medical professional or institution (, PA, PROTECTIVE SIGNAL OPERATIONS SUPERVISOR, urgent care, hospital, or fci...) When possible be specific @ -No Did you speak to anyone other than the patient for history (EMS, parent, family, police, friend...)? What history was obtained from this source @ -No Did you review nursing and triage notes (agree or disagree)? Why? @ -I reviewed and agree with nursing and triage notes Were old charts reviewed (outside hosp., previous admission, EMS record, old EKG, old radiological studies, urgent care reports/EKG's, fci records)? Report findings @ -old charts were reviewed - triple a surgery from 2019 and patients medication report Differential Diagnosis (chest pain, altered mental status, abdominal pain women, abdominal pain men, vaginal bleeding, weakness, fever, dyspnea, syncope, headache, dizziness, GI bleed, back pain, seizure, CVA, palpatations, mental health, musculoskeletal)? @ -asymptomatic htn, accelerated htn, mi, cva EKG interpreted by me (3pts min.). @ -Yes and demonstrates sinus bradycardia with a rate of 48. GA interval 133. S1 06. QTC of 380. No acute ST segment elevations or depressions. Some J- point elevation X-rays interpreted by me (1pt min.). @ -None done CT interpreted by me (1pt min.). @ -none done U/S interpreted by me (1pt. min.). @ -None done What testing was considered but not performed or refused? (CT, X-rays, U/S, labs)? Why? @ -None What meds were considered but not given or refused? Why? @ -None Did you discuss the management of the patient with other professionals (professionals i.e. , PA, PROTECTIVE SIGNAL OPERATIONS SUPERVISOR, lab, RT, psych nurse, neonatal social worker, christmas tree contractor, teacher, flight radio officer, case assistant)? Give summary @ -dr murrieta - will pass message to dr carrizales Was smoking cessation discussed for >3mins.? @ -No Was critical care preformed (if so, how long)? @ -No Were there social determinants of health that impacted care today? How? (Homelessness, low income, unemployed, alcoholism, drug addiction, transportation, low edu. Level, literacy, decrease access to med. care, long-term, rehab)? @ -No Was there de-escalation of care discussed even if they declined (Discuss DNR or withdrawal of care, Hospice)? DNR status @ -No What co-morbidities impacted this encounter? (DM, HTN, Smoking, COPD, CAD, Cancer, CVA, ARF, Chemo, Hep., AIDS, mental health diagnosis, sleep apnea, morbid obesity)? @ -AAA ruptured Was patient admitted / discharged? Hospital course, mention meds given and route, prescriptions, significant lab abnormalities, going to OR and other pertinent info. @ -discharged. pt asymptomatic. bp improved without intervention. offered recs for blood pressure medication changes however informed him that changes should go through dr. hale. Needs to make appt [place] with dr. hale. pt understood Undiagnosed new problem with uncertain prognosis? @ -No Drug Therapy requiring intensive monitoring for toxicity (Heparin, Nitro, Insulin, Cardizem)? @ -No Were any procedures done? @ -No Diagnosis/symptom? @ -hypertension, hx aaa rupture Acute, or Chronic, or Acute on Chronic? @ -acute Uncomplicated (without systemic symptoms) or Complicated (systemic symptoms)? @ -complicated Side effects of treatment? @ -No Exacerbation, Progression, or Severe Exacerbation? @ -No Poses a threat to life or bodily function? How? (Chest pain, [place], [place], pneumonia, PE, COPD, DKA, ARF, appy, cholecystitis, CVA, Diverticulitis, Homicidal, Suicidal, threat to staff... and all critical care pts) @ -No - Lab Data Lab Results 03/13/23 Range/Units 09:30 Urine Color Colorless Urine Appearance Clear (Clear) Urine pH 6.0 (5.0-8.0) Ur Specific [place] 1.007 (1.001-1.035) Urine Protein Negative (Negative) Urine Glucose (UA) Negative (Negative) Urine Ketones Negative (Negative) Urine Blood Small H (Negative) Urine Nitrite Negative (Negative) Urine Bilirubin Negative (Negative) Urine Urobilinogen <2.0 (<2.0) mg/dL Ur Leukocyte Esterase Negative (Negative) Urine RBC 3 (0-5) /hpf Urine WBC <1 (0-5) /hpf Urine Mucus Rare H (None) /hpf Disposition Clinical Impression: Hypertension, History of AAA (abdominal aortic aneurysm) repair Disposition: HOME SELF-CARE Condition: Stable Instructions (If sedation given, give patient instructions): Hypertension (ED) Additional Instructions: Keep a log of your blood pressures and heart rate. Measure them 3 times a dayin the morning, in the late morning/afternoon after you taken your meds and in the evening. Continue taking your losartan twice a day, atenolol once a day but increase your dose of hydrochlorothiazide to 25 mg(two pills at a time). There is the opportunity to increase your atenolol however we will need more measurements of your heart rate to see if this is possible. Call and make the next available appointment with Dr. Hale to discuss blood pressure medication change and to see wether you need further changes. Is patient prescribed a controlled substance at d/c from ED?: No Referrals: Bryant Méndez MD [Primary Care Provider] - 1-2 days Micah Hale MD [STAFF PHYSICIAN] - 1-2 days Time of Disposition: 09:33
[2023-03-13 10:00] VITALS: BP 149/87; PULSE 52; RESP 17
[2023-03-13 10:07] LABS: Appearance,Urine Clear (Clear); Bilirubin,Urine Negative (Negative); Blood,Urine Small (Negative); Color,Urine Colorless; Glucose,Urine (UA) Negative (Negative); Ketones,Urine Negative (Negative); Leukocyte Esterase,Urine Negative (Negative); Mucus,Urine Rare /hpf; Nitrite,Urine Negative (Negative); Protein,Urine Negative (Negative); RBC,Urine 3 /hpf (0-5); Specific Gravity,Urine 1.007 (1.001-1.035); Urobilinogen,Urine <2.0 mg/dL (<2.0); WBC,Urine <1 /hpf (0-5)
== END 2023-03-13 09:53 | disposition home or self-care (01) ==
LOC: EC 08:11
DX: I10 Essential (primary) hypertension (principal); R00.1 Bradycardia, unspecified; F12.90 Cannabis use, unspecified, uncomplicated; Z87.891 Personal history of nicotine dependence; Z86.79 Personal history of other diseases of the circulatory system; Z79.82 Long term (current) use of aspirin; Z79.899 Other long term (current) drug therapy
CPT/HCPCS: 81001; 93005; 99284

== ENCOUNTER 2023-05-05 13:59 | Emergency (ER) | payer MEDICARE, BC ==
[2023-05-05] MEDS ORDERED: SODIUM CHLORIDE 0.9% 1,000 ML IV STA (14:09)
[2023-05-05] MEDS ORDERED: DIPH,PERTUS(ACELL)TETVAC-LF 0.5 ML VIAL IM ONE (14:09)
[2023-05-05 14:16] LABS: Glucose,Whole Blood 109 mg/dL (70-110)
[2023-05-05 14:18] VITALS: BP 136/84; PULSE 67; RESP 18
--- NOTE | 2023-05-05 14:24 | ED ---
General Adult HPI - General Chief complaint: Fall Stated complaint: Fall, P2T Time Seen by Provider: 05/05/23 14:05 Source: patient, EMS, RN notes reviewed, old records reviewed Mode of arrival: EMS Limitations: no limitations - History of Present Illness Initial comments: Patient is a 72-year-old male who presents emergency Department clinic call. Follow approximate 5-6 feet off a ladder at home. He was found on the ground. He believes he lost consciousness. Is not on blood thinners. Has a history of hypertension. Currently complaining of facial pain, right elbow pain. He is alert and oriented times one to 2 but confused to time of year. Baseline is alert and oriented 3-4. Presents for further evaluation at this time. EMS also noted some bleeding from his left ear. Patient currently has no urinary complaints. Denies any obvious headache. States he is confused about what is happening. Seems to have recent short-term amnesia. Since for further evaluation at this time. Patient made a priority 2 trauma activation. - Related Data Home Medications Medication Instructions Recorded Confirmed Cetirizine HCl [Zyrtec] 10 mg PO DAILY 01/09/15 03/13/23 Aspirin [Adult Low Dose Aspirin EC] 81 mg PO HS 05/11/19 03/13/23 Atorvastatin [Lipitor] 20 mg PO HS 05/11/19 03/13/23 atenoloL [Tenormin] 50 mg PO DAILY@1400 05/11/19 03/13/23 hydroCHLOROthiazide 12.5 mg PO DAILY 05/11/19 03/13/23 Losartan [Cozaar] 50 mg PO BID 03/13/23 03/13/23 Allergies Allergy/AdvReac Type Severity Reaction Status Date / Time No Known Allergies Allergy Verified 05/05/23 14:08 Review of Systems ROS Statement: Those systems with pertinent positive or pertinent negative responses have been documented in the HPI. Review of Systems: CONST: Denies fever EYES: Denies blurry vision ENT: Denies nasal congestion C/V: Denies Chest pain RESP: Denies shortness of breath GI: Denies abdominal pain : Denies dysuria SKIN: Denies rash. MSK: Endorses right elbow pain. NEURO: Denies headache ROS Other: All systems not noted in ROS Statement are negative. 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 hx ruptured aortic aneurysm 12/09/18, tinnitus History of Any Multi-Drug Resistant Organisms: None Reported Past Surgical History: Joint Replacement, Orthopedic Surgery Additional Past Surgical History / Comment(s): bilateral hip replacement, left hip revision, amputation of tip of left thumb, AAA-repair, tendons cut rt hand with repair Past Anesthesia/Blood Transfusion Reactions: No Reported Reaction Past Psychological History: No Psychological Hx Reported Smoking Status: Former smoker Past Alcohol Use History: Occasional Past Drug Use History: Marijuana - Past Family History Brother(s) Family Medical History: Cancer Additional Family Medical History / Comment(s): Melanoma. Father Family Medical History: Cancer, Myocardial Infarction ([place]) General Exam - General Exam Comments Initial Comments: General: Appears in no acute distress. HEAD: Bruising over bilateral eyelids, concern for early raccoon eyes. Negative Wagner's sign. No obvious palpable skull fracture at this time. EYES: PERRLA, EOMI, conjunctiva normal, no discharge. Pupils are 2-3 mm. ENT: Hearing grossly intact, normal oropharynx. Left hemotympanums. Unable to visualize deeper into the middle ear due to blood. RESPIRATORY: Clear breath sounds bilaterally. No wheezes, rales, or rhonchi. C/V: Regular rate and rhythm. S1 and S2 auscultated, no edema, peripheral pulses 2+ and intact throughout ABD: Abd is soft, nontender, nondistended EXT: Normal range of motion,. Tenderness to palpation over the posterior right elbow. No midline cervical, thoracic, lumbar spine tenderness to palpation or step-offs or deformities. Pelvis is stable. SKIN: No rashes or lesions observed on exposed skin. NEURO: Alert and oriented 2. Baseline is alert and oriented 3-4. GCS of 15 currently. No obvious focal deficits. Limitations: no limitations Course Vital Signs 05/05/23 14:05 Pulse Rate 67 Respiratory 18 Rate Blood Pressure 136/84 O2 Sat by Pulse 96 Oximetry Medical Decision Making - Medical Decision Making Was pt. sent in by a medical professional or institution (, PA, TRANSPORT CONDUCTOR, urgent care, hospital, or care home...) When possible be specific @ -No Did you speak to anyone other than the patient for history (EMS, parent, family, police, friend...)? What history was obtained from this source @ -I spoke with EMS as well as family regarding the patient's recent past me dical history as well as the fall off the ladder.Spoke with family members who confirm the patient is not on blood thinners. Did you review nursing and triage notes (agree or disagree)? Why? @ -I reviewed and agree with nursing and triage notes Were old charts reviewed (outside hosp., previous admission, EMS record, old EKG, old radiological studies, urgent care reports/EKG's, care home records)? Report findings @ -Old charts reviewed. Differential Diagnosis (chest pain, altered mental status, abdominal pain women, abdominal pain men, vaginal bleeding, weakness, fever, dyspnea, syncope, headac he, dizziness, GI bleed, back pain, seizure, CVA, palpatations, mental health, musculoskeletal)? @ -Differential Musculoskeletal Muscular strain, contusion, ligament sprain, fracture, arthritis, septic arthritis, bursitis, cellulitis, muscle spasm, nerve compression, DVT, arterial occlusion, herpes zoster, electrolyte abnormality, tumor.... This is not meant to be in all inclusive list. also includes basilar skull fracture, intracranial trauma. This list is not all-inclusive. EKG interpreted by me (3pts min.). @ -As above X-rays interpreted by me (1pt min.). @ -Chest x-ray reveals no obvious acute cardio, process. Pelvis x-ray shows no obvious acute injury. CT interpreted by me (1pt min.). @ -CT brain remarkable for subdural hemorrhage as well as bilateral subarachnoid hemorrhages. Patient also has a displaced right orbital fracture.CT C-spine reveals no obvious acute traumatic injury. U/S interpreted by me (1pt. min.). @ -None done What testing was considered but not performed or refused? (CT, X-rays, U/S, labs)? Why? @ -None What meds were considered but not given or refused? Why? @ -None Did you discuss the management of the patient with other professionals (professionals i.e. , PA, TRANSPORT CONDUCTOR, lab, RT, psych nurse, community mental health social worker, locksmith helper, teacher, information assurance officer, casework specialist)? Give summary @ -I spoke with Dr. Nettles who recommended transfer whether imaging is negative or not, this patient is altered with signs of possible head injury. Would prefer patient be transferred to a facility with neurosurgery available. Otherwise was in agreement with plan for workup. Plan is for transfer to [facility] for trauma and neurosurgery evaluation due to SDH, SAH, occipital bone fracture. Transfer initiated at 1441. At [address] Oglesby in the ER who accepted the patient, however I still need to speak with trauma surgery as [facility]'s transfer line incorrectly t ransferred us to the ER not to trauma. ER attending is Dr. Oglesby. There were multiple pages and attempts to contact the trauma on-call however after 20 minutes. I did reach back up to the ER, and spoke with Dr. Quinonez who was in agreement with plan for transfer. After patient was transferred, I was able to get in contact with Dr. Fairchild the trauma attending at [facility]. Neurosurgery semiconductor engineer at [facility] also called me, Dr. Osman was made aware of the patient by myself and was in agreement with the plan. Both made aware the patient was already transferred with the accepting physician being in the ER physician. They expressed understanding were in agreement with the plan. Was smoking cessation discussed for >3mins.? @ -No Was critical care preformed (if so, how long)? @ -Yes, 36 minutes. Were there social determinants of health that impacted care today? How? (Homelessness, low income, unemployed, alcoholism, drug addiction, transportation, low edu. Level, literacy, decrease access to med. care, fci, rehab)? @ -No Was there de-escalation of care discussed even if they declined (Discuss DNR or withdrawal of care, Hospice)? DNR status @ -No What co-morbidities impacted this encounter? (DM, HTN, Smoking, COPD, CAD, Cancer, CVA, ARF, Chemo, Hep., AIDS, mental health diagnosis, sleep apnea, morbid obesity)? @ -None Was patient admitted / discharged? Hospital course, mention meds given and route, prescriptions, significant lab abnormalities, going to OR and other pertinent info. @ -Patient presents as a priority 2 trauma activation. ATLS protocol was followed. Patient has a cervical collar in place. The GCS of 15 currently. Is altered, as he is confused to time as well as recent events. We will obtain CT brain, facial bones, C-spine as well as chest x-ray, pelvis x-ray, right elbow x-ray. We will also obtain basic labs. Positive LOC, not on blood thinners after a 5-6 foot fall off a ladder. Does have a left hemotympanum as well as possible early racoon eyes. Concern for basilar skull fracture. Discussed this with patient and family were in agreement with plan for workup. I spoke with the on-call trauma surgeon, Dr. Nettles who was also in agreement with the plan for workup. Vital signs are currently within acceptable limits. CT imaging remarkable for intracranial bleed, suspect subarachnoid and possible subdural bleed. Radiology still has yet to read the images. We will work on transferring the patient. No obvious midline shift. On reevaluation, patient remains a note 2-3 with GCS of 15. States is currently no pain. Blood pressure did increase with systolics in the 150s at this time and therefore I'm ordering a carnitine drip to keep blood pressures below 140. I also will keep head of bed at 30. Patient was in agreement with this plan. I have dictated family and they were in agreement with plan for transfer. We're still waiting on the formal results of CT imaging. Patient has received Ancef. Patient was started on nicardipine. Patient was received a tetanus booster. Patient's left ear was packed with gauze. Patient will be started on vancomycin and given a dose of Rocephin for open fracture seen on CT. Patient started on nicardipine typical blood pressure with systolics less than 140. CT imaging returned positive for subdural and subarachnoid hemorrhage as well as an open fracture of the right orbit. Patient was given IV Rocephin as well as vancomycin due to concern for the open fracture at this time. Patient started on a Cardene drip with goal systolics less than 140. Plan is for transfer to [facility] for trauma and neurosurgery evaluation due to SDH, SAH, occipital bone fracture. Transfer initiated at 1441. At [address] Oglesby in the ER who accepted the patient, however I still need to speak with trauma surgery as [facility]'s transfer line incorrectly transferred us to the ER not to trauma. ER attending is Dr. Oglesby. There were multiple pages and attempts to contact the trauma on-call however after 20 minutes. I did reach back up to the ER, and spoke with Dr. Quinonez who was in agreement with plan for transfer. Patient be transferred in serious condition. Multiple attempts to contact the trauma surgeon were unsuccessful. I did speak with our career services coordinator Alisson who states that as we do have an accepting physician, Dr. Oglesby and Dr. Quinonez, patient will be transferred. After patient was transferred, I was able to get in contact with Dr. Fairchild the trauma attending at [facility]. Neurosurgery semiconductor engineer at [facility] also called me, Dr. Osman was made aware of the patient by myself and was in agreement with the plan. Both made aware the patient was already transferred with the accepting physician being in the ER physician. They expressed understanding were in agreement with the plan. Patient's labs have returned remarkable for slight leukocytosis at 10.7. I updated the patient's family. At time of transfer, patient is maintaining his airway, GCS remains 14-15 and neuro status seems slightly improved as he is able to tell me the month at this time. Is alert and oriented 3 with orientation to the month. Is unable to still tell me the events surrounding the fall. Undiagnosed new problem with uncertain prognosis? @ -No Drug Therapy requiring intensive monitoring for toxicity (Heparin, Nitro, Insulin, Cardizem)? @ -No Were any procedures done? @ -No Diagnosis/symptom? @ -Fall, right orbital fracture, subdural hemorrhage, subarachnoid hemorrhage, hemotympanum Acute, or Chronic, or Acute on Chronic? @ -Acute Uncomplicated (without systemic symptoms) or Complicated (systemic symptoms)? @ -Complicated Side effects of treatment? @ -none Exacerbation, Progression, or Severe Exacerbation] @ -no Poses a threat to life or bodily function? @ -Yes - Lab Data Result diagrams: 05/05/23 14:17 05/05/23 14:17 Lab Results 05/05/23 05/05/23 05/05/23 Range/Units 14:14 14:17 14:17 WBC 10.7 H (3.8-10.6) k/uL RBC 4.57 (4.30-5.90) m/uL Hgb 14.4 (13.0-17.5) gm/dL Hct 41.5 (39.0-53.0) % MCV 90.9 (80.0-100.0) fL MCH 31.5 (25.0-35.0) pg MCHC 34.6 (31.0-37.0) g/dL RDW 13.0 (11.5-15.5) % Plt Count 204 (150-450) k/uL MPV 7.5 Neutrophils % 77 % Lymphocytes % 18 % Monocytes % 3 % Eosinophils % 1 % Basophils % 0 % Neutrophils # 8.2 H (1.3-7.7) k/uL Lymphocytes # 1.9 (1.0-4.8) k/uL Monocytes # 0.3 (0-1.0) k/uL Eosinophils # 0.1 (0-0.7) k/uL Basophils # 0.0 (0-0.2) k/uL PT 10.6 (10.0-12.5) sec INR 1.0 (<1.2) APTT 20.9 L (22.0-30.0) sec Sodium (137-145) mmol/L Potassium (3.5-5.1) mmol/L Chloride (98-107) mmol/L Carbon Dioxide (22-30) mmol/L Anion Gap mmol/L BUN (9-20) mg/dL Creatinine (0.66-1.25) mg/dL Est GFR (CKD-EPI)AfAm (>60 ml/min/1.73 sqM) Est GFR (CKD-EPI)NonAf (>60 ml/min/1.73 sqM) Glucose (74-99) mg/dL POC Glucose (mg/dL) 109 (70-110) mg/dL POC Glu Dowel Inserting Machine Operator JENNY JudsonSimón Calcium (8.4-10.2) mg/dL Total Bilirubin (0.2-1.3) mg/dL AST (17-59) U/L ALT (4-49) U/L Alkaline Phosphatase (38-126) U/L Troponin I (0.000-0.034) ng/mL Total Protein (6.3-8.2) g/dL Albumin (3.5-5.0) g/dL Serum Alcohol mg/dL Blood Type Blood Type Recheck Bld Type Recheck Status Antibody Screen Antibody Identification Antigen Identification Direct Antiglob Test Spec Expiration Date 05/05/23 05/05/23 05/05/23 Range/Units 14:17 14:17 14:17 WBC (3.8-10.6) k/uL RBC (4.30-5.90) m/uL Hgb (13.0-17.5) gm/dL Hct (39.0-53.0) % MCV (80.0-100.0) fL MCH (25.0-35.0) pg MCHC (31.0-37.0) g/dL RDW (11.5-15.5) % Plt Count (150-450) k/uL MPV Neutrophils % % Lymphocytes % % Monocytes % % Eosinophils % % Basophils % % Neutrophils # (1.3-7.7) k/uL Lymphocytes # (1.0-4.8) k/uL Monocytes # (0-1.0) k/uL Eosinophils # (0-0.7) k/uL Basophils # (0-0.2) k/uL PT (10.0-12.5) sec INR (<1.2) APTT (22.0-30.0) sec Sodium 138 (137-145) mmol/L Potassium 3.7 (3.5-5.1) mmol/L Chloride 106 (98-107) mmol/L Carbon Dioxide 24 (22-30) mmol/L Anion Gap 8 mmol/L BUN 23 H (9-20) mg/dL Creatinine 0.95 (0.66-1.25) mg/dL Est GFR (CKD-EPI)AfAm >90 (>60 ml/min/1.73 sqM) Est GFR (CKD-EPI)NonAf 81 (>60 ml/min/1.73 sqM) Glucose 107 H (74-99) mg/dL POC Glucose (mg/dL) (70-110) mg/dL POC Glu Dowel Inserting Machine Operator ID Calcium 8.7 (8.4-10.2) mg/dL Total Bilirubin 0.8 (0.2-1.3) mg/dL AST 34 (17-59) U/L ALT 25 (4-49) U/L Alkaline Phosphatase 72 (38-126) U/L Troponin I <0.012 (0.000-0.034) ng/mL Total Protein 7.2 (6.3-8.2) g/dL Albumin 4.1 (3.5-5.0) g/dL Serum Alcohol <10 mg/dL Blood Type A Positive Blood Type Recheck A Pos Bld Type Recheck Status No Antibody Screen POSITIVE Antibody Identification Anti-Fya Antigen Identification Fya Antigen - NEGATIVE Direct Antiglob Test Negative Spec Expiration Date 05/08/20232316 - EKG Data -: EKG Interpreted by Me EKG Comments: 12-lead Electrocardiogram Interpretation Note EKG was reviewed and interpreted by myself. 12-lead ECG performed at 1437 is interpreted by me as revealing normal sinus rhythm at a rate of 76 beats per minute. [place] is normal. NV interval is 136 ms, QRS ration is 105 ms, QTc is 408 ms.. There were no ST or T wave abnormalities to suggest myocardial ischemia or injury. R wave progression across the precordium was satisfactory. By my interpretation this EKG is non-diagnostic for acute ischemia. Critical Care Time Critical Care Time: Yes Total Critical Care Time: 36 Disposition Clinical Impression: Fall, Subarachnoid hemorrhage, Subdural hemorrhage, Orbital fracture, Open fracture, Hematotympanum of left ear Disposition: OTHER INSTITUTION NOT DEFINED Condition: Serious Referrals: Bryant Méndez MD [Primary Care Provider] - 1-2 days Time of Disposition: 15:05 - Out of Hospital Transfer - Req. Specs Out of Hospital Transfer - Requested Specifics: Other Emergency Center (Transfer for escalation of care for trauma and neurosurgery evaluation.)
--- NOTE | 2023-05-05 14:27 | XR ---
EXAMINATION TYPE: XR pelvis AP view DATE OF EXAM: 05/05/2023 2:23 PM CLINICAL INDICATION:Male, 72 years old with history of Trauma; [facility] COMPARISON: 01/01/2015 TECHNIQUE: The pelvis was examined in a single projection. FINDINGS: There is no evidence of fracture or dislocation. There is no soft tissue abnormality. No a bnormal calcifications are present. The spine appears intact. The hips appear intact. No significant degeneration. Bilateral hip arthroplasties appear intact. Aortobiiliac stent graft present. Multileve l degeneration changes of the spine. IMPRESSION: Bilateral hip arthroplasty without evidence of fracture.
--- NOTE | 2023-05-05 14:27 | XR ---
EXAMINATION TYPE: XR chest 1V portable DATE OF EXAM: 05/05/2023 2:23 PM CLINICAL INDICATION:Male, 72 years old with history of trauma; [facility] COMPARISON: Chest radiographs from 1922 TECHNIQUE: XR chest 1V portable Frontal view of the chest. FINDINGS: Lungs/Pleura: There is no evidence of pleural effusion, focal consolidation, or pneumothorax. Pulmonary vascularity: Unremarkable. Heart/mediastinum: Cardiomediastinal silhouette is unremarkable. Musculoskeletal: No acute osseous pathology. Other findings: None IMPRESSION: No acute cardiopulmonary disease/process.
[2023-05-05] MEDS ORDERED: fentaNYL (PF) 50 MCG/ML 2 ML AMP IVP STA (14:28)
[2023-05-05 14:30] LABS: Basophils % (A) 0 %; Eosinophils # (A) 0.1 k/uL (0-0.7); Eosinophils % (A) 1 %; HCT 41.5 % (39.0-53.0); HGB 14.4 gm/dL (13.0-17.5); Lymphocytes # (A) 1.9 k/uL (1.0-4.8); Lymphocytes % (A) 18 %; MCH 31.5 pg (25.0-35.0); MCHC 34.6 g/dL (31.0-37.0); MCV 90.9 fL (80.0-100.0); Mean Platelet Volume 7.5; Monocytes # (A) 0.3 k/uL (0-1.0); Monocytes % (A) 3 %; Neutrophils # (A) 8.2 k/uL (1.3-7.7); Neutrophils % (A) 77 %; Platelet Count 204 k/uL (150-450); RBC 4.57 m/uL (4.30-5.90); WBC 10.7 k/uL (3.8-10.6)
[2023-05-05] MEDS ORDERED: niCARdipine 20 MG in SODIUM CHLORIDE 0.9% 192 ML IV SCH (14:45)
[2023-05-05 14:46] LABS: ALT 25 U/L (4-49); AST 34 U/L (17-59); African American GFR (CKD) >90 (>60 ml/min/1.73 sqM); Albumin 4.1 g/dL (3.5-5.0); Alcohol <10 mg/dL; Alkaline Phosphatase 72 U/L (38-126); Anion Gap 8 mmol/L; Blood Urea Nitrogen 23 mg/dL (9-20); Calcium 8.7 mg/dL (8.4-10.2); Carbon Dioxide 24 mmol/L (22-30); Chloride 106 mmol/L (98-107); Glucose 107 mg/dL (74-99); Non-African American GFR(CKD) 81 (>60 ml/min/1.73 sqM); Potassium 3.7 mmol/L (3.5-5.1); Sodium 138 mmol/L (137-145); Total Bilirubin 0.8 mg/dL (0.2-1.3); Total Protein 7.2 g/dL (6.3-8.2)
[2023-05-05 14:52] LABS: Partial Thromboplastin Time 20.9 sec (22.0-30.0); Prothrombin Time 10.6 sec (10.0-12.5)
[2023-05-05] MEDS ORDERED: VANCOMYCIN IV PER PHARMACY 1 EACH MISC MISCELLANE PRN (15:00)
[2023-05-05] MEDS ORDERED: cefTRIAXone IN SWFI 1,000 MG/10 ML SYRINGE IVP STA (15:00)
--- NOTE | 2023-05-05 15:04 | CT ---
EXAMINATION TYPE: CT brain nacho wo con DATE OF EXAM: 05/05/2023 COMPARISON: None HISTORY: P2T pain after falling off ladder CT DLP: 1013.3 mGycm, Automated exposure control for dose reduction was used. CONTRAST: Patient injected with 0 mL of Isovue 300. CT of the brain is performed utilizing 3 mm thick sections through the posterior fossa and 3 mm thick sections through the remaining calvarium. Study is performed within 24 hours of arrival to the hospital. Post traumatic subarachnoid hemorrhages are present adjacent to the frontal lobes bilaterally. There is a left subdural hematoma with a maximum depth of 0.8 cm left temporal region. No false seen herniation. No compression of the lateral ventricles. Third ventricle is midline. There appears to be an open fracture with posterior superior displacement of the orbital roof on the right into the intracranial region. This extends 0.4 cm. No additional fractures identified. There is some soft tissue swelling over the frontal regions and t he left parietal vertex. No mass lesion is evident. No acute infarcts are evident. Ventricles and sulci are appropriate for the patient age. Paranasal sinuses within the [id number] are clear. Right orbital fracture is noted with displacem ent of the fracture fragment 0.4 cm into the right frontal calvarium. Small amount fluid may be withi n the left mastoid air cells. No obvious fractures evident IMPRESSIONS: 1. Acute posttraumatic subarachnoid hemorrhage is adjacent to the frontal lobes bilaterally. 2. Left subdural hematoma with a maximum depth of 0.8 cm left temporal region. 3. Open fracture posterior superior right orbit displacing the fracture fragment approximately 0.4 cm into the calvarium. 4. Preliminary results for the CT brain were called to the emergency room physician Dr. Andersen by Sharon Flowers by telephone 1457 hours 05/05/2023. CT cervical spine. COMPARISON: None CT of the cervical spine is performed in the axial plane at 2 mm thick sections. Reconstructed image s in the coronal, and sagittal plane are reviewed on the computer. No acute fractures of the cervical spine are evident. Vertebral body alignment is normal. There is loss of disc height at C5-6 C6-7. Posterior endplate spurring is present C5, C6, and C7 Vertebral body heights are preserved. No spinal canal stenosis is evident. No neural foraminal stenosis is evident. IMPRESSION: 1. No acute osseous abnormality cervical spine. 2. Degenerative disc changes C5-6 C6-7.
[2023-05-05] MEDS ORDERED: VANCOMYCIN 1,250 MG in SODIUM CHLORIDE 0.9% 250 ML IVPB STA (15:05)
--- NOTE | 2023-05-05 15:12 | XR ---
EXAMINATION TYPE: XR elbow limited RT DATE OF EXAM: 05/05/2023 2:47 PM CLINICAL INDICATION:Male, 72 years old with history of pain; COMPARISON: None TECHNIQUE: XR elbow limited RT; elbow was examined in AP, lateral, and oblique projections. FINDINGS: No evidence of acute osseous pathology, joint dislocation, or soft tissue swelling is noted . No evidence of joint effusion is present. Degeneration changes of the joints of the elbow. There is olecranon enthesophyte formation. Osteophyt e formation of the medial epicondyle possibly relating to remote injury.. IMPRESSION: No evidence of acute process. Degeneration changes of the elbow. If there remains concern consider CT .
--- NOTE | 2023-05-05 15:12 | CT ---
EXAMINATION TYPE: CT facial bones wo con DATE OF EXAM: 05/05/2023 COMPARISON: None HISTORY: P2T pain after falling off ladder CT DLP: 1013.3 mGycm CONTRAST: 0 mL of Isovue 300 The paranasal sinuses are examined in the axial plane at 2 mm thick sections. Reconstructed images i n the coronal plane were obtained. There is some beam hardening artifact from dental amalgam. Mandible appears intact. Tiny chip from the maxillary spine is not excluded, example series 212 image 38. Tiny retention cyst within the left maxillary sinus. The ethmoid air cells are clear. The sphenoid sinuses are clear. The frontal sinuses are clear. The septum is evaluated. There is septal deviation to the left. The ostiomeatal units are patent. Zygomatic arches are intact. The nasal bones appear intact. There may be a blow in fracture of the lamina papyracea right orbit. Fracture into the ethmoid air ce ll from the orbit is evident series 212 image 64. In the coronal plane there is superior lateral orbital wall displacement into the calvarium. This is best visualized series 213 image 39 and series 212 image 72 may be a tiny amount of air within the ca lvarium. Small fracture fragment is in the anterior superior medial orbit. Series 213 image 27. The globes appear symmetrical. Extraocular muscles as visualized appear normal. Optic nerves appear n ormal. IMPRESSION: 1. Fracture of the medial and superior moseley of the right orbit with intracalvarial extension. Some displacement of fracture fragments from the superior orbital wall into the calvarium is evident.
[2023-05-06] MEDS ORDERED: VANCOMYCIN 1,250 MG in SODIUM CHLORIDE 0.9% 250 ML IVPB SCH (05:00)
== END 2023-05-05 15:22 | disposition other institution (70) ==
LOC: EC 13:59
DX: S02.85XA Fracture of orbit, unspecified, initial encounter for closed fracture (principal); S06.6X0A Traumatic subarachnoid hemorrhage without loss of consciousness, initial encounter; S06.5X0A Traumatic subdural hemorrhage without loss of consciousness, initial encounter; H73.892 Other specified disorders of tympanic membrane, left ear; I10 Essential (primary) hypertension; F12.90 Cannabis use, unspecified, uncomplicated; Z87.891 Personal history of nicotine dependence; Z79.899 Other long term (current) drug therapy; Z79.82 Long term (current) use of aspirin; Z23 Encounter for immunization; W11.XXXA Fall on and from ladder, initial encounter
CPT/HCPCS: 36415; 86900; 86901; 80053; 84484; 85025; 85610; 85730; 86850; 86870; 86880; 72170; 73070; 71045; 72125; 70486; 70450; 90715; 99291; 96365; 96368; 96375 ×3; 90471; G0390; G0480; J3370; J0690; J0696; J3010; 80320; 93005

== ENCOUNTER → 2023-05-13 | Outpatient (CLI) | payer MEDICARE, BC ==
--- NOTE | 2023-05-13 10:56 | CT ---
EXAMINATION TYPE: CT brain wo con CT DLP: 1121 mGycm, Automated exposure control for dose reduction was used. DATE OF EXAM: 05/13/2023 10:33 AM COMPARISON: Prior CT Brain from 05/05/2023 . CLINICAL INDICATION:Male, 72 years old with history of G93.6 cerebral edema, Fall, cerebral edema TECHNIQUE: Brain: Multiple axial CT images of the brain were obtained without IV contrast. . Coronal and sagitta l reformats reviewed. FINDINGS: Brain: Extra-axial spaces: Subdural hematoma along the left anterior falx measuring up to 6 mm (series 3, im age 16). This is decrease slightly from prior exam. Ventricular system: Within normal limits Cerebral parenchyma: Sequelae of bilateral frontal lobe contusions with hypodense and hyperdense comp onents. Additional subarachnoid hemorrhage bilaterally along the frontal lobes has decreased from claudia or. The meza-white junction is well differentiated. Cerebellum: Unremarkable. Mass effect: No evidence of midline shift. Intracranial vasculature: Atherosclerotic calcifications of the intracranial vessels. Soft tissues: Normal. Calvarium/osseous structures: Demonstration of nondisplaced fracture of the right calvarium involving the right parietal bone extending towards the vertex crossing midline and to the left parietal bone which extends towards the left temporal bone. There is extension into the left mastoid air cells. Dem onstration of fractures of the superior orbital moseley and right superior ethmoid sinus. Paranasal sinuses and mastoid air cells: Right mastoid air cells are clear. Opacification of the left mastoid air cells. Visualized paranasal sinuses are clear. Visualized orbits: Orbital contents are stable. IMPRESSION: 1. Sequelae of bilateral frontal lobe contusions. 2. Decreased size of subdural hematoma along the left anterior falx. No midline shift. 3. Decreased subarachnoid hemorrhage bilaterally along the frontal lobes. 4. Redemonstration of fractures of the bilateral superior orbital moseley and right superior ethmoid s inus. Redemonstration of extensive nondisplaced fracture extending from the right parietal bone cross ing midline to the left frontal bone extending into the left temporal bone. There is extension into t he left mastoid air cells with opacification demonstrated.
--- NOTE | 2023-05-13 11:39 | XR ---
EXAMINATION TYPE: XR chest 2V DATE OF EXAM: 05/13/2023 COMPARISON: 05/05/2023 HISTORY: Shortness of breath TECHNIQUE: Frontal and lateral views of the chest are obtained. FINDINGS: Scattered senescent parenchymal changes noted. Hyperinflation compatible with COPD. No evidence for infiltrate. No evidence for atelectasis. Heart size is stable. Mediastinal structures are stable and grossly unremarkable. No evidence for hilar prominence. Degenerative changes dorsal spine. IMPRESSION: 1. No evidence for acute pulmonary disease.
== END | disposition home or self-care (01) ==
LOC: RADCTMAIN 10:13
PROVIDERS: ATTEND Internal Medicine
DX: J34.89 Other specified disorders of nose and nasal sinuses (principal); H74.8X2 Other specified disorders of left middle ear and mastoid; G93.6 Cerebral edema; S06.369A Traumatic hemorrhage of cerebrum, unspecified, with loss of consciousness of unspecified duration, initial encounter; S06.6X9A Traumatic subarachnoid hemorrhage with loss of consciousness of unspecified duration, initial encounter; R06.02 Shortness of breath; R05.9 Cough, unspecified; W19.XXXA Unspecified fall, initial encounter
CPT/HCPCS: 70450; 71046

== ENCOUNTER 2023-05-18 17:32 | Emergency (ER) | payer MEDICARE, BC ==
--- NOTE | 2023-05-18 18:02 | ED ---
Male Urogenital HPI - General Chief complaint: Urogenital Stated complaint: weakness; loss of appetite Time Seen by Provider: 05/18/23 17:48 Source: patient, family, RN notes reviewed, old records reviewed Mode of arrival: ambulatory Limitations: no limitations - History of Present Illness Initial comments: 72-year-old male with a recent traumatic brain injury subdural hematoma who has had a indwelling Mittal catheter recently who is here today because of trouble urinating he has had urinary frequency but a small amount of urine out in the last 48 hours. No fevers chills nausea vomiting sweats he has had decreased oral intake however due to this. Patient has had some weakness and decreased appetite. Family voices no other concerns at this time nor does the patient. MD Complaint: other - Related Data Home Medications Medication Instructions Recorded Confirmed Cetirizine HCl [Zyrtec] 10 mg PO DAILY 01/09/15 05/18/23 Atorvastatin [Lipitor] 20 mg PO HS 05/11/19 05/18/23 atenoloL [Tenormin] 50 mg PO DAILY@1200 05/11/19 05/18/23 hydroCHLOROthiazide 12.5 mg PO DAILY 05/11/19 05/18/23 Losartan [Cozaar] 50 mg PO BID 03/13/23 05/18/23 Ciprofloxacin HCl/Dexameth 4 drop LEFT EAR BID 05/18/23 05/18/23 [Ciproflox-Dexameth Otic Susp] Ondansetron [Zofran] 4 mg PO Q6H PRN 05/18/23 05/18/23 Allergies Allergy/AdvReac Type Severity Reaction Status Date / Time No Known Allergies Allergy Verified 05/18/23 17:45 Review of Systems ROS Statement: Those systems with pertinent positive or pertinent negative responses have been documented in the HPI. ROS Other: All systems not noted in ROS Statement are negative. 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 History of Any Multi-Drug Resistant Organisms: None Reported Past Surgical History: Joint Replacement, Orthopedic Surgery Additional Past Surgical History / Comment(s): bilateral hip replacement, left hip revision, amputation of tip of left thumb, AAA-repair, tendons cut rt hand with repair Past Anesthesia/Blood Transfusion Reactions: No Reported Reaction Past Psychological History: No Psychological Hx Reported Smoking Status: Former smoker Past Alcohol Use History: Occasional Past Drug Use History: Marijuana - Past Family History Brother(s) Family Medical History: Cancer Additional Family Medical History / Comment(s): Melanoma. Father Family Medical History: Cancer, Myocardial Infarction ([place]) General Exam - General Exam Comments Initial Comments: Is a well-developed well-nourished awake alert oriented x 4 male currently demonstrating [place] Coma Scale of 15 Limitations: no limitations General appearance: alert, in no apparent distress Head exam: Present: other (Resolving hematomas about both orbits.) Eye exam: Present: normal appearance, PERRL, EOMI. Absent: scleral icterus, conjunctival injection, periorbital swelling Pupils: Present: normal accommodation ENT exam: Present: mucous membranes dry Neck exam: Present: normal inspection, full ROM, other (No stridor Jr bruits). Absent: tenderness, meningismus, lymphadenopathy Respiratory exam: Present: normal lung sounds bilaterally. Absent: respiratory distress, wheezes, rales, rhonchi, stridor Cardiovascular Exam: Present: regular rate, normal rhythm, normal heart sounds. Absent: systolic murmur, diastolic murmur, rubs, gallop, clicks GI/Abdominal exam: Present: other (Distended urinary bladder) Rectal exam: Present: deferred Extremities exam: Present: normal inspection, full ROM, normal capillary refill. Absent: tenderness, pedal edema, joint swelling, calf tenderness Back exam: Present: full ROM Neurological exam: Present: alert, oriented X3, CN II-XII intact Psychiatric exam: Present: normal affect, normal mood Skin exam: Present: warm, dry, intact, other (Ecchymosis as stated above) Course Vital Signs 05/18/23 05/18/23 05/18/23 17:37 19:38 20:44 Temperature 98.0 F 97.9 F 97.5 F L Pulse Rate 95 68 63 Respiratory 18 20 13 Rate Blood Pressure 161/97 151/97 144/84 O2 Sat by Pulse 96 96 95 Oximetry Medical Decision Making - Medical Decision Making I did discuss the findings with the patient family and patient does demonstrate evidence of dehydration. He did get over 1000 cc of urine out when a Mittal catheter was placed. After IV hydration the patient will be discharged home with follow-up with his doctor. We did discuss this with the patient and family members. The patient may require urology consultation which Dr. Valladares was pt. s ent in by a medical professional or institution ([facility], [facility], urgent care, hospital, or jail...) When possible be specific @ -No Did you speak to anyone other than the patient for history (EMS, parent, family, police, friend...)? What history was obtained from this source @ -No Did you review nursing and triage notes (agree or disagree)? Why? @ -I reviewed and agree with nursing and triage notes Were old charts reviewed (outside hosp., previous admission, EMS record, old EKG, old radiological studies, urgent care reports/EKG's, jail records)? Report findings @ -Recent old charts were reviewed Differential Diagnosis (chest pain, altered mental status, abdominal pain women, abdominal pain men, vaginal bleeding, weakness, fever, dyspnea, syncope, headache, dizziness, GI bleed, back pain, seizure, CVA, palpatations, mental health, musculoskeletal)? @ -Acute urinary retention, UTI EKG interpreted by me (3pts min.). @ -Not indicated X-rays interpreted by me (1pt min.). @ -None done CT interpreted by me (1pt min.). @ -None done U/S interpreted by me (1pt. min.). @ -None done What testing was considered but not performed or refused? (CT, X-rays, U/S, labs)? Why? @ -None What meds were considered but not given or refused? Why? @ -None Did you discuss the management of the patient with other professionals (professionals i.e. [facility], [facility], lab, RT, psych nurse, clinical social work aide, ring maker, teacher, deputy juvenile officer, immigration case worker)? Give summary @ -No Was smoking cessation discussed for >3mins.? @ -No Was critical care preformed (if so, how long)? @ -No Were there social determinants of health that impacted care today? How? (Homelessness, low income, unemployed, alcoholism, drug addiction, transportation, low edu. Level, literacy, decrease access to med. care, prison, rehab)? @ -No Was there de-escalation of care discussed even if they declined (Discuss DNR or withdrawal of care, Hospice)? DNR status @ -No What co-morbidities impacted this encounter? (DM, HTN, Smoking, COPD, CAD, Cancer, CVA, ARF, Chemo, Hep., AIDS, mental health diagnosis, sleep apnea, morbid obesity)? @ -Indwelling Mittal catheter, history of BPH, history of recent traumatic brain injury Was patient admitted / discharged? Hospital course, mention meds given and route, prescriptions, significant lab abnormalities, going to OR and other pertinent info. @ -Hospital course Undiagnosed new problem with uncertain prognosis? @ -Acute urinary retention Drug Therapy requiring intensive monitoring for toxicity (Heparin, Nitro, Insulin, Cardizem)? @ -No Were any procedures done? @ -No Diagnosis/symptom? @ -Acute urinary retention, dehydration Acute, or Chronic, or Acute on Chronic? @ -Acute Uncomplicated (without systemic symptoms) or Complicated (systemic symptoms)? @ -Default Side effects of treatment? @ -No Exacerbation, Progression, or Severe Exacerbation? @ -No Poses a threat to life or bodily function? How? (Chest pain, [place], [place], pneumonia, PE, COPD, DKA, ARF, appy, cholecystitis, CVA, Diverticulitis, Homicidal, Suicidal, threat to staff... and all critical care pts) @ -No Ar can facilitate. - Lab Data Result diagrams: 05/18/23 19:07 05/18/23 19:07 Lab Results 05/18/23 05/18/23 05/18/23 Range/Units 19:07 19:07 19:07 WBC 14.7 H (3.8-10.6) k/uL RBC 4.67 (4.30-5.90) m/uL Hgb 14.4 (13.0-17.5) gm/dL Hct 41.5 (39.0-53.0) % MCV 88.8 (80.0-100.0) fL MCH 30.9 (25.0-35.0) pg MCHC 34.8 (31.0-37.0) g/dL RDW 12.8 (11.5-15.5) % Plt Count 407 (150-450) k/uL MPV 7.4 Neutrophils % 87 % Lymphocytes % 7 % Monocytes % 4 % Eosinophils % 1 % Basophils % 0 % Neutrophils # 12.8 H (1.3-7.7) k/uL Lymphocytes # 1.1 (1.0-4.8) k/uL Monocytes # 0.6 (0-1.0) k/uL Eosinophils # 0.2 (0-0.7) k/uL Basophils # 0.0 (0-0.2) k/uL Sodium 131 L (137-145) mmol/L Potassium 5.3 H (3.5-5.1) mmol/L Chloride 101 (98-107) mmol/L Carbon Dioxide 22 (22-30) mmol/L Anion Gap 8 mmol/L BUN 32 H (9-20) mg/dL Creatinine 0.57 L (0.66-1.25) mg/dL Est GFR (CKD-EPI)AfAm >90 (>60 ml/min/1.73 sqM) Est GFR (CKD-EPI)NonAf >90 (>60 ml/min/1.73 sqM) Glucose 118 H (74-99) mg/dL Calcium 9.4 (8.4-10.2) mg/dL Magnesium 2.5 H (1.6-2.3) mg/dL Total Bilirubin 1.1 (0.2-1.3) mg/dL AST 32 (17-59) U/L ALT 33 (4-49) U/L Alkaline Phosphatase 93 (38-126) U/L Total Protein 7.5 (6.3-8.2) g/dL Albumin 4.1 (3.5-5.0) g/dL Urine Color Light Yellow Urine Appearance Cloudy (Clear) Urine pH 6.5 (5.0-8.0) Ur Specific [place] 1.018 (1.001-1.035) Urine Protein Trace H (Negative) Urine Glucose (UA) Negative (Negative) Urine Ketones Negative (Negative) Urine Blood Trace H (Negative) Urine Nitrite Negative (Negative) Urine Bilirubin Negative (Negative) Urine Urobilinogen <2.0 (<2.0) mg/dL Ur Leukocyte Esterase Negative (Negative) Urine RBC 22 H (0-5) /hpf Urine WBC 1 (0-5) /hpf Urine Bacteria Rare H (None) /hpf Urine Mucus Occasional H (None) /hpf Disposition Clinical Impression: Acute urinary retention, Dehydration, Weakness Disposition: HOME SELF-CARE Condition: Good Instructions (If sedation given, give patient instructions): Urinary Retention in Men (ED), Dehydration (ED), Weakness (ED) Is patient prescribed a controlled substance at d/c from ED?: No Referrals: Bryant Méndez MD [Primary Care Provider] - 1-2 days Time of Disposition: 21:33 Decision Date: 05/18/23 Decision Time: 21:33
[2023-05-18 19:33] LABS: Appearance,Urine Cloudy (Clear); Bacteria,Urine Rare /hpf; Bilirubin,Urine Negative (Negative); Blood,Urine Trace (Negative); Color,Urine Light Yellow; Glucose,Urine (UA) Negative (Negative); Ketones,Urine Negative (Negative); Leukocyte Esterase,Urine Negative (Negative); Mucus,Urine Occasional /hpf; Nitrite,Urine Negative (Negative); PH, Urine 6.5 (5.0-8.0); Protein,Urine Trace (Negative); RBC,Urine 22 /hpf (0-5); Specific Gravity,Urine 1.018 (1.001-1.035); Urobilinogen,Urine <2.0 mg/dL (<2.0); WBC,Urine 1 /hpf (0-5)
[2023-05-18 20:10] LABS: Basophils % (A) 0 %; Eosinophils # (A) 0.2 k/uL (0-0.7); Eosinophils % (A) 1 %; HCT 41.5 % (39.0-53.0); HGB 14.4 gm/dL (13.0-17.5); Lymphocytes # (A) 1.1 k/uL (1.0-4.8); Lymphocytes % (A) 7 %; MCH 30.9 pg (25.0-35.0); MCHC 34.8 g/dL (31.0-37.0); MCV 88.8 fL (80.0-100.0); Mean Platelet Volume 7.4; Monocytes # (A) 0.6 k/uL (0-1.0); Monocytes % (A) 4 %; Neutrophils # (A) 12.8 k/uL (1.3-7.7); Neutrophils % (A) 87 %; Platelet Count 407 k/uL (150-450); RBC 4.67 m/uL (4.30-5.90); RDW 12.8 % (11.5-15.5); WBC 14.7 k/uL (3.8-10.6)
[2023-05-18 20:32] LABS: ALT 33 U/L (4-49); African American GFR (CKD) >90 (>60 ml/min/1.73 sqM); Albumin 4.1 g/dL (3.5-5.0); Anion Gap 8 mmol/L; Blood Urea Nitrogen 32 mg/dL (9-20); Calcium 9.4 mg/dL (8.4-10.2); Carbon Dioxide 22 mmol/L (22-30); Chloride 101 mmol/L (98-107); Glucose 118 mg/dL (74-99); Non-African American GFR(CKD) >90 (>60 ml/min/1.73 sqM); Sodium 131 mmol/L (137-145); Total Bilirubin 1.1 mg/dL (0.2-1.3); Total Protein 7.5 g/dL (6.3-8.2)
[2023-05-18 20:33] LABS: AST 32 U/L (17-59); Alkaline Phosphatase 93 U/L (38-126); Magnesium 2.5 mg/dL (1.6-2.3); Potassium 5.3 mmol/L (3.5-5.1)
[2023-05-18] MEDS ORDERED: SODIUM CHLORIDE 0.9% 1,000 ML IV STA (20:38)
[2023-05-18 20:53] VITALS: PULSE 63; TEMP 97.5
[2023-05-18 22:54] VITALS: BP 168/95; RESP 16
== END 2023-05-18 22:56 | disposition home or self-care (01) ==
LOC: EC 17:32
DX: E86.0 Dehydration (principal); R33.9 Retention of urine, unspecified; I10 Essential (primary) hypertension; F12.90 Cannabis use, unspecified, uncomplicated; Z87.891 Personal history of nicotine dependence
CPT/HCPCS: 36415; 51702; 80053; 81001; 83735; 85025; 96360; 96361; 99285

== ENCOUNTER 2023-05-19 05:38 | Inpatient (IN) | payer MEDICARE, BC ==
[2023-05-19 06:12] LABS: Basophils % (A) 0 %; Eosinophils # (A) 0.1 k/uL (0-0.7); Eosinophils % (A) 1 %; HCT 39.1 % (39.0-53.0); HGB 13.7 gm/dL (13.0-17.5); Lymphocytes # (A) 1.2 k/uL (1.0-4.8); Lymphocytes % (A) 9 %; MCH 30.8 pg (25.0-35.0); MCHC 35.1 g/dL (31.0-37.0); MCV 87.8 fL (80.0-100.0); Mean Platelet Volume 7.3; Monocytes # (A) 0.6 k/uL (0-1.0); Monocytes % (A) 4 %; Neutrophils # (A) 11.9 k/uL (1.3-7.7); Neutrophils % (A) 85 %; Platelet Count 352 k/uL (150-450); RBC 4.45 m/uL (4.30-5.90); RDW 13.1 % (11.5-15.5)
--- NOTE | 2023-05-19 06:23 | CT ---
EXAMINATION TYPE: CODE STROKE: CT brain wo contr DATE OF EXAM: 05/19/2023 HISTORY: patient discharged around [id number] from our facility. patient brought back in for possible stroke like. Last well known at 2300. Slurred speech, increased confusion, left leg weakness and left facial droop. equal licensed audiologist strength in [place]. patient hasn't slept in 48hrs. CT DLP: 1208.3 mGycm. Automated Exposure Control for Dose Reduction was Utilized. TECHNIQUE: CT scan of the head is performed without contrast. COMPARISON: CT brain May 13, 2023. FINDINGS: Tiny right extra-axial fluid collection is redemonstrated. Heterogeneous hypodense areas in ferior bilateral frontal lobes are present. There is no new acute intracranial hemorrhage or midline shift identified. Ventricles and sulci remain stable within normal limits in size for age. Globes ar e intact and visualized sinuses are clear. Partially opacified left mastoid air cells are redemonstra evan. IMPRESSION: Resolving bilateral inferior frontal lobe intraparenchymal hemorrhages. Stable small rig ht extra-axial fluid collection or chronic subdural hematoma. No new acute intracranial hemorrhage or midline shift.
--- NOTE | 2023-05-19 06:26 | XR ---
EXAMINATION TYPE: XR chest 1V portable DATE OF EXAM: 05/19/2023 COMPARISON: Chest x-ray May 13, 2023 HISTORY: Altered mental status TECHNIQUE: Single frontal view of the chest is obtained. FINDINGS: There is some mild chronic parenchymal changes bilaterally without suspicious new focal ai r space opacity, pleural effusion, or pneumothorax seen. The cardiac silhouette size is stable and w ithin normal limits. The osseous structures are intact. IMPRESSION: No acute process. No significant change from prior.
[2023-05-19 06:29] LABS: INR 0.9 (<1.2); Partial Thromboplastin Time 22.9 sec (22.0-30.0)
[2023-05-19 06:44] LABS: ALT 29 U/L (4-49); AST 26 U/L (17-59); African American GFR (CKD) >90 (>60 ml/min/1.73 sqM); Albumin 3.8 g/dL (3.5-5.0); Alcohol <10 mg/dL; Alkaline Phosphatase 95 U/L (38-126); Anion Gap 8 mmol/L; Blood Urea Nitrogen 27 mg/dL (9-20); Calcium 8.9 mg/dL (8.4-10.2); Carbon Dioxide 24 mmol/L (22-30); Chloride 99 mmol/L (98-107); Creatine Kinase 71 U/L (55-170); Glucose 117 mg/dL (74-99); Non-African American GFR(CKD) >90 (>60 ml/min/1.73 sqM); Potassium 4.7 mmol/L (3.5-5.1); Sodium 131 mmol/L (137-145); Total Bilirubin 1.2 mg/dL (0.2-1.3); Total Protein 6.9 g/dL (6.3-8.2)
--- NOTE | 2023-05-19 06:47 | CT ---
EXAMINATION TYPE: CT angio head neck DATE OF EXAM: 05/19/2023 HISTORY: patient discharged around [phone] from our facility. patient brought back in for possible stroke like. Last well known at 2300. Slurred speech, increased confusion, left leg weakness and left facial droop. equal production foreman strength in [place]. patient hasn't slept in 48hrs. Acute onset neuro defic it COMPARISON: None. CT DLP: 645.3 mGycm. Automated Exposure Control for Dose Reduction was Utilized. TECHNIQUE: CTA scan of the head and neck is performed with IV Contrast, patient injected with 65 mL of Isovue 370, axial images are obtained, coronal and sagittal reformatted images are reviewed. 3D re constructed images are created on an independent workstation and reviewed. FINDINGS: Carotid/Vascular Structures: Normal 3 vessel origin from aortic arch. No significant stenosis is seen . No significant stenosis along the common carotid arteries bilaterally. No significant plaque or shan nosis at carotid bulb level. There is moderate to severe noncalcified plaque in the proximal internal carotid artery bilaterally causing stenosis approaching but just under 50%. Patent external carotid arteries bilaterally without significant stenosis. Vertebral arteries are patent to the basilar junction. Right vertebral artery is noted dominant. No l arge vessel occlusion or aneurysm in the posterior circulation. Anterior circulation shows hypoplasti c right A1 segment with filling of the right A2 segment due to patent anterior communicating artery. No large vessel occlusion or aneurysm. Other: Coronary artery calcification in the LAD distribution is seen. IMPRESSION: 1. Moderate to severe noncalcified plaque bilateral proximal internal carotid artery causes stenoses approaching but under 50%. 2. No large vessel occlusion or aneurysm at the level of the [place]. NASCET criteria was used in interpretation of this exam?
--- NOTE | 2023-05-19 07:09 | ED ---
General Adult HPI - General Chief complaint: Neuro Symptoms/Deficit Stated complaint: Possible stroke Time Seen by Provider: 05/19/23 05:49 Source: patient Mode of arrival: wheelchair Limitations: no limitations - History of Present Illness Initial comments: This patient is a 72-year-old man whose family brings him to have evaluation because he has been a little bit confused and anxious. They cite for example that he has repeatedly gotten into bed and out of bed tonight. He is not sleeping. He has reportedly gone a number of days now with little to no sleep. Family also noticed that he seemed to be having a little bit of slurring of the speech. the patient had a fall on May 05 which resulted in small frontal intracerebral hemorrhages and small amount of subdural hematoma. He had actually come back yesterday evening with the same complaints and was found to have urinary retention. Mittal catheter was placed and drained over 1 L of urine and the patient felt better and they wanted to go home. After leaving again he was in bed and out of bed number times still not sleeping. The patient here not having any new complaints as far as headache or neurologic symptoms. -: days(s) Location: head Consistency: constant Improves with: none Worsens with: none Associated Symptoms: confusion, other (Insomnia) Treatments Prior to Arrival: none - Related Data Home Medications Medication Instructions Recorded Confirmed Cetirizine HCl [Zyrtec] 10 mg PO DAILY 01/09/15 05/19/23 Atorvastatin [Lipitor] 10 mg PO HS 05/11/19 05/19/23 atenoloL [Tenormin] 50 mg PO W/LUNCH 05/11/19 05/19/23 hydroCHLOROthiazide 12.5 mg PO DAILY 05/11/19 05/19/23 Losartan [Cozaar] 50 mg PO BID 03/13/23 05/19/23 Ondansetron [Zofran] 4 mg PO Q6H PRN 05/18/23 05/19/23 Acetaminophen Tab [Tylenol Tab] 500 - 1,000 mg PO Q6H PRN 05/19/23 05/19/23 Allergies Allergy/AdvReac Type Severity Reaction Status Date / Time No Known Allergies Allergy Verified 05/19/23 07:56 Review of Systems ROS Statement: Those systems with pertinent positive or pertinent negative responses have been documented in the HPI. ROS Other: All systems not noted in ROS Statement are negative. Constitutional: Denies: fever, chills, weakness Eyes: Denies: vision change Respiratory: Denies: cough, dyspnea Cardiovascular: Denies: chest pain, syncope Gastrointestinal: Denies: abdominal pain Genitourinary: Reports: as per HPI, other (Urinary retention with Mittal catheter placed yesterday) Skin: Denies: rash Neurological: Reports: confusion. Denies: weakness, numbness Psychiatric: Reports: anxiety. 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 History of Any Multi-Drug Resistant Organisms: None Reported Past Surgical History: Joint Replacement, Orthopedic Surgery Additional Past Surgical History / Comment(s): bilateral hip replacement, left hip revision, amputation of tip of left thumb, AAA-repair, tendons cut rt hand with repair Past Anesthesia/Blood Transfusion Reactions: No Reported Reaction Past Psychological History: No Psychological Hx Reported Smoking Status: Former smoker Past Alcohol Use History: Occasional Past Drug Use History: Marijuana - Past Family History Brother(s) Family Medical History: Cancer Additional Family Medical History / Comment(s): Melanoma. Father Family Medical History: Cancer, Myocardial Infarction ([place]) General Exam Limitations: no limitations General appearance: alert, in no apparent distress Head exam: Present: atraumatic, normocephalic Eye exam: Present: PERRL, EOMI, other (Subconjunctival hemorrhage bilaterally. Raccoons eyes contusions). Absent: scleral icterus, conjunctival injection ENT exam: Present: normal oropharynx Neck exam: Present: normal inspection, full ROM. Absent: tenderness Respiratory exam: Present: normal lung sounds bilaterally. Absent: respiratory distress, wheezes, rales, rhonchi, stridor, accessory muscle use Cardiovascular Exam: Present: regular rate, normal rhythm, normal heart sounds. Absent: systolic murmur, diastolic murmur, rubs, gallop GI/Abdominal exam: Present: soft. Absent: distended, tenderness, guarding, rebound, rigid, mass Extremities exam: Present: normal inspection, normal capillary refill. Absent: pedal edema, calf tenderness Back exam: Present: normal inspection. Absent: CVA tenderness (R), CVA tenderness (L), vertebral tenderness Neurological exam: Present: alert, oriented X3, CN II-XII intact, other (Mild dysarthria). Absent: motor sensory deficit Skin exam: Present: warm, dry, intact, normal color. Absent: rash Course Vital Signs 05/19/23 05/19/23 05/19/23 05:40 05:50 06:37 Temperature 98 F Pulse Rate 61 61 57 L Respiratory 18 18 18 Rate Blood Pressure 193/88 173/94 154/104 O2 Sat by Pulse 97 97 96 Oximetry 05/19/23 05/19/23 05/19/23 07:27 10:00 11:09 Temperature Pulse Rate 60 60 70 Respiratory 16 16 18 Rate Blood Pressure 166/89 151/71 145/70 O2 Sat by Pulse 97 96 97 Oximetry 05/19/23 16:59 Temperature 97.8 F Pulse Rate 62 Respiratory 18 Rate Blood Pressure 152/90 O2 Sat by Pulse 97 Oximetry EKG Findings - EKG Results: EKG: interpreted by ERMD, sinus rhythm (Rate 60 bpm), normal axis, normal ST/T - Blocks, [place], Hypertrophy, ST Abn: Repolarization changes or abnormalities: early repolarization due to [facility] Medical Decision Making - Medical Decision Making The patient had chest x-ray that I interpreted as negative for acute infiltrate, pneumothorax, congestive heart failure The patient had CT of the brain that I interpreted as showing probable old subdural hematoma, no acute intracranial hemorrhage. Patient is a 72-year-old man who is brought to have evaluation of altered mental status. The workup here not revealing of definite etiology, will have patient admitted to have further neurologic evaluation including consult. Was pt. sent in by a medical professional or institution (, PA, CLINIC SPECIALIST, urgent care, hospital, or skilled nursing...) When possible be specific @ -[No] Did you speak to anyone other than the patient for history (EMS, parent, family, police, friend...)? What history was obtained from this source @ -[Patient's family gives history Did you review nursing and triage notes (agree or disagree)? Why? @ -[I reviewed and agree with nursing and triage notes] Were old charts reviewed (outside hosp., previous admission, EMS record, old EKG, old radiological studies, urgent care reports/EKG's, skilled nursing records)? Report findings @ -[No old charts were reviewed] Differential Diagnosis (chest pain, altered mental status, abdominal pain women, abdominal pain men, vaginal bleeding, weakness, fever, dyspnea, syncope, headache, dizziness, GI bleed, back pain, seizure, CVA, palpatations, mental health, musculoskeletal)? @ -[Differential Altered Mental Status: Hypoglycemia, DKA, hypercapnia, ETOH, overdose, CO poisoning, trauma, myxedema coma, HTN encephalopathy, infection, encephalitis, psychosis, intercranial hemorrhage, hepatic encephalopathy, meningitis, CVA, this is not meant to be an all-inclusive list EKG interpreted by me (3pts min.). @ -[I interpreted as above] X-rays interpreted by me (1pt min.). @ -[I interpreted as above CT interpreted by me (1pt min.). @ -[I interpreted as above U/S interpreted by me (1pt. min.). @ -[None done] What testing was considered but not performed or refused? (CT, X-rays, U/S, la bs)? Why? @ -[None] What meds were considered but not given or refused? Why? @ -[None] Did you discuss the management of the patient with other professionals (professionals i.e. , PA, CLINIC SPECIALIST, lab, RT, psych nurse, social psychologist, optical goods drill operator, teacher, staff antisubmarine officer, case packer)? Give summary @ -[Case discussed with admitting physician and treatment recommendations incorporated Was smoking cessation discussed for >3mins.? @ -[No] Was critical care preformed (if so, how long)? @ -[No] Were there social determinants of health that impacted care today? How? (Homelessness, low income, unemployed, alcoholism, drug addiction, transportation, low edu. Level, literacy, decrease access to med. care, long-term, rehab)? @ -[No] Was there de-escalation of care discussed even if they declined (Discuss DNR or withdrawal of care, Hospice)? DNR status @ -[No] What co-morbidities impacted this encounter? (DM, HTN, Smoking, COPD, CAD, Cancer, CVA, ARF, Chemo, Hep., AIDS, mental health diagnosis, sleep apnea, morbid obesity)? @ -[None] Was patient admitted / discharged? Hospital course, mention meds given and route, prescriptions, significant lab abnormalities, going to OR and other pertinent info. @ -[See above Undiagnosed new problem with uncertain prognosis? @ -[No] Drug Therapy requiring intensive monitoring for toxicity (Heparin, Nitro, Insulin, Cardizem)? @ -[No] Were any procedures done? @ -[No] Diagnosis/symptom? @ -[Altered mental status Possible dysarthria Acute, or Chronic, or Acute on Chronic? @ -[Acute Uncomplicated (without systemic symptoms) or Complicated (systemic symptoms)? @ -[Uncomplicated Side effects of treatment? @ -[No] Exacerbation, Progression, or Severe Exacerbation? @ -[No] Poses a threat to life or bodily function? How? (Chest pain, [place], [place], pneumonia, PE, COPD, DKA, ARF, appy, cholecystitis, CVA, Diverticulitis, Homicidal, Suicidal, threat to staff... and all critical care pts) @ -[Requires further evaluation - Lab Data Result diagrams: 05/22/23 06:03 05/22/23 12:54 Lab Results 05/19/23 05/19/23 05/19/23 Range/Units 06:03 06:03 06:03 WBC 14.0 H (3.8-10.6) k/uL RBC 4.45 (4.30-5.90) m/uL Hgb 13.7 (13.0-17.5) gm/dL Hct 39.1 (39.0-53.0) % MCV 87.8 (80.0-100.0) fL MCH 30.8 (25.0-35.0) pg MCHC 35.1 (31.0-37.0) g/dL RDW 13.1 (11.5-15.5) % Plt Count 352 (150-450) k/uL MPV 7.3 Immature Gran % (Auto) % Absolute Nucleated RBC % Neutrophils % 85 % Lymphocytes % 9 % Monocytes % 4 % Eosinophils % 1 % Basophils % 0 % Immature Gran # (0.00-0.04) X 10*3/uL Neutrophils # 11.9 H (1.3-7.7) k/uL Lymphocytes # 1.2 (1.0-4.8) k/uL Monocytes # 0.6 (0-1.0) k/uL Eosinophils # 0.1 (0-0.7) k/uL Basophils # 0.0 (0-0.2) k/uL NRBC/100 WBC Diff (0.00-0.01) X 10*3/uL PT 10.0 (10.0-12.5) sec INR 0.9 (<1.2) APTT 22.9 (22.0-30.0) sec Sodium 131 L (137-145) mmol/L Potassium 4.7 (3.5-5.1) mmol/L Chloride 99 (98-107) mmol/L Carbon Dioxide 24 (22-30) mmol/L Anion Gap 8 mmol/L BUN 27 H (9-20) mg/dL Creatinine 0.64 L (0.66-1.25) mg/dL Est GFR (CKD-EPI) (>=60) Est GFR (CKD-EPI)AfAm >90 (>60 ml/min/1.73 sqM) Est GFR (CKD-EPI)NonAf >90 (>60 ml/min/1.73 sqM) BUN/Creatinine Ratio (12.00-20.00) Ratio Glucose 117 H (74-99) mg/dL POC Glucose (mg/dL) (70-110) mg/dL POC Glu Windows Mobile Developer ID Calcium 8.9 (8.4-10.2) mg/dL Total Bilirubin 1.2 (0.2-1.3) mg/dL AST 26 (17-59) U/L ALT 29 (4-49) U/L Alkaline Phosphatase 95 (38-126) U/L Creatine Kinase 71 (55-170) U/L Troponin I (0.000-0.034) ng/mL Total Protein 6.9 (6.3-8.2) g/dL Albumin 3.8 (3.5-5.0) g/dL Globulin (1.6-3.3) g/dL Albumin/Globulin Ratio (1.60-3.17) Ratio Urine Color Urine Appearance (Clear) Urine pH (5.0-8.0) Ur Specific [place] (1.001-1.035) Urine Protein (Negative) Urine Glucose (UA) (Negative) Urine Ketones (Negative) Urine Blood (Negative) Urine Nitrite (Negative) Urine Bilirubin (Negative) Urine Urobilinogen (<2.0) mg/dL Ur Leukocyte Esterase (Negative) Urine RBC (0-5) /hpf Urine WBC (0-5) /hpf Ur Squamous Epith Cells (0-4) /hpf Urine Mucus (None) /hpf Serum Alcohol <10 mg/dL 05/19/23 05/19/23 05/19/23 Range/Units 06:03 10:22 14:19 WBC (3.8-10.6) k/uL RBC (4.30-5.90) m/uL Hgb (13.0-17.5) gm/dL Hct (39.0-53.0) % MCV (80.0-100.0) fL MCH (25.0-35.0) pg MCHC (31.0-37.0) g/dL RDW (11.5-15.5) % Plt Count (150-450) k/uL MPV Immature Gran % (Auto) % Absolute Nucleated RBC % Neutrophils % % Lymphocytes % % Monocytes % % Eosinophils % % Basophils % % Immature Gran # (0.00-0.04) X 10*3/uL Neutrophils # (1.3-7.7) k/uL Lymphocytes # (1.0-4.8) k/uL Monocytes # (0-1.0) k/uL Eosinophils # (0-0.7) k/uL Basophils # (0-0.2) k/uL NRBC/100 WBC Diff (0.00-0.01) X 10*3/uL PT (10.0-12.5) sec INR (<1.2) APTT (22.0-30.0) sec Sodium (137-145) mmol/L Potassium (3.5-5.1) mmol/L Chloride (98-107) mmol/L Carbon Dioxide (22-30) mmol/L Anion Gap mmol/L BUN (9-20) mg/dL Creatinine (0.66-1.25) mg/dL Est GFR (CKD-EPI) (>=60) Est GFR (CKD-EPI)AfAm (>60 ml/min/1.73 sqM) Est GFR (CKD-EPI)NonAf (>60 ml/min/1.73 sqM) BUN/Creatinine Ratio (12.00-20.00) Ratio Glucose (74-99) mg/dL POC Glucose (mg/dL) 123 H (70-110) mg/dL POC Glu Windows Mobile Developer ID Tonia Stein Calcium (8.4-10.2) mg/dL Total Bilirubin (0.2-1.3) mg/dL AST (17-59) U/L ALT (4-49) U/L Alkaline Phosphatase (38-126) U/L Creatine Kinase (55-170) U/L Troponin I <0.012 (0.000-0.034) ng/mL Total Protein (6.3-8.2) g/dL Albumin (3.5-5.0) g/dL Globulin (1.6-3.3) g/dL Albumin/Globulin Ratio (1.60-3.17) Ratio Urine Color Colorless Urine Appearance Clear (Clear) Urine pH 7.0 (5.0-8.0) Ur Specific [place] 1.036 H (1.001-1.035) Urine Protein Negative (Negative) Urine Glucose (UA) Negative (Negative) Urine Ketones Negative (Negative) Urine Blood Large H (Negative) Urine Nitrite Negative (Negative) Urine Bilirubin Negative (Negative) Urine Urobilinogen <2.0 (<2.0) mg/dL Ur Leukocyte Esterase Moderate H (Negative) Urine RBC 127 H (0-5) /hpf Urine WBC 13 H (0-5) /hpf Ur Squamous Epith Cells <1 (0-4) /hpf Urine Mucus Rare H (None) /hpf Serum Alcohol mg/dL 05/20/23 05/20/23 Range/Units 06:33 06:33 WBC 10.77 H (3.8-10.6) k/uL RBC 4.06 L (4.30-5.90) m/uL Hgb 12.4 L (13.0-17.5) gm/dL Hct 35.2 L (39.0-53.0) % MCV 86.7 (80.0-100.0) fL MCH 30.5 (25.0-35.0) pg MCHC 35.2 (31.0-37.0) g/dL RDW 12.9 (11.5-15.5) % Plt Count 319 (150-450) k/uL MPV 9.3 L Immature Gran % (Auto) 0.40 % Absolute Nucleated RBC 0 % Neutrophils % 84.8 % Lymphocytes % 7.8 % Monocytes % 6.5 % Eosinophils % 0.2 % Basophils % 0.3 % Immature Gran # 0.04 (0.00-0.04) X 10*3/uL Neutrophils # 9.14 H (1.3-7.7) k/uL Lymphocytes # 0.84 L (1.0-4.8) k/uL Monocytes # 0.70 (0-1.0) k/uL Eosinophils # 0.02 L (0-0.7) k/uL Basophils # 0.03 (0-0.2) k/uL NRBC/100 WBC Diff 0 (0.00-0.01) X 10*3/uL PT (10.0-12.5) sec INR (<1.2) APTT (22.0-30.0) sec Sodium 128 L (137-145) mmol/L Potassium 4.1 (3.5-5.1) mmol/L Chloride 92 L (98-107) mmol/L Carbon Dioxide 25.2 (22-30) mmol/L Anion Gap 10.80 mmol/L BUN 17.7 (9-20) mg/dL Creatinine 0.7 (0.66-1.25) mg/dL Est GFR (CKD-EPI) 99 (>=60) Est GFR (CKD-EPI)AfAm (>60 ml/min/1.73 sqM) Est GFR (CKD-EPI)NonAf (>60 ml/min/1.73 sqM) BUN/Creatinine Ratio 25.29 H (12.00-20.00) Ratio Glucose 105 (74-99) mg/dL POC Glucose (mg/dL) (70-110) mg/dL POC Glu Windows Mobile Developer ID Calcium 8.6 L (8.4-10.2) mg/dL Total Bilirubin 1.0 (0.2-1.3) mg/dL AST 19 (17-59) U/L ALT 23 (4-49) U/L Alkaline Phosphatase 101 (38-126) U/L Creatine Kinase (55-170) U/L Troponin I (0.000-0.034) ng/mL Total Protein 6.3 (6.3-8.2) g/dL Albumin 3.7 L (3.5-5.0) g/dL Globulin 2.6 (1.6-3.3) g/dL Albumin/Globulin Ratio 1.42 L (1.60-3.17) Ratio Urine Color Urine Appearance (Clear) Urine pH (5.0-8.0) Ur Specific [place] (1.001-1.035) Urine Protein (Negative) Urine Glucose (UA) (Negative) Urine Ketones (Negative) Urine Blood (Negative) Urine Nitrite (Negative) Urine Bilirubin (Negative) Urine Urobilinogen (<2.0) mg/dL Ur Leukocyte Esterase (Negative) Urine RBC (0-5) /hpf Urine WBC (0-5) /hpf Ur Squamous Epith Cells (0-4) /hpf Urine Mucus (None) /hpf Serum Alcohol mg/dL Disposition Clinical Impression: Altered mental status, Dysarthria Disposition: ADMITTED IP TO THIS HOSP Condition: Good Is patient prescribed a controlled substance at d/c from ED?: No
[2023-05-19] MEDS ORDERED: ONDANSETRON 4 MG/2 ML VIAL IVP PRN (07:30)
[2023-05-19] MEDS ORDERED: NALOXONE 0.4 MG/ML 1 ML VIAL IV PRN (07:30)
[2023-05-19] MEDS ORDERED: MAG HYDROX/AL HYDROX/SIMETH 30 ML CUP PO PRN (07:30)
[2023-05-19] MEDS: SODIUM CHLORIDE 0.9% 1,000 ML IV SCH (08:06)
[2023-05-19] MEDS: FAMOTIDINE 20 MG TAB PO SCH (08:07)
[2023-05-19] MEDS: ACETAMINOPHEN TAB 325 MG TAB PO PRN (08:50)
[2023-05-19] MEDS ORDERED: ONDANSETRON 4 MG TAB PO PRN (09:38)
[2023-05-19] MEDS: hydroCHLOROthiazide 12.5 MG CAP PO SCH (10:12)
[2023-05-19 10:36] LABS: Appearance,Urine Clear (Clear); Bilirubin,Urine Negative (Negative); Blood,Urine Large (Negative); Color,Urine Colorless; Glucose,Urine (UA) Negative (Negative); Ketones,Urine Negative (Negative); Leukocyte Esterase,Urine Moderate (Negative); Mucus,Urine Rare /hpf; Nitrite,Urine Negative (Negative); Protein,Urine Negative (Negative); RBC,Urine 127 /hpf (0-5); Specific Gravity,Urine 1.036 (1.001-1.035); Squamous Epithelial Cell,Urine <1 /hpf (0-4); Urobilinogen,Urine <2.0 mg/dL (<2.0); WBC,Urine 13 /hpf (0-5)
[2023-05-19] MEDS: levETIRAcetam 500 MG TAB PO SCH (11:10)
[2023-05-19] MEDS: atenoloL 50 MG TAB PO SCH (11:42)
--- NOTE | 2023-05-19 13:05 | P.HPIM ---
History of Present Illness H&P Date: 05/19/23 Johnnie Estrada, is a 72-year-old male who presented to [facility] emergency room due to increased confusion and anxiety. Patient was brought in by his family who state that he has not been sleeping he is very restless, and he seems to be more anxious and confused. Patient was having some slurring with his speech and difficulty swallowing fluid and difficulty taking his pills. Patient was recently seen in [facility] emergency room after sustaining a fall he had evidence of intracerebral hemorrhage and subdural hematoma, he was transferred to [facility] at that time, he was monitored for few days and was discharged home, no intervention was necessary at that time, patient had a repeat computed tomography scan of the brain which revealed improvement in the size of the subdural hematoma. He was started on oral Keppra 500 mg twice a day during his stay at [facility]. However patient stopped taking Keppra on his own. Past medical history also significant for history of hypertension, history of hyperlipidemia, history of osteoarthritis, with history of bilateral hip replacements, history of AAA repair. He was evaluated in the emergency room vital examination on presentation revealed a temperature of 98 pulse 61 respiration 18 blood pressure 193/88 pulse ox 97% on room air Laboratory data revealed a white blood count of 14.0 hemoglobin 13.7 platelet count 352 sodium 131 potassium 4.7 chloride 99 CO2 24 BUN 27 creatinine 0.64 Testing in the emergency room revealed computed tomography scan of the brain reveals resolving bilateral inferior frontal lobe intraparenchymal hemorrhages, and stable small right extra-axial fluid collection or chronic subdural hematoma, no new or acute intracranial hemorrhage or midline shift. 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 History of Any Multi-Drug Resistant Organisms: None Reported Past Surgical History: Joint Replacement, Orthopedic Surgery Additional Past Surgical History / Comment(s): bilateral hip replacement, left hip revision, amputation of tip of left thumb, AAA-repair, tendons cut rt hand with repair Past Anesthesia/Blood Transfusion Reactions: No Reported Reaction Past Psychological History: No Psychological Hx Reported Smoking Status: Former smoker Past Alcohol Use History: Occasional Past Drug Use History: Marijuana - Past Family History Brother(s) Family Medical History: Cancer Additional Family Medical History / Comment(s): Melanoma. Father Family Medical History: Cancer, Myocardial Infarction ([place]) Medications and Allergies Home Medications Medication Instructions Recorded Confirmed Type Cetirizine HCl [Zyrtec] 10 mg PO DAILY 01/09/15 05/19/23 History Atorvastatin [Lipitor] 10 mg PO HS 05/11/19 05/19/23 History atenoloL [Tenormin] 50 mg PO W/LUNCH 05/11/19 05/19/23 History hydroCHLOROthiazide 12.5 mg PO DAILY 05/11/19 05/19/23 History Losartan [Cozaar] 50 mg PO BID 03/13/23 05/19/23 History Ondansetron [Zofran] 4 mg PO Q6H PRN 05/18/23 05/19/23 History Acetaminophen Tab [Tylenol Tab] 500 - 1,000 mg PO Q6H PRN 05/19/23 05/19/23 History Allergies Allergy/AdvReac Type Severity Reaction Status Date / Time No Known Allergies Allergy Verified 05/19/23 07:56 Physical Exam Vitals: Vital Signs Temp Pulse Resp BP Pulse Ox 05/19/23 07:27 60 16 166/89 97 05/19/23 06:37 57 L 18 154/104 96 05/19/23 05:50 61 18 173/94 97 05/19/23 05:40 98 F 61 18 193/88 97 Intake and Output 05/18/23 05/19/23 05/19/23 22:59 06:59 14:59 Other: Weight 93.44 kg In general patient is alert and oriented x 3 in no distress HEENT head normocephalic there is subcutaneous hematoma around both eyes especially the right Neck is supple no JVD no goiter no lymphadenopathy no carotid bruit Chest examination is clear to auscultation no crackles no wheezing Cardiac exam reveals regular heart sounds S1 and S2 no gallops no murmurs Abdomen is soft nontender no organomegaly with normal bowel sounds Extremity exam reveals no edema no cyanosis or clubbing Neurological examination reveals no gross focal deficits Results CBC & Chem 7: 05/19/23 06:03 05/19/23 06:03 Labs: Abnormal Lab Results - Last 24 Hours (Table) 05/19/23 05/19/23 Range/Units 06:03 06:03 WBC 14.0 H (3.8-10.6) k/uL Neutrophils # 11.9 H (1.3-7.7) k/uL Sodium 131 L (137-145) mmol/L BUN 27 H (9-20) mg/dL Creatinine 0.64 L (0.66-1.25) mg/dL Glucose 117 H (74-99) mg/dL Assessment and Plan Plan: Increased anxiety and confusion Recent history of fall with head trauma with intracerebral and subdural hematoma Episode of slurred speech and difficulty swallowing last night, possible TIA Evidence of urinary retention Underlying history of hypertension Underlying history of hyperlipidemia Underlying history of osteoarthritis At this time patient will be admitted for observation Neurology consultation was requested Urology consultation was requested for urinary retention Speech therapy consult was requested regarding slurred speech and difficulty swallowing Home medications reviewed and reordered For DVT prophylaxis we will use SCD stockings For GI prophylaxis Pepcid Will follow closely
[2023-05-19 14:21] LABS: Glucose,Whole Blood 123 mg/dL (70-110)
[2023-05-19] MEDS: ACETAMINOPHEN TAB 500 MG TAB PO PRN (14:34)
--- NOTE | 2023-05-19 17:36 | P.CNNES ---
History of Present Illness Consult date: 05/19/23 Requesting physician: Kermit Willams Reason for Consult: Mental status change History of Present Illness: Patient is a 72-year-old right-handed male with history of recent traumatic brain injury, subdural hematoma on 05/05/2023, brought to the hospital by family this morning at 5:38 AM for bifacial weakness, slurred speech and mental confusion. Patient suffered from traumatic brain injury on 05/05/2023 after he suffered from a fall while trying to fix the windowsill of the camper during the snowstorm. He did lose consciousness. Per patient's son-in-law, he fell 3 times [id number], once hitting the trailer hitch, then getting up and falling in the driveway on the concrete twice. He suffered from right open orbital bone fracture, subdural hematoma, subarachnoid hemorrhage, and bilateral frontal contusion. He had bilateral raccoon's eyes and left hemotympanum, and he was transferred to [facility]. He stayed there in the hospital, was observed for a few days and was released. He subsequently was seen by Dr. Espinal as an outpatient, underwent repeat CT head on 05/13/2023 revealed sequela of bilateral frontal lobe contusions. Decreased size of subdural hematoma along the left anterior falx. No midline shift. Decreased subarachnoid hemorrhage bilaterally along the frontal lobes. Redemonstration of fractures of the bilateral superior orbital moseley and right superior ethmoid sinus. Redemonstration of extensive nondisplaced fracture extending from the right parietal bone crossing midline to the left frontal bone extending into the left temporal bone. There is extension into the mastoid air cells with opacification demonstrated. Patient has been placed on Keppra, but patient started having mental status problem, confusion. He is not sleeping well, gets irritable sometimes. Therefore family stopped giving him Keppra and the last dose was Friday, 3 days prior to arrival. Vital signs on arrival blood pressure 193/88, pulse 61 temperature 98.0. Blood test shows WBC 14.0 hemoglobin 13.7, platelets are normal. PT PTT normal. Sodium 131 potassium 4.7, BUN 27 creatinine 0.64. Hepatic panel is normal, CK and troponin negative. Urine showed moderate leukocyte esterase, 13 WBCs and large amount of blood. Blood alcohol level is negative. This morning he was noted to be very confused, noticed slurred speech, bifacial weakness therefore they brought him back to the hospital. He has been saying random stuff, kept going to the bathroom every few minutes. He was brought to the hospital yesterday at 5:32 PM. Patient was found to have acute urinary retention dehydration weakness. He was hydrated and sent home last night at around 9:30 PM. He remained confused at home. This morning, at around 3 to 4 AM patient was noted to have bifacial weakness, slurred speech, difficulty swallowing, confusion, was not able to pass the urine. For these multiple symptoms, he was brought back to the hospital. Patient's son states that he can talk, but gets confused. 1 time he was standing right in front of him and patient asked if his son was gone. At 2:30 PM today, he woke up from sleep and became very agitated, confused, restless, trying to get out of the bed and pulled IV lines. He was sitting up, did not know what was going on and what he wanted to do. He has been started back on Keppra. Patient's son-in-law mentions that he drinks alcohol occasionally. He has not smoked tobacco for last 50 years. He smokes pot once in a while. Patient has history of neuropathy, hip issues, history of AAA repair. Patient has been on aspirin 81 mg daily for 3 years since his AAA repair. He is off aspirin since his TBI. Review of Systems Constitutional: Denies chills, Denies fever Eyes: denies blurred vision, denies diplopia, denies pain, denies loss of peripheral vision Ears: left: decreased hearing (From fall), deny: earache Ears, nose, mouth and throat: Denies headache, Denies sore throat, Denies vertigo Cardiovascular: Denies chest pain, Denies lightheadedness, Denies shortness of breath Respiratory: Reports cough, Denies excessive sputum Gastrointestinal: Reports nausea, Denies abdominal pain, Denies diarrhea, Denies vomiting Genitourinary: Reports urinary frequency, Reports urinary retention Musculoskeletal: Reports low back pain (For 1 week), Denies myalgias, Denies neck pain Integumentary: Denies pruritus, Denies rash Neurological: Reports as per HPI, Reports change in speech, Reports paralysis (facial) Psychiatric: Reports memory loss, Denies anxiety, Denies depression Hematologic/Lymphatic: Reports easy bleeding, Reports easy bruising Past Medical History Past Medical History: Hypertension Additional Past Medical History / Comment(s): seasonal allergies, 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 History of Any Multi-Drug Resistant Organisms: None Reported Past Surgical History: Joint Replacement, Orthopedic Surgery Additional Past Surgical History / Comment(s): bilateral hip replacement, left hip revision, amputation of tip of left thumb, AAA-repair, tendons cut rt hand with repair Past Anesthesia/Blood Transfusion Reactions: No Reported Reaction Past Psychological History: No Psychological Hx Reported Smoking Status: Former smoker Past Alcohol Use History: Occasional Past Drug Use History: Marijuana - Past Family History Brother(s) Family Medical History: Cancer Additional Family Medical History / Comment(s): Melanoma. Father Family Medical History: Cancer, Myocardial Infarction ([place]) Medications and Allergies Home Medications Medication Instructions Recorded Confirmed Type Cetirizine HCl [Zyrtec] 10 mg PO DAILY 01/09/15 05/19/23 History Atorvastatin [Lipitor] 10 mg PO HS 05/11/19 05/19/23 History atenoloL [Tenormin] 50 mg PO W/LUNCH 05/11/19 05/19/23 History hydroCHLOROthiazide 12.5 mg PO DAILY 05/11/19 05/19/23 History Losartan [Cozaar] 50 mg PO BID 03/13/23 05/19/23 History Ondansetron [Zofran] 4 mg PO Q6H PRN 05/18/23 05/19/23 History Acetaminophen Tab [Tylenol Tab] 500 - 1,000 mg PO Q6H PRN 05/19/23 05/19/23 History Allergies Allergy/AdvReac Type Severity Reaction Status Date / Time No Known Allergies Allergy Verified 05/19/23 07:56 Physical Examination - Vital Signs Vital Signs: Vital Signs Temp Pulse Resp BP Pulse Ox 05/19/23 11:09 70 18 145/70 97 05/19/23 10:00 60 16 151/71 96 05/19/23 07:27 60 16 166/89 97 05/19/23 06:37 57 L 18 154/104 96 05/19/23 05:50 61 18 173/94 97 05/19/23 05:40 98 F 61 18 193/88 97 Intake and Output 05/19/23 05/19/23 05/19/23 06:59 14:59 22:59 Output Total 800 Balance -800 Output: Urine 800 Other: Weight 93.44 kg Patient is an elderly male, who appears somewhat delirious, restless, confused. Patient is alert awake oriented to time place and person. He knows it is May and the year is 24 and that he is in [facility] in [place]. He knows name of the current president. Speech is mildly dysarthric because of bifacial weakness and language functions are normal. Patient can name all objects presented, and repeat very well. Attention, concentration is slightly impaired and fund of knowledge is adequate. Detailed cognitive examination deferred. On cranial nerve examination, pupils are equal, round and reacting to light, visual winters are full on confrontation, with no neglect on double simultaneous stimulation. Patient has right injected conjunctiva. Extraocular muscles are intact with no nystagmus. Patient has bifacial weakness, left side is worse than the right. It is probably peripheral involving the upper and lower facial nerves bilaterally. His tongue protrudes to the midline. Palatal elevation and sensation normal, hearing is decreased on the left and shoulder shrug normal, facial sensation normal. He has residual hematoma/bruise over his zygomatic region bilaterally. On muscle strength testing, there is no pronator drift and the strength is normal in arms and legs distally and proximally, except hip flexion which is about 4 to 4-bilaterally. Deep tendon reflexes are (right/left) biceps trace/1+, brachioradialis trace/1+, very hypoactive in the lower limbs and plantars are probably downgoing. Sensory to touch is equal with no neglect on double simultaneous stimulation. Cerebellar function showed mid ataxia for cysmic-ha-vofy testing only in the right upper limb but not on the left. No dysdiadochokinesia. No ataxia for gzke-es-jnab testing on either side. Tone and bulk of muscles normal. Gait deferred.. On general examination, there is no carotid bruit or murmur, S1-S2 audible. Chest is clear on consultation. Abdomen is soft nontender. No organomegaly, bowel sounds present. Peripheral pulses are present. No peripheral edema. Results - Laboratory Findings CBC and BMP: 05/19/23 06:03 05/19/23 06:03 Abnormal Lab Findings: Abnormal Labs 05/19/23 05/19/23 05/19/23 06:03 06:03 10:22 WBC 14.0 H Neutrophils # 11.9 H Sodium 131 L BUN 27 H Creatinine 0.64 L Glucose 117 H POC Glucose (mg/dL) Ur Specific [place] 1.036 H Urine Blood Large H Ur Leukocyte Esterase Moderate H Urine RBC 127 H Urine WBC 13 H Urine Mucus Rare H 05/19/23 14:19 WBC Neutrophils # Sodium BUN Creatinine Glucose POC Glucose (mg/dL) 123 H Ur Specific [place] Urine Blood Ur Leukocyte Esterase Urine RBC Urine WBC Urine Mucus Assessment and Plan Assessment: * History of traumatic brain injury, with bilateral frontal confusion, subdural hematoma, subarachnoid hemorrhage, and orbital bone fracture on 05/05/2023, improving * Patient has developed acute onset bifacial weakness (peripheral type, worse on the left), of unclear cause. Doubt CVA with lack of other neurological findings, except minimal dysmetria for [id number]-eu-vxor on the right. Rule out CVA versus mechanical compression of facial nerves from history of skull fracture 05/05/2023. Doubt bilateral Desai's palsy. * Hypertension * History of peripheral neuropathy * History of AAA repair * Marijuana use Plan: * Patient has developed acute onset bifacial weakness, of unclear cause. Doubt CVA with lack of other neurological findings, except minimal dysmetria for [id number] on the right. Rule out mechanical compression of the facial nerves from recent skull fracture, or swelling. * Check MRI of the brain with and without contrast * Consider ENT consultation * CT head showed resolving bilateral inferior frontal lobe intraparenchymal hemorrhages. Stable small right extra-axial fluid collection or chronic subdural hematoma. No new acute intracranial hemorrhage or midline shift. I personally reviewed CT head, agree with the findings. * CTA of head and neck revealed moderate to severe noncalcified plaques bilateral proximal ICA causes stenosis, approaching but under 50%. No large vessel occlusion or aneurysm in the [place] of [place]. * No aspirin or antiplatelets or anticoagulants at this time because of risk of worsening or recurrence of subdural hematoma. * Check EEG for mental confusion, rule out focal seizures. Patient started back on Keppra 500 mg twice daily. * Optimize control of blood pressure * DVT prophylaxis: SCDs * Neurology will follow. Thank you for the consult. Time with Patient: Greater than 30
[2023-05-19] MEDS: hydrALAZINE HCL 20 MG/ML 1 ML VIAL IVP PRN (18:21)
--- NOTE | 2023-05-19 18:46 | FL ---
Exam Date: 05/19/2023 3:07 PM. Modified barium swallow for dysphagia. Consistencies administered: Various consistency of barium. No images were sent to PACS. Please see speech pathology report. Oropharyngeal dysphagia. Shazia/ NIKUNJ/ GRACY. 1 min 26 sec fluoro time. 245.86 DAP. Pt given 1 oz thin, hon ey, nectar, pudding.
[2023-05-19] MEDS: ALPRAZolam 0.25 MG TAB PO PRN (19:53)
[2023-05-19] MEDS: ATORVASTATIN 10 MG TAB PO SCH (19:53)
[2023-05-19] MEDS: LOSARTAN 50 MG TAB PO SCH (19:53)
--- NOTE | 2023-05-20 08:52 | P.PN ---
Subjective Progress Note Date: 05/20/23 Johnnie Estrada, is a 72-year-old male who presented to [facility] emergency room due to increased confusion and anxiety. Patient was brought in by his family who state that he has not been sleeping he is very restless, and he seems to be more anxious and confused. Patient was having some slurring with his speech and difficulty swallowing fluid and difficulty taking his pills. Patient was recently seen in [facility] emergency room after sustaining a fall he had evidence of intracerebral hemorrhage and subdural hematoma, he was transferred to [facility] at that time, he was monitored for few days and was discharged home, no intervention was necessary at that time, patient had a repeat computed tomography scan of the brain which revealed improvement in the size of the subdural hematoma. He was started on oral Keppra 500 mg twice a day during his stay at [facility]. However patient stopped taking Keppra on his own. Past medical history also significant for history of hypertension, history of hyperlipidemia, history of osteoarthritis, with history of bilateral hip replacements, history of AAA repair. He was evaluated in the emergency room vital examination on presentation revealed a temperature of 98 pulse 61 respiration 18 blood pressure 193/88 pulse ox 97% on room air Laboratory data revealed a white blood count of 14.0 hemoglobin 13.7 platelet count 352 sodium 131 potassium 4.7 chloride 99 CO2 24 BUN 27 creatinine 0.64 Testing in the emergency room revealed computed tomography scan of the brain reveals resolving bilateral inferior frontal lobe intraparenchymal hemorrhages, and stable small right extra-axial fluid collection or chronic subdural hematoma, no new or acute intracranial hemorrhage or midline shift. Chest x-ray was done in the emergency room and revealed no acute process, CT angiogram of the brain revealed moderate to severe noncalcified Plake bilateral proximal internal carotid arteries, which causes stenosis approaching but under 50%, no large vessel occlusion or aneurysm at the level of the [place] Patient was admitted to medical floor for further evaluation and treatment On 05/20/2023 patient is currently resting in bed at bedside. Patient continued to have agitation throughout the night per . MRI and EEG has been ordered per neurology services. Current vital signs temp 97.4, heart 70, respiratory rate 18, blood pressure 155/65 with a pulse ox of 96%. ENT service is consulted due to possible facial nerve compression. Neurology and urology service is following Objective - Vital Signs Vital signs: Vital Signs Temp 97.4 F L 05/20/23 07:55 Pulse 58 L 05/20/23 07:55 Resp 18 05/20/23 07:55 BP 171/68 05/20/23 07:55 Pulse Ox 98 05/20/23 07:55 FiO2 Intake & Output 05/19/23 05/20/23 05/20/23 18:59 06:59 18:59 Output Total 1650 1400 Balance -1650 -1400 Weight 93.44 kg Output: Urine 1650 1400 Other: Voiding Method Indwelling Catheter - Exam In general patient is alert and oriented x 3 in no distress HEENT head normocephalic there is subcutaneous hematoma around both eyes especially the right Neck is supple no JVD no goiter no lymphadenopathy no carotid bruit Chest examination is clear to auscultation no crackles no wheezing Cardiac exam reveals regular heart sounds S1 and S2 no gallops no murmurs Abdomen is soft nontender no organomegaly with normal bowel sounds Extremity exam reveals no edema no cyanosis or clubbing Neurological examination reveals no gross focal deficits - Labs CBC & Chem 7: 05/19/23 06:03 05/19/23 06:03 Labs: Abnormal Lab Results - Last 24 Hours (Table) 05/19/23 05/19/23 Range/Units 10:22 14:19 POC Glucose (mg/dL) 123 H (70-110) mg/dL Ur Specific [place] 1.036 H (1.001-1.035) Urine Blood Large H (Negative) Ur Leukocyte Esterase Moderate H (Negative) Urine RBC 127 H (0-5) /hpf Urine WBC 13 H (0-5) /hpf Urine Mucus Rare H (None) /hpf Assessment and Plan Plan: Increased anxiety and confusion Recent history of fall with head trauma with intracerebral and subdural hematoma Episode of slurred speech and difficulty swallowing last night, possible TIA Evidence of urinary retention Underlying history of hypertension Underlying history of hyperlipidemia Underlying history of osteoarthritis At this time patient will be admitted for observation Neurology consultation was requested Urology consultation was requested for urinary retention ENT service is consulted for possible nerve compression Speech therapy consult was requested regarding slurred speech and difficulty swallowing Home medications reviewed and reordered For DVT prophylaxis we will use SCD stockings For GI prophylaxis Pepcid Will follow closely
[2023-05-20] MEDS: LORATADINE 10 MG TAB PO SCH (11:10)
[2023-05-20 11:13] LABS: Basophils # (A) 0.03 X 10*3/uL (0.00-0.10); Basophils % (A) 0.3 %; Eosinophils # (A) 0.02 X 10*3/uL (0.04-0.35); Eosinophils % (A) 0.2 %; HCT 35.2 % (39.6-50.0); HGB 12.4 g/dL (13.0-17.0); Lymphocytes # (A) 0.84 X 10*3/uL (0.90-5.00); Lymphocytes % (A) 7.8 %; MCH 30.5 pg (27.0-32.0); MCHC 35.2 g/dL (32.0-37.0); MCV 86.7 FL (80.0-97.0); Mean Platelet Volume 9.3 FL (9.5-12.2); Monocytes % (A) 6.5 %; NRBC Per 100 WBC 0 X 10*3/uL (0.00-0.01); Neutrophils # (A) 9.14 X 10*3/uL (1.80-7.70); Neutrophils % (A) 84.8 %; Platelet Count 319 X 10*3/uL (140-440); RBC 4.06 X 10*6/uL (4.40-5.60); RDW 12.9 % (11.5-14.5); WBC 10.77 X 10*3/uL (4.50-10.00)
[2023-05-20 11:16] LABS: ALT 23 U/L (10-49); AST 19 U/L (14-35); Albumin 3.7 g/dL (3.8-4.9); Albumin/Globulin Ratio 1.42 Ratio (1.60-3.17); Alkaline Phosphatase 101 U/L (41-126); BUN/Creat Ratio 25.29 Ratio (12.00-20.00); Blood Urea Nitrogen 17.7 mg/dL (9.0-27.0); Calcium 8.6 mg/dL (8.7-10.3); Carbon Dioxide 25.2 mmol/L (21.6-31.8); Chloride 92 mmol/L (96-109); Globulin 2.6 g/dL (1.6-3.3); Glucose 105 mg/dL (70-110); Potassium 4.1 mmol/L (3.5-5.5); Sodium 128 mmol/L (135-145); Total Protein 6.3 g/dL (6.2-8.2)
--- NOTE | 2023-05-20 14:34 | MR ---
EXAMINATION TYPE: MR brain wo/w con DATE OF EXAM: 05/20/2023 1:36 PM COMPARISON: CT 05/19/2023 HISTORY: Facial weakness, confusion. CONTRAST: Patient received 9 mL intravenous Gadavist gadolinium contrast. Multiplanar and multispin-echo imaging of the brain was performed . Pre and post contrast enhanced i mages are obtained. The ventricles, basal cisterns and sulci overlying the cerebral convexities are mildly enlarged. There is evidence of mildly periventricular white matter ischemic demyelination. There are multiple bifrontal intraparenchymal and subcortical hemorrhage is noted measuring up to 1.5 cm right frontal lobe and up to 1.2 cm left frontal temporal region. There is surrounding edema note d without midline shift. Small subarachnoid hemorrhage noted bilaterally. Subdural hematoma seen on C T along the left anterior pascal is not identified with absolute certainty at this time. No definite new areas of hemorrhage. Suspect improving subdural hematoma along the right frontal parietal region. Ma ximal thickness of 3.8 mm. Previously described fractures seen on recent CT are redemonstrated. No enhancing lesions are seen. Fluid is noted within the left-sided mastoid air cells with the previously described mastoid fracture . IMPRESSION: 1. Multiple intraparenchymal and subcortical contusive hemorrhages noted with surrounding edema. Ther e is no evidence for midline shift. 2. Small subarachnoid hemorrhage seen as well as improving right subdural hematoma.
--- NOTE | 2023-05-20 16:51 | P.GSCN ---
History of Present Illness Consult date: 05/20/23 Reason for Consult: Urinary Retention Requesting physician: Bryant Méndez History of present illness: The patient is a 72-year-old white male who recently fell and sustained an intracerebral hemorrhage and subdural hematoma. He was transferred to [facility] for care. A repeat CT scan of the brain showed improvement in the size of the subdural hematoma. He presented to the ER on May 18, 2023 with a 48- hour history of difficulty voiding. A Mittal catheter was placed, with 1200 mL return. He was admitted yesterday with increased confusion and anxiety. Review of Systems - Genitourinary Reports as per HPI Past Medical History Past Medical History: Hypertension Additional Past Medical History / Comment(s): seasonal allergies, 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 History of Any Multi-Drug Resistant Organisms: None Reported Past Surgical History: Joint Replacement, Orthopedic Surgery Additional Past Surgical History / Comment(s): bilateral hip replacement, left hip revision, amputation of tip of left thumb, AAA-repair, tendons cut rt hand with repair Past Anesthesia/Blood Transfusion Reactions: No Reported Reaction Past Psychological History: No Psychological Hx Reported Additional Psychological History / Comment(s): . 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 No animals in the home Smoking Status: Former smoker Past Alcohol Use History: Occasional Additional Past Alcohol Use History / Comment(s): smoked 10-11 years 3 ppd quit in 20's Past Drug Use History: Marijuana Additional Drug Use History / Comment(s): cbd oils,edible - Past Family History Brother(s) Family Medical History: Cancer Additional Family Medical History / Comment(s): Melanoma. Father Family Medical History: Cancer, Myocardial Infarction ([place]) Medications and Allergies Home Medications Medication Instructions Recorded Confirmed Type Cetirizine HCl [Zyrtec] 10 mg PO DAILY 01/09/15 05/19/23 History Atorvastatin [Lipitor] 10 mg PO HS 05/11/19 05/19/23 History atenoloL [Tenormin] 50 mg PO W/LUNCH 05/11/19 05/19/23 History hydroCHLOROthiazide 12.5 mg PO DAILY 05/11/19 05/19/23 History Losartan [Cozaar] 50 mg PO BID 03/13/23 05/19/23 History Ondansetron [Zofran] 4 mg PO Q6H PRN 05/18/23 05/19/23 History Acetaminophen Tab [Tylenol Tab] 500 - 1,000 mg PO Q6H PRN 05/19/23 05/19/23 History Allergies Allergy/AdvReac Type Severity Reaction Status Date / Time No Known Allergies Allergy Verified 05/19/23 07:56 Surgical - Exam Vital Signs Temp Pulse Resp BP Pulse Ox 98 F 61 18 193/88 97 05/19/23 05:40 05/19/23 05:40 05/19/23 05:40 05/19/23 05:40 05/19/23 05:40 - General well developed, well nourished, no distress - Respiratory normal respiratory effort - Abdomen Abdomen: soft, non tender, no guarding, no rigid, no rebound - Genitourinary normal penis with no external lesions, testicles non-tender - Rectum Rectum: normal sphincter tone, no masses, other (Prostate approximately 30 g in size, smooth in consistency) Results - Labs 05/20/23 06:33 05/20/23 06:33 Abnormal Lab Results - Last 24 Hours (Table) 05/19/23 05/19/23 Range/Units 10:22 14:19 POC Glucose (mg/dL) 123 H (70-110) mg/dL Ur Specific [place] 1.036 H (1.001-1.035) Urine Blood Large H (Negative) Ur Leukocyte Esterase Moderate H (Negative) Urine RBC 127 H (0-5) /hpf Urine WBC 13 H (0-5) /hpf Urine Mucus Rare H (None) /hpf Assessment and Plan (1) Retention of urine, unspecified Current Visit: Yes Status: Acute Code(s): R33.9 - RETENTION OF URINE, UNSPECIFIED SNOMED Code(s): 579490930 Plan: The etiology of Mr. Goss's urinary retention is unclear. It may of course be due to BPH. Patients frequently experience urinary retention for approximately 60 days following a cerebrovascular accident. MRI suggests that Mr. Estrada has cerebral contusions in addition to the subdural hematoma, and it is thus possible that there may be a neurological component to his urinary ret ention. I would suggest that the Mittal catheter remain in place until his neurologic status is more clear. It would then be reasonable to give him a voiding trial. I would suggest tamsulosin be started prior to that voiding trial. Time with Patient: Greater than 30
[2023-05-20] MEDS: HYDROmorphone 0.5 MG/0.5 ML SYRINGE IVP PRN (22:33)
--- NOTE | 2023-05-21 00:39 | EEG ---
ELECTROENCEPHALOGRAM REPORT PREAMBLE: This is a 72-year-old male with recent history of traumatic brain injury on 05/05/2023, with subsequent subdural hematoma, subarachnoid hemorrhage, skull fracture, has episodes of confusion. This study is performed to evaluate for any epileptiform activity. EEG FINDINGS: This is a 21-channel digital EEG recorded with video component, utilizing 10/20 international system with referential and bipolar montages. The patient was probably drowsy during most of the study, with background showing presence of bilaterally symmetric theta frequency rhythm. Some intermittent dysrhythmic focal delta slowing was seen in left more than right temporal region. During later part of the study, the patient was probably more awake and relatively well-formed alpha rhythm was seen, intermixed with some fast frequency beta. Deeper stages of sleep were not seen. No focal or generalized epileptiform activity was seen. IMPRESSION: This is an abnormal EEG due to intermittent focal slowing, the left more than right temporal region, suggestive of focal cortical neuronal dysfunction. No definitive focal or generalized epileptiform activity was seen. Consider prolonged, sleep- deprived EEG, if your suspicion for seizures is high. MMODL / IJN: [id number] / JOSÉ MIGUEL
--- NOTE | 2023-05-21 10:21 | P.PN ---
Subjective Progress Note Date: 05/21/23 Johnnie Estrada, is a 72-year-old male who presented to [facility] emergency room due to increased confusion and anxiety. Patient was brought in by his family who state that he has not been sleeping he is very restless, and he seems to be more anxious and confused. Patient was having some slurring with his speech and difficulty swallowing fluid and difficulty taking his pills. Patient was recently seen in [facility] emergency room after sustaining a fall he had evidence of intracerebral hemorrhage and subdural hematoma, he was transferred to [facility] at that time, he was monitored for few days and was discharged home, no intervention was necessary at that time, patient had a repeat computed tomography scan of the brain which revealed improvement in the size of the subdural hematoma. He was started on oral Keppra 500 mg twice a day during his stay at [facility]. However patient stopped taking Keppra on his own. Past medical history also significant for history of hypertension, history of hyperlipidemia, history of osteoarthritis, with history of bilateral hip replacements, history of AAA repair. He was evaluated in the emergency room vital examination on presentation revealed a temperature of 98 pulse 61 respiration 18 blood pressure 193/88 pulse ox 97% on room air Laboratory data revealed a white blood count of 14.0 hemoglobin 13.7 platelet count 352 sodium 131 potassium 4.7 chloride 99 CO2 24 BUN 27 creatinine 0.64 Testing in the emergency room revealed computed tomography scan of the brain reveals resolving bilateral inferior frontal lobe intraparenchymal hemorrhages, and stable small right extra-axial fluid collection or chronic subdural hematoma, no new or acute intracranial hemorrhage or midline shift. Chest x-ray was done in the emergency room and revealed no acute process, CT angiogram of the brain revealed moderate to severe noncalcified [place] bilateral proximal internal carotid arteries, which causes stenosis approaching but under 50%, no large vessel occlusion or aneurysm at the level of the [place] Patient was admitted to medical floor for further evaluation and treatment On 05/20/2023 patient is currently resting in bed at bedside. Patient continued to have agitation throughout the night per . MRI and EEG has been ordered per neurology services. Current vital signs temp 97.4, heart 70, respiratory rate 18, blood pressure 155/65 with a pulse ox of 96%. ENT service is consulted due to possible facial nerve compression. Neurology and urology service is following On 05/21/2023 patient is resting comfortably in bed. MRI and EEG has been completed. Awaiting ENT input. Patient will be started on Flomax per urology recommendation. PT OT services consulted. At this time patient denies chest pain or shortness of breath. Patient denies nausea vomiting or diarrhea. Patient denies any urinary burning or frequency Objective - Vital Signs Vital signs: Vital Signs Temp 98.0 F 05/21/23 07:45 Pulse 64 05/21/23 07:45 Resp 18 05/21/23 07:45 BP 176/85 05/21/23 07:45 Pulse Ox 97 05/21/23 07:45 FiO2 Intake & Output 05/20/23 05/21/23 05/21/23 18:59 06:59 18:59 Output Total 1350 1000 Balance -1350 -1000 Output: Urine 1350 1000 Other: Voiding Method Indwelling Catheter Indwelling Catheter # Bowel Movements 1 - Exam In general patient is alert and oriented x 3 in no distress HEENT head normocephalic there is subcutaneous hematoma around both eyes especially the right Neck is supple no JVD no goiter no lymphadenopathy no carotid bruit Chest examination is clear to auscultation no crackles no wheezing Cardiac exam reveals regular heart sounds S1 and S2 no gallops no murmurs Abdomen is soft nontender no organomegaly with normal bowel sounds Extremity exam reveals no edema no cyanosis or clubbing Neurological examination reveals no gross focal deficits - Labs CBC & Chem 7: 05/20/23 06:33 05/20/23 06:33 Labs: Abnormal Lab Results - Last 24 Hours (Table) 05/20/23 05/20/23 Range/Units 06:33 06:33 WBC 10.77 H (4.50-10.00) X 10*3/uL RBC 4.06 L (4.40-5.60) X 10*6/uL Hgb 12.4 L (13.0-17.0) g/dL Hct 35.2 L (39.6-50.0) % MPV 9.3 L (9.5-12.2) FL Neutrophils # 9.14 H (1.80-7.70) X 10*3/uL Lymphocytes # 0.84 L (0.90-5.00) X 10*3/uL Eosinophils # 0.02 L (0.04-0.35) X 10*3/uL Sodium 128 L (135-145) mmol/L Chloride 92 L (96-109) mmol/L BUN/Creatinine Ratio 25.29 H (12.00-20.00) Ratio Calcium 8.6 L (8.7-10.3) mg/dL Albumin 3.7 L (3.8-4.9) g/dL Albumin/Globulin Ratio 1.42 L (1.60-3.17) Ratio Microbiology - Last 24 Hours (Table) 05/19/23 14:40 Blood Culture - Preliminary Blood 05/19/23 14:33 Blood Culture - Preliminary Blood Assessment and Plan Plan: Increased anxiety and confusion Recent history of fall with head trauma with intracerebral and subdural hematoma Episode of slurred speech and difficulty swallowing last night, possible TIA Evidence of urinary retention. Patient started on Flomax Underlying history of hypertension Underlying history of hyperlipidemia Underlying history of osteoarthritis At this time patient will be admitted for observation Neurology consultation was requested Urology consultation was requested for urinary retention ENT service is consulted for possible nerve compression Speech therapy consult was requested regarding slurred speech and difficulty swallowing MRI and EEG completed Home medications reviewed and reordered For DVT prophylaxis we will use SCD stockings For GI prophylaxis Pepcid Will follow closely
--- NOTE | 2023-05-21 10:42 | P.PN ---
Subjective Progress Note Date: 05/20/23 Patient was seen for a follow-up. Patient's was also present. Patient is clinically not any better. Continues to have severe bifacial weakness, which is worse on the left side as compared to the right. Patient's mentions that patient is having difficulty swallowing, pulls food under the cheek, the right side is slightly better than the left. Patient denies any headache at this time. Patient's mentions that after patient suffered from TBI, he was placed on Keppra and was doing quite well. He was given prescription of Keppra for 7 days. After Keppra was discontinued, he started having repetitive behavior, in which he would continuously go from his bedroom to the bathroom [id number]. Or he would go from 1 bedroom to another, and then [id number]. Sometimes he would be just restless, get in and out of the bed. Family discussed this repetitive behavior with his neur ologist Dr. Espinal, who placed him back on Keppra. Since then patient has been more irritable, mixing days and nights. However the facial weakness started just on the day of this current admission. Objective - Vital Signs Vital signs: Vital Signs Temp 97.4 F L 05/20/23 07:55 Pulse 58 L 05/20/23 08:00 Resp 18 05/20/23 08:00 BP 171/68 05/20/23 07:55 Pulse Ox 98 05/20/23 07:55 FiO2 Intake & Output 05/19/23 05/20/23 05/20/23 18:59 06:59 18:59 Output Total 1650 1400 Balance -1650 -1400 Weight 93.44 kg Output: Urine 1650 1400 Other: Voiding Method Indwelling Catheter Indwelling Catheter - Exam Examination remains unchanged, continues to have bifacial weakness. - Labs CBC & Chem 7: 05/20/23 06:33 05/20/23 06:33 Labs: Abnormal Lab Results - Last 24 Hours (Table) 05/19/23 Range/Units 14:19 POC Glucose (mg/dL) 123 H (70-110) mg/dL Assessment and Plan Assessment: * History of traumatic brain injury, with bilateral frontal confusion, subdural hematoma, subarachnoid hemorrhage, and orbital bone fracture on 05/05/2023, improving * Patient has developed acute onset bifacial weakness (peripheral type, worse on the left), of unclear cause. Doubt CVA with lack of other neurological findings, except minimal dysmetria for oygeun-[id number]-iisl on the right. Rule out CVA versus mechanical compression of facial nerves from history of skull fracture 05/05/2023. Doubt bilateral Desai's palsy. * Hypertension * History of peripheral neuropathy * History of AAA repair * Marijuana use Plan: * Patient has developed acute onset bifacial weakness (left worse than right), of unclear cause. MRI of the brain ruled out any acute ischemic process.. Rule out mechanical compression of the facial nerves from recent skull fracture, or swelling. Rule out inflammatory process, like Gu[place] Willoughby syndrome. * MRI of the brain revealed multiple intraparenchymal and subcortical contusive hemorrhages noted with surrounding edema. There is no evidence for midline shift. Small subarachnoid hemorrhage seen as well as improving right subdural hematoma. I personally reviewed MRI agree with the findings. No evidence of an acute ischemic stroke. * Await ENT consultation. * I discussed with Dr. Méndez, about empiric treatment with prednisone for bifacial weakness. This however has potential side effect of delirium getting worse. Primary physician wants to hold off on high-dose prednisone at this time, pending ENT consultation. Bifacial weakness can also occur with inflammatory process like Guillain-Willoughby syndrome. No recent history of upper respiratory infection. * CT head showed resolving bilateral inferior frontal lobe intraparenchymal hemorrhages. Stable small right extra-axial fluid collection or chronic subdural hematoma. No new acute intracranial hemorrhage or midline shift. I personally reviewed CT head, agree with the findings. * CTA of head and neck revealed moderate to severe noncalcified plaques bilateral proximal ICA causes stenosis, approaching but under 50%. No large vessel occlusion or aneurysm in the [place]. * No aspirin or antiplatelets or anticoagulants at this time because of risk of worsening or recurrence of subdural hematoma. * EEG was performed, which was abnormal due to intermittent focal slowing, left more than right temporal region, suggestive of focal cortical neuronal dysfunction. No definitive focal or generalized epileptiform activity was seen. Consider prolonged, sleep deprived EEG, if your suspicion for seizures is high. Patient's family is noticing behavioral problems from Keppra. This will be discontinued. If patient has any definitive seizure activity, then we will consider Vimpat or Trileptal, although later has more mood stabilization properties. Discussed with primary physician as well. Agreed with stopping Keppra at this time. * Optimize control of blood pressure * DVT prophylaxis: SCDs
[2023-05-21 11:04] LABS: Basophils # (A) 0.02 X 10*3/uL (0.00-0.10); Basophils % (A) 0.2 %; Eosinophils # (A) 0.03 X 10*3/uL (0.04-0.35); Eosinophils % (A) 0.4 %; HCT 37.3 % (39.6-50.0); HGB 12.9 g/dL (13.0-17.0); Lymphocytes # (A) 0.72 X 10*3/uL (0.90-5.00); Lymphocytes % (A) 8.7 %; MCH 30.3 pg (27.0-32.0); MCHC 34.6 g/dL (32.0-37.0); MCV 87.6 FL (80.0-97.0); Mean Platelet Volume 9.6 FL (9.5-12.2); Monocytes # (A) 0.68 X 10*3/uL (0.20-1.00); Monocytes % (A) 8.3 %; NRBC Per 100 WBC 0 X 10*3/uL (0.00-0.01); Neutrophils # (A) 6.75 X 10*3/uL (1.80-7.70); Platelet Count 320 X 10*3/uL (140-440); RBC 4.26 X 10*6/uL (4.40-5.60); RDW 12.7 % (11.5-14.5); WBC 8.23 X 10*3/uL (4.50-10.00)
[2023-05-21 11:30] LABS: ALT 22 U/L (10-49); AST 27 U/L (14-35); Albumin 3.5 g/dL (3.8-4.9); Albumin/Globulin Ratio 1.21 Ratio (1.60-3.17); Alkaline Phosphatase 104 U/L (41-126); BUN/Creat Ratio 26.14 Ratio (12.00-20.00); Blood Urea Nitrogen 18.3 mg/dL (9.0-27.0); Calcium 8.3 mg/dL (8.7-10.3); Carbon Dioxide 23.2 mmol/L (21.6-31.8); Chloride 90 mmol/L (96-109); Globulin 2.9 g/dL (1.6-3.3); Glucose 113 mg/dL (70-110); Potassium 4.4 mmol/L (3.5-5.5); Sodium 124 mmol/L (135-145); Total Bilirubin 0.9 mg/dL (0.3-1.2); Total Protein 6.4 g/dL (6.2-8.2)
[2023-05-21 11:44] VITALS: RESP 16
[2023-05-21] MEDS: SODIUM CHLORIDE 0.9% 1,000 ML IV STA (14:15)
--- NOTE | 2023-05-21 15:45 | P.PN ---
Subjective Progress Note Date: 05/21/23 Patient was seen for a follow-up. Patient's and patient's daughter were present today. Patient's primary physician team was also present. Patient has developed further weakness of his bifacial muscles, and also has developed weakness of his extremities. Today he tried to walk to the bathroom, and his legs buckled up. He is complaining of aches and pains, and has been having difficulty with walking. He has difficulty turning over. He has some paresthesias in the feet, as he felt his feet are cold although they were warm. He asked his daughter to cover his feet although they were already covered. He himself denies any numbness or tingling of the extremities. Patient denies headache. No fever or chills. Patient's also mentions that patient's dad was "prone to blood clots". Patient's has mentioned yesterday that after patient suffered from TBI, he was placed on Keppra and was doing quite well. He was given prescription of Keppra for 7 days. After Keppra was discontinued, he started having repetitive behavior, in which he would continuously go from his bedroom to the bathroom [id number]. Or he would go from 1 bedroom to another, and then ydpe-aag-[id number]. Sometimes he would be just restless, get in and out of the bed. Family discussed this repetitive behavior with his neurologist Dr. Espinal, who placed him back on Keppra. Since then patient has been more irritable, mixing days and nights. However the facial weakness started just on the day of this current admission. Patient was told he has history of peripheral neuropathy, related to his history of hip surgery 10 to 15 years ago. Objective - Vital Signs Vital signs: Vital Signs Temp 98.0 F 05/21/23 07:45 Pulse 71 05/21/23 11:04 Resp 16 05/21/23 11:04 BP 170/80 05/21/23 10:45 Pulse Ox 97 05/21/23 07:45 FiO2 Intake & Output 05/20/23 05/21/23 05/21/23 18:59 06:59 18:59 Output Total 1350 1000 600 Balance -1350 -1000 -600 Output: Urine 1350 1000 600 Other: Voiding Method Indwelling Catheter Indwelling Catheter Indwelling Catheter # Bowel Movements 1 - Exam Patient appears somewhat encephalopathic. He is groggy, but does wake up. Patient speech and language functions are normal. On cranial examination, pupils are equal, round and reactive to light. His extraocular muscles are intact. His right eye is very injected. Patient has not developed complete bilateral facial paralysis. There is no movement on either side, upper or lower part. On muscle strength testing, patient appears diffusely weak. (Right/left) deltoid 5-/5, biceps 5-/5-, triceps 4+5/5-, blanking machine operator 5-/5-, hip flexion 4/4, ankle dorsiflexion 5/5, toe extension 4-/4-. Plantars are probably upgoing bilaterally. Deep tendon reflexes are 1+ at the biceps, 1+ brachioradialis, 0 at the knees, 0 ankles and plantars are flat. Patient has mild dysmetria for mbkdas-[id number]-pwef testing in the upper limbs. He has ataxia of bilateral lower limbs, worse with the left leg, as he cannot role his left heel on the right [place]. Patient denies any numbness in the arms or legs. - Labs CBC & Chem 7: 05/21/23 06:48 05/21/23 06:48 Labs: Abnormal Lab Results - Last 24 Hours (Table) 05/21/23 05/21/23 Range/Units 06:48 06:48 RBC 4.26 L (4.40-5.60) X 10*6/uL Hgb 12.9 L (13.0-17.0) g/dL Hct 37.3 L (39.6-50.0) % Lymphocytes # 0.72 L (0.90-5.00) X 10*3/uL Eosinophils # 0.03 L (0.04-0.35) X 10*3/uL Sodium 124 L (135-145) mmol/L Chloride 90 L (96-109) mmol/L BUN/Creatinine Ratio 26.14 H (12.00-20.00) Ratio Glucose 113 H (70-110) mg/dL Calcium 8.3 L (8.7-10.3) mg/dL Albumin 3.5 L (3.8-4.9) g/dL Albumin/Globulin Ratio 1.21 L (1.60-3.17) Ratio Microbiology - Last 24 Hours (Table) 05/19/23 14:40 Blood Culture - Preliminary Blood 05/19/23 14:33 Blood Culture - Preliminary Blood Assessment and Plan Assessment: * Acute onset of progressive bifacial weakness since the morning of admission on 05/19/2023. Patient has now developed mild weakness of the upper and lower extremities, with absent reflexes in the lower limbs. He still has some preserved reflexes in the upper limbs. 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 Patient or his family denies any recent history of upper respiratory infection or flu, or COVID. No recent GI infection. * History of traumatic brain injury, with bilateral frontal lobe contusion, subdural hematoma, subarachnoid hemorrhage, and orbital bone fracture on 05/05/2023, improving * Altered mental status, likely metabolic encephalopathy, perhaps due to above. * Hypertension * History of peripheral neuropathy * History of AAA repair * Marijuana use Plan: * Patient has developed acute onset bifacial weakness, which has progressed, as now patient has complete bilateral facial paralysis, peripheral type. MRI of the brain ruled out any acute ischemic process. Now with progressive weakness of the upper and lower limbs, [place] Willoughby syndrome is the most likely diagnosis. * We discussed about workup needed for Guillain-Willoughby including lumbar puncture and EMG testing. Lumbar puncture contraindicated at this time because of recent intracranial bleed, and the presence of subarachnoid hemorrhage will definitely affect the CSF proteins (to look for cytoalbuminologic dissociation for AIDP). EMG cannot be performed in the hospital. 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 Different t reatment options including IVIG and plasma exchange were discussed. IVIG can make patient hypercoagulable state, which can predispose him for thrombotic events, especially given his father being "prone to blood clots", as per family statement. Patient also has recent intracranial bleed/subarachnoid hemorrhage, and IVIG may be concerning because of risk of vasospasm related to subarachnoid hemorrhage (still present on MRI). We will hold off on heparin or Lovenox at this time. Therefore considering all these factors, it appears, plasma exchange is a better option. Discussed with patient's family, and they agreed for patient to be transferred to higher level of care for plasma exchange. * MRI of the brain revealed multiple intraparenchymal and subcortical contusive hemorrhages noted with surrounding edema. There is no evidence for midline shift. Small subarachnoid hemorrhage seen as well as improving right subdural hematoma. I personally reviewed MRI agree with the findings. No evidence of an acute ischemic stroke. * Await ENT consultation. * CT head showed resolving bilateral inferior frontal lobe intraparenchymal hemorrhages. Stable small right extra-axial fluid collection or chronic subdural hematoma. No new acute intracranial hemorrhage or midline shift. I personally reviewed CT head, agree with the findings. * CTA of head and neck revealed moderate to severe noncalcified plaques bilateral proximal ICA causes stenosis, approaching but under 50%. No large vessel occlusion or aneurysm in the [place]. * No aspirin or antiplatelets or anticoagulants at this time because of risk of worsening or recurrence of subdural hematoma. * EEG was performed, which was abnormal due to intermittent focal slowing, left more than right temporal region, suggestive of focal cortical neuronal dysfunction. No definitive focal or generalized epileptiform activity was seen. Consider prolonged, sleep deprived EEG, if your suspicion for seizures is high. Patient's family is noticing behavioral problems from Keppra. This will be discontinued. If patient has any definitive seizure activity, then we will consider Vimpat or Trileptal, although later has more mood stabilization properties. Discussed with primary physician as well. Agreed with stopping Keppra at this time. * Patient continues to be very encephalopathic. Recommend patient undergo continuous EEG monitoring to rule out any intermittent partial seizures. * Optimize control of blood pressure * DVT prophylaxis: SCDs * Patient to be transferred to higher level of care. Time with Patient: Greater than 30
--- NOTE | 2023-05-21 16:05 | P.PN ---
Progress Note - Text Progress Note Date: 05/21/23 Records of Family meeting: Date of meeting 05/21/2023 Time meeting 11 AM Present during the meeting patient Johnnie Estrada, his Britney Estrada, his daughter Teresa Jaeger, myself, Dr. Gabriel neurologist, and nurse practitioner Yamilet Frazier Condition of patient, multiple testing results including computed tomography scan, EEG, and MRI were discussed in detail Possibility of Guillain-Willoughby syndrome was raised by neurologist, possible need for plasma phoresis was discussed Recommendation from neurology is to transfer patient to a tertiary care center Initially we tried transferring patient to [facility] where he was initially evaluated after his initial fall with traumatic brain injury and intracranial bleeding however no beds were available at [facility]. Subsequently we called [facility] patient was accepted for transfer.
--- NOTE | 2023-05-21 16:16 | P.DS ---
Providers Date of admission: 05/20/23 14:55 Expected date of discharge: 05/21/23 Attending physician: Bryant Méndez Consults: 05/19/23 07:30 Consult Physician Routine Consulting Provider: Ethan Lay Consult Reason/Comments: Mental status change Do you want consulting provider notified?: Yes 05/19/23 09:50 Consult Physician Routine Consulting Provider: Jorge L Rolon Consult Reason/Comments: urinary retention Do you want consulting provider notified?: Yes 05/20/23 08:50 Consult Physician Routine Consulting Provider: Keven Maddox Consult Reason/Comments: possible compression of facial nerves Do you want consulting provider notified?: Yes 05/21/23 13:47 Consult Physician Routine Consulting Provider: Yissel Hodges Consult Reason/Comments: hyponatremia Do you want consulting provider notified?: Yes Primary care physician: [facility] Course: Diagnosis on discharge: 1. Increased anxiety and confusion, on presentation 2. Recent history of fall with head trauma with intracerebral and subdural hematoma 3. Hyponatremia during this admission, hydrochlorothiazide was discontinued, normal saline was given at 75 mL/h 4. 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 Evidence of urinary retention. Mittal catheter was inserted, urology consult was requested Patient started on Flomax. 6. Evidence of urinary tract infection, with leukocytosis on presentation started on IV ceftriaxone, white blood count was 14,000 on presentation it's down to 8.3 at the time of discharge 7. Underlying history of hypertension 8. Underlying history of hyperlipidemia 9. Underlying history of osteoarthritis 10. Remote history of abdominal aortic aneurysm with repair 11. Patient was maintained on Keppra since his fall and traumatic head injury 2 weeks ago, EEG was done during this admission and did not reveal any evidence of seizure activity, recommendation by neurology was to discontinue Keppra at this time. Hospital course: Johnnie Estrada, is a 72-year-old male who presented to [facility] emergency room due to increased confusion and anxiety. Patient was brought in by his family who state that he has not been sleeping he is very restless, and he seems to be more anxious and confused. Patient was having some slurring with his speech and difficulty swallowing fluid and difficulty taking his pills. Patient was recently seen in [facility] emergency room after sustaining a fall he had evidence of intracerebral hemorrhage and subdural hematoma, he was transferred to [facility] at that time, he was monitored for few days and was discharged home, no intervention was necessary at that time, patient had a repeat computed tomography scan of the brain which revealed improvement in the size of the subdural hematoma. He was started on oral Keppra 500 mg twice a day during his stay at [facility]. However patient stopped taking Keppra on his own. Past medical history also significant for history of hypertension, history of hyperlipidemia, history of osteoarthritis, with history of bilateral hip replacements, history of AAA repair. He was evaluated in the emergency room vital examination on presentation revealed a temperature of 98 pulse 61 respiration 18 blood pressure 193/88 pulse ox 97% on room air Laboratory data revealed a white blood count of 14.0 hemoglobin 13.7 platelet count 352 sodium 131 potassium 4.7 chloride 99 CO2 24 BUN 27 creatinine 0.64 Testing in the emergency room revealed computed tomography scan of the brain reveals resolving bilateral inferior frontal lobe intraparenchymal hemorrhages, and stable small right extra-axial fluid collection or chronic subdural hemat griffin, no new or acute intracranial hemorrhage or midline shift. Chest x-ray was done in the emergency room and revealed no acute process, CT angiogram of the brain revealed moderate to severe noncalcified Plake bilateral proximal internal carotid arteries, which causes stenosis approaching but under 50%, no large vessel occlusion or aneurysm at the level of the [place] Patient was admitted to medical floor for further evaluation and treatment On 05/20/2023 patient is currently resting in bed at bedside. Patient continued to have agitation throughout the night per . MRI and EEG has been ordered per neurology services. Current vital signs temp 97.4, heart 70, respiratory rate 18, blood pressure 155/65 with a pulse ox of 96%. ENT service is consulted due to possible facial nerve compression. Neurology and urology service is following On 05/21/2023 patient is resting comfortably in bed. MRI and EEG has been completed. Awaiting ENT input. Patient will be started on Flomax per urology recommendation. PT OT services consulted. At this time patient denies chest pain or shortness of breath. Patient denies nausea vomiting or diarrhea. Patient denies any urinary burning or frequency. Patient has evidence of hyponatremia, sodium on presentation was 131 it was down to 128 yesterday and down to 124 today, patient was on a small dose of hydrochlorothiazide 12.5 mg daily, which was discontinued, I wouldn't resume normal saline at 75 mL an hour today. Patient Condition at Discharge: Good Plan - Discharge Summary Discharge Rx Participant: No New Discharge Prescriptions: No Action Cetirizine HCl [Zyrtec] 10 mg PO DAILY hydroCHLOROthiazide 12.5 mg PO DAILY Atorvastatin [Lipitor] 10 mg PO HS atenoloL [Tenormin] 50 mg PO W/LUNCH Acetaminophen Tab [Tylenol Tab] 500 - 1,000 mg PO Q6H PRN PRN Reason: Pain Losartan [Cozaar] 50 mg PO BID Ondansetron [Zofran] 4 mg PO Q6H PRN PRN Reason: Nausea Discharge Medication List Cetirizine HCl [Zyrtec] 10 mg PO DAILY 01/09/15 [History] Atorvastatin [Lipitor] 10 mg PO HS 05/11/19 [History] atenoloL [Tenormin] 50 mg PO W/LUNCH 05/11/19 [History] hydroCHLOROthiazide 12.5 mg PO DAILY 05/11/19 [History] Losartan [Cozaar] 50 mg PO BID 03/13/23 [History] Ondansetron [Zofran] 4 mg PO Q6H PRN 05/18/23 [History] Acetaminophen Tab [Tylenol Tab] 500 - 1,000 mg PO Q6H PRN 05/19/23 [History] Follow up Appointment(s)/Referral(s): [facility],Home Care [NON-STAFF] - 1 Week Bryant Méndez MD [Primary Care Provider] - 1-2 days
[2023-05-21] MEDS: TAMSULOSIN 0.4 MG CAP.ER.24H PO SCH (17:35)
--- NOTE | 2023-05-21 19:55 | P.GSCN ---
History of Present Illness Consult date: 05/21/23 Reason for Consult: Progressive facial weakness, orbital fractures, traumatic brain injury traumatic brain injury Requesting physician: Bryant Méndez History of present illness: This is a [id number] is a 72-year-old white male who is accompanied with his daughter and . I understand that on May 05I understand that on May 05 he was working on a camper and he fell and struck his face he was working and he fell and struck his face on the tongue of the camper and then on the cement.. He had loss of consciousness and he was taken to the [facility] where he was diagnosed with a traumatic brain injury, subdural hematoma, bilateral orbital fractures including bilateral superior orbital moseley and right superior ethmoid sinus fractures. There is also a right parietal bone fracture crossing the midline to the left frontal bone extending to the left temporal bone. A fracture extends in the mastoid air cells. He was treated at [facility] and was discharged. He was doing better but Friday the noted that he had a hard time closing his eyes bilaterally. His speech became a little sl urred. Subsequently he was brought to the hospital for readmission with bilateral facial paralysis that was progressive and he now presents with upper extremity weakness and progressive weakness neck and torso. He has a presumptive diagnosis of Gilllian Dey syndrome. He is to be transferred to [facility] for evaluation and treatment. Regarding his orbital fracture, he denies any double vision or blurred vision. He has had ophthalmologic consultation a few days ago. There is no proptosis or enophthalmia. He has been blowing his nose AGAINST MEDICAL ADVICE. He denies any rhinorrhea or postnasal drainage. He is unable to fully blink his eyes bilaterally. Review of Systems - Constitutional Reports as per HPI - EENT Ears, nose, mouth and throat: Reports as per HPI - Cardiovascular Reports as per HPI - Respiratory Reports as per HPI - Gastrointestinal Reports as per HPI - Genitourinary Reports as per HPI - Musculoskeletal Reports as per HPI - Integumentary Reports as per HPI - Neurological Reports as per HPI - Psychiatric Reports as per HPI - Endocrine Reports as per HPI - Hematologic/Lymphatic Reports as per HPI - Allergic/Immunologic Reports as per HPI Past Medical History Past Medical History: Hypertension Additional Past Medical History / Comment(s): seasonal allergies, 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 History of Any Multi-Drug Resistant Organisms: None Reported Past Surgical History: Joint Replacement, Orthopedic Surgery Additional Past Surgical History / Comment(s): bilateral hip replacement, left hip revision, amputation of tip of left thumb, AAA-repair, tendons cut rt hand with repair Past Anesthesia/Blood Transfusion Reactions: No Reported Reaction Past Psychological History: No Psychological Hx Reported Additional Psychological History / Comment(s): . 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 No animals in the home Smoking Status: Former smoker Past Alcohol Use History: Occasional Additional Past Alcohol Use History / Comment(s): smoked 10-11 years 3 ppd quit in 's Past Drug Use History: Marijuana Additional Drug Use History / Comment(s): cbd oils,edible - Past Family History Brother(s) Family Medical History: Cancer Additional Family Medical History / Comment(s): Melanoma. Father Family Medical History: Cancer, Myocardial Infarction ([place]) Medications and Allergies Home Medications Medication Instructions Recorded Confirmed Type Cetirizine HCl [Zyrtec] 10 mg PO DAILY 01/09/15 05/19/23 History Atorvastatin [Lipitor] 10 mg PO HS 05/11/19 05/19/23 History atenoloL [Tenormin] 50 mg PO W/LUNCH 05/11/19 05/19/23 History hydroCHLOROthiazide 12.5 mg PO DAILY 05/11/19 05/19/23 History Losartan [Cozaar] 50 mg PO BID 03/13/23 05/19/23 History Ondansetron [Zofran] 4 mg PO Q6H PRN 05/18/23 05/19/23 History Acetaminophen Tab [Tylenol Tab] 500 - 1,000 mg PO Q6H PRN 05/19/23 05/19/23 History Allergies Allergy/AdvReac Type Severity Reaction Status Date / Time No Known Allergies Allergy Verified 05/19/23 07:56 Surgical - Exam Osteopathic Statement: *. No significant issues noted on an osteopathic structural exam other than those noted in the History and Physical/Consult. Vital Signs Temp Pulse Resp BP Pulse Ox 98 F 61 18 193/88 97 05/19/23 05:40 05/19/23 05:40 05/19/23 05:40 05/19/23 05:40 05/19/23 05:40 - General Patient complains of lower extremity pain well developed, well nourished, no distress, moderate pain - Eyes Resolving subconjunctival hemorrhage noted right side. Eyelids unable to close with blink. Patient has near complete bilateral facial paralysis. PERRL, normal ocular movement - ENT Head is normocephalic the face is paralyzed bilaterally with a near total paralysis. He is unable to close his eyelids with the blink. Auricles have some cerumen unable to visualize tympanic membrane. Nose is patent no tumors polyps or masses. Mouth and throat shows no abnormalities neck no tumors or masses trachea is in the midline thyroid low-lying. Palpation of orbits re vealed no distinct bony abnormality. Eyes do not show enophthalmos or proptosis. Extraocular muscles are intact and symmetric no diplopia seen normal pinna, normal nares, normal mucosa, no congestion - Neck no masses, no bruits, trachea midline, no lymphadectomy - Integumentary no rash, no growths - Neurologic Bilateral facial paralysis. Unable to blink his eyes to get complete coverage of the cornea. Eyelids have been taped prevent corneal drying - Musculoskeletal Unable to walk due to weakness to assess gait - Psychiatric oriented to time, oriented to person, oriented to place Results - Labs 05/21/23 06:48 05/21/23 06:48 Abnormal Lab Results - Last 24 Hours (Table) 05/21/23 05/21/23 Range/Units 06:48 06:48 RBC 4.26 L (4.40-5.60) X 10*6/uL Hgb 12.9 L (13.0-17.0) g/dL Hct 37.3 L (39.6-50.0) % Lymphocytes # 0.72 L (0.90-5.00) X 10*3/uL Eosinophils # 0.03 L (0.04-0.35) X 10*3/uL Sodium 124 L (135-145) mmol/L Chloride 90 L (96-109) mmol/L BUN/Creatinine Ratio 26.14 H (12.00-20.00) Ratio Glucose 113 H (70-110) mg/dL Calcium 8.3 L (8.7-10.3) mg/dL Albumin 3.5 L (3.8-4.9) g/dL Albumin/Globulin Ratio 1.21 L (1.60-3.17) Ratio Microbiology - Last 24 Hours (Table) 05/19/23 14:40 Blood Culture - Preliminary Blood 05/19/23 14:33 Blood Culture - Preliminary Blood Diabetes panel 05/21/23 Range/Units 06:48 Sodium 124 L (135-145) mmol/L Potassium 4.4 (3.5-5.5) mmol/L Chloride 90 L (96-109) mmol/L Carbon Dioxide 23.2 (21.6-31.8) mmol/L BUN 18.3 (9.0-27.0) mg/dL Creatinine 0.7 (0.6-1.5) mg/dL Glucose 113 H (70-110) mg/dL Calcium 8.3 L (8.7-10.3) mg/dL AST 27 (14-35) U/L ALT 22 (10-49) U/L Alkaline Phosphatase 104 (41-126) U/L Total Protein 6.4 (6.2-8.2) g/dL Albumin 3.5 L (3.8-4.9) g/dL Calcium panel 05/21/23 Range/Units 06:48 Calcium 8.3 L (8.7-10.3) mg/dL Albumin 3.5 L (3.8-4.9) g/dL Pituitary panel 05/21/23 Range/Units 06:48 Sodium 124 L (135-145) mmol/L Potassium 4.4 (3.5-5.5) mmol/L Chloride 90 L (96-109) mmol/L Carbon Dioxide 23.2 (21.6-31.8) mmol/L BUN 18.3 (9.0-27.0) mg/dL Creatinine 0.7 (0.6-1.5) mg/dL Glucose 113 H (70-110) mg/dL Calcium 8.3 L (8.7-10.3) mg/dL Adrenal panel 05/21/23 Range/Units 06:48 Sodium 124 L (135-145) mmol/L Potassium 4.4 (3.5-5.5) mmol/L Chloride 90 L (96-109) mmol/L Carbon Dioxide 23.2 (21.6-31.8) mmol/L BUN 18.3 (9.0-27.0) mg/dL Creatinine 0.7 (0.6-1.5) mg/dL Glucose 113 H (70-110) mg/dL Calcium 8.3 L (8.7-10.3) mg/dL Total Bilirubin 0.9 (0.3-1.2) mg/dL AST 27 (14-35) U/L ALT 22 (10-49) U/L Alkaline Phosphatase 104 (41-126) U/L Total Protein 6.4 (6.2-8.2) g/dL Albumin 3.5 L (3.8-4.9) g/dL Assessment and Plan (1) Orbital roof fracture with intracranial injury Current Visit: Yes Status: Acute Code(s): S02.129A - FRACTURE OF ORBITAL ROOF, UNSPECIFIED SIDE, INIT; S06.9XAA - UNSPECIFIED INTCRN INJURY WITH LOC STATUS UNKNOWN, INIT SNOMED Code(s): 98624739 (2) Facial paralysis Current Visit: Yes Status: Acute Code(s): G51.0 - BAINS'S PALSY SNOMED Code(s): 620406410 Plan: This patient has bilateral orbital fractures that was sustained on May 05. He has no diplopia, enophthalmos or proptosis. Secondarily he has developed for the last 3 days a progressive bilateral facial paralysis that's now demonstrating upper arm and body weakness. [place] dey syndrome is a working diagnosis. Neurology has been seeing this patient in managing. I do not see any impingement of a facial nerve. The facial paralysis is symmetric and nearly completely bilaterally with now weakness to the upper arms. This is unlikely from any traumatic injury. I see no evidence of nerve impingement from the traumatic etiology. The patient will be transferred to [facility] for evaluation and treatment tomorrow. Patient will see me on an outpatient basis as needed. My card has been given. I have taped his eyes closed to prevent corneal drying. A moisture chamber would be excellent option that that is not available here at [facility] today. [facility] may have a moisture chamber for his eyes. Time with Patient: Greater than 30
[2023-05-21] MEDS: hydrALAZINE HCL 25 MG TAB PO SCH (21:02)
[2023-05-22 06:53] LABS: Basophils % (A) 0 %; Eosinophils % (A) 1 %; HCT 38.3 % (39.0-53.0); HGB 13.2 gm/dL (13.0-17.5); Lymphocytes # (A) 0.7 k/uL (1.0-4.8); Lymphocytes % (A) 9 %; MCH 31.3 pg (25.0-35.0); MCHC 34.5 g/dL (31.0-37.0); MCV 90.7 fL (80.0-100.0); Mean Platelet Volume 7.1; Monocytes # (A) 0.5 k/uL (0-1.0); Monocytes % (A) 6 %; Neutrophils # (A) 6.6 k/uL (1.3-7.7); Neutrophils % (A) 84 %; Platelet Count 323 k/uL (150-450); RBC 4.23 m/uL (4.30-5.90); RDW 12.7 % (11.5-15.5); WBC 7.9 k/uL (3.8-10.6)
[2023-05-22 08:52] LABS: ALT 15 U/L (10-49); AST 16 U/L (14-35); Albumin 3.3 g/dL (3.8-4.9); Albumin/Globulin Ratio 1.32 Ratio (1.60-3.17); Alkaline Phosphatase 99 U/L (41-126); Blood Urea Nitrogen 18.9 mg/dL (9.0-27.0); Calcium 8.4 mg/dL (8.7-10.3); Carbon Dioxide 22.9 mmol/L (21.6-31.8); Chloride 92 mmol/L (96-109); Globulin 2.5 g/dL (1.6-3.3); Glucose 112 mg/dL (70-110); Potassium 4.2 mmol/L (3.5-5.5); Sodium 125 mmol/L (135-145); Total Bilirubin 0.9 mg/dL (0.3-1.2); Total Protein 5.8 g/dL (6.2-8.2)
--- NOTE | 2023-05-22 11:39 | P.NPCON ---
History of Present Illness - Reason for Consult hyponatremia - History of Present Illness Patient is a 72-year-old male who was admitted to the hospital with mental status changes and anxiety. History of traumatic brain injury, orbital fractures after a fall on 05/05/2023. 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 He is in the process of being transferred to [facility] for plasmapheresis. Patient is being followed by neurology. Sodium is noted to be low at 125 today. It was 128 on 05/20/2023 and 131 on admission on 05/19/2023. Started on normal saline on 05/19/2023. Blood pressure is not low Patient has indwelling Mittal catheter with urine retention noted on initial catheter placement. 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 History of Any Multi-Drug Resistant Organisms: None Reported Past Surgical History: Joint Replacement, Orthopedic Surgery Additional Past Surgical History / Comment(s): bilateral hip replacement, left hip revision, amputation of tip of left thumb, AAA-repair, tendons cut rt hand with repair Past Anesthesia/Blood Transfusion Reactions: No Reported Reaction Past Psychological History: No Psychological Hx Reported Additional Psychological History / Comment(s): . 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 No animals in the home Smoking Status: Former smoker Past Alcohol Use History: Occasional Additional Past Alcohol Use History / Comment(s): smoked 10-11 years 3 ppd quit in 20's Past Drug Use History: Marijuana Additional Drug Use History / Comment(s): cbd oils,edible - Past Family History Brother(s) Family Medical History: Cancer Additional Family Medical History / Comment(s): Melanoma. Father Family Medical History: Cancer, Myocardial Infarction ([place]) Medications and Allergies Home Medications Medication Instructions Recorded Confirmed Type Cetirizine HCl [Zyrtec] 10 mg PO DAILY 01/09/15 05/19/23 History Atorvastatin [Lipitor] 10 mg PO HS 05/11/19 05/19/23 History atenoloL [Tenormin] 50 mg PO W/LUNCH 05/11/19 05/19/23 History hydroCHLOROthiazide 12.5 mg PO DAILY 05/11/19 05/19/23 History Losartan [Cozaar] 50 mg PO BID 03/13/23 05/19/23 History Ondansetron [Zofran] 4 mg PO Q6H PRN 05/18/23 05/19/23 History Acetaminophen Tab [Tylenol Tab] 500 - 1,000 mg PO Q6H PRN 05/19/23 05/19/23 History Allergies Allergy/AdvReac Type Severity Reaction Status Date / Time No Known Allergies Allergy Verified 05/19/23 07:56 Physical Exam Vitals: Vital Signs Temp Pulse Resp BP Pulse Ox 05/22/23 07:39 97.8 F 80 16 154/69 94 L 05/22/23 02:00 97.4 F L 79 16 180/85 93 L 05/21/23 20:00 97.8 F 65 16 174/86 96 05/21/23 13:24 97.6 F 83 16 160/72 96 Intake and Output 05/21/23 05/22/23 05/22/23 22:59 06:59 14:59 Output Total 900 Balance -900 Output: Urine 900 Other: Voiding Method Indwelling Catheter Patient is sleeping. He is arousable. Examination of the heart S1 and S2 Examination of the lungs bilateral breath sounds are heard Dressing noted on the right eye Moving all 4 extremities Abdomen is soft nontender No edema noted in the legs Results - Lab Results Most recent lab results Calcium 8.4 mg/dL (8.7-10.3) L 05/22/23 06:06 05/22/23 06:03 05/22/23 06:06 Assessment and Plan Assessment: 1. Hyponatremia rule out SIADH. High suspicion for SIADH given the recent traumatic brain injury, subdural hematoma and subarachnoid hemorrhage on 05/05/2023. Check urine osmolality and urine sodium. I will DC the IV fluids for now. Patient had urine retention and currently has an indwelling Mittal catheter. 2. Urine retention currently with indwelling Mittal catheter 3. Developing facial palsy and lower extremity weakness with high suspicion for Guillain-Willoughby syndrome. Being transferred to [facility] for plasmapheresis. 4. Traumatic brain injury with bilateral frontal lobe contusion, subdural hematoma, subarachnoid hemorrhage and orbital bone fracture on 05/05/2023 Plan: Continue with Mittal catheter DC IV fluids Check urine sodium and urine osmolality Repeat sodium later this evening. Thank you for the consultation. Will continue to follow the patient with you during his hospitalization.
[2023-05-22 13:34] VITALS: TEMP 97.6
--- NOTE | 2023-05-22 14:34 | P.PN ---
Subjective Progress Note Date: 05/22/23 Johnnie Estrada, is a 72-year-old male who presented to [facility] emergency room due to increased confusion and anxiety. Patient was brought in by his family who state that he has not been sleeping he is very restless, and he seems to be more anxious and confused. Patient was having some slurring with his speech and difficulty swallowing fluid and difficulty taking his pills. Patient was recently seen in [facility] emergency room after sustaining a fall he had evidence of intracerebral hemorrhage and subdural hematoma, he was transferred to [facility] at that time, he was monitored for few days and was discharged home, no intervention was necessary at that time, patient had a repeat computed tomography scan of the brain which revealed improvement in the size of the subdural hematoma. He was started on oral Keppra 500 mg twice a day during his stay at [facility]. However patient stopped taking Keppra on his own. Past medical history also significant for history of hypertension, history of hyperlipidemia, history of osteoarthritis, with history of bilateral hip replacements, history of AAA repair. He was evaluated in the emergency room vital examination on presentation revealed a temperature of 98 pulse 61 respiration 18 blood pressure 193/88 pulse ox 97% on room air Laboratory data revealed a white blood count of 14.0 hemoglobin 13.7 platelet count 352 sodium 131 potassium 4.7 chloride 99 CO2 24 BUN 27 creatinine 0.64 Testing in the emergency room revealed computed tomography scan of the brain reveals resolving bilateral inferior frontal lobe intraparenchymal hemorrhages, and stable small right extra-axial fluid collection or chronic subdural hematoma, no new or acute intracranial hemorrhage or midline shift. Chest x-ray was done in the emergency room and revealed no acute process, CT angiogram of the brain revealed moderate to severe noncalcified Plake bilateral proximal internal carotid arteries, which causes stenosis approaching but under 50%, no large vessel occlusion or aneurysm at the level of the [place] of [place] Patient was admitted to medical floor for further evaluation and treatment On 05/20/2023 patient is currently resting in bed at bedside. Patient continued to have agitation throughout the night per . MRI and EEG has been ordered per neurology services. Current vital signs temp 97.4, heart 70, respiratory rate 18, blood pressure 155/65 with a pulse ox of 96%. ENT service is consulted due to possible facial nerve compression. Neurology and urology service is following On 05/21/2023 patient is resting comfortably in bed. MRI and EEG has been completed. Awaiting ENT input. Patient will be started on Flomax per urology recommendation. PT OT services consulted. At this time patient denies chest pain or shortness of breath. Patient denies nausea vomiting or diarrhea. Patient denies any urinary burning or frequency On 05/22/2023 patient was seen and examined on the medical floor he is alert responsive in no apparent distress, he is complaining of worsening weakness, there is no fever or chills no headache or dizziness no chest pain no shortness of breath no cough no nausea or vomiting no abdominal pain no diarrhea and no urinary symptoms, shouldn't has Mittal catheter. At this time patient was accepted at [facility] for transfer yesterday, however we are still awaiting for bed availability, I have called [facility] transfer Twice this morning asking to expedite transfer responsible , we are also contacting [facility] & [facility] to assess if there is any bed availability for immediate transfer. Objective - Vital Signs Vital signs: Vital Signs Temp 97.8 F 05/22/23 07:39 Pulse 80 05/22/23 07:39 Resp 16 05/22/23 07:39 BP 154/69 05/22/23 07:39 Pulse Ox 94 L 05/22/23 07:39 FiO2 Intake & Output 05/21/23 05/22/23 05/22/23 18:59 06:59 18:59 Output Total 900 900 Balance -900 -900 Output: Urine 900 900 Other: Voiding Method Indwelling Catheter Indwelling Catheter - Exam In general patient is alert and oriented x 3 in no distress HEENT head normocephalic there is subcutaneous hematoma around both eyes especially the right Neck is supple no JVD no goiter no lymphadenopathy no carotid bruit Chest examination is clear to auscultation no crackles no wheezing Cardiac exam reveals regular heart sounds S1 and S2 no gallops no murmurs Abdomen is soft nontender no organomegaly with normal bowel sounds Extremity exam reveals no edema no cyanosis or clubbing Neurological examination reveals no gross focal deficits - Labs CBC & Chem 7: 05/22/23 06:03 05/22/23 12:54 Labs: Abnormal Lab Results - Last 24 Hours (Table) 0205/21/23 05/22/23 Range/Units 06:48 06:48 06:03 RBC 4.26 L 4.23 L (4.40-5.60) X 10*6/uL Hgb 12.9 L (13.0-17.0) g/dL Hct 37.3 L 38.3 L (39.6-50.0) % Lymphocytes # 0.72 L 0.7 L (0.90-5.00) X 10*3/uL Eosinophils # 0.03 L (0.04-0.35) X 10*3/uL Sodium 124 L (135-145) mmol/L Chloride 90 L (96-109) mmol/L BUN/Creatinine Ratio 26.14 H (12.00-20.00) Ratio Glucose 113 H (70-110) mg/dL Calcium 8.3 L (8.7-10.3) mg/dL Total Protein (6.2-8.2) g/dL Albumin 3.5 L (3.8-4.9) g/dL Albumin/Globulin Ratio 1.21 L (1.60-3.17) Ratio 05/22/23 Range/Units 06:06 RBC (4.40-5.60) X 10*6/uL Hgb (13.0-17.0) g/dL Hct (39.6-50.0) % Lymphocytes # (0.90-5.00) X 10*3/uL Eosinophils # (0.04-0.35) X 10*3/uL Sodium 125 L (135-145) mmol/L Chloride 92 L (96-109) mmol/L BUN/Creatinine Ratio 31.50 H (12.00-20.00) Ratio Glucose 112 H (70-110) mg/dL Calcium 8.4 L (8.7-10.3) mg/dL Total Protein 5.8 L (6.2-8.2) g/dL Albumin 3.3 L (3.8-4.9) g/dL Albumin/Globulin Ratio 1.32 L (1.60-3.17) Ratio Microbiology - Last 24 Hours (Table) 05/19/23 14:40 Blood Culture - Preliminary Blood 05/19/23 14:33 Blood Culture - Preliminary Blood Assessment and Plan Plan: Increased anxiety and confusion Recent history of fall with head trauma with intracerebral and subdural hematoma Episode of slurred speech and difficulty swallowing last night, possible TIA Evidence of urinary retention. Patient started on Flomax Underlying history of hypertension Underlying history of hyperlipidemia Underlying history of osteoarthritis At this time patient will be admitted for observation Neurology consultation was requested Urology consultation was requested for urinary retention ENT service is consulted for possible nerve compression Speech therapy consult was requested regarding slurred speech and difficulty swallowing MRI and EEG completed Home medications reviewed and reordered For DVT prophylaxis we will use SCD stockings For GI prophylaxis Pepcid Will follow closely
[2023-05-22] MEDS: TOLVAPTAN 15 MG TABLET PO ONE (20:30)
[2023-05-22 21:08] VITALS: BP 177/88; PULSE 63
--- NOTE | 2023-05-23 09:13 | P.PN ---
Subjective Progress Note Date: 05/22/23 05/22/2023: Patient was seen for a follow-up. Patient is laying in the bed, appears slightly more awake today. Patient denies headache. Patient's daughter and patient's were both present today. When he is drinking, he is coughing. Speech therapist also saw the patient, and is recommending pured diet. He may need another barium swallow. Patient's daughter mentions that earlier today patient was complaining of double vision while he was taking breakfast. After he had breakfast, the double vision went away. Patient denies any numbness or tingling in his lower extremities or upper extremities. 05/21/2023: Patient was seen for a follow-up. Patient's and patient's daughter were present today. Patient's primary physician team was also present. Patient has developed further weakness of his bifacial muscles, and also has developed weakness of his extremities. Today he tried to walk to the bathroom, and his legs buckled up. He is complaining of aches and pains, and has been having difficulty with walking. He has difficulty turning over. He has some p aresthesias in the feet, as he felt his feet are cold although they were warm. He asked his daughter to cover his feet although they were already covered. He himself denies any numbness or tingling of the extremities. Patient denies headache. No fever or chills. Patient's also mentions that patient's dad was "prone to blood clots". Patient's has mentioned yesterday that after patient suffered from TBI, he was placed on Keppra and was doing quite well. He was given prescription of Keppra for 7 days. After Keppra was discontinued, he started having repetitive behavior, in which he would continuously go from his bedroom to the bathroom [id number]. Or he would go from 1 bedroom to another, and then [id number]. Sometimes he would be just restless, get in and out of the bed. Family discussed this repetitive behavior with his neurologist Dr. Espinal, who placed him back on Keppra. Since then patient has been more irritable, mixing days and nights. However the facial weakness started just on the day of this current admission. Patient was told he has history of peripheral neuropathy, related to his history of hip surgery 10 to 15 years ago. Objective - Vital Signs Vital signs: Vital Signs Temp 97.8 F 05/22/23 07:39 Pulse 80 05/22/23 07:39 Resp 16 05/22/23 07:39 BP 154/69 05/22/23 07:39 Pulse Ox 94 L 05/22/23 07:39 FiO2 Intake & Output 05/21/23 05/22/23 05/22/23 18:59 06:59 18:59 Output Total 900 900 Balance -900 -900 Output: Urine 900 900 Other: Voiding Method Indwelling Catheter Indwelling Catheter Indwelling Catheter - Exam Patient appears somewhat encephalopathic. He is groggy, but does wake up. Patient speech is mildly dysarthric because of bilateral facial weakness. His l anguage functions are normal. Patient can name and repeat very well. On cranial examination, pupils are equal, round and reactive to light. His extraocular muscles are intact. Patient has now developed complete bilateral facial paralysis. There is no movement on either side, upper or lower part. On muscle strength testing, patient appears diffusely weak. (Right/left) deltoid 4/4+5-, biceps 4+5-/4+5-, triceps 4/4+, core analyst 4+/4+, hip flexion 2/2, ankle dorsiflexion 5/5, toe extension 4-/4-. Deep tendon reflexes are (right/left) biceps 1/1, brachioradialis 0/trace, knee 0/0, ankle 0/0. Plantars are probable upgoing. Patient has mild dysmetria for [id number] testing in the upper limbs bilaterally. His weakness in the legs are progressing, cannot perform [id number] testing on either side because of severe weakness. Patient denies any numbness in the arms or legs. - Labs CBC & Chem 7: 05/22/23 06:03 05/22/23 12:54 Labs: Abnormal Lab Results - Last 24 Hours (Table) 05/22/23 05/22/23 Range/Units 06:03 06:06 RBC 4.23 L (4.30-5.90) m/uL Hct 38.3 L (39.0-53.0) % Lymphocytes # 0.7 L (1.0-4.8) k/uL Sodium 125 L (135-145) mmol/L Chloride 92 L (96-109) mmol/L BUN/Creatinine Ratio 31.50 H (12.00-20.00) Ratio Glucose 112 H (70-110) mg/dL Calcium 8.4 L (8.7-10.3) mg/dL Total Protein 5.8 L (6.2-8.2) g/dL Albumin 3.3 L (3.8-4.9) g/dL Albumin/Globulin Ratio 1.32 L (1.60-3.17) Ratio Microbiology - Last 24 Hours (Table) 05/19/23 14:40 Blood Culture - Preliminary Blood 05/19/23 14:33 Blood Culture - Preliminary Blood Assessment and Plan Assessment: * Acute onset of progressive bifacial weakness since the morning of admission on 05/19/2023. Patient's weakness is progressing involving the arms and legs, with worsening of muscle strength today as compared to yesterday. His reflexes are further down in the upper limbs, although still present. Continues to have absent reflexes in the lower limbs. 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 Patient or his family denies any recent history of upper respiratory infection or flu, or COVID. No recent GI infection. Myasthenia gravis also in the differential, but less likely. * Hyponatremia, likely due to SIADH. * History of traumatic brain injury, with bilateral frontal lobe contusion, subdural hematoma, subarachnoid hemorrhage, and orbital bone fracture on 05/05/2023, improving * Altered mental status, likely metabolic encephalopathy, perhaps due to above. * Hypertension * History of peripheral neuropathy * History of AAA repair * Marijuana use Plan: * Patient has developed acute onset bifacial weakness, which has progressed, as now patient has complete bilateral facial paralysis, peripheral type. 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 MRI of the brain ruled out any acute ischemic process. * We discussed about workup needed for Guillain-Willoughby including lumbar puncture and EMG testing. Lumbar puncture contraindicated at this time because of recent intracranial bleed, and the presence of subarachnoid hemorrhage will definitely affect the CSF proteins (to look for cytoalbuminologic dissociation for AIDP). EMG cannot be performed in the hospital. Based upon clinical pre sentation, Guillain-Willoughby syndrome is the likely possibility. Different treatment options including IVIG and plasma exchange were discussed. IVIG can make patient hypercoagulable state, which can predispose him for thrombotic events, especially given his father being "prone to blood clots", as per family statement. Patient also has recent intracranial bleed/subarachnoid hemorrhage, and IVIG may be concerning because of risk of vasospasm related to subarachnoid hemorrhage (still present on MRI). We will hold off on heparin or Lovenox at this time. Therefore considering all these factors, it appears, plasma exchange is a better option. Discussed with patient's family, and they agreed for patient to be transferred to higher level of care for plasma exchange. * We will check B12, folate, acetylcholine receptor antibodies, hemoglobin A1c, quantitative immunoglobulins, immunofixation electrophoresis. * MRI of the brain revealed multiple intraparenchymal and subcortical contusive hemorrhages noted with surrounding edema. There is no evidence for midline shift. Small subarachnoid hemorrhage seen as well as improving right subdural hematoma. I personally reviewed MRI agree with the findings. No evidence of an acute ischemic stroke. * ENT input appreciated. * CT head showed resolving bilateral inferior frontal lobe intraparenchymal hemorrhages. Stable small right extra-axial fluid collection or chronic subdural hematoma. No new acute intracranial hemorrhage or midline shift. I personally reviewed CT head, agree with the findings. * CTA of head and neck revealed moderate to severe noncalcified plaques bilateral proximal ICA causes stenosis, approaching but under 50%. No large vessel occlusion or aneurysm in the [place] of [place]. * No aspirin or antiplatelets or anticoagulants at this time because of risk of worsening or recurrence of subdural hematoma. * EEG was performed, which was abnormal due to intermittent focal slowing, left more than right temporal region, suggestive of focal cortical neuronal dysfunction. No definitive focal or generalized epileptiform activity was seen. Consider prolonged, sleep deprived EEG, if your suspicion for seizures is high. Patient's family is noticing behavioral problems from Keppra. This will be discontinued. If patient has any definitive seizure activity, then we will consider Vimpat or Trileptal, although later has more mood stabilization properties. Discussed with primary physician as well. Agreed with stopping Keppra at this time. * Patient continues to be very encephalopathic. Recommend patient undergo continuous EEG monitoring to rule out any intermittent partial seizures. * Optimize control of blood pressure * DVT prophylaxis: SCDs * Patient to be transferred to higher level of care. [facility] accepted the patient, but the bed is not available. Apparently there are about 20 patients ahead of him, waiting for transfer. I personally called [facility], spoke to Dr. Grace, Dr. Rojas in ER, multiple people in the transfer team, gave all the information. Also have them speak to the nurse on the floor, and gave them my personal cell phone number, and the floor number to be contacted with the nurse. Till end of the day, have not heard back from them. Also discussed with nephrology about plasma exchange. * Discussed with family members, they do not want IVIG, because of higher risks. We will await transfer to higher level of care. Addendum: Hemoglobin A1c 5.8, vitamin B12 475, folate 8.2, quantitative immunoglobulins are all normal with IgA 316. Immunofixation electrophoresis showed no monoclonal gammopathy Acetylcholine receptor antibodies < 0.30, which is normal.
== END 2023-05-22 21:15 | disposition short-term general hospital (02) | DRG 94 ==
LOC: EC 05:38 → 6NMEDSUR 07:30 → 5NMEDONC 15:55 → OBSVTOIN 05-20 14:55
PROVIDERS: ADMIT Internal Medicine; ATTEND Internal Medicine
PROC: 4A10X4Z Monitoring of Central Nervous Electrical Activity, External Approach (ICD-10-PCS; principal; 2023-05-20)
DX: G61.0 Guillain-Barre syndrome (principal); G93.41 Metabolic encephalopathy; S02.122A Fracture of orbital roof, left side, initial encounter for closed fracture; S02.121A Fracture of orbital roof, right side, initial encounter for closed fracture; S02.0XXA Fracture of vault of skull, initial encounter for closed fracture; N39.0 Urinary tract infection, site not specified; E22.2 Syndrome of inappropriate secretion of antidiuretic hormone; E78.5 Hyperlipidemia, unspecified; F41.9 Anxiety disorder, unspecified; I10 Essential (primary) hypertension; R13.10 Dysphagia, unspecified; E86.0 Dehydration; G47.09 Other insomnia; G51.0 Bell's palsy; H53.2 Diplopia; H73.892 Other specified disorders of tympanic membrane, left ear; W19.XXXA Unspecified fall, initial encounter; Z79.899 Other long term (current) drug therapy; Z82.49 Family history of ischemic heart disease and other diseases of the circulatory system; Z86.79 Personal history of other diseases of the circulatory system; Z87.820 Personal history of traumatic brain injury; Z87.891 Personal history of nicotine dependence; Z86.73 Personal history of transient ischemic attack (TIA), and cerebral infarction without residual deficits; Z96.643 Presence of artificial hip joint, bilateral; Z87.19 Personal history of other diseases of the digestive system
CPT/HCPCS: 36415; 70450; 70496; 70498; 70553; 71045; 74230; 80053; 80320; 81001; 82550; 82607; 82746; 82784; 83036; 83935; 84295; 84300; 84484; 85025; 85610; 85730; 86041; 86334; 87040; 93005; 95816; 96365; 99285

== ENCOUNTER → 2023-11-14 | Outpatient (CLI) | payer MEDICARE, BC ==
--- NOTE | 2023-11-14 13:20 | US ---
EXAMINATION TYPE: US kidneys/renal and bladder DATE OF EXAM: 11/14/2023 COMPARISON: CTA abdomen pelvis 04/23/2019, MR abdomen 01/18/2019, renal ultrasound 12/16/18 CLINICAL INDICATION: Male, 73 years old with history of R31.9 HEMATURIA,R10.9 RIGHT FLANK PAIN; rt fl ank pain, hematuria EXAM MEASUREMENTS: Right Kidney: 12.1x6.2x5.0 cm Left Kidney: 12.3 x 5.9 x 4.7 cm Right Kidney: duplex kidney, small amount of hydro at the lower moiety, 3.1x3.3x3.0cm inf pole cyst Left Kidney: No hydronephrosis or masses seen Bladder: wnl Bilateral Jets seen: Yes Duplex right kidney. Inferior right pole simple 3.3 cm cyst. No left hydronephrosis. Cortical medulla ry differentiation is maintained bilaterally. Mild hydronephrosis in the lower pole moiety. No nephro lithiasis is seen. The urinary bladder is anechoic. Bilateral ureteral jets are seen. 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 Consider further evaluation wi th CT abdomen and pelvis with and without IV contrast to assess for ureteral obstruction.
== END | disposition home or self-care (01) ==
LOC: RADUSWWP 12:31
PROVIDERS: ATTEND Internal Medicine
DX: Q63.0 Accessory kidney (principal); N13.30 Unspecified hydronephrosis; R31.9 Hematuria, unspecified
CPT/HCPCS: 76770

== ENCOUNTER 2023-12-24 19:10 | Emergency (ER) | payer MEDICARE, BC ==
[2023-12-24 19:58] VITALS: TEMP 97.8
--- NOTE | 2023-12-24 19:59 | ED ---
General Adult HPI - General Source: patient, family Mode of arrival: ambulatory Limitations: no limitations <Donnie Salinas - Last Filed: 12/24/23 19:58> - History of Present Illness Onset/Timin -: hour(s) Severity scale (1-10): 0 Consistency: now resolved Improves with: none Worsens with: none Associated Symptoms: nausea/vomiting Treatments Prior to Arrival: none <Kermit Willams - Last Filed: 01/06/24 08:12> - General Stated complaint: syncope Time Seen by Provider: 12/24/23 19:58 - History of Present Illness Initial comments: 73-year-old male presenting with chief complaint of dizziness. Patient was barbecuing outside, he had half a beer and was using a vape pen for the first time this evening. When he went to get up to go inside he felt lightheaded and had to stop longterm there. His brought him a cold washcloth and he vomited. He states that he has been gradually feeling better. (Donnie Salinas) Agree with above (Kermit Willams) - Related Data Home Medications Medication Instructions Recorded Confirmed Cetirizine HCl [Zyrtec] 10 mg PO DAILY 01/09/15 05/19/23 Atorvastatin [Lipitor] 10 mg PO HS 05/11/19 05/19/23 atenoloL [Tenormin] 50 mg PO W/LUNCH 05/11/19 05/19/23 hydroCHLOROthiazide 12.5 mg PO DAILY 05/11/19 05/19/23 Losartan [Cozaar] 50 mg PO BID 03/13/23 05/19/23 Ondansetron [Zofran] 4 mg PO Q6H PRN 05/18/23 05/19/23 Acetaminophen Tab [Tylenol Tab] 500 - 1,000 mg PO Q6H PRN 05/19/23 05/19/23 Allergies Allergy/AdvReac Type Severity Reaction Status Date / Time hydrocodone [From [place]] Allergy Itching Verified 12/24/23 19:50 Review of Systems ROS Other: All systems not noted in ROS Statement are negative. <Donnie Salinas - Last Filed: 12/24/23 19:58> ROS Other: All systems not noted in ROS Statement are negative. Constitutional: Denies: fever, chills Respiratory: Denies: cough, dyspnea Cardiovascular: Denies: chest pain, palpitations, edema, syncope Gastrointestinal: Reports: nausea, vomiting. Denies: abdominal pain, diarrhea Genitourinary: Denies: dysuria, hematuria Musculoskeletal: Denies: back pain Skin: Denies: rash Neurological: Reports: vertigo. Denies: headache, weakness, confusion <Kermit Willams - Last Filed: 01/06/24 08:12> ROS Statement: Those systems with pertinent positive or pertinent negative responses have been documented in the HPI. 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 History of Any Multi-Drug Resistant Organisms: None Reported Past Surgical History: Joint Replacement, Orthopedic Surgery Additional Past Surgical History / Comment(s): bilateral hip replacement, left hip revision, amputation of tip of left thumb, AAA-repair, tendons cut rt hand with repair Past Anesthesia/Blood Transfusion Reactions: No Reported Reaction Past Psychological History: No Psychological Hx Reported Smoking Status: Former smoker Past Alcohol Use History: Occasional Past Drug Use History: Marijuana - Past Family History Brother(s) Family Medical History: Cancer Additional Family Medical History / Comment(s): Melanoma. Father Family Medical History: Cancer, Myocardial Infarction (CO) <Donnie Salinas - Last Filed: 12/24/23 19:58> General Exam <Donnie Salinas - Last Filed: 12/24/23 19:58> Limitations: no limitations General appearance: alert, in no apparent distress Head exam: Present: atraumatic, normocephalic Eye exam: Present: normal appearance. Absent: scleral icterus, conjunctival injection ENT exam: Present: normal oropharynx Neck exam: Present: normal inspection Respiratory exam: Present: normal lung sounds bilaterally. Absent: respiratory distress, wheezes, rales, rhonchi, stridor, accessory muscle use Cardiovascular Exam: Present: regular rate, normal rhythm, normal heart sounds. Absent: systolic murmur, diastolic murmur, rubs, gallop GI/Abdominal exam: Present: soft. Absent: distended, tenderness, guarding, rebound, rigid, mass Extremities exam: Present: normal inspection, normal capillary refill. Absent: pedal edema, calf tenderness Back exam: Present: normal inspection. Absent: CVA tenderness (R), CVA tenderness (L) Neurological exam: Present: alert, oriented X3. Absent: motor sensory deficit Skin exam: Present: warm, dry, intact, normal color. Absent: rash <ImerKermit - Last Filed: 01/06/24 08:12> - General Exam Comments Initial Comments: Visual Physical Exam Vital signs reviewed General: Well-appearing, nontoxic, no acute distress. Head: Normocephalic, atraumatic Eyes: PERRLA, EOMI ENT: Airway patent Chest: Nonlabored breathing Skin: No visual rash, normal skin tone Neuro: Alert and oriented 3 Musculoskeletal: No gross abnormalities (Donnie Salinas) Course Vital Signs 12/24/23 12/24/23 12/24/23 19:50 21:04 22:00 Temperature 97.8 F Pulse Rate 55 L 60 61 Respiratory 17 16 16 Rate Blood Pressure 126/76 117/78 122/66 O2 Sat by Pulse 97 95 98 Oximetry EKG Findings - EKG Results: EKG: interpreted by ERMD, sinus rhythm, normal axis EKG shows: bradycardia (Rate 59 bpm) - Blocks, Lawn, Hypertrophy, ST Abn: AV and intraventricular conduction: intraventricular conduction delay Repolarization changes or abnormalities: nonspecific abnormality, ST segment, and/or T wave <ImerKermit - Last Filed: 01/06/24 08:12> Medical Decision Making <Donnie Salinas - Last Filed: 12/24/23 19:58> - Lab Data Result diagrams: 12/24/23 21:09 12/24/23 21:09 <ImerKermit - Last Filed: 01/06/24 08:12> - Medical Decision Making I performed the quick note portion of this visit, electronically signed Donnie Salinas PA-C (Donnie Salinas) The patient had chest x-ray that I interpreted as negative for acute infiltrate, pneumothorax, congestive heart failure Was pt. sent in by a medical professional or institution ([facility], SCREENING NURSE, urgent care, hospital, or skilled nursing...) When possible be specific @ -[No] Did you speak to anyone other than the patient for history (EMS, parent, family, police, friend...)? What history was obtained from this source @ -[No] Did you review nursing and triage notes (agree or disagree)? Why? @ -[I reviewed and agree with nursing and triage notes] Were old charts reviewed (outside hosp., previous admission, EMS record, old EKG, old radiological studies, urgent care reports/EKG's, skilled nursing records)? Report findings @ -[No old charts were reviewed] Differential Diagnosis (chest pain, altered mental status, abdominal pain women, abdominal pain men, vaginal bleeding, weakness, fever, dyspnea, syncope, headache, dizziness, GI bleed, back pain, seizure, CVA, palpatations, mental health, musculoskeletal)? @ -[Differential Syncope: Valvular disease, hypertrophic cardiomyopathy, pulmonary embolism, tamponade, tachycardia, bradycardia, CO, hypovolemia, hemorrhage, dissection, anemia, intracranial hemorrhage, seizure, hypoglycemia, carbon monoxide poisoning, this is not meant to be an all-inclusive list. EKG interpreted by me (3pts min.). @ -[I interpreted as above] X-rays interpreted by me (1pt min.). @ -[I interpreted as above CT interpreted by me (1pt min.). @ -[None done] U/S interpreted by me (1pt. min.). @ -[None done] What testing was considered but not performed or refused? (CT, X-rays, U/S, labs)? Why? @ -[None] What meds were considered but not given or refused? Why? @ -[None] Did you discuss the management of the patient with other professionals (professionals i.e. , PA, SCREENING NURSE, lab, RT, psych nurse, community mental health social worker, tree driller, teacher, chief talent officer, spring encaser)? Give summary @ -[No] Was smoking cessation discussed for >3mins.? @ -[No] Was critical care preformed (if so, how long)? @ -[No] Were there social determinants of health that impacted care today? How? (Homelessness, low income, unemployed, alcoholism, drug addiction, transportation, low edu. Level, literacy, decrease access to med. care, correction, rehab)? @ -[No] Was there de-escalation of care discussed even if they declined (Discuss DNR or withdrawal of care, Hospice)? DNR status @ -[No] What co-morbidities impacted this encounter? (DM, HTN, Smoking, COPD, CAD, Cancer, CVA, ARF, Chemo, Hep., AIDS, mental health diagnosis, sleep apnea, morbid obesity)? @ -[None] Was patient admitted / discharged? Hospital course, mention meds given and route, prescriptions, significant lab abnormalities, going to OR and other pertinent info. @ -[The patient is feeling better after evaluation and observation in the em ergency department. Discussed admission but at this point the patient would like to go home. Discussed appropriate further care and return parameters. Undiagnosed new problem with uncertain prognosis? @ -[No] Drug Therapy requiring intensive monitoring for toxicity (Heparin, Nitro, Insulin, Cardizem)? @ -[No] Were any procedures done? @ -[No] Diagnosis/symptom? @ -[Acute cannabis intoxication Acute syncopal/near syncopal episode Acute, or Chronic, or Acute on Chronic? @ -[Acute Uncomplicated (without systemic symptoms) or Complicated (systemic symptoms)? @ -[Uncomplicated Side effects of treatment? @ -[No] Exacerbation, Progression, or Severe Exacerbation? @ -[No] Poses a threat to life or bodily function? How? (Chest pain, [place], CO, pneumonia, PE, COPD, DKA, ARF, appy, cholecystitis, CVA, Diverticulitis, Homicidal, Suicidal, threat to staff... and all critical care pts) @ -[No] (Kermit Willams) - Lab Data Lab Results 12/24/23 12/24/23 12/24/23 Range/Units 21:09 21:09 21:09 WBC 7.5 (3.8-10.6) k/uL RBC 4.59 (4.30-5.90) m/uL Hgb 14.4 (13.0-17.5) gm/dL Hct 42.4 (39.0-53.0) % MCV 92.3 (80.0-100.0) fL MCH 31.4 (25.0-35.0) pg MCHC 34.0 (31.0-37.0) g/dL RDW 13.6 (11.5-15.5) % Plt Count 189 (150-450) k/uL MPV 7.7 Neutrophils % 86 % Lymphocytes % 8 % Monocytes % 4 % Eosinophils % 2 % Basophils % 0 % Neutrophils # 6.5 (1.3-7.7) k/uL Lymphocytes # 0.6 L (1.0-4.8) k/uL Monocytes # 0.3 (0-1.0) k/uL Eosinophils # 0.2 (0-0.7) k/uL Basophils # 0.0 (0-0.2) k/uL Sodium 140 (137-145) mmol/L Potassium 3.9 (3.5-5.1) mmol/L Chloride 106 (98-107) mmol/L Carbon Dioxide 27 (22-30) mmol/L Anion Gap 7 mmol/L BUN 24 H (9-20) mg/dL Creatinine 0.93 (0.66-1.25) mg/dL Est GFR (CKD-EPI)AfAm >90 (>60 ml/min/1.73 sqM) Est GFR (CKD-EPI)NonAf 82 (>60 ml/min/1.73 sqM) Glucose 132 H (74-99) mg/dL Plasma Lactic Acid Joe 1.9 (0.7-2.0) mmol/L Calcium 9.4 (8.4-10.2) mg/dL Total Bilirubin 0.8 (0.2-1.3) mg/dL AST 23 (17-59) U/L ALT 22 (4-49) U/L Alkaline Phosphatase 49 (38-126) U/L Troponin I (0.000-0.034) ng/mL Total Protein 6.8 (6.3-8.2) g/dL Albumin 4.0 (3.5-5.0) g/dL 12/24/23 Range/Units 21:09 WBC (3.8-10.6) k/uL RBC (4.30-5.90) m/uL Hgb (13.0-17.5) gm/dL Hct (39.0-53.0) % MCV (80.0-100.0) fL MCH (25.0-35.0) pg MCHC (31.0-37.0) g/dL RDW (11.5-15.5) % Plt Count (150-450) k/uL MPV Neutrophils % % Lymphocytes % % Monocytes % % Eosinophils % % Basophils % % Neutrophils # (1.3-7.7) k/uL Lymphocytes # (1.0-4.8) k/uL Monocytes # (0-1.0) k/uL Eosinophils # (0-0.7) k/uL Basophils # (0-0.2) k/uL Sodium (137-145) mmol/L Potassium (3.5-5.1) mmol/L Chloride (98-107) mmol/L Carbon Dioxide (22-30) mmol/L Anion Gap mmol/L BUN (9-20) mg/dL Creatinine (0.66-1.25) mg/dL Est GFR (CKD-EPI)AfAm (>60 ml/min/1.73 sqM) Est GFR (CKD-EPI)NonAf (>60 ml/min/1.73 sqM) Glucose (74-99) mg/dL Plasma Lactic Acid Joe (0.7-2.0) mmol/L Calcium (8.4-10.2) mg/dL Total Bilirubin (0.2-1.3) mg/dL AST (17-59) U/L ALT (4-49) U/L Alkaline Phosphatase (38-126) U/L Troponin I <0.012 (0.000-0.034) ng/mL Total Protein (6.3-8.2) g/dL Albumin (3.5-5.0) g/dL Disposition <Donnie Salinas - Last Filed: 12/24/23 19:58> Is patient prescribed a controlled substance at d/c from ED?: No <Kermit Willams - Last Filed: 01/06/24 08:12> Clinical Impression: Cannabis intoxication Disposition: HOME SELF-CARE Condition: Good Instructions (If sedation given, give patient instructions): Dizziness (ED) Referrals: Bryant Méndez MD [Primary Care Provider] - 1-2 days
--- NOTE | 2023-12-24 21:19 | XR ---
EXAMINATION TYPE: XR chest 2V DATE OF EXAM: 12/24/2023 8:36 PM CLINICAL INDICATION: Male, 73 years old with history of dizziness; COMPARISON: Chest radiographs from TECHNIQUE: XR chest 2V Frontal view of the chest. FINDINGS: Lungs/Pleura: There is no evidence of pleural effusion, focal consolidation, or pneumothorax. Pulmonary vascularity: Unremarkable. Heart/mediastinum: Cardiomediastinal silhouette is unremarkable. Musculoskeletal: No acute osseous pathology. IMPRESSION: No acute cardiopulmonary disease/process.
[2023-12-24 21:20] LABS: Basophils % (A) 0 %; Eosinophils # (A) 0.2 k/uL (0-0.7); Eosinophils % (A) 2 %; HCT 42.4 % (39.0-53.0); HGB 14.4 gm/dL (13.0-17.5); Lymphocytes # (A) 0.6 k/uL (1.0-4.8); Lymphocytes % (A) 8 %; MCH 31.4 pg (25.0-35.0); MCV 92.3 fL (80.0-100.0); Mean Platelet Volume 7.7; Monocytes # (A) 0.3 k/uL (0-1.0); Monocytes % (A) 4 %; Neutrophils # (A) 6.5 k/uL (1.3-7.7); Neutrophils % (A) 86 %; Platelet Count 189 k/uL (150-450); RBC 4.59 m/uL (4.30-5.90); RDW 13.6 % (11.5-15.5); WBC 7.5 k/uL (3.8-10.6)
[2023-12-24 21:30] LABS: ALT 22 U/L (4-49); AST 23 U/L (17-59); African American GFR (CKD) >90 (>60 ml/min/1.73 sqM); Alkaline Phosphatase 49 U/L (38-126); Anion Gap 7 mmol/L; Blood Urea Nitrogen 24 mg/dL (9-20); Calcium 9.4 mg/dL (8.4-10.2); Carbon Dioxide 27 mmol/L (22-30); Chloride 106 mmol/L (98-107); Glucose 132 mg/dL (74-99); Non-African American GFR(CKD) 82 (>60 ml/min/1.73 sqM); Potassium 3.9 mmol/L (3.5-5.1); Sodium 140 mmol/L (137-145); Total Bilirubin 0.8 mg/dL (0.2-1.3); Total Protein 6.8 g/dL (6.3-8.2)
[2023-12-24 22:17] VITALS: RESP 16
[2023-12-24 22:18] VITALS: BP 122/66; PULSE 61
== END 2023-12-24 22:29 | disposition home or self-care (01) ==
LOC: EC 19:10
CPT/HCPCS: 36415; 71046; 80053; 83605; 84484; 85025; 93005; 99284